=== PATIENT | female | born 1990 | race Caucasian/White ===

== ENCOUNTER 2020-09-17 16:15 | Outpatient (CLI) | payer OTHER, SELFPAY ==
--- NOTE | ~2020-09-17 | US_ITS ---
EXAMINATION: US OB <= 14 weeks fetus DATE: 09/17/2020 17:07 INDICATION: Uncertain dates. TECHNIQUE: Real-time transabdominal pelvic ultrasound was performed. COMPARISON: None. FINDINGS: The uterus measures 15.1 x 7.9 x 9.9 cm. There is an intrauterine gestational sac with two fetuses m easuring 4.1 cm and 4.3 cm, respectively. There is no membrane between the fetuses. The placenta is f undal. The larger fetus demonstrates an estimated gestational age of 11 weeks and 1 days +/- 1 week. The smaller fetus demonstrates an estimated gestational age of 11 weeks and 0 days. heart motio n is identified measuring 169 beats per minute (bpm) and 165 bpm, respectively, by M-mode Doppler. Th e right ovary measures 2.4 x 1.0 x 2.0 cm. The left ovary measures 2.5 x 2.2 x 2.6 cm. There is no fr ee fluid in the pelvis. IMPRESSION: 1. Monochorionic, monoamniotic twin fetuses with estimated date of delivery of 04/07/2021. Reviewed, dictated and finalized at location A. LATING SUPERVISOR
== END 2020-09-17 16:16 | disposition home or self-care (01) ==
LOC: ANHIMG 16:18
PROVIDERS: Visit Provider Obstetrics & Gynecology
DX: Z36.87 Encounter for antenatal screening for uncertain dates (principal); Z3A.00 Weeks of gestation of pregnancy not specified
CPT/HCPCS: 76801

== ENCOUNTER 2020-09-22 17:31 | Emergency (ER) | payer OTHER, SELFPAY ==
--- NOTE | ~2020-09-22 | XR_ITS ---
EXAMINATION: XR chest 2V DATE: 09/22/2020 22:44 INDICATION: Shortness of breath TECHNIQUE: AP and lateral views of the chest are obtained. COMPARISON: None available FINDINGS: The lungs are free of acute opacities. There is no pleural effusion or pneumothorax. The ca rdiomediastinal silhouette is normal. The visualized bones and soft tissues are unremarkable. IMPRESSION: 1. No acute cardiopulmonary abnormality. Reviewed, dictated and finalized at location A. DENTIAL MENTAL HEALTH WORKER
[2020-09-22 19:03] VITALS: BP 160/88; PULSE 93; RESP 16; TEMP 36.7; O2SAT 98
--- NOTE | 2020-09-22 19:06 | ECG_ITS ---
Measurements Intervals [place] Rate: 82 P: 133 MD: 129 QRS: 176 QRSD: 104 T: 177 QT: 338 QTc: 397 Interpretive Statements SINUS RHYTHM ARM LEADS REVERSED ATYPICAL ECG Electronically Signed On 09-22-2020 19:58:06 SENIOR CARE ASSISTANT by Kyle Longoria D.O.
[2020-09-22 19:19] LABS: Basophils Percent Auto 0.3 % (0.2-1.2); Eosinophils Absolute Auto 0.1 K/mm3 (0-0.3); Eosinophils Percent Auto 0.6 % (0-4.4); Hemoglobin 13.6 g/dL (12.0-15.0); Immature Granulocyte Absolute 0.04 K/mm3 (0.00-0.031); Immature Granulocyte Percent A 0.4 % (0-0.5); Lymphocytes Absolute Auto 1.46 K/mm3 (0.9-3.2); Lymphocytes Percent Auto 13.2 % (18.3-44.2); Mean Corpuscular HGB Conc 34.9 g/dl (32-36); Mean Corpuscular Volume 86.1 fl (80-100); Mean Platelet Volume 10.6 fl (7.4-10.4); Monocytes Absolute Auto 0.8 K/mm3 (0.1-0.6); Neutrophils Absolute Auto 8.7 K/mm3 (1.3-6.7); Neutrophils Percent Auto 78.5 % (45.5-73.1); Platelet Count Result 255 k/mm3 (150-375); Red Blood Count 4.53 M/mm3 (4.2-5.4); Red Cell Distribution Width 12.4 % (11.5-14.5); White Blood Count 11.1 K/mm3 (4.5-10.0)
[2020-09-22 19:33] LABS: Anion Gap 7 mmol/L (8-16); Blood Urea Nitrogen 14 mg/dL (7-17); Calcium 9.5 mg/dL (8.4-10.2); Carbon Dioxide 25 mmol/L (22-30); Chloride 104 mmol/L (98-107); Estimated Glomerular Filt Rate > 60; Glucose 111 mg/dL (65-105); Potassium 3.9 mmol/L (3.4-5.0); Sodium 136 mmol/L (137-145)
[2020-09-22 19:53] LABS: Add Urine Microscopic? YES; Appearance Urine Clear (Clear); Bacteria Urine Trace /hpf; Bilirubin Urine Negative (Negative); Blood Urine Negative (Negative); Color Urine Yellow (Yellow); Glucose Urine UA 1+ mg/dL (Negative); Ketones Urine Negative (Negative); Leukocyte Esterase Ur 1+ LEU/UL (Negative); Mucus Urine Rare /lpf; Nitrate Urine Negative (Negative); Protein Urine Negative (Negative); RBC Urine 0-2 /hpf (0-2); Specific Grav Ur 1.026 (1.001-1.035); Squamous Epithelial Cell Urine Occasional /hpf (Few); Urobilinogen Urine Negative mg/dL (<2.0)
--- NOTE | 2020-09-22 21:54 | ED.SOB ---
HPI - SOB/Dyspnea General Chief Complaint: Shortness of Breath/Dyspnea Stated Complaint: 11 weeks preg-multiple issues Time Seen by Provider: 09/22/20 21:51 Source: patient Mode of arrival: ambulatory Limitations: no limitations History of Present Illness HPI Narrative: Patient is a 30-year-old female, at 11 weeks age of gestation, complaining of shortness of breath and elevated heart rate today. Patient denies any chest pain, abdominal pain, nausea, vomiting, vaginal bleeding or discharge. Patient states that she has a history of gestational diabetes. Related Data Allergies Allergy/AdvReac Type Severity Reaction Status Date / Time No Known Allergies Allergy Unknown Verified 04/09/18 14:36 Review of Systems Review of Systems: All systems reviewed & are unremarkable except as noted in HPI and below Constitutional: Constitutional: Denies body ache(s), Denies chills, Denies excessive sweating, Denies fatigue, Denies fever(s), Denies headache(s), Denies lethargy, Denies malaise, Denies weakness and Denies weight loss Eyes: Eyes: Denies blurry vision, Denies change in vision and Denies loss of vision ENT: Denies dizziness, Denies ear discharge, Denies headache(s), Denies lip swelling, Denies epistaxis, Denies nasal congestion, Denies neck pain, Denies throat swelling and Denies tongue swelling Cardiovascular: Cardiovascular: Denies chest pain, Denies chest pain at rest, Denies chest pain with activity, Denies diaphoresis, Denies edema, Denies irregular heart rhythm, Denies lightheadedness, Denies dyspnea and Denies dyspnea on exertion Respiratory: Respiratory: Denies chest congestion, Denies cough and Denies hemoptysis Gastrointestinal: Gastrointestinal: Denies abdominal pain, Denies melena, Denies hematochezia, Denies diarrhea, Denies nausea, Denies vomiting and Denies hematemesis Musculoskeletal: Musculoskeletal: Denies abnormal gait, Denies deformity, Denies joint swelling, Denies limited range of motion, Denies neck pain and Denies numbness Neurologic: Denies Abnormal speech present, Denies abnormal gait, Denies confusion, Denies headache(s), Denies focal weakness, Denies loss of vision, Denies numbness, Denies Other visual disturbances, Denies Sensory deficit (Neuro) and Denies weakness Psychiatric: Psychiatric: Denies confusion, Denies depression, Denies auditory hallucinations, Denies homicidal ideation and Denies suicidal ideation Endocrine: Endocrine: Denies cold intolerance, Denies excessive sweating, Denies fatigue, Denies heat intolerance and Denies palpitations Hematologic/Lymphatic: Hematologic/Lymphatic: Denies easy bleeding and Denies easy bruising Allergic/Immunologic: Allergic/Immunologic: Denies lip swelling, Denies throat swelling and Denies tongue swelling PMFSH Social History Social History Gender identity (if verbalized by the patient): Female Sexual Orientation (if Verbalized by the Patient): Straight or Heterosexual Exam Const: General: cooperative, healthy appearing, comfortable, no acute distress, well developed, alert and awake; No confusion Orientation/consciousness: oriented to person, oriented to place, oriented to time, patient oriented x3 and No confusion Limitations: no limitations HENMT: Head: normal to inspection, normocephalic and atraumatic Ears: hearing grossly normal bilaterally, TM normal on the right and TM normal on the left General nose exam: Normal external nose present, Normal nares present and No nasal discharge present Face and sinus: normal facial exam Mouth: Yes Normal oral and palatal mucosa present, Yes lip normal, Yes tongue normal and Yes oropharynx normal Throat: posterior oropharynx normal, tonsils normal and uvula midline Eyes: General: appearance normal, both eyes and all related structures Pupils: Equal, round and reactive pupils present EOM: EOMs intact bilaterally Neck: Neck: normal visual inspection, full RO
[2020-09-22 22:03] VITALS: BP 129/70; PULSE 99; RESP 19; TEMP 36.6; O2SAT 99
[2020-09-22] MEDS: SODIUM CHLORIDE 0.9% IV 1,000 ML 999 ML IV CONT (22:18)
[2020-09-22 22:37] LABS: INR 0.9; Partial Thromboplastin Time 26.9 SECONDS (22.3-36.8); Prothrombin Time 12.7 Seconds (11.1-14.7)
[2020-09-22 22:40] LABS: D Dimer 0.43 ug/mL (<0.48)
[2020-09-22 23:50] VITALS: BP 140/71; PULSE 92; RESP 16; TEMP 36.6; O2SAT 100
--- NOTE | 2020-09-22 23:55 | ECG_ITS ---
Measurements Intervals [place] Rate: 82 P: 54 DE: 130 QRS: 19 QRSD: 90 T: 6 QT: 386 QTc: 451 Interpretive Statements SINUS RHYTHM BASELINE ARTIFACT- I, II, III, AVR, AVL, AVF, V1 NORMAL ECG Electronically Signed On 09-23-2020 7:15:13 PEDIATRICIAN MANAGING PARTNER by Kyle Longoria D.O.
== END 2020-09-23 00:05 | disposition home or self-care (01) ==
PROVIDERS: Emergency Medicine; Emergency Provider Emergency Medicine
DX: O26.891 Other specified pregnancy related conditions, first trimester (principal); R06.00 Dyspnea, unspecified; R00.2 Palpitations; O23.91 Unspecified genitourinary tract infection in pregnancy, first trimester; Z3A.11 11 weeks gestation of pregnancy
CPT/HCPCS: 36415; 71046; 80048; 81001; 84702; 85025; 85380; 85610; 85730; 93005; 96360; 99284; J7030

== ENCOUNTER 2020-10-10 14:51 | Emergency (ER) | payer OTHER, SELFPAY ==
--- NOTE | ~2020-10-10 | US_ITS ---
US OB <= 14 weeks fetus DATE: 10/10/2020 16:04 INDICATION: Heavy vaginal bleeding and cramping. When gestation. TECHNIQUE: Real-time imaging and Doppler analysis COMPARISON: 09/17/2019 obstetrical ultrasound FINDINGS: Monochorionic mild amniotic twin gestation is again noted with subjectively normal amount o f amniotic fluid. heart rate 157 and 159 bpm for twin A and twin B, respectively. Breech presentation for twin A, transverse lie 4 twin B. Anterior placenta, lower margin 4.6 cm above the internal os Subjectively normal amount of amniotic fluid. There is a 4 x 1.4 x 2 cm subchorionic fluid collection. Twin A: Biparietal diameter 2.6 cm; 15 weeks 1 day Head circumference 10.58 cm; 15 weeks 0 days Abdominal circumference 8.56 cm; 14 weeks 6 days Femur length 1.34 cm; 14 weeks 0 days Composite age by Hadlock formula for twin A is 14 weeks 6 days +/- 1 week with GRACIA of 04/04/2021 melissa red to 04/12/2021 by LMP. Estimated weight is 98.6 +/- 14.8 g Head circumference/abdominal circumference 1.24, within normal range of 1.06-1.38 Twin B: Biparietal diameter 2.71 cm; 14 weeks 6 days Head circumference 10.01 cm; 14 weeks 5 days Abdominal circumference 8.37 cm; 14 weeks 5 days Femur length 1.50 cm; 14 weeks 3 days Composite age by Hadlock formula is 14 weeks 6 days +/- 1 week, with GRACIA of 04/04/2021 compared to 03/24 by LMP. Estimated weight is 101.3 +/- 15 0.2 g Head circumference/abdominal ct scan technician was 1.20, within normal range of 1.06-1.38 IMPRESSION: Monochorionic monoamniotic twin gestation Estimated gestational age: 14 weeks 6 days +/- 1 week; GRACIA: 04/04/2021 4 x 1.4 x 2 cm subchorionic hematoma Reviewed, dictated and finalized at Location A. Reviewed, dictated and finalized at location A.
--- NOTE | ~2020-10-10 | US_ITS ---
US OB <= 14 wk fetus add gest DATE: 10/10/2020 16:04 INDICATION: Heavy vaginal bleeding, cramping. IMPRESSION: Please refer to 10/10/2020 obstetrical ultrasound report Reviewed, dictated and finalized at Location A. Reviewed, dictated and finalized at location A.
[2020-10-10 15:00] VITALS: BP 182/112; PULSE 136; RESP 18; TEMP 36.3; O2SAT 100
--- NOTE | 2020-10-10 15:05 | ED.FEMALEGU ---
HPI - Female Genitourinary General Chief complaint: Vaginal Bleeding Stated complaint: vaginal bleeding, Time Seen by Provider: 10/10/20 15:05 Source: patient, family and RN notes reviewed Mode of arrival: ambulatory Limitations: no limitations History of Present Illness HPI Narrative: 30 years old white female presents to the ED with vaginal bleeding started 30 minutes prior to examination. Associated with tightness and slight cramps in the suprapubic area. Patient is 14 weeks with twin. Patient is 4 para 2 1. Patient reported constipation lately and too much straining prior to the beginning of the vaginal bleeding Related Data Home Medications Medication Instructions Recorded Confirmed [id number] 3-fat com #1 cap PO 10/10/20 [Pre-Mary Alice Multivitamins/Minerals] ergocalciferol (vitamin D2) 10/10/20 Allergies Allergy/AdvReac Type Severity Reaction Status Date / Time No Known Allergies Allergy Unknown Verified 10/10/20 14:58 Review of Systems Review of Systems: Narrative: CONSTITUTIONAL: Denies fever, chills, or sweats. EYES: Denies visual changes, redness, or discharge. ENT: Denies rhinorrhea, congestion, sore throat, or otalgia. CARDIOVASCULAR: Denies chest pain, palpitations, or edema. RESPIRATORY: Denies cough or dyspnea. GASTROINTESTINAL: Denies abdominal pain, nausea, vomiting, or diarrhea. GENITOURINARY: Denies dysuria or hematuria. SKIN: Denies rash or itching. MUSCULOSKELETAL: Denies back pain, joint pain, or myalgia. NEUROLOGIC: Denies headache, numbness, or weakness. PSYCHIATRIC: Denies anxiety or depression. PMFSH Social History Social History Gender identity (if verbalized by the patient): Female Exam Narrative: Exam Narrative: General appearance: Well-developed, well-nourished, anxious Skin: Normal color Head: Normocephalic, nontraumatic Eyes: Clear conjunctiva ENT: Oropharynx normal, ears normal, nose normal Neck: Supple, nontender Chest and respiratory: Airway patent, no respiratory distress, no accessory muscle use Heart: Regular rate/rhythm Abdomen: Soft, nontender, no organomegaly, quiet bowel sounds Vascular: Normal peripheral pulses, normal capillary refill. Musculoskeletal: Normal range of motion, nontender back Neurologic: Alert and oriented ?3, SOCIAL MEDIA PROJECT MANAGER is normal as tested, no gross motor deficit : External Female Exam: normal external appearance Speculum Exam - Vagina: normal appearance of the vagina and vaginal bleeding (Fresh red bright blood required 5 long Q-tip to dry the whole vaginal pouch) Speculum Exam - Cervix: normal appearance of the cervix Bimanual exam- vagina & uterus: normal bimanual exam Course Course Emergency Course: Stable Vital Signs Vital signs: Vital Signs Temperature 36.3 C L 10/10/20 15:00 Pulse Rate 136 H 10/10/20 15:00 Respiratory Rate 18 10/10/20 15:00 Blood Pressure 182/112 H 10/10/20 15:00 Pulse Oximetry 100 10/10/20 15:00 Temperature 36.3 C L 10/10/20 15:00 Pulse Rate 136 H 10/10/20 15:00 Respiratory Rate 18 10/10/20 15:00 Blood Pressure 182/112 H 10/10/20 15:00 Pulse Oximetry 100 10/10/20 15:00 MDM - Female Genitourinary MDM Narrative Medical decision making narrative: Vaginal bleeding, 14 weeks , threatened is my concern. Pelvic exam, pelvic ultrasound, labs ordered. Further plan to follow Differential Diagnosis Differential diagnosis: Likely other (Threatened , incomplete , miscarriage,) Critical Care Time Critical Care Time Critical Care Time: No Discharge Plan Discharge Clinical Impression:
[2020-10-10 16:14] VITALS: BP 138/77; PULSE 98; RESP 16; O2SAT 100
[2020-10-10 16:14] LABS: Basophils Percent Auto 0.2 % (0.2-1.2); Eosinophils Absolute Auto 0.1 K/mm3 (0-0.3); Eosinophils Percent Auto 0.6 % (0-4.4); Hematocrit 36.3 % (37.0-47.0); Hemoglobin 12.3 g/dL (12.0-15.0); Immature Granulocyte Absolute 0.09 K/mm3 (0.00-0.031); Immature Granulocyte Percent A 0.8 % (0-0.5); Lymphocytes Absolute Auto 1.41 K/mm3 (0.9-3.2); Lymphocytes Percent Auto 12.3 % (18.3-44.2); Mean Corpuscular HGB Conc 33.9 g/dl (32-36); Mean Corpuscular Hemoglobin 29.5 pg (26-34); Mean Corpuscular Volume 87.1 fl (80-100); Mean Platelet Volume 10.3 fl (7.4-10.4); Monocytes Absolute Auto 0.8 K/mm3 (0.1-0.6); Neutrophils Absolute Auto 9.1 K/mm3 (1.3-6.7); Neutrophils Percent Auto 79.1 % (45.5-73.1); Platelet Count Result 229 k/mm3 (150-375); Red Blood Count 4.17 M/mm3 (4.2-5.4); Red Cell Distribution Width 12.5 % (11.5-14.5); White Blood Count 11.5 K/mm3 (4.5-10.0)
[2020-10-10] MEDS: RHO(D) IMMUNE GLOBULIN 300 MCG/2 ML SYRINGE IM (17:34)
[2020-10-10 17:37] VITALS: BP 129/70; PULSE 97; RESP 18; O2SAT 100
== END 2020-10-10 17:40 | disposition home or self-care (01) ==
PROVIDERS: Emergency Provider Emergency Medicine
DX: O20.0 Threatened abortion (principal); Z3A.14 14 weeks gestation of pregnancy; O99.612 Diseases of the digestive system complicating pregnancy, second trimester; K59.00 Constipation, unspecified
CPT/HCPCS: 36415; 76801; 76802; 84702; 85025; 85461; 90384; 96372; 99284; J2790

== ENCOUNTER 2020-10-15 19:14 | Emergency (ER) | payer OTHER, SELFPAY ==
[2020-10-15 19:18] VITALS: BP 132/68; PULSE 112; RESP 18; TEMP 36.8; O2SAT 97
--- NOTE | 2020-10-15 19:51 | ED.DIZZY ---
HPI - Dizziness General Chief Complaint: Dizziness Stated Complaint: vertigo/ ear issues/ yellow stools Time Seen by Provider: 10/15/20 19:50 Source: patient and RN notes reviewed Mode of arrival: ambulatory Limitations: no limitations History of Present Illness HPI Narrative: Patient is 30 years old white female presents with intermittent dizziness, feeling off for the last 4 weeks. Patient is 15 weeks . Patient was started on Zoloft yesterday and did not get the prescription yet. Last time was seen by her DRY HOUSE WORKER yesterday. Patient's mother had history of bipolar. Patient used to be on Zoloft 6 years ago. Patient also reported that her left ear hurt for the last few weeks was left maxillary sinus pain and her stool is yellow. Patient denies any fever, chills, vomiting, diarrhea, constipation, urinary symptoms. Patient was seen 1 week ago by me for vaginal bleeding. Related Data Home Medications Medication Instructions Recorded Confirmed [id number] 3-fat com #1 cap PO 10/10/20 [Pre-Mary Alice Multivitamins/Minerals] ergocalciferol (vitamin D2) 10/10/20 Allergies Allergy/AdvReac Type Severity Reaction Status Date / Time No Known Allergies Allergy Unknown Verified 10/10/20 14:58 Review of Systems Review of Systems: Narrative: CONSTITUTIONAL: Denies fever, chills, or sweats. EYES: Denies visual changes, redness, or discharge. ENT: Denies rhinorrhea, congestion, sore throat, or otalgia. CARDIOVASCULAR: Denies chest pain, palpitations, or edema. RESPIRATORY: Denies cough or dyspnea. GASTROINTESTINAL: Denies abdominal pain, nausea, vomiting, or diarrhea. GENITOURINARY: Denies dysuria or hematuria. SKIN: Denies rash or itching. MUSCULOSKELETAL: Denies back pain, joint pain, or myalgia. NEUROLOGIC: Denies headache, numbness, or weakness. PSYCHIATRIC: Denies anxiety or depression. PMFSH Social History Social History Gender identity (if verbalized by the patient): Female Exam Narrative: Exam Narrative: General appearance: Well-developed, well-nourished Skin: Normal color Head: Normocephalic, nontraumatic Eyes: Clear conjunctiva ENT: Oropharynx normal, some wax at the left ear canal , moderate tenderness left maxillary ,nose normal Neck: Supple, nontender Chest and respiratory: Airway patent, no respiratory distress, no accessory muscle use Heart: Regular rate/rhythm Abdomen: Soft, nontender, no organomegaly, quiet bowel sounds Vascular: Normal peripheral pulses, normal capillary refill. Musculoskeletal: Normal range of motion, nontender back Neurologic: Alert and oriented ?3, CAUSTIC LIQUOR MAKER is normal as tested, no gross motor deficit Course Course Emergency Course: Stable Reevaluation(s) Reevaluation #1: Left ear irrigation showed no wax or productive Date: 10/15/20 Time: 21:44 Vital Signs Vital signs: Vital Signs Temperature 36.8 C 10/15/20 19:18 Pulse Rate 112 H 10/15/20 19:18 Respiratory Rate 18 10/15/20 19:18 Blood Pressure 132/68 10/15/20 19:18 Pulse Oximetry 97 10/15/20 19:18 Temperature 36.8 C 10/15/20 19:18 Pulse Rate 112 H 10/15/20 19:18 Respiratory Rate 18 10/15/20 19:18 Blood Pressure 132/68 10/15/20 19:18 Pulse Oximetry 97 10/15/20 19:18 MDM - Dizziness MDM Narrative Medical decision making narrative: Stress related symptoms, orthostatic hypotension, related symptoms, are my concern. Labs, UA, left ear irrigation ordered. Further plan to follow Differential Diagnosis Differential diagnosis: Likely orthostatic hypotension and other ( related symptoms, urinary tract infection) Critical Care Time Critical
--- NOTE | 2020-10-15 20:34 | PC.NURSE ---
ear flushed with copious amount of warm water
[2020-10-15 20:42] LABS: Basophils Percent Auto 0.2 % (0.2-1.2); Eosinophils Absolute Auto 0.1 K/mm3 (0-0.3); Eosinophils Percent Auto 0.7 % (0-4.4); Hematocrit 36.3 % (37.0-47.0); Hemoglobin 12.3 g/dL (12.0-15.0); Immature Granulocyte Absolute 0.07 K/mm3 (0.00-0.031); Immature Granulocyte Percent A 0.6 % (0-0.5); Lymphocytes Absolute Auto 1.57 K/mm3 (0.9-3.2); Lymphocytes Percent Auto 13.8 % (18.3-44.2); Mean Corpuscular HGB Conc 33.9 g/dl (32-36); Mean Corpuscular Hemoglobin 29.4 pg (26-34); Mean Corpuscular Volume 86.8 fl (80-100); Mean Platelet Volume 10.9 fl (7.4-10.4); Monocytes Absolute Auto 0.8 K/mm3 (0.1-0.6); Monocytes Percent Auto 6.7 % (2.6-8.5); Neutrophils Absolute Auto 8.9 K/mm3 (1.3-6.7); Platelet Count Result 254 k/mm3 (150-375); Red Blood Count 4.18 M/mm3 (4.2-5.4); Red Cell Distribution Width 12.3 % (11.5-14.5); White Blood Count 11.4 K/mm3 (4.5-10.0)
[2020-10-15 20:48] LABS: Alanine Aminotransferase 18 U/L (4-35); Albumin Level 3.7 g/dL (3.5-5.1); Alkaline Phosphatase 77 U/L (38-126); Anion Gap 7 mmol/L (8-16); Aspartate Amino Transferase 22 U/L (14-36); Bilirubin,Total < 0.1 mg/dL (0.2-1.3); Blood Urea Nitrogen 12 mg/dL (7-17); Carbon Dioxide 26 mmol/L (22-30); Chloride 104 mmol/L (98-107); Estimated CRCL calculation 164 ml/min; Estimated Glomerular Filt Rate > 60; Glucose 132 mg/dL (65-105); Potassium 3.9 mmol/L (3.4-5.0); Sodium 137 mmol/L (137-145)
[2020-10-15 21:06] LABS: Add Urine Microscopic? YES; Appearance Urine Clear (Clear); Bacteria Urine Trace /hpf; Bilirubin Urine Negative (Negative); Blood Urine 1+ (Negative); Color Urine Yellow (Yellow); Glucose Urine UA 3+ mg/dL (Negative); Ketones Urine Negative (Negative); Leukocyte Esterase Ur Negative LEU/UL (Negative); Mucus Urine Rare /lpf; Nitrate Urine Negative (Negative); Protein Urine Negative (Negative); RBC Urine 0-2 /hpf (0-2); Specific Grav Ur 1.015 (1.001-1.035); Squamous Epithelial Cell Urine Rare /hpf (Few); Urobilinogen Urine Negative mg/dL (<2.0); WBC Urine 0-3 /hpf
[2020-10-15 21:57] VITALS: BP 122/78; PULSE 78; RESP 18; O2SAT 99
== END 2020-10-15 21:58 | disposition home or self-care (01) ==
PROVIDERS: Emergency Provider Emergency Medicine
DX: O99.891 Other specified diseases and conditions complicating pregnancy (principal); H66.92 Otitis media, unspecified, left ear; O26.892 Other specified pregnancy related conditions, second trimester; R42 Dizziness and giddiness; Z3A.15 15 weeks gestation of pregnancy
CPT/HCPCS: 36415; 80053; 81001; 85025; 99283

== ENCOUNTER 2020-10-20 17:32 | Emergency (ER) | payer OTHER, SELFPAY ==
[2020-10-20 17:39] VITALS: BP 162/83; PULSE 123; RESP 16; TEMP 36.4; O2SAT 99
[2020-10-20 18:20] LABS: Basophils Percent Auto 0.2 % (0.2-1.2); Eosinophils Absolute Auto 0.2 K/mm3 (0-0.3); Eosinophils Percent Auto 1.4 % (0-4.4); Hemoglobin 12.4 g/dL (12.0-15.0); Immature Granulocyte Absolute 0.09 K/mm3 (0.00-0.031); Immature Granulocyte Percent A 0.7 % (0-0.5); Lymphocytes Absolute Auto 1.46 K/mm3 (0.9-3.2); Mean Corpuscular HGB Conc 34.4 g/dl (32-36); Mean Corpuscular Hemoglobin 29.4 pg (26-34); Mean Corpuscular Volume 85.3 fl (80-100); Mean Platelet Volume 10.3 fl (7.4-10.4); Monocytes Absolute Auto 0.7 K/mm3 (0.1-0.6); Monocytes Percent Auto 5.4 % (2.6-8.5); Neutrophils Absolute Auto 9.8 K/mm3 (1.3-6.7); Neutrophils Percent Auto 80.3 % (45.5-73.1); Platelet Count Result 257 k/mm3 (150-375); Red Blood Count 4.22 M/mm3 (4.2-5.4); Red Cell Distribution Width 12.4 % (11.5-14.5); White Blood Count 12.2 K/mm3 (4.5-10.0)
[2020-10-20 18:33] LABS: Alanine Aminotransferase 24 U/L (4-35); Albumin Level 4.1 g/dL (3.5-5.1); Alkaline Phosphatase 88 U/L (38-126); Anion Gap 6 mmol/L (8-16); Aspartate Amino Transferase 26 U/L (14-36); Bilirubin,Total 0.1 mg/dL (0.2-1.3); Blood Urea Nitrogen 10 mg/dL (7-17); Calcium 8.7 mg/dL (8.4-10.2); Carbon Dioxide 26 mmol/L (22-30); Chloride 104 mmol/L (98-107); Estimated CRCL calculation 209 ml/min; Estimated Glomerular Filt Rate > 60; Glucose 125 mg/dL (65-105); Potassium 3.4 mmol/L (3.4-5.0); Sodium 136 mmol/L (137-145)
[2020-10-20 18:42] LABS: Add Urine Microscopic? YES; Appearance Urine Cloudy (Clear); Bacteria Urine Trace /hpf; Bilirubin Urine Negative (Negative); Blood Urine 3+ (Negative); Color Urine Yellow (Yellow); Glucose Urine UA 2+ mg/dL (Negative); Ketones Urine Negative (Negative); Leukocyte Esterase Ur Negative LEU/UL (Negative); Mucus Urine Rare /lpf; Nitrate Urine Negative (Negative); Protein Urine 1+ mg/dL (Negative); RBC Urine 0-2 /hpf (0-2); Specific Grav Ur 1.025 (1.001-1.035); Squamous Epithelial Cell Urine Few /hpf (Few); Urobilinogen Urine Negative mg/dL (<2.0); WBC Urine 0-3 /hpf
[2020-10-20 19:00] VITALS: BP 136/72; PULSE 94; RESP 14; O2SAT 99
--- NOTE | 2020-10-20 20:21 | ED.GENADULT ---
HPI - General Adult General Chief complaint: Unspecified Stated complaint: needs fluids Time Seen by Provider: 10/20/20 18:26 History of Present Illness HPI narrative: Patient is a 30-year-old female who presents ER for IV fluid per recommendation of her rn corrections. Patient 15 weeks in gestation. Patient had been on some antibiotics for potential ear infection. She has developed diarrhea from this. She has 5 loose stools a day over the last couple of days. They vary in size. No fevers or chills or sweats. No abdominal pain. No vaginal bleeding or lower abdominal cramping. Related Data Home Medications Medication Instructions Recorded Confirmed [id number]-[id number]-omega 3-fat com #1 cap PO 10/10/20 [Pre-Mary Alice Multivitamins/Minerals] ergocalciferol (vitamin D2) 10/10/20 Allergies Allergy/AdvReac Type Severity Reaction Status Date / Time No Known Allergies Allergy Unknown Verified 10/10/20 14:58 Review of Systems Constitutional: Constitutional: Denies chills and Denies fever(s) ENT: Reports dizziness (Occasional throughout .), Denies nasal congestion, Denies tinnitus and Denies sore throat Gastrointestinal: Gastrointestinal: Denies abdominal pain, Reports diarrhea, Denies nausea and Denies vomiting Genitourinary: Genitourinary: Reports no additional female genitourinary complaints PMFSH Past Medical History Medical History (Updated 10/20/20 @ 20:24 by Victor M Worley MD) Anxiety Surgical History Surgical History (Updated 10/20/20 @ 20:23 by Victor M Worley MD) No pertinent past surgical history Social History Social History Gender identity (if verbalized by the patient): Female Exam Narrative: Exam Narrative: GENERAL: Well-appearing, well-nourished, and in no acute distress. HEAD: Normocephalic, atraumatic. ENT: Mucous membranes moist. Left-sided cerumen impaction. Normal right TM and ear canal. CHEST: Clear to auscultation. No respiratory distress. HEART: Regular rate and rhythm. Normal peripheral pulses. ABDOMEN: Soft, nontender, nondistended. EXTREMITIES: Normal range of motion. No edema. NEURO: Alert and oriented x3. PSYCH: Normal mood and affect. Course Course Emergency Course: Patient informed of results. She has been hydrated. Discussed that she may be having some intermittent lightheadedness related to the cerumen impaction left ear. Discharge home with some Debrox. Vital Signs Vital signs: Vital Signs Temperature 97.5 F L 10/20/20 17:39 Pulse Rate 123 H 10/20/20 17:39 Respiratory Rate 16 10/20/20 17:39 Blood Pressure 162/83 H 10/20/20 17:39 Pulse Oximetry 99 10/20/20 17:39 Temperature 97.5 F L 10/20/20 17:39 Pulse Rate 94 10/20/20 19:00 Respiratory Rate 14 10/20/20 19:00 Blood Pressure 136/72 10/20/20 19:00 Pulse Oximetry 99 10/20/20 19:00 Medical Decision Making Vital Signs Vital Signs: Vital Signs Temperature 97.5 F L 10/20/20 17:39 Pulse Rate 123 H 10/20/20 17:39 Respiratory Rate 16 10/20/20 17:39 Blood Pressure 162/83 H 10/20/20 17:39 Pulse Oximetry 99 10/20/20 17:39 Temperature 97.5 F L 10/20/20 17:39 Pulse Rate 94 10/20/20 19:00 Respiratory Rate 14 10/20/20 19:00 Blood Pressure 136/72 10/20/20 19:00 Pulse Oximetry 99 10/20/20 19:00 Lab Data Result diagrams: 10/20/20 17:50 10/20/20 17:50 Labs: Lab Results 10/20/20 10/20/20 10/20/20 Range/Units 17:50 17:50 17:56 WBC 12.2 H (4.5-10.0) K/mm3 RBC 4.22 (4.2-5.4) M/mm3 Hgb 12.4 (12.0-15.0) g/dL Hct 36.0 L (37.0-47.0) % MCV 85.3 (80-100) fl MCH 29.4 (26-34) pg MCHC 34.4 (32-36) g/dl RDW 12.4 (11.5-14.5) % Plt Count 257 (150-375) k/mm3 MPV 10.3 (7.4-10.4) fl Immature Gran % (Auto) 0.7 H (0-0.5) % Neut % (Auto) 80.3 H (45.5-73.1) % Lymph % (Auto) 12.0 L (18.3-44.2) % [place] % (Au
[2020-10-20 20:23] VITALS: PULSE 98; RESP 14; O2SAT 100
[2020-10-20] MEDS: SODIUM CHLORIDE 0.9% IV 1,000 ML 999 ML IV CONT (20:23)
[2020-10-20 20:24] VITALS: PULSE 98
[2020-10-20 21:47] VITALS: BP 144/77; PULSE 90; RESP 20; O2SAT 99
== END 2020-10-20 21:52 | disposition home or self-care (01) ==
PROVIDERS: Emergency Medicine; Emergency Provider Emergency Medicine; PCP Obstetrics & Gynecology
DX: O99.891 Other specified diseases and conditions complicating pregnancy (principal); H61.22 Impacted cerumen, left ear; R19.7 Diarrhea, unspecified; Z3A.15 15 weeks gestation of pregnancy
CPT/HCPCS: 36415; 80053; 81001; 85025; 96360; 99283; J7030

== ENCOUNTER 2020-10-25 12:11 | Emergency (ER) | payer OTHER, SELFPAY ==
[2020-10-25] VITALS (16 sets, daily range): BP systolic 129–167; BP diastolic 64–98; PULSE 95–112; RESP 6–31; TEMP 36.6; O2SAT 97–100
--- NOTE | ~2020-10-25 | XR_ITS ---
EXAMINATION: XR chest 1V portable INDICATION: Tachycardia TECHNIQUE: Portable AP chest at 1512 hours COMPARISON: 09/22/2020 FINDINGS: The lungs are free of acute opacities. There is no pleural effusion or pneumothorax. The ca rdiomediastinal silhouette is normal. IMPRESSION: 1. No acute cardiopulmonary abnormality. Reviewed, dictated and finalized at location A.
--- NOTE | 2020-10-25 12:36 | ECG_ITS ---
Measurements Intervals [place] Rate: 94 P: 50 IN: 126 QRS: 13 QRSD: 88 T: 3 QT: 328 QTc: 412 Interpretive Statements SINUS RHYTHM BORDERLINE ST-T WAVE ABNORMALITY- INFERIOR LEADS BASELINE WANDER- V3 BORDERLINE ECG Electronically Signed On 10-25-2020 12:50:15 CDT by Kyle Longoria D.O.
[2020-10-25 16:16] LABS: Basophils Percent Auto 0.3 % (0.2-1.2); Eosinophils Absolute Auto 0.2 K/mm3 (0-0.3); Eosinophils Percent Auto 1.9 % (0-4.4); Hemoglobin 12.9 g/dL (12.0-15.0); Immature Granulocyte Percent A 0.9 % (0-0.5); Lymphocytes Absolute Auto 1.41 K/mm3 (0.9-3.2); Mean Corpuscular HGB Conc 33.9 g/dl (32-36); Mean Corpuscular Hemoglobin 29.1 pg (26-34); Mean Corpuscular Volume 85.6 fl (80-100); Mean Platelet Volume 10.2 fl (7.4-10.4); Monocytes Absolute Auto 0.7 K/mm3 (0.1-0.6); Monocytes Percent Auto 6.1 % (2.6-8.5); Neutrophils Absolute Auto 9.2 K/mm3 (1.3-6.7); Neutrophils Percent Auto 78.8 % (45.5-73.1); Platelet Count Result 268 k/mm3 (150-375); Red Blood Count 4.44 M/mm3 (4.2-5.4); Red Cell Distribution Width 12.5 % (11.5-14.5); White Blood Count 11.7 K/mm3 (4.5-10.0)
[2020-10-25 16:30] LABS: Anion Gap 5 mmol/L (8-16); Blood Urea Nitrogen 9 mg/dL (7-17); Calcium 8.9 mg/dL (8.4-10.2); Carbon Dioxide 27 mmol/L (22-30); Chloride 104 mmol/L (98-107); Estimated CRCL calculation 252 ml/min; Estimated Glomerular Filt Rate > 60; Glucose 104 mg/dL (65-105); Potassium 3.4 mmol/L (3.4-5.0); Sodium 136 mmol/L (137-145)
[2020-10-25 16:40] LABS: INR 0.9; Prothrombin Time 12.4 Seconds (11.1-14.7)
[2020-10-25 16:41] LABS: Partial Thromboplastin Time 25.7 SECONDS (22.3-36.8); Troponin I < 0.012 ng/mL (0.000-0.034)
[2020-10-25 17:00] LABS: Thyroid Stimulating Hormone 0.865 uIU/mL (0.465-4.680)
--- NOTE | 2020-10-25 17:42 | ED.GENADULT ---
HPI - General Adult General Chief complaint: Unspecified Stated complaint: red, tingling face Time Seen by Provider: 10/25/20 13:38 Source: patient Mode of arrival: ambulatory Limitations: no limitations History of Present Illness HPI narrative: Patient is 16 weeks with twins with chief complaint of feeling as if her face is swollen and flushed as well as her feet.She states she was up on her feet a lot yesterday. She states she was put on bedrest due to vaginal bleeding in . She denies present bleeding or contractions. She denies chest pain, sob, nausea, vomiting, diarrhea. She reported at check in she has chest pain but states she thinks it may be her reflux which her OB is starting her on medicine for. Patient states she has been able to eat and drink regularly. Related Data Home Medications Medication Instructions Recorded Confirmed [id number] 3-fat com #1 cap PO 10/10/20 [Pre-Mary Alice Multivitamins/Minerals] ergocalciferol (vitamin D2) 10/10/20 Allergies Allergy/AdvReac Type Severity Reaction Status Date / Time No Known Allergies Allergy Unknown Verified 10/25/20 12:37 Review of Systems Review of Systems: Narrative: CONSTITUTIONAL: Denies fever, chills, or sweats. EYES: Denies visual changes, redness, or discharge. ENT: Reports reflux Denies rhinorrhea, congestion, or otalgia. CARDIOVASCULAR: Denies chest pain, palpitations, or edema. RESPIRATORY: Denies cough or dyspnea. GASTROINTESTINAL: Denies abdominal pain, nausea, vomiting, or diarrhea. GENITOURINARY: Denies dysuria or hematuria. SKIN: Denies rash or itching. MUSCULOSKELETAL: Reports swelling Denies back pain, joint pain, or myalgia. NEUROLOGIC: Denies headache, numbness, dizziness, or weakness. PSYCHIATRIC: Denies anxiety or depression. COUNTS INCLUDE 234 BEDS AT THE [facility] Past Medical History Medical History (Updated 10/25/20 @ 17:33 by Radha Soni PA-C) Anxiety Surgical History Surgical History (Updated 10/20/20 @ 20:23 by Victor M Worley MD) No pertinent past surgical history Social History Social History Gender identity (if verbalized by the patient): Female Exam Narrative: Exam Narrative: GENERAL: Well-appearing, well-nourished, and in no acute distress. HEAD: Normocephalic, atraumatic. EYES: PERRLA and EOMI. ENT: No swelling or erythema appreciated to the face. Nares clear, no rhinorrhea or epistaxis. Mucous membranes moist. Oropharynx without tonsillar hypertrophy exudate or other lesions. Bilateral TMs pearly mathias nonbulging NECK: Supple. No adenopathy or masses. CHEST: Clear to auscultation. No respiratory distress. No wheezes rales or rhonchi HEART: Regular rate and rhythm. No murmur heard. Normal peripheral pulses. ABDOMEN: Soft, nontender, nondistended, normal active bowel sounds. EXTREMITIES: Normal range of motion. No edema. SKIN: Warm, dry, no rash. NEURO: No focal deficits. Alert and oriented x3. PSYCH: Anxious Course Vital Signs Vital signs: Vital Signs Temperature 97.9 F 10/25/20 12:32 Pulse Rate 112 H 10/25/20 12:32 Respiratory Rate 18 10/25/20 12:32 Blood Pressure 167/98 H 10/25/20 12:32 Pulse Oximetry 100 10/25/20 12:32 Temperature 97.9 F 10/25/20 12:32 Pulse Rate 103 H 10/25/20 16:08 Respiratory Rate 15 10/25/20 16:08 Blood Pressure 138/80 10/25/20 16:08 Pulse Oximetry 98 10/25/20 16:08 Medical Decision Making [facility] Narrative Medical decision making narrative: Patient delivered she was elevated when she first arrived but has been taking and is now normalized. Patient seems less anxious. Consult with patient's VISITOR USE ASSISTANT discussed patient presenting complaints and ER work-up. She states that the patient needs to begin her Zoloft and follow-up with her in the office as they have weekly appointments. The patient apparently has complications that will require her to be admitted to the hospital at 24 weeks until s
== END 2020-10-25 18:21 | disposition home or self-care (01) ==
PROVIDERS: Physician Assistant; Emergency Provider Emergency Medicine
DX: O99.712 Diseases of the skin and subcutaneous tissue complicating pregnancy, second trimester (principal); Z3A.16 16 weeks gestation of pregnancy; L53.9 Erythematous condition, unspecified; O90.89 Other complications of the puerperium, not elsewhere classified; R20.2 Paresthesia of skin; R23.2 Flushing
CPT/HCPCS: 36415; 71045; 80048; 84443; 84484; 85025; 85610; 85730; 93005; 99284

== ENCOUNTER 2021-02-12 12:01 | Outpatient (RCR) | payer OTHER, SELFPAY ==
[2021-02-12 12:43] LABS: Hematocrit 30.9 % (37.0-47.0); Hemoglobin 9.4 g/dL (12.0-15.0)
[2021-02-12 12:47] LABS: Hemoglobin A1C 5.7 % (<5.7)
[2021-02-12 13:30] LABS: HIV 1/2 Ab P24 Ag Result Negative (Negative)
[2021-02-12] MEDS: RHO(D) IMMUNE GLOBULIN 300 MCG/2 ML SYRINGE IM (16:16)
== END 2021-05-13 23:59 | disposition home or self-care (01) ==
LOC: ANHLAB 12:01
PROVIDERS: Visit Provider Obstetrics & Gynecology
DX: Z29.13 Encounter for prophylactic Rho(D) immune globulin (principal); Z11.4 Encounter for screening for human immunodeficiency virus [HIV]; O36.0120 Maternal care for anti-D [Rh] antibodies, second trimester, not applicable or unspecified; Z3A.00 Weeks of gestation of pregnancy not specified
CPT/HCPCS: 36415; 83036; 85014; 85018; 85461; 86703; 90384; 96372; G0432; J2790

== ENCOUNTER 2021-02-17 10:24 | Outpatient (RCR) | payer OTHER, SELFPAY ==
[2021-02-17 11:51] VITALS: BP 114/64; PULSE 96
== END 2021-03-15 08:29 | disposition home or self-care (01) ==
LOC: ANHOBOP 10:24
PROVIDERS: Visit Provider Obstetrics & Gynecology
DX: O30.003 Twin pregnancy, unspecified number of placenta and unspecified number of amniotic sacs, third trimester (principal); Z3A.32 32 weeks gestation of pregnancy
CPT/HCPCS: 59025

== ENCOUNTER 2021-02-28 09:54 | Outpatient (CLI) | payer OTHER, SELFPAY ==
[2021-02-28 11:30] LABS: Vitamin D 25 Hydroxy 53.7 ng/mL
== END 2021-02-28 09:55 | disposition home or self-care (01) ==
LOC: ANHLAB 09:56
PROVIDERS: Visit Provider Obstetrics & Gynecology
DX: Z34.92 Encounter for supervision of normal pregnancy, unspecified, second trimester (principal); Z3A.00 Weeks of gestation of pregnancy not specified
CPT/HCPCS: 36415; 82306

== ENCOUNTER 2021-03-09 11:30 | Outpatient (RCR) | payer OTHER, SELFPAY ==
[2021-03-02 13:11] VITALS: BP 154/78; PULSE 80; RESP 20; TEMP 36.6; O2SAT 100
--- NOTE | 2021-03-02 13:51 | PC.NURSE ---
Treatment cancelled due to inability to obtain IV access. Next appointment to be coordinated with Alysia Katz.
[2021-03-09 11:34] VITALS: BP 146/80; PULSE 80; RESP 16; TEMP 36.4; O2SAT 98
[2021-03-09] MEDS: ACETAMINOPHEN 325 MG TABLET 650 MG PO (11:47)
[2021-03-09] MEDS: diphenhydrAMINE HCl INJ 50 MG/ML VIAL 25 MG IV PUSH (11:48)
[2021-03-09] MEDS: IRON SUCROSE COMPLEX 100 MG in SODIUM CHLORIDE 0.9% IV 95 ML 400 MG IVPB (11:57)
[2021-03-09 12:34] VITALS: BP 136/71
== END 2021-03-17 15:35 ==
LOC: AMCINF 11:30
PROVIDERS: Referring Provider Obstetrics & Gynecology; Visit Provider Internal Medicine Hematology & Oncology
DX: D50.9 Iron deficiency anemia, unspecified (principal); O13.9 Gestational [pregnancy-induced] hypertension without significant proteinuria, unspecified trimester; O24.419 Gestational diabetes mellitus in pregnancy, unspecified control; O30.039 Twin pregnancy, monochorionic/diamniotic, unspecified trimester; Z87.891 Personal history of nicotine dependence; Z3A.00 Weeks of gestation of pregnancy not specified
CPT/HCPCS: 96374; 96375; 99212; A9270; G0463; J1200; J1756

== ENCOUNTER 2021-03-11 01:55 | Inpatient (IN) | payer OTHER, SELFPAY ==
--- NOTE | 2021-03-07 16:12 | PC.NURSE ---
HAVING TWINS--PATIENT STATES BOTH BABIES ARE HEAD DOWN AND DR HAYDEN PLANS TO DO VAGINAL DELIVERY
[2021-03-11] VITALS (15 sets, daily range): BP systolic 124–158; BP diastolic 59–84; PULSE 64–109; RESP 16–18; TEMP 36.3–37.1; O2SAT 96–100
[2021-03-11] MEDS: LACTATED RINGERS 1,000 ML 125 ML IV CONT (02:27)
[2021-03-11] MEDS: AMPICILLIN 2 GM/NS 100 ML 2 GM/100 ML BAG IVPB (02:28)
[2021-03-11 02:33] LABS: Basophils Absolute Auto 0.1 K/mm3 (0.0-0.1); Basophils Percent Auto 0.6 % (0.2-1.2); Eosinophils Absolute Auto 0.1 K/mm3 (0-0.3); Eosinophils Percent Auto 1.1 % (0-4.4); Hematocrit 27.8 % (37.0-47.0); Hemoglobin 8.3 g/dL (12.0-15.0); Immature Granulocyte Absolute 0.74 K/mm3 (0.00-0.031); Immature Granulocyte Percent A 7.1 % (0-0.5); Lymphocytes Absolute Auto 1.67 K/mm3 (0.9-3.2); Lymphocytes Percent Auto 16.1 % (18.3-44.2); Mean Corpuscular HGB Conc 29.9 g/dl (32-36); Mean Corpuscular Hemoglobin 22.9 pg (26-34); Mean Corpuscular Volume 76.6 fl (80-100); Mean Platelet Volume 11.6 fl (7.4-10.4); Monocytes Absolute Auto 0.8 K/mm3 (0.1-0.6); Monocytes Percent Auto 7.9 % (2.6-8.5); Neutrophils Percent Auto 67.2 % (45.5-73.1); Nucleated Red Blood Cells Absolute Auto 0.3 K/mm3 (0.0-0.012); Nucleated Red Blood Cells Perc 2.4 % (0.0-0.2); Platelet Count Result 178 k/mm3 (150-375); Red Blood Count 3.63 M/mm3 (4.2-5.4); Red Cell Distribution Width 18.1 % (11.5-14.5); White Blood Count 10.4 K/mm3 (4.5-10.0)
[2021-03-11 02:40] LABS: Large Platelets Present; Platelet Estimate Adequate (Adequate)
[2021-03-11 02:41] LABS: Stomatocytes 1+ (NORMAL)
[2021-03-11] MEDS: OXYTOCIN 30 UNITS/NS 500 ML 30 UNITS/500 ML BAG 999 UNITS IV CONT (03:10)
--- NOTE | 2021-03-11 03:25 | WPDOBADMIT ---
Obstetrics - Admit Note Admission Note: record reviewed. No pertinent additions to the history and/or any subsequent changes in the physical findings that are not consistent with the expected course of the were found. Additions to the history and/or subsequent changes in the physical findings follow. IUP mono/di twins at 35 4/7 wks with SROM in active labor. 6 cm on arrival and quickly progressed to complete. On my arrival patient very uncomfortable and complete in the labor room. No time for epidural or to move to OR.
--- NOTE | 2021-03-11 03:26 | P.PCNOB_ITS ---
OB - Delivery Note Procedure Delivery date: 03/11/21 Procedure: twins mono/di Intrapartal events: None Induction method: none Delivery monitor: external FHT (A- internal for B) and external uterine Route of delivery: (x 2) Laceration Description: Perineal - 2nd Degree Delivery repair: vicryl (3-0 ) Specimen: Yes (placenta fused) Quantitative Blood Loss (ml): 300 Anesthesia type: Local Disposition: floor [place] Baby Date of : 03/11/21 Weeks of gestation at delivery: 35 gender: Male Weight (pounds): 6 Weight (ounces): 4 presentation: vertex position: Right Occiput Anterior Placenta delivery description: Spontaneous cord vessel description: 3 Vessels score one minute: 8 score five minutes: 8 Twins B: Date of : 03/11/21 Weeks of gestation at delivery: 35 Infant gender: Male Weight (pounds): 6 Weight (ounces): 5 presentation: vertex position: Left Occiput Anterior Placental delivery description: Spontaneous cord vessel description: Around Body x1 score one minute: 7 score five minutes: 9
--- NOTE | 2021-03-11 03:29 | PM.OBDSVD ---
DS: Admitting Diagnosis Admitting Diagnosis IUP 35 4/7 wks [place]/di twins PROM DS: Discharge Diagnosis Discharge Diagnosis (1) Monochorionic diamniotic twin gestation: Code(s): O30.039 - Twin , monochorionic/diamniotic, unspecified trimester Status: Acute (2) (normal spontaneous vaginal delivery): Code(s): O80 - Encounter for full-term uncomplicated delivery Status: Acute (3) GDM, class A2: Code(s): O24.419 - Gestational diabetes mellitus in , unspecified control Status: Acute OB - DS: Summary OB Procedures : NST and Ultrasound OB Procedures Intrapartum: Spontaneous Vag Delivery (x 2) OB Procedures: : None Peripartum Data Infant Delivery Method: Natural Vaginal Laceration Description: Perineal - 2nd Degree complications: none Status at Discharge Functional status at discharge: independent ambulation Overall status at discharge: patient is progressing back to baseline Time Spent with Patient Time attestation: Total time spent providing and/or coordinating discharge services: DS: Data Data Completed and Pending Labs on day of discharge: Labs from last 24 hours 03/11/21 03/11/21 03/11/21 02:26 02:26 02:26 WBC RBC Hgb Hct MCV MCH MCHC RDW Plt Count MPV Immature Gran % (Auto) Neut % (Auto) Lymph % (Auto) [place] % (Auto) Eos % (Auto) Baso % (Auto) Lymph # (Auto) [place] # (Auto) Eos # (Auto) Baso # (Auto) Abs Immat Gran (auto) Absolute Neuts (auto) Absolute Nucleated RBC Nucleated RBC % Platelet Estimate Large Platelets Stomatocytes RPR Pending Hep Bs Antigen Pending Rubella IgG Antibody Pending 03/11/21 02:25 WBC 10.4 H RBC 3.63 L Hgb 8.3 L Hct 27.8 L MCV 76.6 L MCH 22.9 L MCHC 29.9 L RDW 18.1 H Plt Count 178 MPV 11.6 H Immature Gran % (Auto) 7.1 H Neut % (Auto) 67.2 Lymph % (Auto) 16.1 L [place] % (Auto) 7.9 Eos % (Auto) 1.1 Baso % (Auto) 0.6 Lymph # (Auto) 1.67 [place] # (Auto) 0.8 H Eos # (Auto) 0.1 Baso # (Auto) 0.1 Abs Immat Gran (auto) 0.74 H Absolute Neuts (auto) 7.0 H Absolute Nucleated RBC 0.3 H Nucleated RBC % 2.4 H Platelet Estimate Adequate Large Platelets Present Stomatocytes 1+ RPR Hep Bs Antigen Rubella IgG Antibody Discharge Plan Discharge Attending physician on discharge: Josey Lemus Discharging Clinician: Josey Lemus Anticipated Discharge Date/Time: 03/13/21 03:32 Patient Disposition: Home, Self-Care Activity: may shower, may drive after 2 weeks and pelvic rest Diet: regular Discharge Instructions: Education: Mom and Baby Guide Given to: Mother Follow-Up: Call your delivering provider's office for an appointment to be seen in: 6 Weeks Mom and baby [facility] for the follow-up appointment. Appointment Date/Time: Sunday, March 14, 2021 at 8:00 am What to expect at your follow-up visit: Blood Pressure Check Physical Assessment Call [phone] if you are unable to keep your appointment time. BREAST CARE: * Wear a snug supportive bra. * For engorgement discomfort: Breast Feeding: * Apply warm moist washcloths * Express milk as needed to relieve engorgement * Wear loose clothing Bottle Feeding: * May apply ice packs * For sore nipples: * Identify correct latch-on * Apply warm moist washcloths before and after nursing * Air dry nipples after nursing * May apply Lansinoh cream to nipples EPISIOTOMY/PERINEAL CARE: * Until bleeding stops, use your krishna bottle after urinating * Change your pad frequently throughout the day * You may take sitz baths several times a day (fill your bathtub with warm water and soak for 20 minutes.) Do NOT bathe in the water * No tub baths until seen by katiana
[2021-03-11 03:31] LABS: Rubella IgG Antibody 2.8 IU/ML
[2021-03-11 03:33] LABS: Hepatitis B Surface Antigen Negative (Negative)
[2021-03-11] MEDS: OXYTOCIN 30 UNITS/NS 500 ML 30 UNITS/500 ML BAG 125 UNITS IV CONT (04:03)
[2021-03-11] MEDS: IBUPROFEN 600 MG TABLET PO ×3 (05:32→17:30)
[2021-03-11] MEDS: BENZOCAINE 20% AER SPR (*SP) 56 GM CAN 1 SPRAY TOPICAL (05:32)
[2021-03-11] MEDS: WITCH HAZEL 40 PADS 1 PAD TOPICAL (05:32)
[2021-03-11 05:51] LABS: Glucose Point of Care 80 mg/dl (65-105)
--- NOTE | 2021-03-11 05:55 | OBPPTRN ---
Patient transferred to post room #277 via wheelchair. Support person present. Oriented to unit, room, information board, rooming in, admission packet and security measures. Patient verbalizes understanding.
--- NOTE | 2021-03-11 07:30 | PC.NURSE ---
Mother called out for assist with feeding. Mother reports infants fed well for first feeding. Discussed infants and possible precautions of weak latch, sleepy feedings, needing to wake each feeding, inability to maintain latch and poor milk transfer which increases chance for increased weight loss, jaundice and low milk supply. Stressed the importance of adequate breast stimulation by pumping, self-expression and skin to skin. Reviewed it is important for mother to understand both infants will have their own abilities: suck and feeding patterns that may not match. Suggested to breastfeed separately to give each infant her full individualized attention during to assist with effective latching. Keeping infants on a feeding schedule may be difficult, but it is suggested to feed infants in sequence to allow rest time for mother between feedings. Both infants are able to freely thrust tongue past gum ridge and flange both lips. Skin is intact on both nipples, no redness and bruising noted. Reviewed feeding cues, frequencies, duration of feedings, feeding elimination flow sheet, and signs of adequate intake. Demonstrated stimulation techniques to wake for feeding. Assisted with to breast. Reviewed positioning/alignment in cross cradle, holding breast in ?U? hold and guided asymmetrical latch on. Discussed rational for each. Infant B was sleepy and made no effort to latch or suckle. Attempt for 5+ minutes, mother will switch to A . Infant A made no effort to latch or suckle. Discussed feeding plan to attempt each to breast, then supplement at least 15mls each feeding. Mother will initiate pumping for 10-15 minutes after each attempt.
[2021-03-11] MEDS: MULTIVIT/MIN/PREN/FOL AC/IRON TABLET 1 TAB PO (09:30)
[2021-03-11] MEDS: POLYSACCHARIDE IRON COMPLEX 150 MG CAPSULE PO ×2 (09:30→17:30)
[2021-03-11] MEDS: DOCUSATE SODIUM 100 MG CAPSULE PO ×2 (09:30→17:30)
[2021-03-11] MEDS: FAMOTIDINE 20 MG TABLET PO ×2 (09:30→20:06)
--- NOTE | 2021-03-11 10:24 | PC.NURSE ---
0930 Meds given as charted; unable to scan because computer not responding.
[2021-03-11] MEDS: ERGOCALCIFEROL 50,000 UNIT CAPSULE 50000 UNITS PO (11:09)
[2021-03-11 12:25] LABS: Rapid Plasma Reagin Non-Reactive (NonReactive)
--- NOTE | 2021-03-11 15:32 | PC.NURSE ---
0645 Admission folder reviewed; pt's VSS and assessment WNL.
[2021-03-11] MEDS: SERTRALINE HCL 50 MG TABLET PO (20:05)
[2021-03-12] VITALS (12 sets, daily range): BP systolic 133–160; BP diastolic 71–88; PULSE 61–81; RESP 16–18; TEMP 36.3–36.9; O2SAT 96–100
[2021-03-12] MEDS: IBUPROFEN 600 MG TABLET PO ×4 (01:02→21:34)
[2021-03-12 05:36] LABS: Hematocrit 22.1 % (37.0-47.0)
[2021-03-12 05:54] LABS: Hemoglobin 6.5 g/dL (12.0-15.0)
[2021-03-12] MEDS: BENZOCAINE 20% AER SPR (*SP) 56 GM CAN 1 SPRAY TOPICAL (07:29)
[2021-03-12] MEDS: MULTIVIT/MIN/PREN/FOL AC/IRON TABLET 1 TAB PO (07:29)
[2021-03-12] MEDS: DOCUSATE SODIUM 100 MG CAPSULE PO ×2 (07:29→18:21)
[2021-03-12] MEDS: WITCH HAZEL 40 PADS 1 PAD TOPICAL (07:29)
[2021-03-12] MEDS: LANOLIN (LANSINOH) 7.5 GM CREAM 1 APPLIC TOPICAL (07:29)
[2021-03-12] MEDS: FAMOTIDINE 20 MG TABLET PO ×2 (07:29→21:34)
[2021-03-12] MEDS: POLYSACCHARIDE IRON COMPLEX 150 MG CAPSULE PO ×2 (07:29→18:21)
--- NOTE | 2021-03-12 11:50 | P.PNOB_ITS ---
OB - PN: Subj Subjective Date/time seen: 03/12/21 11:50 Patient comments: no complaints and pain well controlled baby status: doing well [employer] feeding status: breast and bottle feeding Narrative: no symptoms with anemia OB - PN: Obj Data Labs CBC & Chem 7: 03/12/21 05:09 Labs: Laboratory Results - last 24 hr 03/11/21 03/12/21 02:26 05:09 Hgb 6.5 L* Hct 22.1 L RPR Non-reactive OB - PN A/P Assessment and Plan (1) Iron deficiency anemia, unspecified: Code(s): D50.9 - Iron deficiency anemia, unspecified Status: Acute Assessment and Plan: No symptoms but very low. Discussed pros and cons of blood transfusion. Patient will discuss with and let RN know. (2) PIH ( induced hypertension): Code(s): O13.9 - Gestational [-induced] hypertension without significant proteinuria, unspecified trimester Status: Acute Assessment and Plan: BP's elevated since delivery. No PIH sx. Observe Plan day: 1 Plan: routine care Time Spent With Patient Time: Total time spent is greater than 50% in coordination of care (as documented) at patient's floor/unit and/or counseling patient: Exam : Bimanual exam- vagina & uterus: other (Uterus firm, nt @U)
[2021-03-12] MEDS: TUBING, BLOOD PLUM PUMP TUBING 1 EACH XX (19:20)
[2021-03-12] MEDS: SODIUM CHLORIDE 0.9% IV 250 ML 30 ML IV CONT (19:20)
[2021-03-12] MEDS: SERTRALINE HCL 50 MG TABLET PO (19:34)
[2021-03-12] MEDS: RHO(D) IMMUNE GLOBULIN 300 MCG/2 ML SYRINGE IM (19:46)
[2021-03-13] MEDS: IBUPROFEN 600 MG TABLET PO ×2 (04:48→12:40)
[2021-03-13 05:11] LABS: Basophils Percent Auto 0.5 % (0.2-1.2); Eosinophils Absolute Auto 0.1 K/mm3 (0-0.3); Eosinophils Percent Auto 0.9 % (0-4.4); Hematocrit 29.8 % (37.0-47.0); Hemoglobin 8.8 g/dL (12.0-15.0); Immature Platelet Fraction Pct 10.3 % (0.9-11.2); Lymphocytes Absolute Auto 1.36 K/mm3 (0.9-3.2); Lymphocytes Percent Auto 18.3 % (18.3-44.2); Mean Corpuscular HGB Conc 29.5 g/dl (32-36); Mean Corpuscular Hemoglobin 25.1 pg (26-34); Mean Corpuscular Volume 85.1 fl (80-100); Monocytes Absolute Auto 0.6 K/mm3 (0.1-0.6); Monocytes Percent Auto 7.7 % (2.6-8.5); Neutrophils Absolute Auto 5.1 K/mm3 (1.3-6.7); Neutrophils Percent Auto 68.6 % (45.5-73.1); Nucleated Red Blood Cells Absolute Auto 0.1 K/mm3 (0.0-0.012); Nucleated Red Blood Cells Perc 1.5 % (0.0-0.2); Platelet Count Result 62 k/mm3 (150-375); Red Cell Distribution Width 19.4 % (11.5-14.5); White Blood Count 7.4 K/mm3 (4.5-10.0)
[2021-03-13 07:04] LABS: Anisocytosis 2+ (NORMAL); Hypochromasia 1+ (NORMAL); Large Platelets Present; Macrocytosis 1+ (NORMAL)
[2021-03-13] MEDS: MULTIVIT/MIN/PREN/FOL AC/IRON TABLET 1 TAB PO (07:51)
[2021-03-13] MEDS: DOCUSATE SODIUM 100 MG CAPSULE PO (07:51)
[2021-03-13] MEDS: POLYSACCHARIDE IRON COMPLEX 150 MG CAPSULE PO (07:51)
[2021-03-13] MEDS: FAMOTIDINE 20 MG TABLET PO (07:52)
[2021-03-13 08:00] VITALS: BP 138/82; PULSE 94; RESP 18; TEMP 37
--- NOTE | 2021-03-13 08:30 | PC.NURSE ---
Patient was given the opportunity to view the discharge video Mother & Baby Care, The First Two Weeks and to ask questions. Patient declined viewing the video and has been given the mother/baby guide for home reference.
--- NOTE | 2021-03-13 09:13 | PC.NURSE ---
Self care and infant care discharge instructions given including follow up visit date and time. Pt. verbalized understanding. No questions or concerns verbalized. FOB at side.
--- NOTE | 2021-03-13 09:24 | PM.OBPNVD ---
OB - PN: Subj Subjective Date/time seen: 03/13/21 09:24 Patient comments: no complaints and pain well controlled baby status: doing well Narrative: feels better post transfusion OB - PN: Obj Data Labs CBC & Chem 7: 03/13/21 05:02 Labs: Laboratory Results - last 24 hr 03/11/21 03/12/21 03/13/21 05:09 05:00 05:02 WBC 7.4 RBC 3.50 L Hgb 8.8 L Hct 29.8 L MCV 85.1 D MCH 25.1 L D MCHC 29.5 L RDW 19.4 H Plt Count 62 L D MPV TNP Immature Gran % (Auto) 4.0 H Neut % (Auto) 68.6 Lymph % (Auto) 18.3 [place] % (Auto) 7.7 Eos % (Auto) 0.9 Baso % (Auto) 0.5 Lymph # (Auto) 1.36 [place] # (Auto) 0.6 Eos # (Auto) 0.1 Baso # (Auto) 0.0 Abs Immat Gran (auto) 0.30 H Absolute Neuts (auto) 5.1 Absolute Nucleated RBC 0.1 H Nucleated RBC % 1.5 H Platelet Estimate Slightly decreased Large Platelets Present % Immature Plt Fraction 10.3 Hypochromasia 1+ Anisocytosis 2+ Macrocytosis 1+ Blood Type Cancelled A Negative Rho(D) Type Cancelled Antibody Screen Cancelled TNP Screen Cancelled Negative Baby's Blood Type Cancelled A pos Baby's SHYANNE Cancelled Negative Doses of RhIg Required Cancelled 1 Enhanced Crossmatch See Detail OB - PN A/P Assessment and Plan (1) PIH ( induced hypertension): Code(s): O13.9 - Gestational [-induced] hypertension without significant proteinuria, unspecified trimester Status: Acute Assessment and Plan: BP's improved yesterday follow up 1 week (2) Iron deficiency anemia, unspecified: Code(s): D50.9 - Iron deficiency anemia, unspecified Status: Acute Assessment and Plan: feels better post transfusion Hb 8.8 Plan day: 2 Plan: routine care, discharge home and follow up 6 weeks (and 1 week BP check) Comments: wants BCP until vasectomy Time Spent With Patient Time: Total time spent is greater than 50% in coordination of care (as documented) at patient's floor/unit and/or counseling patient: Exam : Bimanual exam- vagina & uterus: other (Uterus firm, nt @U)
--- NOTE | 2021-03-13 10:25 | PC.NURSE ---
Pt. informed of need and order for MMR per results. Pt. refused vaccination at this time and states she will discuss with .
[2021-03-14 09:26] VITALS: BP 143/84; PULSE 71; RESP 20; TEMP 37.1; O2SAT 100
== END 2021-03-13 12:50 | disposition home or self-care (01) | DRG 560 ==
LOC: ANHLDR 03:33 → ANHOB2 05:55
PROVIDERS: Admitting Provider Obstetrics & Gynecology Gynecology; Visit Provider Obstetrics & Gynecology Gynecology
DX: O30.033 Twin pregnancy, monochorionic/diamniotic, third trimester (principal); O24.429 Gestational diabetes mellitus in childbirth, unspecified control; O70.1 Second degree perineal laceration during delivery; O69.2XX2 Labor and delivery complicated by other cord entanglement, with compression, fetus 2; O13.4 Gestational [pregnancy-induced] hypertension without significant proteinuria, complicating childbirth; O99.02 Anemia complicating childbirth; D50.9 Iron deficiency anemia, unspecified; O99.824 Streptococcus B carrier state complicating childbirth; O77.0 Labor and delivery complicated by meconium in amniotic fluid; O62.3 Precipitate labor; Z3A.35 35 weeks gestation of pregnancy; Z37.2 Twins, both liveborn
CPT/HCPCS: 36415; 36430; 82948; 84112; 85014; 85018; 85025; 85055; 85461; 86592; 86762; 86850; 86880; 86900; 86901; 86922; 87340; 88307; 90384; A9270; J0290; J2590; J2790; J7050; J7120; P9016

== ENCOUNTER 2021-03-25 16:41 | Outpatient (CLI) | payer OTHER, SELFPAY ==
[2021-03-25 17:03] LABS: Hematocrit 40.4 % (37.0-47.0); Hemoglobin 12.5 g/dL (12.0-15.0); Mean Corpuscular HGB Conc 30.9 g/dl (32-36); Mean Corpuscular Hemoglobin 25.3 pg (26-34); Mean Corpuscular Volume 81.8 fl (80-100); Mean Platelet Volume 9.9 fl (7.4-10.4); Platelet Count Result 345 k/mm3 (150-375); Red Blood Count 4.94 M/mm3 (4.2-5.4); Red Cell Distribution Width 21.6 % (11.5-14.5); White Blood Count 7.1 K/mm3 (4.5-10.0)
[2021-03-25 17:16] LABS: Alanine Aminotransferase 30 U/L (4-35); Albumin Level 4.6 g/dL (3.5-5.1); Alkaline Phosphatase 142 U/L (38-126); Anion Gap 8 mmol/L (8-16); Aspartate Amino Transferase 34 U/L (14-36); Bilirubin,Total 0.3 mg/dL (0.2-1.3); Blood Urea Nitrogen 12 mg/dL (7-17); Calcium 9.5 mg/dL (8.4-10.2); Carbon Dioxide 27 mmol/L (22-30); Chloride 102 mmol/L (98-107); Estimated Glomerular Filt Rate > 60; Glucose 97 mg/dL (65-110); Potassium 4.1 mmol/L (3.4-5.0); Sodium 137 mmol/L (137-145)
== END 2021-03-25 16:42 | disposition home or self-care (01) ==
PROVIDERS: Visit Provider Obstetrics & Gynecology Gynecology
DX: O13.5 Gestational [pregnancy-induced] hypertension without significant proteinuria, complicating the puerperium (principal)
CPT/HCPCS: 36415; 80053; 85027

== ENCOUNTER 2021-09-24 17:01 | Emergency (ER) | payer OTHER, SELFPAY ==
--- NOTE | ~2021-09-24 | XR_ITS ---
EXAMINATION: XR chest 2V 09/24/2021 18:06 INDICATION: Shortness of breath and chest palpitations PROCEDURE: 2 view chest COMPARISON: 10/25/2020 FINDINGS: The lungs are clear. The cardiomediastinal silhouette is within normal limits. There are no pleural effusions. There is no pneumothorax suspected. IMPRESSION: 1: NO ACUTE CARDIOPULMONARY DISEASE. Reviewed, dictated and finalized at location A. HOST
[2021-09-24 17:05] VITALS: BP 165/82; PULSE 106; RESP 20; TEMP 37.1; O2SAT 99
--- NOTE | 2021-09-24 17:14 | ECG_ITS ---
Measurements Intervals [place] Rate: 97 P: 52 UT: 148 QRS: 6 QRSD: 93 T: 11 QT: 351 QTc: 447 Interpretive Statements SINUS RHYTHM BASELINE ARTIFACT NONSPECIFIC T-WAVE ABNORMALITY BORDERLINE ECG COMPARED TO ECG 10/25/2020 12:40:24 NO SIGNIFICANT CHANGES Electronically Signed On 09-26-2021 13:47:37 HEAD OF TRANSPORT LOGISTICS by Julio Rodriges M.D.
--- NOTE | 2021-09-24 17:26 | ED.ARRPALP ---
HPI - Arrhythmia/Palpitations General Chief Complaint: Arrhythmia/Palpitations Stated Complaint: heart palpitations Time Seen by Provider: 09/24/21 17:14 Source: patient Mode of arrival: ambulatory Limitations: no limitations History of Present Illness HPI narrative: This is a 31-year-old female that presents to the emergency department for palpitations. Reports earlier today she was about to change her baby's diaper. She started to feel as if her heart was racing or beating out of her chest. Associated with some shortness of breath. Reports she checked her watch and her heart rate went up to 115. Reports a similar episode about a month ago. Denies fever, chest pain, or lower extremity edema. Related Data Home Medications Medication Instructions Recorded Confirmed [id number] 3-fat com #1 1 cap PO DAILY 10/10/20 03/09/21 ergocalciferol (vitamin D2) 50,000 unit PO WEEKLY 10/10/20 03/09/21 docusate sodium [Colace] 100 mg PO BID 03/07/21 03/09/21 sertraline 50 mg PO DAILY 03/07/21 03/09/21 Allergies Allergy/AdvReac Type Severity Reaction Status Date / Time No Known Allergies Allergy Unknown Verified 03/09/21 11:38 Review of Systems Review of Systems: CONSTITUTIONAL: Denies fever CARDIOVASCULAR: Reports palpitations. Denies chest pain, or edema. RESPIRATORY: Reports dyspnea. All systems reviewed & are unremarkable except as noted in HPI and below PMFSH Past Medical History Medical History (Updated 09/24/21 @ 19:07 by Martha Dietrich PA-C) Anxiety Surgical History Surgical History (Updated 10/20/20 @ 20:23 by Victor M Worley MD) No pertinent past surgical history Family History Family History (Updated 03/07/21 @ 16:00 by Priscilla Groves RN) Mother Bipolar 1 disorder Social History Social History Smoking packs per day: 0.5 Smoking cigarettes per day: 10.0 Years smoked: 7 Smoking pack-years: 3.50 Smoking status: Former smoker Tobacco type: cigarettes Smoking end date: 08/27/17 Substance use: never Gender identity (if verbalized by the patient): Female Sexual Orientation (if Verbalized by the Patient): Straight or Heterosexual Spiritual care concerns: No Exam Narrative: GENERAL: Well-appearing, well-nourished, and in no acute distress. HEAD: Normocephalic, atraumatic. EYES: EOMI. CHEST: Clear to auscultation. No respiratory distress. No wheezes rales or rhonchi HEART: Regular rate and rhythm. No murmur heard. Normal peripheral pulses. EXTREMITIES: Normal range of motion. No edema. SKIN: Warm, dry, no rash. NEURO: No focal deficits. Alert and oriented x3. PSYCH: Normal mood and affect Course Vital Signs Vital signs: Vital Signs Temperature 98.7 F 09/24/21 17:05 Pulse Rate 106 H 09/24/21 17:05 Respiratory Rate 20 09/24/21 17:05 Blood Pressure 165/82 H 09/24/21 17:05 Pulse Oximetry 99 09/24/21 17:05 Temperature 98.7 F 09/24/21 17:05 Pulse Rate 106 H 09/24/21 17:05 Respiratory Rate 20 09/24/21 17:05 Blood Pressure 165/82 H 09/24/21 17:05 Pulse Oximetry 99 09/24/21 17:05 MDM - Arrhythmia/Palpitations MDM Narrative Medical decision making narrative: Patient presents to the emergency department for feelings of her heart racing today. Reports a similar episode in the past. Patient mildly tachycardic upon arrival, but otherwise has been in normal sinus rhythm. No concerning changes on her EKG. CBC and metabolic panel without concerning findings. Baseline troponin is negative. D-dimer is not elevated. Chest x-ray without acute cardiopulmonary abnormality. Patient was updated on case findings. Reports she has follow-up with her primary this . Spoke with patient about mentioning to her primary further evaluation with a Holter monitor. Patient is stable and felt appropriate for further outpatient evaluation. She was given warnings to return to the ER Lab Data Attesta
[2021-09-24] MEDS: SODIUM CHLORIDE 0.9% IV 500 ML 999 ML IV CONT (17:50)
[2021-09-24 17:53] LABS: Basophils Percent Auto 0.5 % (0.2-1.2); Eosinophils Absolute Auto 0.1 K/mm3 (0-0.3); Eosinophils Percent Auto 1.2 % (0-4.4); Hematocrit 39.1 % (37.0-47.0); Hemoglobin 13.2 g/dL (12.0-15.0); Immature Granulocyte Absolute 0.02 K/mm3 (0.00-0.031); Immature Granulocyte Percent A 0.3 % (0-0.5); Lymphocytes Absolute Auto 1.33 K/mm3 (0.9-3.2); Lymphocytes Percent Auto 18.1 % (18.3-44.2); Mean Corpuscular HGB Conc 33.8 g/dl (32-36); Mean Corpuscular Hemoglobin 30.3 pg (26-34); Mean Corpuscular Volume 89.9 fl (80-100); Mean Platelet Volume 10.3 fl (7.4-10.4); Monocytes Absolute Auto 0.5 K/mm3 (0.1-0.6); Monocytes Percent Auto 6.8 % (2.6-8.5); Neutrophils Absolute Auto 5.4 K/mm3 (1.3-6.7); Neutrophils Percent Auto 73.1 % (45.5-73.1); Platelet Count Result 233 k/mm3 (150-375); Red Blood Count 4.35 M/mm3 (4.2-5.4); Red Cell Distribution Width 12.9 % (11.5-14.5); White Blood Count 7.4 K/mm3 (4.5-10.0)
[2021-09-24 18:04] LABS: Prothrombin Time 12.6 Seconds (11.1-14.7)
[2021-09-24 18:05] LABS: Alanine Aminotransferase 19 U/L (4-35); Albumin Level 4.5 g/dL (3.5-5.1); Alkaline Phosphatase 79 U/L (38-126); Anion Gap 7 mmol/L (8-16); Aspartate Amino Transferase 24 U/L (14-36); Bilirubin,Total 0.3 mg/dL (0.2-1.3); Blood Urea Nitrogen 18 mg/dL (7-17); Calcium 8.8 mg/dL (8.4-10.2); Carbon Dioxide 28 mmol/L (22-30); Chloride 103 mmol/L (98-107); Estimated CRCL calculation 138 ml/min; Estimated Glomerular Filt Rate > 60; Glucose 147 mg/dL (65-110); Partial Thromboplastin Time 29.2 SECONDS (22.3-36.8); Potassium 3.4 mmol/L (3.4-5.0); Sodium 138 mmol/L (137-145)
[2021-09-24 18:16] LABS: D Dimer 0.27 ug/mL (<0.48)
[2021-09-24 18:17] LABS: Troponin I < 0.012 ng/mL (0.000-0.034)
--- NOTE | 2021-09-24 18:24 | PC.NURSE ---
Called lab to add on HGB A1C
[2021-09-24 18:41] LABS: Hemoglobin A1C 4.9 % (<5.7)
[2021-09-24 19:30] VITALS: BP 138/78; PULSE 77; RESP 17; O2SAT 100
== END 2021-09-24 19:39 | disposition home or self-care (01) ==
PROVIDERS: Physician Assistant; Emergency Provider Emergency Medicine
DX: R00.2 Palpitations (principal); F41.9 Anxiety disorder, unspecified; Z87.891 Personal history of nicotine dependence; R94.31 Abnormal electrocardiogram [ECG] [EKG]
CPT/HCPCS: 36415; 71046; 80053; 81025; 83036; 84484; 85025; 85380; 85610; 85730; 93005; 96360; 96361; 99284; J7040

== ENCOUNTER 2021-10-31 18:36 | Emergency (ER) | payer OTHER, SELFPAY ==
--- NOTE | 2021-10-31 18:42 | ED.URI ---
HPI - URI/Sore Throat General Chief Complaint: Upper Respiratory Infection Stated Complaint: sore throat, sinus pressure in mouth, headache Time Seen by Provider: 10/31/21 18:43 Source: patient, family, RN notes reviewed and old records reviewed Mode of arrival: ambulatory Limitations: no limitations History of Present Illness HPI Narrative: 31-year-old female presents to the [facility] with right-sided facial pain, sore throat, sinus pressure, dental pain and a headache for the last 10 days. Had taken Advil with no relief. Has history of poor dentition. Has not seen a dentist in many years. No rhinorrhea, chest pain abdominal pain. Denies fevers Related Data Home Medications Medication Instructions Recorded Confirmed [id number] 3-fat com #1 1 cap PO DAILY 10/10/20 10/31/21 Allergies Allergy/AdvReac Type Severity Reaction Status Date / Time No Known Allergies Allergy Unknown Verified 10/31/21 18:49 Review of Systems Review of Systems: All systems reviewed & are unremarkable except as noted in HPI and below Constitutional: Constitutional: Reports no additional constitutional complaints, Denies chills, Denies fever(s) and Denies headache(s) Eyes: Eyes: Reports no additional eye complaints ENT: Reports as per HPI, Denies change in voice, Reports dental pain, Denies vertigo, Denies dizziness, Denies headache(s), Denies nasal congestion, Denies nasal discharge, Denies post nasal drip, Reports sinus pain (Right-sided) and Reports sore throat Cardiovascular: Cardiovascular: Reports no additional cardiovascular complaints, Denies chest pain, Denies syncope, Denies rapid heart rate and Denies dyspnea Respiratory: Respiratory: Reports no additional respiratory complaints, Denies cough, Denies dyspnea and Denies wheezing Gastrointestinal: Gastrointestinal: Reports no additional gastrointestinal complaints, Denies abdominal pain, Denies diarrhea, Denies nausea and Denies vomiting Musculoskeletal: Musculoskeletal: Reports no additional musculoskeletal complaints and Denies numbness Integumentary/Breasts: Skin/Breast: Reports system reviewed and no additional complaints, except as docu Neurologic: Reports system reviewed and no additional complaints, except as documented, Denies vertigo, Denies dizziness, Denies syncope, Denies headache(s), Denies focal weakness and Denies numbness Psychiatric: Psychiatric: Reports no additional psychiatric complaints Allergic/Immunologic: Allergic/Immunologic: Reports no additional allergic/immunologic complaints and Denies wheezing PMFSH Past Medical History Medical History Anxiety Hx gestational diabetes (~2020) Vitamin D deficiency Surgical History Surgical History No pertinent past surgical history Family History Family History Mother Bipolar 1 disorder Social History Social History Smoking packs per day: 0.5 Smoking cigarettes per day: 10.0 Years smoked: 7 Smoking pack-years: 3.50 Smoking status: Former smoker Tobacco type: cigarettes Smoking end date: 08/27/17 Alcohol intake: never Substance use: never Substance use type: does not use Additional living arrangements comments: Lives with boyfriend of 12 years and has 4 children. Has a set of twins. Gender identity (if verbalized by the patient): Female Sexual Orientation (if Verbalized by the Patient): Straight or Heterosexual Spiritual care concerns: No Agree to blood products: Yes Comments At the time of my signature, I reviewed and agree with the nursing past medical, surgical, social, and family history. There is no relevant family history pertinent to the patient complaint. Exam Const: General: cooperative, healthy appearing, no acute distress, well developed an
[2021-10-31 18:43] VITALS: BP 139/80; PULSE 75; RESP 16; TEMP 36.2; O2SAT 100
== END 2021-10-31 19:14 | disposition home or self-care (01) ==
PROVIDERS: Emergency Provider Nurse Practitioner
DX: K04.7 Periapical abscess without sinus (principal); H61.23 Impacted cerumen, bilateral
CPT/HCPCS: 99213; G0463

== ENCOUNTER 2021-11-12 10:02 | Outpatient (CLI) | payer OTHER, SELFPAY ==
[2021-11-12 10:22] LABS: Cholesterol 191 mg/dL (0-200); HDL Direct 38 mg/dL; Triglycerides 94 mg/dL (<150)
[2021-11-12 10:38] LABS: LDL Cholesterol Direct 109 mg/dL
== END 2021-11-12 10:03 | disposition home or self-care (01) ==
LOC: ANHLAB 10:03
PROVIDERS: Visit Provider Internal Medicine Cardiovascular Disease
DX: I47.2 Ventricular tachycardia (principal)
CPT/HCPCS: 36415; 80061; 83735

== ENCOUNTER 2021-12-02 13:38 | Outpatient (CLI) | payer OTHER, SELFPAY ==
--- NOTE | 2021-12-02 13:45 | ECHO_ITS ---
Patient Info Name: Mis Beck Age: 31 years : 1990 Gender: Female Ht: 64 in Wt: 245 lbs BSA: 2.30 m2 HR: 75 bpm BP: 106 / 84 mmHg Heart Rhythm: Sinus Rhythm Technical Quality: Good Exam Date: 12/02/2021 2:02 PM Exam Location: [facility] Patient Status: Outpatient Admit Date: 12/02/2021 Staff Ordering Physician: Kyle Longoria DO Licensed Psychologist: Sherry Greer RDCS Attending Provider: Kyle Longoria DO Referring Physician: Von FREITAS; Exam Type: CA echo doppler color flow Study Info Indications - VENTRICULAR TACHYCARDIA Complete two-dimensional, color flow and Doppler transthoracic echocardiogram is performed. Summary 1. Complete two-dimensional, color flow and Doppler transthoracic echocardiogram is performed. 2. Left ventricular chamber dimension is normal. 3. Left ventricular systolic function is normal, estimated at 60-65%. 4. There is no increased left ventricular wall thickness. 5. The left ventricular diastolic function is normal. 6. Global longitudinal strain is normal at -20 %. 7. There is trace mitral valve regurgitation. Left Ventricle Left ventricular chamber dimension is normal. Left ventricular systolic function is normal, estimated at 60-65%. There is no increased left ventricular wall thickness. The left ventricular diastolic function is normal. Global longitudinal strain is normal at -20 %. Right Ventricle Right ventricular chamber dimension is normal. Right ventricular systolic function is normal. Left Atria Left atrial chamber dimension is normal. Right Atria Right atrial chamber dimension is normal. Aortic Valve The aortic valve is probable trileaflet. There is no aortic valve stenosis. There is no aortic valve regurgitation. Pulmonic Valve The pulmonic valve is not well visualized. There is trace pulmonic regurgitation. Mitral Valve The mitral valve has normal leaflets. There is trace mitral valve regurgitation. Tricuspid Valve The tricuspid valve leaflets are normal. There is trace tricuspid valve regurgitation. No pulmonary hypertension, estimated pulmonary arterial systolic pressure is 28 mmHg. Pericardium/Pleural The pericardium appears normal. There is no pericardial effusion. Inferior Vena Cava Normal inferior vena cava with >50% collapse upon inspiration consistent with normal right atrial pressure, 5 mmHg. Aorta The aortic root size at the sinus of Valsalva is normal. Left Ventricular Outflow Tract Name Value Normal LVOT 2D LVOT Diameter 2.0 cm LVOT Doppler LVOT Peak Gradient 9 mmHg LVOT Mean Gradient 4 mmHg LVOT VTI 26 cm LVOT VTI/AV VTI Ratio 0.9 LVOT Stroke Volume 79 ml LVOT CO 6.1 l/min LVOT CI 2.6 l/min/m2 Pulmonic Valve Name Value Normal
== END 2021-12-02 13:39 | disposition home or self-care (01) ==
LOC: ANHCARD 13:39
PROVIDERS: Visit Provider Internal Medicine Cardiovascular Disease
DX: I47.2 Ventricular tachycardia (principal)
CPT/HCPCS: 93306

== ENCOUNTER 2021-12-31 12:57 | Emergency (ER) | payer OTHER, SELFPAY ==
[2021-12-31 13:04] VITALS: BP 143/79; PULSE 77; RESP 16; TEMP 36; O2SAT 99
--- NOTE | 2021-12-31 13:26 | ED.URI ---
HPI - URI/Sore Throat General Chief Complaint: Upper Respiratory Infection Stated Complaint: headache, sinus pressure on right side Time Seen by Provider: 12/31/21 13:26 Source: patient, RN notes reviewed and old records reviewed Mode of arrival: ambulatory Limitations: no limitations History of Present Illness HPI Narrative: 31 year old female who presents to [facility] care with complaints of right sided facial pressure and some slight headache discomfort. Patient states that she is not sure if is related to her dental problems or if she has sinus infection. Patient denies any noted sinus congestion or drainage or any other respiratory issues. Patient reports that she has 2 upper molars on the right side which are broken off and she has recently been on antibiotics for dental abscess in October of 2021.. She reports that she has appointment for dentist at the end of the month in [facility]. Patient denies any fevers chills or sweats, no cough or ear pain. MD elicited complaint: other (right sided facial pressure and some headache discomfort) Onset (ago): day(s) (2) Related Data Home Medications Medication Instructions Recorded Confirmed [id number] 3-fat com #1 27 1 cap PO DAILY 10/10/20 11/09/21 mg-1 mg-300 mg capsule Allergies Allergy/AdvReac Type Severity Reaction Status Date / Time No Known Allergies Allergy Unknown Verified 11/09/21 13:17 Review of Systems Review of Systems: CONSTITUTIONAL: Denies fever, chills, or sweats. EYES: Denies visual changes, redness, or discharge. ENT: Denies rhinorrhea, congestion, sore throat, or otalgia.positive for right sided facial pressure CARDIOVASCULAR: Denies chest pain, palpitations, or edema. RESPIRATORY: Denies cough or dyspnea. GASTROINTESTINAL: Denies abdominal pain, nausea, vomiting, or diarrhea. GENITOURINARY: Denies dysuria or hematuria. SKIN: Denies rash or itching. MUSCULOSKELETAL: Denies back pain, joint pain, or myalgia. NEUROLOGIC: Positive for some headache, no numbness, or weakness. PSYCHIATRIC: Positive for history of anxiety or depression. [facility] Past Medical History Medical History Anxiety Hx gestational diabetes (~2020) Vitamin D deficiency Surgical History Surgical History No pertinent past surgical history Family History Family History Mother Bipolar 1 disorder Social History Social History Smoking packs per day: 0.5 Smoking cigarettes per day: 10.0 Years smoked: 7 Smoking pack-years: 3.50 Smoking status: Former smoker Tobacco type: cigarettes Smoking end date: 08/27/17 Alcohol intake: never Substance use: never Substance use type: does not use Additional living arrangements comments: Lives with boyfriend of 12 years and has 4 children. Has a set of twins. Gender identity (if verbalized by the patient): Female Sexual Orientation (if Verbalized by the Patient): Straight or Heterosexual Spiritual care concerns: No Agree to blood products: Yes Comments At time of signature, agree with nursing past medical, surgical, social and family history. There is no relevant family history pertinent to the presenting complaint Exam Narrative: GENERAL: Well-appearing, well-nourished, and in no acute distress. HEAD: Normocephalic, atraumatic. EYES: PERRLA and EOMI. ENT: Nares clear, no rhinorrhea or epistaxis. Mucous membranes moist.TM's normal with good light reflex, no tragal tenderness,Throat pink with no lesions or exudates no tonsil enlargement. Broken molars X 2 to upper jaw #3 and 4 with some swelling and redness around gums of teeth with no drainage noted. no Derek angina noted. NECK: Supple. no lymphadenopathy CHEST: Clear to auscultation. No respiratory distress.SAO2 99% on room air HEART: Regu
== END 2021-12-31 13:57 | disposition home or self-care (01) ==
PROVIDERS: Emergency Provider Registered Nurse
DX: K04.7 Periapical abscess without sinus (principal); K08.89 Other specified disorders of teeth and supporting structures; Z87.891 Personal history of nicotine dependence
CPT/HCPCS: 99213; G0463

== ENCOUNTER 2022-01-26 19:22 | Emergency (ER) | payer OTHER, SELFPAY ==
--- NOTE | 2022-01-26 19:33 | ED.FEMALEGU ---
HPI - Female Genitourinary General Chief complaint: Urogenital-Female Stated complaint: BLOOD IN URINE Time Seen by Provider: 01/26/22 19:33 Source: patient, RN notes reviewed and old records reviewed Mode of arrival: ambulatory Limitations: no limitations History of Present Illness HPI Narrative: 31-year-old female presents to the [facility] with complaints of burning with urination and blood in her urine that started about 1 week ago. Describes it as a frequency, urgency, pressure and burning when she urinates. Last menstrual period approximately 3 weeks ago. Patient has appointment with her primary care provider on January 31. Was going to try to wait and see her primary for this issue. States today the pain burning, urgency and frequency along with blood in her urine became worse. Denies concerns for STD. Related Data Home Medications Medication Instructions Recorded Confirmed [id number] 3-fat com #1 27 1 cap PO DAILY 10/10/20 11/09/21 mg-1 mg-300 mg capsule Allergies Allergy/AdvReac Type Severity Reaction Status Date / Time No Known Allergies Allergy Unknown Verified 11/09/21 13:17 Review of Systems Review of Systems: All systems reviewed & are unremarkable except as noted in HPI and below Constitutional: Constitutional: Reports no additional constitutional complaints, Denies chills and Denies fatigue Eyes: Eyes: Reports no additional eye complaints ENT: Reports system reviewed and no additional complaints, except as documented Cardiovascular: Cardiovascular: Reports no additional cardiovascular complaints Respiratory: Respiratory: Reports no additional respiratory complaints Gastrointestinal: Gastrointestinal: Reports no additional gastrointestinal complaints, Denies abdominal pain, Denies diarrhea, Denies nausea and Denies vomiting Genitourinary: Genitourinary: Reports as per HPI (Urinary frequency), Reports hematuria, Reports dysuria, Denies flank pain and Denies vaginal discharge Musculoskeletal: Musculoskeletal: Reports no additional musculoskeletal complaints and Denies back pain Integumentary/Breasts: Skin/Breast: Reports system reviewed and no additional complaints, except as docu Neurologic: Reports system reviewed and no additional complaints, except as documented Psychiatric: Psychiatric: Reports no additional psychiatric complaints Endocrine: Endocrine: Denies fatigue Allergic/Immunologic: Allergic/Immunologic: Reports no additional allergic/immunologic complaints PMFSH Past Medical History Medical History Anxiety Hx gestational diabetes (~2020) Vitamin D deficiency Surgical History Surgical History No pertinent past surgical history Family History Family History Mother Bipolar 1 disorder Social History Social History Smoking packs per day: 0.5 Smoking cigarettes per day: 10.0 Years smoked: 7 Smoking pack-years: 3.50 Smoking status: Former smoker Tobacco type: cigarettes Smoking end date: 08/27/17 Alcohol intake: never Substance use: never Substance use type: does not use Additional living arrangements comments: Lives with boyfriend of 12 years and has 4 children. Has a set of twins. Gender identity (if verbalized by the patient): Female Sexual Orientation (if Verbalized by the Patient): Straight or Heterosexual Spiritual care concerns: No Agree to blood products: Yes Comments At the time of my signature, I reviewed and agree with the nursing past medical, surgical, social, and family history. There is no relevant family history pertinent to the patient complaint. Exam Const: General: healthy appearing, no acute distress and alert Nutritional Appearance: well nourished Orientation/consciousness: patient oriented x3 L
[2022-01-26 19:34] VITALS: BP 136/80; PULSE 74; RESP 18; TEMP 36.8; O2SAT 100
== END 2022-01-26 20:08 | disposition home or self-care (01) ==
PROVIDERS: Emergency Provider Nurse Practitioner; PCP Nurse Practitioner Family
DX: R30.0 Dysuria (principal); R31.9 Hematuria, unspecified; Z87.891 Personal history of nicotine dependence
CPT/HCPCS: 81003; 81025; 87086; 99213; G0463

== ENCOUNTER 2022-05-26 19:39 | Emergency (ER) | payer OTHER, SELFPAY ==
--- NOTE | 2022-05-26 19:44 | ED.URI ---
HPI - URI/Sore Throat General Chief Complaint: Upper Respiratory Infection Stated Complaint: SINUS CONGESTION/HEADACHE/DIZZY Time Seen by Provider: 05/26/22 19:44 Source: patient Mode of arrival: ambulatory Limitations: no limitations History of Present Illness HPI Narrative: 31-year-old female presents with complaint of sinus congestion, facial pain and pressure, intermittent sore throat, postnasal drainage runny nose. Took Swathi for 2 days with no relief. Reports symptoms have been off and on for 2-3 weeks and now worsening with increasing facial pain. Afebrile. No cough. No nausea vomiting diarrhea. All systems reviewed and negative except as noted above. Related Data Allergies Allergy/AdvReac Type Severity Reaction Status Date / Time No Known Allergies Allergy Unknown Verified 05/26/22 19:48 Review of Systems Review of Systems: CONSTITUTIONAL: Denies fever, chills, or sweats. EYES: Denies visual changes, redness, or discharge. ENT: Reports rhinorrhea, congestion, sore throat, sinus pressure and otalgia. CARDIOVASCULAR: Denies chest pain, palpitations, or edema. RESPIRATORY: Denies cough or dyspnea. GASTROINTESTINAL: Denies abdominal pain, nausea, vomiting, or diarrhea. GENITOURINARY: Denies dysuria or hematuria. SKIN: Denies rash or itching. MUSCULOSKELETAL: Denies back pain, joint pain, or myalgia. NEUROLOGIC: Denies headache, numbness, or weakness. PSYCHIATRIC: Denies anxiety or depression. All other systems reviewed are negative, except as documented in HPI. [facility] Past Medical History Medical History Anxiety Hx gestational diabetes (~2020) Vitamin D deficiency Surgical History Surgical History No pertinent past surgical history Family History Family History Mother Bipolar 1 disorder Social History Social History Smoking packs per day: 0.5 Smoking cigarettes per day: 10.0 Years smoked: 7 Smoking pack-years: 3.50 Smoking status: Former smoker Tobacco type: cigarettes Smoking end date: 08/27/17 Alcohol intake: never Substance use: never Substance use type: does not use Additional living arrangements comments: Lives with boyfriend of 12 years and has 4 children. Has a set of twins. Gender identity (if verbalized by the patient): Female Sexual Orientation (if Verbalized by the Patient): Straight or Heterosexual Spiritual care concerns: No Agree to blood products: Yes Comments At time of signature, agree with nursing past medical, surgical, social and family history. There is no relevant family history pertinent to the presenting complaint. Exam Narrative: GENERAL: This is a well-nourished, well-developed patient, in no apparent distress. HEAD: normocephalic, atraumatic. EYES: PERRL. Sclera clear/white. Vision is grossly intact. EARS: External ears normal, auditory canals clear and without drainage, fluid bilateral TMs without erythema. NOSE: External nose normal with clear nasal drainage, erythema to both nares. Maxillary sinus tenderness bilaterally. THROAT: Mucous membranes moist, clear postnasal drainage. NECK: Neck supple, non-tender without lymphadenopathy, masses or thyromegaly. CARDIOVASCULAR: Regular rate and rhythm without murmurs, gallops, or rubs. RESPIRATORY: Clear to auscultation. Breath sounds equal bilaterally. No wheezes, rales, or rhonchi. SKIN: warm, Dry, intact with no suspicious lesions or rash, good texture and turgor. NEURO: awake, alert, and oriented to person, place and time. There were no obvious focal neurologic abnormalities. EXTREMITIES: No joint tenderness, effusion, or edema noted. Delete Course Course Level of Care: Express Care Visit Vital Signs Vital signs: Vital Signs Temperature 36.6 C 05/26/22 19:47 Pulse Ra
[2022-05-26 19:47] VITALS: BP 130/90; PULSE 81; RESP 16; TEMP 36.6; O2SAT 100
== END 2022-05-26 19:57 | disposition home or self-care (01) ==
PROVIDERS: Emergency Provider Nurse Practitioner Family; PCP Nurse Practitioner Family
DX: J01.90 Acute sinusitis, unspecified (principal); Z87.891 Personal history of nicotine dependence
CPT/HCPCS: 99213; G0463

== ENCOUNTER 2022-06-04 16:52 | Emergency (ER) | payer OTHER, SELFPAY ==
[2022-06-04] VITALS (21 sets, daily range): BP systolic 136–163; BP diastolic 67–84; PULSE 77–99; RESP 16–21; TEMP 36.8; O2SAT 98–100
--- NOTE | 2022-06-04 19:25 | ED.GENADULT ---
HPI - General Adult General Chief complaint: Dizziness Stated complaint: dizzy, finished medrol dose pack Time Seen by Provider: 06/04/22 19:03 History of Present Illness HPI narrative: Patient is a 31-year-old female who presents ER with dizziness. Patient has been struggling with sinus infection for about 3 weeks. She was seen at a urgent care and prescribed antibiotics as well as Medrol Dosepak. She completed both of them. She was also given meclizine but is not taking that because she is concerned it may mask symptoms. She has still some slight pressure in her forehead. Related Data Allergies Allergy/AdvReac Type Severity Reaction Status Date / Time No Known Allergies Allergy Unknown Verified 05/26/22 19:48 PMFSH Past Medical History Medical History Anxiety Hx gestational diabetes (~2020) Vitamin D deficiency Surgical History Surgical History No pertinent past surgical history Family History Family History Mother Bipolar 1 disorder Social History Social History Smoking packs per day: 0.5 Smoking cigarettes per day: 10.0 Years smoked: 7 Smoking pack-years: 3.50 Smoking status: Former smoker Tobacco type: cigarettes Smoking end date: 08/27/17 Alcohol intake: never Substance use: never Substance use type: does not use Additional living arrangements comments: Lives with boyfriend of 12 years and has 4 children. Has a set of twins. Gender identity (if verbalized by the patient): Female Sexual Orientation (if Verbalized by the Patient): Straight or Heterosexual Spiritual care concerns: No Agree to blood products: Yes Exam Narrative: GENERAL: Well-appearing, well-nourished, and in no acute distress. HEAD: Normocephalic, atraumatic. EYES: PERRL and EOMI. no nystagmus. ENT: Mucous membranes moist. TMs normal bilaterally. CHEST: Clear to auscultation. No respiratory distress. HEART: Regular rate and rhythm. Normal peripheral pulses. EXTREMITIES: Normal range of motion. No edema. SKIN: Warm, dry, no rash. NEURO: Alert and oriented x3. PSYCH: Normal mood and affect. Course Course Emergency Course: Mild improvement with meclizine here. Recommend she take the meclizine that was previously prescribed. Patient verbalized understanding. Discharge home. Vital Signs Vital signs: Vital Signs Temperature 98.2 F 06/04/22 17:26 Pulse Rate 89 06/04/22 17:26 Respiratory Rate 18 06/04/22 17:26 Blood Pressure 142/69 H 06/04/22 17:26 Pulse Oximetry 100 06/04/22 17:26 Oxygen Delivery Room Air 06/04/22 17:26 Temperature 98.2 F 06/04/22 17:26 Pulse Rate 89 06/04/22 17:26 Respiratory Rate 18 06/04/22 17:26 Blood Pressure 142/69 H 06/04/22 17:26 Pulse Oximetry 100 06/04/22 17:26 Oxygen Delivery Room Air 06/04/22 17:26 Medical Decision Making Vital Signs Vital Signs: Vital Signs Temperature 98.2 F 06/04/22 17:26 Pulse Rate 89 06/04/22 17:26 Respiratory Rate 18 06/04/22 17:26 Blood Pressure 142/69 H 06/04/22 17:26 Pulse Oximetry 100 06/04/22 17:26 Oxygen Delivery Room Air 06/04/22 17:26 Temperature 98.2 F 06/04/22 17:26 Pulse Rate 89 06/04/22 17:26 Respiratory Rate 18 06/04/22 17:26 Blood Pressure 142/69 H 06/04/22 17:26 Pulse Oximetry 100 06/04/22 17:26 Oxygen Delivery Room Air 06/04/22 17:26 Discharge Plan Discharge Clinical Impression: Vertigo Patient Disposition: Home, Self-Care Condition: Stable Instructions: Vertigo (ED) Additional Instructions: Return the ER if you have worsening dizziness, you cannot keep down food or water, you lose consciousness, you have additional concerns per Prescriptions: No Action amoxicillin 875 mg tablet 875 mg PO Q12H 7 Da
[2022-06-04] MEDS: MECLIZINE HCL 25 MG TABLET PO (20:19)
== END 2022-06-04 21:07 | disposition home or self-care (01) ==
PROVIDERS: Emergency Provider Emergency Medicine; PCP Nurse Practitioner Family
DX: R42 Dizziness and giddiness (principal); E55.9 Vitamin D deficiency, unspecified; Z87.891 Personal history of nicotine dependence
CPT/HCPCS: 99283; A9270

== ENCOUNTER 2022-07-21 15:15 | Emergency (ER) | payer OTHER, SELFPAY ==
--- NOTE | ~2022-07-21 | CT_ITS ---
EXAMINATION: CTA brain carotid DATE: 07/21/2022 19:03 INDICATION: Dizziness. TECHNIQUE: Computed tomographic angiography (CTA) of the head was performed without and with 100 mL O mnipaque-350 intravenous contrast. CTA of the neck was performed with intravenous contrast. Automated exposure control and iterative reconstruction technique were employed. The dose-length product was 1 720.76 mGy-cm. Maximum intensity projection and volume rendered 3D-reconstructions were created by gurpreet abreu technologist on a separate workstation. COMPARISON: Head CT 01/04/2014 FINDINGS: HEAD CTA: There is no intracranial hemorrhage, acute infarction, or abnormal intracranial mass lesion . The ventricles are normal in size. The orbits are normal. The mastoid air cells are normal. The par anasal sinuses are clear. Left vertebral artery is dominant. There is no significant stenosis of basi lar artery or the posterior cerebral arteries. There is no significant stenosis of the intracranial i nternal carotid arteries or anterior or middle cerebral arteries. Anterior communicating artery is no rmal. The posterior communicating arteries are normal. There is no aneurysm. NECK CTA: There are no pathologically enlarged lymph nodes. There is no significant stenosis of the v ertebral arteries. There is no visible plaque in the proximal internal carotid arteries. There is 0% stenosis of the proximal right internal carotid artery relative to normal distal artery lumen diamete r (NASCET criteria). There is 0% stenosis of the proximal left internal carotid artery relative to no rmal distal artery lumen diameter. There is mild cervical spondylosis. IMPRESSION: 1. Normal brain. No aneurysm or significant intracranial arterial stenosis. 2. 0% stenosis of the proximal internal carotid arteries relative to normal distal artery lumen diame ters (NASCET criteria). Reviewed, dictated and finalized at location A. MATIC BLOCKER IMPRESSION: 1. Normal brain. No aneurysm or significant intracranial arterial stenosis. 2. 0% stenosis of the proximal internal carotid arteries relative to normal dis wilber artery lumen diameters (NASCET criteria).
[2022-07-21 15:38] VITALS: BP 150/90; PULSE 124; RESP 18; TEMP 36.7; O2SAT 99
[2022-07-21 16:22] LABS: Influenza A QL RT-PCR Negative (Negative); Influenza B QL RT-PCR Negative (Negative); RSV RNA, RT-PCR Negative (Negative); SARS-CoV-2 RNA PCR Negative
[2022-07-21] MEDS: SODIUM CHLORIDE 0.9% IV 1,000 ML 999 ML IV CONT (17:25)
[2022-07-21] MEDS: diazePAM INJ (*CRX) 10 MG/2 ML SYRINGE 5 MG IV PUSH (17:26)
[2022-07-21] MEDS: ONDANSETRON INJ 4 MG/2 ML VIAL IV PUSH (17:26)
[2022-07-21 17:29] LABS: Basophils Percent Auto 0.4 % (0.2-1.2); Eosinophils Absolute Auto 0.1 K/mm3 (0-0.3); Eosinophils Percent Auto 0.5 % (0-4.4); Hematocrit 42.8 % (37.0-47.0); Hemoglobin 14.1 g/dL (12.0-15.0); Immature Granulocyte Absolute 0.03 K/mm3 (0.00-0.031); Immature Granulocyte Percent A 0.3 % (0-0.5); Lymphocytes Percent Auto 15.2 % (18.3-44.2); Mean Corpuscular HGB Conc 32.9 g/dl (32-36); Mean Corpuscular Hemoglobin 28.7 pg (26-34); Mean Platelet Volume 10.4 fl (7.4-10.4); Monocytes Absolute Auto 0.6 K/mm3 (0.1-0.6); Monocytes Percent Auto 5.9 % (2.6-8.5); Neutrophils Absolute Auto 7.7 K/mm3 (1.3-6.7); Neutrophils Percent Auto 77.7 % (45.5-73.1); Platelet Count Result 296 k/mm3 (150-375); Red Blood Count 4.92 M/mm3 (4.2-5.4); Red Cell Distribution Width 13.2 % (11.5-14.5); White Blood Count 9.9 K/mm3 (4.5-10.0)
[2022-07-21 17:43] LABS: Anion Gap 7 mmol/L (8-16); Blood Urea Nitrogen 12 mg/dL (7-17); Carbon Dioxide 26 mmol/L (22-30); Chloride 104 mmol/L (98-107); Estimated CRCL calculation 158 ml/min; Estimated Glomerular Filt Rate > 60; Glucose 102 mg/dL (65-110); Potassium 4.1 mmol/L (3.4-5.0); Sodium 137 mmol/L (137-145)
[2022-07-21 19:23] VITALS: BP 129/88; PULSE 83; RESP 18; TEMP 37.1; O2SAT 100
[2022-07-21 19:30] VITALS: BP 132/79; PULSE 74; RESP 18; TEMP 36.8; O2SAT 100
[2022-07-21 21:00] VITALS: BP 126/79; PULSE 85; RESP 18; TEMP 36.7; O2SAT 97
--- NOTE | 2022-07-21 21:12 | ED.DIZZY ---
HPI - Dizziness General Chief Complaint: Dizziness Stated Complaint: vertigo Time Seen by Provider: 07/21/22 16:24 History of Present Illness HPI Narrative: Patient is a 32-year-old female who presents ER with vertigo. Reports she has been struggling over the last couple months with vertigo. She has been seeing an ENT who recently started her on a Z-Shayne. She has been attending physical therapy for vertigo as well. She recently had a upper respiratory infection last 2 weeks that may have provoked this. She has not been taking meclizine because it does not work for her. She has occasional nausea and vomiting. No weakness or numbness of an arm or leg. Patient concerned she may have something intracranial as well. She has not had a CT scan of her head. Related Data Allergies Allergy/AdvReac Type Severity Reaction Status Date / Time No Known Allergies Allergy Unknown Verified 07/21/22 19:13 Review of Systems Review of Systems: All systems reviewed & are unremarkable except as noted in HPI and below Constitutional: Constitutional: Denies chills, Denies fatigue and Denies fever(s) Eyes: Eyes: Denies change in vision and Reports photophobia ENT: Reports vertigo, Reports dizziness, Reports nasal congestion and Denies sore throat Cardiovascular: Cardiovascular: Denies chest pain, Denies rapid heart rate and Denies radiating jaw, neck or arm pain Respiratory: Respiratory: Denies cough and Denies dyspnea Gastrointestinal: Gastrointestinal: Denies abdominal pain, Denies nausea and Denies vomiting Neurologic: Reports dizziness and Reports headache(s) [facility] Past Medical History Medical History (Updated 07/21/22 @ 21:21 by Victor M Worley MD) Anxiety Hx gestational diabetes (~2020) Vitamin D deficiency Surgical History Surgical History No pertinent past surgical history Family History Family History Mother Bipolar 1 disorder Social History Social History Smoking packs per day: 0.5 Smoking cigarettes per day: 10.0 Years smoked: 7 Smoking pack-years: 3.50 Smoking status: Former smoker Tobacco type: cigarettes Smoking end date: 08/27/17 Alcohol intake: never Substance use: never Substance use type: does not use Additional living arrangements comments: Lives with boyfriend of 12 years and has 4 children. Has a set of twins. Gender identity (if verbalized by the patient): Female Sexual Orientation (if Verbalized by the Patient): Straight or Heterosexual Spiritual care concerns: No Agree to blood products: Yes Exam Narrative: GENERAL: Well-appearing, well-nourished, and in no acute distress. HEAD: Normocephalic, atraumatic. EYES: PERRL and EOMI. ENT: Mucous membranes moist. TMs normal bilaterally. CHEST: Clear to auscultation. No respiratory distress. HEART: Regular rate and rhythm. Normal peripheral pulses. EXTREMITIES: Normal range of motion. No edema. SKIN: Warm, dry, no rash. NEURO: Alert and oriented x3. PSYCH: Normal mood and affect. Course Course Emergency Course: Patient resting comfortably. Improvement in anxiety with Valium and minimal change in dizziness. Informed of results. Recommend she continue therapy with her ENT. Vital Signs Vital signs: Vital Signs Temperature 98.0 F 07/21/22 15:38 Pulse Rate 124 H 07/21/22 15:38 Respiratory Rate 18 07/21/22 15:38 Blood Pressure 150/90 H 07/21/22 15:38 Pulse Oximetry 99 07/21/22 15:38 Oxygen Delivery Room Air 07/21/22 15:38 Temperature 98.8 F 07/21/22 19:23 Pulse Rate 83 07/21/22 19:23 Respiratory Rate 18 07/21/22 19:23 Blood Pressure 129/88 07/21/22 19:23 Pulse Oximetry 100 07/21/22 19:23 Oxygen Delivery Room Air 07/21/22 15:38 MDM - Dizziness Lab Data 07/21/22 17:22 07/21/22 17:22
[2022-07-21 21:49] VITALS: BP 126/79; PULSE 79; RESP 18; TEMP 36.7; O2SAT 99
== END 2022-07-21 21:51 | disposition home or self-care (01) ==
PROVIDERS: Emergency Provider Emergency Medicine; PCP Nurse Practitioner Family
DX: R42 Dizziness and giddiness (principal); Z20.822 Contact with and (suspected) exposure to COVID-19; E55.9 Vitamin D deficiency, unspecified; Z87.891 Personal history of nicotine dependence
CPT/HCPCS: 36415; 70496; 70498; 80048; 85025; 87637; 96361; 96374; 96375; 99284; J2405; J3360; J7030; Q9967

== ENCOUNTER 2022-08-21 13:12 | Outpatient (CLI) | payer OTHER, SELFPAY | END 2022-08-21 13:13 | disposition home or self-care (01) | LOC: ANHAUDIO 13:13 | PROVIDERS: PCP Family Medicine; Visit Provider Nurse Practitioner Family | DX: H91.90 Unspecified hearing loss, unspecified ear (principal) | CPT/HCPCS: 92557; 92567 ==

== ENCOUNTER 2022-09-01 15:30 | Outpatient (RCR) | payer OTHER, SELFPAY ==
--- NOTE | 2022-06-14 11:57 | PTOPEVAL1 ---
Assessment and note entered by Reji Antonio, PT Evaluation Information Assessment Status Evaluation Diagnosis dizziness and giddiness Onset about 3 weeks ago Subjective Information Patient is a mother of 4 including 15 month old twin boys. She reports about 3 weeks ago she was dealing with a bad sinus infection, recovering from her 2 youngest having RSV, and being on her cycle. The patient was given antibiotics and steroids for the infection and she started having dizziness resulting in her being unable to get off her couch without feeling nausea and dizziness. Reports ringing in her ears and that her eyes are feeling very dry and tired especially after going grocery shopping looking at all of the items on the aisles. Reported Pain Level Pain Score 0: Self Report Assessment PT Clinical Summary Mis is a 31 year old female coming into the clinic with dizziness and giddiness. She shows decreased speed and endurance of the L eye compared to the R eye especially in saccades and pen push ups. No nystagmus noted. Increased balance issues with any cervical movement during walking, standing on a foam cushion or with eyes closed. Held off on Corinna Hallpike secondary to no nystagmus and patient reports symptoms getting better. 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 The patient will be advanced safely and appropriately in order for the patient to progress towards his/her prior level of function. Additional exercises will be introduced and as well as a comprehensive home exercise program upon discharge, if needed, ?to ensure carryover of functional gains achieved in the clinic. This treatment plan has been reviewed and agreement upon by the patient.
--- NOTE | 2022-06-22 10:34 | PCPTNOTE ---
Patient called & rescheduled appointment this date due to not being able to make it.
--- NOTE | 2022-07-20 15:20 | PTOPPROG ---
Assessment and note entered by Alida Singh, PT Evaluation Information Assessment Status Progress Diagnosis dizziness and giddiness Onset about 3 weeks ago Subjective Information Mis reports: is having a bad day today; vertigo has never stopped; saw ENT few days ago and gave her a new antibiotic, but feeling worse and office told her not to take it; was told her ears looked good and thinks a sinus infection; saw eye dr and have glasses on the way; ears still ringing; have history of ear wax in ears and have had it removed; have not had hearing test' her family is a loud family; sometimes ears are clogged and sensative when talking on the phone; head feels like swaying in head & nausea; sometimes have pressure over forehead, tension headache, stiff neck; also have anxiety; problems with reading--eyes fatigued and skipping over words; Have been doing the eye exercises once a day, and trying to do 2x/day; Want to continue coming for therapy; Assessment PT Clinical Summary Mis has received 4 PT sessions. Compared to the initial evaluation: continues to have vestibular s/s of dizziness, nausea, pressure over head and eye fatigue, L >R, with problems reading and with mobility. She has seen the ENT with new antibiotic script and eye dr--getting glasses. Mis has been doing the habituation exercises- working on improving eye tracking, gaze stabilization and convergence. The goals were partially met. Continue PT treatment for vestibular rehabilitation. Plan of Care Interventions Neuro Re-education,Patient/Caregiver Educati, Therapeutic Activities,Therapeutic Exercise PT Services Indicated Yes Treatment Frequency and 0-1x/wk x 6 weeks, due to transportation issues Duration These treatments will address the objective and functional deficits as defined above. The patient will be advanced safely and appropriately in order for the patient to progress towards his/her prior level of function. Additional exercises will be introduced and as well as a comprehensive home exercise program upon discharge, if needed, ?to ensure carryover of functional gains achieved in the clinic. This treatment plan has been reviewed and agreement upon by the patient.
--- NOTE | 2022-08-04 08:46 | PCPTNOTE ---
Patient called & cancelled scheduled appointment this date due to having sick kids.
--- NOTE | 2022-08-11 12:00 | PCPTNOTE ---
pt called and canceled today's appt
--- NOTE | 2022-09-01 16:20 | PCPTNOTE ---
pt was 10 minutes late for today's reeval appt;
--- NOTE | 2022-09-01 16:22 | PTOPPROG ---
Assessment and note entered by Alida Singh, PT Evaluation Information Assessment Status Progress Diagnosis dizziness and giddiness Onset about 3 weeks ago Subjective Information Mis reports: neck has flared up and more painful; have not been doing much of the exercises due to pain; have been to the chiropractor for 2 adjustments; have completed all antibiotics; saw eye dr--have glasses, but not need to wear all time, have not really worn them much; have an astigmatism and night time lights bother her; with reading- is doing OK; but sometimes eyes are fatigued; hearing test was performed and hearing was OK; had dizzy eval-- at [facility] last week, did not have the full vestibular testing; has been under alot of stress lately; have made an appointment with a migraine specialist; have an order for brain MRI; and going to call the dr for neck MRI too; neck pain range in past week 7-04/01; frontal and top of head headaches--come on suddenly, ease with rubbing her neck and forehead, usually about once/day- duration varies but about 30 minutes; vestibular symptoms: swaying and floating feelings still there; increase with turning head and trunk ; standing and one leg more forward- feel unbalanced; balance is off; Assessment PT Clinical Summary Mis has received 9 PT sessions. Compared to the last reevaluation: eye tracking, gaze stabilization and vestibular issues have improved and are less; She has more reports of headaches, neck pain and muscle tightness. Reading no longer causes her any issues. She does report eye fatigue at the end of the day. Cervical rotation to R and L is decreased and with pain; cervical flexion also increases her pain. Her headaches are daily, and can be eased with self massage over her neck and forehead. She has had additional testing for hearing, eye exam/new glasses, vestibular specialist at [facility]. She has orders for MRI of her brain, but has not yet had done. The goals were partially achieved. Continue PT treatment, with emphasis on cervical pain and spasms. Plan of Care Interventions Electrical Stimulation,Hot
--- NOTE | 2022-09-06 13:09 | PCPTNOTE ---
This treatment is being continued on visit number [id number]. Please see documentation on both accounts to view progress. Completed interventions, outcomes, and problems have been marked as Inactive to facilitate the copying of the Care plan routine for recurring accounts.
== END 2022-09-06 12:53 | disposition home or self-care (01) ==
LOC: ANHPT 15:30
PROVIDERS: PCP Nurse Practitioner Family; Visit Provider Nurse Practitioner
DX: R42 Dizziness and giddiness (principal)
CPT/HCPCS: 97110; 97112; 97140; 97161; 97530

== ENCOUNTER 2022-09-20 17:17 | Outpatient (CLI) | payer OTHER, SELFPAY ==
--- NOTE | ~2022-09-20 | XR_ITS ---
EXAMINATION: XR cervical spine min 6V DATE: 09/20/2022 17:44 INDICATION: Neck pain. TECHNIQUE: 6 views of cervical spine were obtained. COMPARISON: None. FINDINGS: There is 2 mm retrolisthesis of C5 on C6. There is 6 degrees levocurvature of cervicothorac ic spine. Vertebral body heights are normal. There is mildly decreased disc height at C5-C6. At C5-C6 , there is moderate bilateral uncovertebral joint osteoarthritis. The facet joints are unremarkable. There is mild central canal stenosis at C5-C6. No prevertebral soft tissue swelling. IMPRESSION: 1. Mild cervical spondylosis. Reviewed, dictated and finalized at location A. AND EXPLOSION INVESTIGATOR
== END 2022-09-20 17:18 | disposition home or self-care (01) ==
LOC: ANHIMG 17:21
PROVIDERS: PCP Family Medicine; Visit Provider Nurse Practitioner
DX: M47.892 Other spondylosis, cervical region (principal)
CPT/HCPCS: 72052

== ENCOUNTER 2022-10-13 15:30 | Outpatient (RCR) | payer OTHER, SELFPAY ==
--- NOTE | 2022-09-15 11:06 | PCPTNOTE ---
Patient did not show up for scheduled appointment this date. Called patient and she thought her appointment was later today. She was very sorry.
--- NOTE | 2022-09-29 16:24 | PCPTNOTE ---
discussed pt with Amparo Reid PTA; added electrical stim to plan of care/treatment for cervical pain.
--- NOTE | 2022-10-06 12:45 | PCPTNOTE ---
pt called and canceled today's appt; no reason was given.
--- NOTE | 2022-10-13 16:26 | PTOPPROG ---
Assessment and note entered by Alida Singh, PT Evaluation Information Assessment Status Progress Diagnosis dizziness and giddiness Onset about 3 weeks ago Subjective Information Mis reports: has been doing the exercises 1- 2 x/day; to see neurologist- due to tremors in her hands and pain in her shoulders when reach out; continues to have some dizziness and spinning, wavy feeling of her body-- less since stopped clozapam and relaxation, deep breathing. sometimes weak and off balance with cleaning house; She discussed at length: feelings of nervousness, nerves jittery, transportation issues-- she has not driven for about 19 months and her license has ; changes in her meds for her nerves; concern about hurting her neck if move wrong due to xray changes; pain range of neck in past week: 4-8/10; tight, stiff, pressure; intermittent, shooting pain into arms, into fingers R > L; had more shooting pain after chiropractor adjustment; had x ray done C5-6 canal stenosis; pain increase when first wake up in AM, end of the day, increase activity level; decrease pain with popping neck by performing chin tucks; have several headaches every day, when have nervous moments and pressure on head, duration of headaches about 30 minutes; decrease with massage top of neck and forehead; have a home stim unit--has not been using it; discussed and reinforced use educated on deep breathing and muscle relaxation; Assessment PT Clinical Summary Mis has received a total of 12 PT sessions from Jun 14 to today. She has transportation issues with getting here. Compared to the last reeval: pain rating for neck pain has improved from 7-9/10 to 4-8/10; continues to have headaches daily, multiple times a day, with reported duration the same; now reports radicular pain into both arms intermittent; cervical ROM is about the same, with painful motion of rotation R and L now, previously was painful flexion; She continues to report some vestibular symptoms of wavy, swimming head with positional changes. She voiced alot of concerns, as noted above-- nerves, anxiety, med changes, going to neurologist
--- NOTE | 2022-11-24 12:00 | PCPTNOTE ---
pt called and canceled today's reeval; stated she would call if need anymore therapy.
--- NOTE | 2022-12-06 13:22 | PTOPDC ---
Assessment and note entered by Alida Singh, PT Evaluation Information Assessment PT Clinical Summary Ms. Beck has not returned for therapy since the reevaluation/progress report dated 10-13-22; therefore, she will be discharged at this time. Plan of Care PT Services Indicated Yes
== END 2022-12-07 09:25 | disposition home or self-care (01) ==
LOC: ANHPT 15:30
PROVIDERS: PCP Family Medicine; Visit Provider Nurse Practitioner
DX: R42 Dizziness and giddiness (principal)
CPT/HCPCS: 97014; 97110; 97112; 97140; 97530; 99199; G0283

== ENCOUNTER 2022-11-18 12:56 | Outpatient (CLI) | payer OTHER, SELFPAY | END 2022-11-18 12:57 | disposition home or self-care (01) | PROVIDERS: PCP Family Medicine | DX: R42 Dizziness and giddiness (principal) | CPT/HCPCS: 36415; 82607; 83735 ==

== ENCOUNTER 2023-03-17 09:02 | Outpatient (CLI) | payer OTHER, SELFPAY ==
[2023-03-17 09:38] LABS: Basophils Percent Auto 0.4 % (0.2-1.2); Eosinophils Absolute Auto 0.1 K/mm3 (0-0.3); Eosinophils Percent Auto 1.7 % (0-4.4); Hematocrit 44.1 % (37.0-47.0); Hemoglobin 14.4 g/dL (12.0-15.0); Immature Granulocyte Absolute 0.02 K/mm3 (0.00-0.031); Immature Granulocyte Percent A 0.3 % (0-0.5); Immature Platelet Fraction Pct 8.4 % (0.9-11.2); Lymphocytes Absolute Auto 1.63 K/mm3 (0.9-3.2); Lymphocytes Percent Auto 21.8 % (18.3-44.2); Mean Corpuscular HGB Conc 32.7 g/dl (32-36); Mean Corpuscular Hemoglobin 28.8 pg (26-34); Mean Corpuscular Volume 88.2 fl (80-100); Mean Platelet Volume 11.1 fl (7.4-10.4); Monocytes Absolute Auto 0.5 K/mm3 (0.1-0.6); Monocytes Percent Auto 6.6 % (2.6-8.5); Neutrophils Absolute Auto 5.2 K/mm3 (1.3-6.7); Neutrophils Percent Auto 69.2 % (45.5-73.1); Platelet Count Result 239 k/mm3 (150-375); Red Cell Distribution Width 12.6 % (11.5-14.5); White Blood Count 7.5 K/mm3 (4.5-10.0)
[2023-03-17 09:49] LABS: Alanine Aminotransferase 23 U/L (6-35); Alkaline Phosphatase 90 U/L (38-126); Anion Gap 7 mmol/L (8-16); Aspartate Amino Transferase 23 U/L (14-36); Bilirubin,Total 0.5 mg/dL (0.2-1.3); Blood Urea Nitrogen 7 mg/dL (7-17); Calcium 9.4 mg/dL (8.4-10.2); Carbon Dioxide 32 mmol/L (22-30); Chloride 101 mmol/L (98-107); Estimated Glomerular Filt Rate > 60; Glucose 98 mg/dL (65-110); Potassium 3.7 mmol/L (3.4-5.0); Sodium 140 mmol/L (137-145)
[2023-03-17 11:20] LABS: Folic Acid > 20.0 ng/mL (2.76->20)
[2023-03-21 15:44] LABS: Vitamin D 1,25 (OH)2 Total 69 pg/mL (18-72); Vitamin D2 1,25 (OH)2 <8 pg/mL; Vitamin D3 1,25 (OH)2 69 pg/mL
[2023-03-21 23:21] LABS: Zinc 101 mcg/dL (60-130)
[2023-03-22 00:20] LABS: Alpha-Tocopherol 10.3 mg/L (5.7-19.9); Beta-Gamma Tocopherol <1.0 mg/L (<=4.3); Vitamin A 49 mcg/dL (38-98)
[2023-03-22 23:55] LABS: Vitamin K1 133 pg/mL (130-1500)
[2023-03-24 22:45] LABS: Vitamin B2 16.9 nmol/L (6.2-39.0)
== END 2023-03-17 09:03 | disposition home or self-care (01) ==
PROVIDERS: PCP Family Medicine; Visit Provider Nurse Practitioner Family
DX: Z00.00 Encounter for general adult medical examination without abnormal findings (principal); I10 Essential (primary) hypertension; E53.8 Deficiency of other specified B group vitamins; L60.9 Nail disorder, unspecified; F41.9 Anxiety disorder, unspecified; E55.9 Vitamin D deficiency, unspecified; G43.909 Migraine, unspecified, not intractable, without status migrainosus
CPT/HCPCS: 36415; 80053; 82607; 82652; 82746; 83735; 84252; 84443; 84446; 84590; 84597; 84630; 85025; 85055

== ENCOUNTER 2023-08-16 18:46 | Emergency (ER) | payer OTHER, SELFPAY ==
[2023-08-16 18:55] VITALS: BP 158/89; PULSE 91; RESP 18; TEMP 37.1; O2SAT 99
--- NOTE | 2023-08-16 19:02 | ED.URI ---
HPI - URI/Sore Throat General Chief Complaint: Upper Respiratory Infection Stated Complaint: Sinus Pressure/Ear Pain/Congestion Time Seen by Provider: 08/16/23 19:02 Source: patient, RN notes reviewed and old records reviewed Mode of arrival: ambulatory Limitations: no limitations History of Present Illness HPI Narrative: 33 year old female who presents to [facility] with complaints of dry nonproductive cough.sinus pressure and drainage,facial pressure with congestion,headache, feeling hot and cold with sharp pains in face and in teeth and into her bilateral ears. Patient reports that she has been taking Tylenol and Ibuprofen for her discomfort. Patient reports no body aches, shortness of breath or any nausea vomiting or diarrhea, Patient reports no known ill contacts. MD elicited complaint: cough, rhinorrhea, nasal congestion, sinus pain and other (ear pressure and pain) Onset (ago): day(s) (3 days) Consistency: progressively worsening Severity: moderate Description of mucous: yellow Able to tolerate fluids by mouth: Yes Treatments prior to arrival: acetaminophen and ibuprofen Related Data Allergies Allergy/AdvReac Type Severity Reaction Status Date / Time No Known Allergies Allergy Unknown Verified 08/16/23 18:56 Review of Systems Review of Systems: CONSTITUTIONAL: Reports malaise, chills, sweats, or fever. EYES: Denies visual changes, redness, or discharge. ENT: Reports rhinorrhea, congestion, sinus pain, bilateral ear pain and pressure,and no sore throat. CARDIOVASCULAR: Denies chest pain, palpitations, or edema. RESPIRATORY: Reports cough.? Denies dyspnea. GASTROINTESTINAL: Denies abdominal pain, nausea, vomiting, diarrhea SKIN: Denies rash or itching. MUSCULOSKELETAL: Denies myalgia. NEUROLOGIC:reports headache. All systems reviewed & are unremarkable except as noted in HPI and below PMFSH Past Medical History Medical History Anxiety Hx gestational diabetes (~2020) Vitamin D deficiency Surgical History Surgical History No pertinent past surgical history Family History Family History Mother Bipolar 1 disorder Social History Social History Smoking packs per day: 0.5 Smoking cigarettes per day: 10.0 Years smoked: 7 Smoking pack-years: 3.50 Smoking status: Former smoker Tobacco type: cigarettes Smoking end date: 08/27/17 Alcohol intake: never Substance use: never Substance use type: does not use Lack of Transportation: No Lack of Food: Never True Current Housing: I Have Housing Concerned About Future Housing: No Difficulty Paying Gas/Electric Bills: No Difficulty Paying for Meds: No Currently Unemployed: No Education: High School Diploma/GED Difficulty w/ Childcare or Family Care: No Living arrangements: with family Additional living arrangements comments: Lives with boyfriend of 12 years and has 4 children. Has a set of twins. Occupation/Education: unemployed Gender identity (if verbalized by the patient): Female Sexual Orientation (if Verbalized by the Patient): Straight or Heterosexual Spiritual care concerns: No Agree to blood products: Yes Comments At time of signature, agree with nursing past medical, surgical, social and family history. There is no relevant family history pertinent to the presenting complaint Exam Narrative: GENERAL: Well-appearing, well-nourished, and in no acute distress. HEAD: Normocephalic EYES: PERRLA, conjunctivae clear ENT: Nares clear, turbinates edematous and erythematous, yellowish tinged discharge. Mucous membranes moist. TM pearly mathias with dull light reflex bilaterally; no tragal tenderness. Oropharynx erythematous without lesions. Tonsils not enlarged and without exudate,
== END 2023-08-16 19:44 | disposition home or self-care (01) ==
PROVIDERS: Emergency Provider Registered Nurse
DX: J01.40 Acute pansinusitis, unspecified (principal); Z87.891 Personal history of nicotine dependence; Z20.822 Contact with and (suspected) exposure to COVID-19
CPT/HCPCS: 87081; 87426; 87804; 87880; 99213; G0463

== ENCOUNTER 2024-02-07 14:41 | Outpatient (CLI) | payer OTHER, SELFPAY ==
--- NOTE | ~2024-02-07 | US_ITS ---
EXAMINATION: US OB <= 14 weeks fetus DATE: 02/07/2024 15:56 INDICATION: History of spontaneous TECHNIQUE: Real-time transabdominal and transvaginal obstetric ultrasound. FINDINGS: No prior studies for comparison. The uterus measures 16 x 8.4 x 11 cm. There is an intrauterine gestational sac, with pole ident ified. The crown rump length measures 6.99 cm, which correlates with a estimated gestational age of 13 weeks 1 day. heart tones are identified measuring 167 BPM. Right ovary is normal measuring 2 x 2.8 x 1.8 cm. Left ovary is not visualized. IMPRESSION: 1. SL IUP with an EGA of 13 weeks, 1 days (EDC by current ultrasound of 08/13/2024). Reviewed, dictated and finalized at location B. IMPRESSION: 1. SL IUP with an EGA of 13 weeks, 1 days (EDC by current ultrasound of 08/13/19 25).
== END 2024-02-07 14:42 | disposition home or self-care (01) ==
LOC: ANHIMG 14:42
PROVIDERS: Visit Provider Obstetrics & Gynecology Gynecology
DX: O26.21 Pregnancy care for patient with recurrent pregnancy loss, first trimester (principal); O36.80X0 Pregnancy with inconclusive fetal viability, not applicable or unspecified; Z3A.13 13 weeks gestation of pregnancy
CPT/HCPCS: 76801

== ENCOUNTER 2024-02-16 08:02 | Outpatient (CLI) | payer OTHER, SELFPAY ==
[2024-02-16 09:21] LABS: Hemoglobin A1C 5.4 % (<5.7)
[2024-02-16 10:07] LABS: Free T4 Free Thyroxine 0.95 ng/mL (0.78-2.19); Vitamin D 25 Hydroxy 38.8 ng/mL
[2024-02-16 10:34] LABS: Hepatitis C Virus Antibody Negative (Negative)
== END 2024-02-16 08:03 | disposition home or self-care (01) ==
PROVIDERS: Visit Provider Obstetrics & Gynecology Gynecology
DX: Z36.9 Encounter for antenatal screening, unspecified (principal); Z3A.00 Weeks of gestation of pregnancy not specified
CPT/HCPCS: 36415; 82306; 82728; 83036; 84439; 84443; 86803

== ENCOUNTER 2024-03-03 15:49 | Outpatient (CLI) | payer OTHER, SELFPAY ==
[2024-03-03 16:23] LABS: Basophils Percent Auto 0.1 % (0.2-1.2); Eosinophils Absolute Auto 0.1 K/mm3 (0-0.3); Eosinophils Percent Auto 0.9 % (0-4.4); Hematocrit 39.2 % (37.0-47.0); Hemoglobin 13.7 g/dL (12.0-15.0); Immature Granulocyte Absolute 0.04 K/mm3 (0.00-0.031); Immature Granulocyte Percent A 0.5 % (0-0.5); Lymphocytes Absolute Auto 1.34 K/mm3 (0.9-3.2); Lymphocytes Percent Auto 16.9 % (18.3-44.2); Mean Corpuscular HGB Conc 34.9 g/dl (32-36); Mean Corpuscular Hemoglobin 30.6 pg (26-34); Mean Corpuscular Volume 87.5 fl (80-100); Mean Platelet Volume 10.8 fl (7.4-10.4); Monocytes Absolute Auto 0.4 K/mm3 (0.1-0.6); Monocytes Percent Auto 5.2 % (2.6-8.5); Neutrophils Absolute Auto 6.1 K/mm3 (1.3-6.7); Neutrophils Percent Auto 76.4 % (45.5-73.1); Platelet Count Result 200 k/mm3 (150-375); Red Blood Count 4.48 M/mm3 (4.2-5.4); Red Cell Distribution Width 13.5 % (11.5-14.5); White Blood Count 7.9 K/mm3 (4.5-10.0)
[2024-03-03 18:21] LABS: HIV 1/2 Ab P24 Ag Result Negative (Negative)
[2024-03-03 19:03] LABS: Hepatitis B Surface Antigen Negative (Negative); Rubella IgG Antibody 6.3 IU/ML
[2024-03-04 12:10] LABS: Rapid Plasma Reagin Non-Reactive (NonReactive)
== END 2024-03-03 15:50 | disposition home or self-care (01) ==
LOC: ANHLAB 15:52
PROVIDERS: Visit Provider Obstetrics & Gynecology Gynecology
DX: Z36.9 Encounter for antenatal screening, unspecified (principal); Z3A.00 Weeks of gestation of pregnancy not specified
CPT/HCPCS: 36415; 85025; 86592; 86703; 86762; 86900; 86901; 87340; G0432

== ENCOUNTER 2024-05-24 13:38 | Outpatient (CLI) | payer OTHER, SELFPAY ==
[2024-05-24 13:54] LABS: Hematocrit 37.2 % (37.0-47.0); Hemoglobin 13.1 g/dL (12.0-15.0); Mean Corpuscular HGB Conc 35.2 g/dl (32-36); Mean Corpuscular Hemoglobin 31.6 pg (26-34); Mean Corpuscular Volume 89.9 fl (80-100); Mean Platelet Volume 10.5 fl (7.4-10.4); Platelet Count Result 146 k/mm3 (150-375); Red Blood Count 4.14 M/mm3 (4.2-5.4); Red Cell Distribution Width 13.6 % (11.5-14.5)
== END 2024-05-24 13:39 | disposition home or self-care (01) ==
PROVIDERS: Visit Provider Obstetrics & Gynecology Gynecology
DX: E55.9 Vitamin D deficiency, unspecified (principal)
CPT/HCPCS: 36415; 82728; 85027

== ENCOUNTER 2024-06-23 11:48 | Outpatient (CLI) | payer OTHER, SELFPAY ==
[2024-06-23 13:46] LABS: Glucose 1 Hour PP 50gm Dose 147 mg/dL
== END 2024-06-23 11:49 | disposition home or self-care (01) ==
LOC: ANHLAB 11:53
PROVIDERS: Visit Provider Advanced Practice Midwife
DX: Z36.9 Encounter for antenatal screening, unspecified (principal); Z67.91 Unspecified blood type, Rh negative; O99.413 Diseases of the circulatory system complicating pregnancy, third trimester; Z3A.00 Weeks of gestation of pregnancy not specified
CPT/HCPCS: 36415; 82947

== ENCOUNTER 2024-07-05 12:31 | Outpatient (CLI) | payer OTHER, SELFPAY ==
[2024-07-05 13:01] LABS: Hematocrit 39.4 % (37.0-47.0); Hemoglobin 14.2 g/dL (12.0-15.0)
[2024-07-05 13:45] LABS: Vitamin D 25 Hydroxy 56.3 ng/mL
[2024-07-05 13:52] LABS: HIV 1/2 Ab P24 Ag Result Negative (Negative)
[2024-07-06 10:35] LABS: Rapid Plasma Reagin Non-Reactive (NonReactive)
--- OUTSIDE RECORDS SUMMARY | 2024-07-09 12:39 | XMS_ITS | Clinical Summary ---
Author Organization [facility] Address [address] [place] [address] Care Team Providers Care Quality Control Lead Name Role Phone Unavailable Primary Care Provider Unavailabl e Source Comments [facility],non-owned Affiliates and Associated Physician Practices is amultiple site organization consisting of ambulatory clinics and hospital sitesin [place], [place], [place] and [place]. This disclosure is being madepursuant to the Care Everywhere program and may not contain all information available regarding this patient. Last updated 18.[facility] [employer] Allergies No known active allergies Medications * Be aware that medications may not be up to date on this document. Alwaysverify current medications with the patient. Medication Sig Dispensed Refills Start Date End Date Status clonazePAM (KlonoPIN) 0.5 MG tablet TAKE 1/2 TABLET BY MOUTH TWICE A DAY NEEDED FOR ANXIETY ADMINISTER 30 MINUTES BEFORE BEDTIME 07/28/2022 Active B Jjkdcyv-S-Exsev Acid (Angela-Michelle Rx) 1 MG TABS 1 (one) tablet Active vitamin D, ergocalciferol, (Drisdol) 1.25 MG (23374 UT) capsule TAKE 1 CAPSULE BY MOUTH ONE TIME PER WEEK 08/23/2021 Active ibuprofen (Motrin) 800 MG tablet Take 1 (one) tablet by mouth 3 times daily 07/27/2022 Active Active Problems Patient Care Coordination No te Formatting of this note migh t be different from the original. NOP [facility] 2014 No known active problems Social History Tobacco Use Types Packs/Day Years Used Date Smoking Tobacco: Never Smokeless Tobacco: Never Tobacco Cessation:Counseling Given: Not Answered Alcohol Use Standard Drinks/Week Comments Never 0 (1 standard drink = 0.6 oz pur e alcohol) Sex and Gender Information Value Date Recorded Sex Assigned at Not on file Gender Identity Not on file Sexual Orientation Not on file Last Filed Vital Signs Vital Sign Reading Time Taken Comments Blood Pressure 123/79 08/24/2022 2:06 PM GOLD PROSPECTOR Pulse 91 08/24/2022 2:06 PM GOLD PROSPECTOR Temperature - - Respiratory Rate - - Oxygen Saturation 99% 08/24/2022 2:06 PM GOLD PROSPECTOR Inhaled Oxygen Concentration - - Weight 104.8 kg (231 lb) 08/24/2022 2:06 PM GOLD PROSPECTOR Height 162.6 cm (5' 4 ) 08/24/2022 2:06 PM GOLD PROSPECTOR Body Mass Index 39.65 08/24/2022 2:06 PM GOLD PROSPECTOR Plan of Treatment Health Maintenance Due Date Last Done Comments PAP SMEAR 1989 HIV SCREENING 2004 HEPATITIS C SCREENING 06/25/2007 DTAP/TDAP/TD VACCINES (1 - Tdap) 2008 HEPATITIS B VACCINE (1 of 3 - 19+ 3-dose series) 2008 DEPRESSION SCREENING 07/23/2023 COVID-19 VACCINE (1 - 2023-2 5 season) 2024 INFLUENZA VACCINE (#1) 2024 ZOSTER VACCINE (1 of 2) 2039 HIB VACCINE Aged Out No longer eligi ble based on patient's age to complete this topic HPV VACCINE Aged Out No longer eligi ble based on patient's age to complete this topic MENINGOCOCCAL VACCINE Aged Out No sheron tanika eligible based on patient's age to complete this topic PNEUMOCOCCAL VACCINE Aged Out No long er eligible based on patient's age to complete this topic
--- OUTSIDE RECORDS SUMMARY | 2024-07-09 12:40 | XMS_ITS | Encounter Summary ---
Author Organization [facility] Address [address] [place] [address] [place] [address] Care Team Providers Care Pouring Crane Operator Name Role Phone Unavailable Primary Care Provider Unavailabl e Encounter Details Date Type Department Care Team (Late st Contact Info) Description 08/24/2022 2:00 PM MEDICAL TERRITORY MANAGER Office Visit [facility] [address] [facility] [place] [address] Lei Nelson, TERMITE CONTROL REPRESENTATIVE-WEBSITE/BLOG EDITOR [address] [facility] [address] [place] [address] Migraine with aura and with status migrainosus, not intractable (Primary Dx); Bruxism Social History Tobacco Use Types Packs/Day Years Used Date Smoking Tobacco: Never Smokeless Tobacco: Never Tobacco Cessation:Counseling Given: Not Answered Alcohol Use Standard Drinks/Week Comments Never 0 (1 standard drink = 0.6 oz pur e alcohol) Sex and Gender Information Value Date Recorded Sex Assigned at Not on file Gender Identity Not on file Sexual Orientation Not on file documented as of this encounter Last Filed Vital Signs Vital Sign Reading Time Taken Comments Blood Pressure 123/79 08/24/2022 2:06 PM MEDICAL TERRITORY MANAGER Pulse 91 08/24/2022 2:06 PM MEDICAL TERRITORY MANAGER Temperature - - Respiratory Rate - - Oxygen Saturation 99% 08/24/2022 2:06 PM MEDICAL TERRITORY MANAGER Inhaled Oxygen Concentration - - Weight 104.8 kg (231 lb) 08/24/2022 2:06 PM MEDICAL TERRITORY MANAGER Height 162.6 cm (5' 4 ) 08/24/2022 2:06 PM MEDICAL TERRITORY MANAGER Body Mass Index 39.65 08/24/2022 2:06 PM MEDICAL TERRITORY MANAGER documented in this encounter Progress Notes * Lei Nelson, TERMITE CONTROL REPRESENTATIVE-WEBSITE/BLOG EDITOR - 08/24/2022 2:28 PM CST Images from the original note were not included. Chief Complaint: Dizziness History of Present Illness: 32 year old with a h/o Anxiety, Panic Attacks, Palpitations who presents with 1) Migraines with aura 2) Bruxism I had the pleasure of seeing Ms. Beck who reports 2 months of episodes of dizziness described as spinning, lightheadedness, nausea, off balance/swaying sensation, and brain fog that can last seconds-hours after having a really severe sinus infection in 05/2022. Swaying sensation is continuous. She was initially treated with two rounds of oral abx, oral steroids, nasal sprays, and antihistamines with minimal relief. She was then treated with meclizine without any relief. She has also beenundergoing Vestibular PT since ~06/2022 with some improvement. Her dizziness is almost always associated with stress/anxiety, neck tension, daily frontal headaches squeezing, stabbing/pressure, phot o/phonophobia, nausea, visual auras, bilateral aural fullness, bilateral tinnitus, and intermittentbilateral otalgia. Her symptoms are made worse by stress, motion in her environment, fatigue, and head turning (not every time), panic attacks and sometimes her menstrual cycle. She endorses increased stress lately. She was going to undergo a Balance Test but was told that the equipment was broken and was referred to us. Endorses bruxism but has not tried bite splint. Had normal head/neck CTA 07/21/2022 H/o personal migraines (one as a child). Denies family h/o migraines. H/o anxiety previously treated with Zoloft from 12/2020-03/2022. Denies associated hearing fluctuation, increased tinnitus, aural fullness, room spinning lasting hours or N/V Denies otorrhea. 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 No past medical history on file. PSH: has no past surgical history on file. Current Outpatient Medications Medication Sig Dispense Refill ??? B Zkplomu-M-Cfonc Acid (Angela-Michelle Rx) 1 MG TABS 1 (one) tablet ??? clonazePAM (KlonoPIN) 0.5 MG tablet TAKE 1/2 TABLET BY MOUTH TWICE A DAY NEEDED FOR ANXIETY ADMINISTER 30 MINUTES BEFORE BEDTIME ??? ibuprofen (Motrin) 800 MG tablet Take 1 (one) tablet by mouth 3 times daily ??? vitamin D, ergocalciferol, (Drisdol) 1.25 MG (57394 UT) capsule TAKE 1 CAPSULE BY MOUTH ONE TIME PER WEEK No current facility-administered medications for this visit. Allergies Patient has no known allergies. Social History Tobacco Use ??? Smoking status: Never ??? Smokeless tobacco: Never Vaping Use ??? Vaping Use: Never used Substance Use Topics ??? Alcohol use: Never ??? Drug use: Never No family history on file. BP 123/79 (BP SITE: LEFT ARM, BP POSITION: SITTING, BP CUFF SIZE: 12) Pulse 91 Ht 1.626 m (5' 4 ) Wt 104.8 kg (231 lb) SpO2 99% Physical Exam: Constitutional: Alert, No acute Distress; Well developed/well nourished Neuro:cranial nerves III-XII grossly intact CV/Pulm: Normal respirations and peripheral pulses. Eyes: PERRL, EOMI Face/Skin: normal appearance, no lesions/masses Ears: Right Ear: Mastoid and tragus non-tender, pinna WNL without lesion, EAC WNL, TM intact with appropriate landmarks, middle ear space aerated Left Ear: Mastoid non-tender and tragus, pinna WNL without lesion, EAC WNL, TM intact with appropriate landmarks, middle ear space aerated Nose: patent bilaterally,Turbinates intact, Mucosal membranes intact, septum is midline externally Mouth and oropharynx: symmetric tongue mobility, no lesions/masses/ulcers, no tonsillar hypertrophyor exudate Neck: supple, no lymphadenopathy, no masses Voice: strong MusculoSkeletal: moves all extremities well [place]-Hallpike: NEGATIVE Audiogram 08/21/2022: Normal Hearing Bilaterally, Tymps: Type A jayde, WRS: 96/100 CTA Head and Neck 07/21/2022: Normal brain. No aneurysm or significant intracranial arterial stenosis Assessment and Plan: Mis Beck is a 32 year old female who presented today with 1) Migraines with aura 2) Bruxism Pt with normal ear exam, normal audiogram and negative [place]-Hallpike today. Low suspicion that her dizziness is of otologic origin. High suspicion that her dizziness is r/t migraines complicated by underlying anxiety/stress and bruxism which are also contributing to her ear symptoms. After explaining the contributing factors in the differential diagnosis, the disease process was explained in great detail. All questions were answered. We discussed risks vs benefits of: watchful waiting vs lifestyle changes +/- additional medications+/- scope exam +/- Balance Testing +/- MRI IAC +/- Ref to Dr. Madeleine Middleton At this time, the decision was made to: -Trial Migraine Lifestyle Modifications including: Keeping a diet diary, avoiding triggers, obtaining regular sleep and exercise, practicing stress reduction activities as well as trialing migraine supplements (Coenzyme Q10, Magnesium Citrate and/or Riboflavin; instructions given to pt) -Trial Nurtec 75 mg daily PO as needed for migraines (sample pack given to pt) -Continue with Vestibular PT -MRI IAC for migraines -Trial conservative measures for bruxism including: warm compresses, jaw massages, jaw stretches, NSAIDs, OTC bite splint or visit Dentist for custom fit bite splint -Follow up with PCP regarding anxiety/stress management Depending on interval symptoms, exam, we may consider watchful waiting, additional medications (daily migraine medication), scope exam, and/or Balance Testing Follow up with Dr. Madeleine Middleton, REINA Caicedo 08/24/2022 2:28 PM CAL TERRITORY MANAGER documented in this encounter Plan of Treatment Not on file documented as of this encounter Visit Diagnoses Diagnosis Migraine with aura and with status migrainosus, not intractable- Primary Migraine with aura, with intractable migraine, so stated, with status migrainosus Bruxism Other specified psychophysiological malfunction documented in this encounter
--- OUTSIDE RECORDS SUMMARY | 2024-07-09 12:40 | XMS_ITS | Patient Health Summary ---
Author Organization [facility] Address [address] [facility] [place] [address] Care Team Providers Care Nursing Student Name Role Phone Unavailable Primary Care Provider Unavailabl e Note from [facility],non-owned Affiliates and Associated Physician Practices is amultiple site organization consisting of ambulatory clinics and hospital sitesin [place], [place], [place] and [place]. This disclosure is being madepursuant to the Care Everywhere program and may not contain all information available regarding this patient. Last updated 18.[facility] Allergies No known active allergies Medications * Be aware that medications may not be up to date on this document. Alwaysverify current medications with the patient. * clonazePAM (KlonoPIN) 0.5 MG tablet(Started 07/28/2022) TAKE 1/2 TABLET BY MOUTH TWICE A DAY NEEDED FOR ANXIETY ADMINISTER 30 MINUTES BEFORE BEDTIME * B Keoumbl-Z-Jztcm Acid (Angela-Michelle Rx) 1 MG TABS 1 (one) tablet * vitamin D, ergocalciferol, (Drisdol) 1.25 MG (72843 UT) capsule(Started 08/23/2021) TAKE 1 CAPSULE BY MOUTH ONE TIME PER WEEK * ibuprofen (Motrin) 800 MG tablet(Started 07/27/2022) Take 1 (one) tablet by mouth 3 times daily Active Problems No known active problems Social History Tobacco [...] Comments Blood Pressure 123/79 08/24/2022 2:06 PM MOTEL OPERATOR Pulse 91 08/24/2022 2:06 PM MOTEL OPERATOR Temperature - - Respiratory Rate - - Oxygen Saturation 99% 08/24/2022 2:06 PM MOTEL OPERATOR Inhaled Oxygen Concentration - - Weight 104.8 kg (231 lb) 08/24/2022 2:06 PM MOTEL OPERATOR Height 162.6 cm (5' 4 ) 08/24/2022 2:06 PM MOTEL OPERATOR Body Mass Index 39.65 08/24/2022 2:06 PM MOTEL OPERATOR Procedures * SONOGRAM - COMPLETE(Performed 11/13/2014) Results * SONOGRAM - COMPLETE (11/13/2014 2:15 PM CDT) Anatomical Region Laterality Modality Other 11/13/2014 2:15 PM CDT Narrative 11/13/2014 5:19 PM CDT ? [facility] ? [facility] ?PHONE: ??FAX: Pat. Name: ?MIS BECK. No: ?[id number] Study Date: ?? 11/13/2014 ??2:15pm , Age: ? 1990, 24 Pregnancies: ?? 1 Height: ? 64 in Weight: ? 225 lb LMP: ?03/12/2014 GA by LMP: ?35w1d GA by US: ? 35w3d GA Selected: ??35w1d (LMP) GRACIA: ?12/17/2014 Referring MD: JOSEY LEMUS MD Program Director Air Talent: ??Liliam Domingo RDMS CPT4: ? 41120 BMI: ?38.62 Hist/Ind: ? Arrhythmia ?Gestational Diabetes MEASUREMENTS & AGE ? GROWTH EVALUATION Measurement ??GA ? Range ? Srce %for GA Ratios ----- ---- ------- BPD ??9.0 cm 36w2d (02k6b-23q6n) Hadl BPD 66% FL/BPD 0.75 (0.71 - 0.87) HC ??31.9 cm 35w6d (54f8d-00c3o) Hadl HC ??61% FL/AC ??0.21 (0.20 - 0.24) AC ??32.4 cm 36w2d (55t7a-52n9p) Hadl AC ??68% HC/AC ??0.98 (0.93 - 1.12) FL ?? 6.7 cm 34w4d (09u4l-23v9u) Hadl FL ??41% CI ? 0.79 (0.70 - 0.86) HL ?? 5.9 cm 34w2d (33i6f-88y4g) Hadley HL ??36% GA for sonogram 35w3d (56i8y-96m4i) ?? Weight Estimate: based on (HL,BPD,HC,AC,FL) Avg ? Weight: 2767 gm (6917-2263) Hadlo ? : 6lbs, 1oz ? Normal: 2617 gm (1962- 3271) Hadlo ? Wt% ? 61% for 35w1d Heart Rate: 138 bpm Amniotic Fluid Index: 15.8cm (07.9-24.9) Q1: 5.1cm ??Q2: 3.2cm ??Q3: 3.8cm ??Q4: 3.7cm ?? CLINICAL SUMMARY Study Number: 1 A single fetus is identified cephalic presentation. ??The measurements today are consistent with menstrual dates. ??The amniotic fluid volume is within normal limits. ??The placenta is posterior. ??The anatomic survey is incomplete due to size/position. No major malformations are demonstrated. ECHOCARDIOGRAM: ?? 2-D imaging reveals normal cardiac and visceral situs. ??The atria/ventricles are concordant, the four chamber, LVOT/RVOT, aortic arch views are normal. The IVC was demonstrated, ductal arch and SVC were suboptimally imaged. Colour doppler imaging reveals normal velocities in the great vessels, no evidence of VSD and normal DV waveform. ?? M-mode echocardiography demonstrates normal sinus rhythm, rate 140's. No arrythmia was demonstrated during > 30 minutes of observation. IMPRESSION: Single, live, IUP 35w1d, AGA fetus, normal LUIS Limited anatomic survey is unremarkable No evidence of arrythmia Limited echocardiogram is normal RECOMMEND: ?? The patient is taking HS insulin for GDM and undergoing twice weekly NSTs for surveillance. ??She states that during the NST yesterday suspicion for a arrythmia was raised and echocardiogram was requested. Her caffeine intake is minimal, she denies family history of arrythmia. ??I discussed that the most common arrhythmias are clinically benign, resolve before delivery, and main associated risk is the development of tachycardia, which she is ??being more than adequately monitored for with twice weekly NSTs. ??The importance of daily monitoring of activity was also discussed. Follow up ultrasound as clinically indicated. Thank you for allowing us the opportunity to care for your patient. Cyn Crespo MD <Electronic Signature> ??11/13/2014 05:19pm Josey Lemus MD [facility] ORDERABLES
--- OUTSIDE RECORDS SUMMARY | 2024-07-09 12:40 | XMS_ITS | Encounter Summary ---
Author Organization [facility] Address [address] [place], [place] [address] [address] Care Team Providers Care Morals Squad Police Officer Name Role Phone Unavailable Primary Care Provider Unavailabl e Encounter Details Date Type Department Care Team (Late st Contact Info) Description 11/13/2014 12:45 PM CDT - 11/13/2014 11:59 PM CDT Hospital Encounter [facility]/ EVALUATION UNIT [address] [facility] [address] [place] [address] Josey Lemus MD [address] [facility] [address] [place] [address] Discharge Disposition: Home or Self Care Social History Tobacco Use Types Packs/Day Years Used Date Smoking Tobacco: Never Assessed Comments Yes Sex and Gender Information Value Date Recorded Sex Assigned at Not on file Gender Identity Not on file Sexual Orientation Not on file documented as of this encounter Plan of Treatment Not on file documented as of this encounter Procedures Procedure Name Priority Date/Time Associated Diagnosis Comments SONOGRAM - COMPLETE Routine 11/13/2014 2 :15 PM CDT documented in this encounter Results * SONOGRAM - COMPLETE (11/13/2014 2:15 PM CDT) Anatomical Region Laterality Modality Other 11/13/2014 2:15 PM CDT Narrative 11/13/2014 5:19 PM CDT ? [facility] ? [facility] ?PHONE: ??FAX: Pat. Name: ?MIS BECK Pat. No: ?[id number] Study Date: ?? 11/13/2014 ??2:15pm , Age: ? 1990, 24 Pregnancies: ?? 1 Height: ? 64 in Weight: ? 225 lb LMP: ?03/12/2014 GA by LMP: ?35w1d GA by US: ? 35w3d GA Selected: ??35w1d (LMP) GRACIA: ?12/17/2014 Referring MD: JOSEY LEMUS MD Tool Tender: ??Liliam Domingo RDMS CPT4: ? 10693 BMI: ?38.62 Hist/Ind: ? Arrhythmia ?Gestational Diabetes MEASUREMENTS & AGE ? GROWTH EVALUATION Measurement ??GA ? Range ? Srce %for GA Ratios ----- ---- ------- BPD ??9.0 cm 36w2d (78o9x-16l3x) Hadl BPD 66% FL/BPD 0.75 (0.71 - 0.87) HC ??31.9 cm 35w6d (73i8h-42u4n) Hadl HC ??61% FL/AC ??0.21 (0.20 - 0.24) AC ??32.4 cm 36w2d (44w3b-56o2d) Hadl AC ??68% HC/AC ??0.98 (0.93 - 1.12) FL ?? 6.7 cm 34w4d (86s9l-48w9x) Hadl FL ??41% CI ? 0.79 (0.70 - 0.86) HL ?? 5.9 cm 34w2d (49r8p-57f3h) Hadley HL ??36% GA for sonogram 35w3d (85e9q-03x9k) ?? Weight Estimate: based on (HL,BPD,HC,AC,FL) Avg ? Weight: 2767 gm (5818-4418) Hadlo ? : 6lbs, 1oz ? Normal: [...] <Electronic Signature> ??11/13/2014 05:19pm Josey Lemus MD [facility] ORDERABLES documented in this encounter Visit Diagnoses Not on filedocumented in this encounter
--- OUTSIDE RECORDS SUMMARY | 2024-07-09 12:40 | XMS_ITS | Encounter Summary ---
Author Organization [facility] Address [address] [place] [address] [place] [address] Care Team Providers Care Toxicologist Name Role Phone Unavailable Primary Care Provider Unavailabl e Reason for Visit * Reason Onset Date Comments Appointment 08/15/2022 Audio Encounter Details Date Type Department Care Team (Late st Contact Info) Description 08/15/2022 Telephone [facility] [address] [facility] [place] [address] Lei Nelson, PROGRAMMING MANAGER-FOOD AND BEVERAGE DIRECTOR [address] [facility] [address] [place] [address] Appointment (Audio) Social History Tobacco Use Types Packs/Day Years Used Date Smoking Tobacco: Never Assessed Sex and Gender Information Value Date Recorded Sex Assigned at Not on file Gender Identity Not on file Sexual Orientation Not on file documented as of this encounter Miscellaneous Notes * Telephone Encounter - Sadia Farris - 08/17/2022 2:19 PM CST Called and spoke with patient who confirmed that she is scheduled to have her audiogram done on Monday 08/21 and will ask to get a copy of the audiogram or have it faxed to us. Patient aware that audiogram is required for visit. TURNER * Telephone Encounter - Polo Carter - 08/15/2022 9:50 AM CST Reached out to the patient to ask if she received her audiogram from an outside facility for her / appointment. And if so could she please bring in a copy of the test. Patient did not answer the call and I was not able to leave a VM do to the line being busy. TURNER documented in this encounter Plan of Treatment Not on file documented as of this encounter Visit Diagnoses Not on filedocumented in this encounter
--- OUTSIDE RECORDS SUMMARY | 2024-07-09 12:40 | XMS_ITS | Referral Summary ---
Author Organization [facility] Address [address] [facility] [place] [address] Care Team Providers Care Ob/Gyn Physician Name Role Phone Unavailable Primary Care Provider Unavailabl e Source Comments [facility],non-owned Affiliates and Associated Physician Practices is amultiple site organization consisting of ambulatory clinics and hospital sitesin [place], [place], [place] and [place]. This disclosure is being madepursuant to the Care Everywhere program and may not contain all information available regarding this patient. Last updated 18.[facility] Allergies No known active allergies Medications * Be aware that medications may not be up to date on this document. Alwaysverify current medications with the patient. Medication Sig Dispensed Refills Start Date End Date Status clonazePAM (KlonoPIN) 0.5 MG tablet TAKE 1/2 TABLET BY MOUTH TWICE A DAY NEEDED FOR ANXIETY ADMINISTER 30 MINUTES BEFORE BEDTIME 07/28/2022 Active B Ebudcmn-O-Fmdyt Acid (Angela-Michelle Rx) 1 MG TABS 1 (one) tablet Active vitamin D, ergocalciferol, (Drisdol) 1.25 MG (63106 UT) capsule TAKE 1 CAPSULE BY MOUTH ONE TIME PER WEEK 08/23/2021 Active ibuprofen (Motrin) 800 MG tablet Take 1 (one) tablet by mouth 3 times daily 07/27/2022 Active Active Problems Patient Care Coordination No te Formatting of this note migh t be different from the original. [place] [facility] [place] No known active problems Social History [...] Comments Blood Pressure 123/79 08/24/2022 2:06 PM RUNNING RIGGER Pulse 91 08/24/2022 2:06 PM RUNNING RIGGER Temperature - - Respiratory Rate - - Oxygen Saturation 99% 08/24/2022 2:06 PM RUNNING RIGGER Inhaled Oxygen Concentration - - Weight 104.8 kg (231 lb) 08/24/2022 2:06 PM RUNNING RIGGER Height 162.6 cm (5' 4 ) 08/24/2022 2:06 PM RUNNING RIGGER Body Mass Index 39.65 08/24/2022 2:06 PM RUNNING RIGGER Plan of Treatment Not on file
--- OUTSIDE RECORDS SUMMARY | 2024-07-09 12:42 | XMS_ITS | Encounter Summary ---
Author Organization [facility] Address [address] [place] [address] Phone Care Team Providers Care Sleeve Maker Name Role Phone Bird Al MD Primary Care Provider Marita Clay APRN, EXECUTIVE SALES MANAGER Unavailable [phone]- [phone] Reason for Referral * Consult, Test & Initiate Treatment (Routine) - Closed Specialty Diagnoses / Procedures Referred By Ivett marcano Referred To Contact Audiology Diagnoses Dizziness Marita Clay APRN, EXECUTIVE SALES MANAGER [address] [place] [address] Phone: tel: fax: Referral ID Status Reason Start Date Expiration Date Visits Re quested Visits Authorized [id number] Closed 11/14/2022 1 1 Scheduling Instructions Mis is being referred to audiology or other specialist in patient's insurance network for VNG testing due to dizziness. See below for Mis's current medications, allergies and problem list. CURRENT MEDS: Current Outpatient Medications: B Complex Vitamins (VITAMIN B COMPLEX PO), Take by mouth., Disp: , Rfl: CHOLECALCIFEROL PO, Take by mouth., Disp: , Rfl: clonazePAM (KlonoPIN) 0.5 MG Tablet, Take 0.5 mg by mouth 3 times daily., Disp: , Rfl: ibuprofen (MOTRIN) 800 MG Tablet, Take 800 mg by mouth every 8 hours., Disp: , Rfl: [place]-3 Fatty Acids (FISH OIL PO), Take by mouth., Disp: , Rfl: No current facility-administered medications for this visit. ALLERGIES: No Known Allergies PROBLEM LIST: There is no problem list on file for this patient. * Radiology Services (Routine) - Closed Specialty Diagnoses / Procedures Referred By Contac t Referred To Contact Radiology Diagnoses Dizziness Procedures MRI BRAIN AND IAC W/WO CONTRAST Marita Clay APRN, EXECUTIVE SALES MANAGER [address] [place] [address] Phone: tel: fax: Referral ID Status Reason Start Date Expiration Date Visits Re quested Visits Authorized [id number] Closed 11/14/2022 1 1 Reason for Visit * Reason Comments dizziness Referral dr al * Consult, Test & Initiate Treatment (Routine) - Closed Specialty Diagnoses / Procedures Referred By Ivett marcano Referred To Contact Neurology Diagnoses Dizziness and giddiness Bird Al MD Phone: tel: fax: Khang Ulloa MD [address] [place] [address] Phone: tel: fax: Referral ID Status Reason Start Date Expiration Date Visits Re quested Visits Authorized [id number] Closed 1 1 Encounter Details Date Type Department Care Team (Late st Contact Info) Description 11/14/2022 3:00 PM CDT [facility] [address] [place] [address] Marita Clay APRN, EXECUTIVE SALES MANAGER [address] [place] [address] Dizziness (Primary Dx); Cervical spine pain; Lumbar spine pain Discharge Disposition: Discharged to home or Selfcare Social History Tobacco Use Types Packs/Day Years Used Date Smoking Tobacco: Former Cigarettes Q uit: 07/23/2018 Smokeless Tobacco: Never Alcohol Use Standard Drinks/Week Comments Never 0 (1 standard drink = 0.6 oz pur e alcohol) Comments Unknown Sex and Gender Information Value Date Recorded Sex Assigned at Not on file Legal Sex Female 11:28 AM CLIENT DEVELOPMENT DIRECTOR Gender Identity Not on file Sexual Orientation Not on file COVID-19 Exposure Response Date Recorded In the last 10 days, have yo u been in contact with someone who was confirmed or suspected to have Coronavirus/COVID-19? No / Unsure 11/14/2022 3:06 PM CDT documented as of this encounter Last Filed Vital Signs Vital Sign Reading Time Taken Comments Blood Pressure 128/80 11/14/2022 3:19 PM CDT Pulse 88 11/14/2022 3:19 PM CDT Temperature 36.7 ??C (98 ??F) 11/14/2022 3:17 PM CDT Respiratory Rate 16 11/14/2022 3:17 PM CDT Oxygen Saturation 97% 11/14/2022 3:17 PM CDT Inhaled Oxygen Concentration - - Weight 108.6 kg (239 lb 6.4 oz) 11/14/2022 3:17 PM CDT Height 162.6 cm (5' 4 ) 11/14/2022 3:17 PM CDT Body Mass Index 41.09 11/14/2022 3:17 PM CDT documented in this encounter Progress Notes * Marita Clay, CAPTAIN/AIRLINE PILOT, EXECUTIVE SALES MANAGER - 11/14/2022 3:00 PM CDT NEUROLOGY CONSULT Date of Service: 11/17/2022 Assessment and Plan Mis was seen today for dizziness. Diagnoses and all orders for this visit: Dizziness - MRI BRAIN AND IAC W/WO CONTRAST; Future - EXTERNAL AUDIOLOGY REFERRAL; Future - MAGNESIUM (MG); Future - VITAMIN B12; Future Cervical spine pain Lumbar spine pain 1. Dizziness -MRI brain & IAC with/without contrast -Referral to Audiology for VNG testing -Mg -B12 -Declines medication -Continue ibuprofen PRN -Next appointment in 6 weeks 2. Cervical spine pain/lumbar pain -Continue ibuprofen PRN -Monitor symptoms -Encouraged to contact office if symptoms worsen Reason for Consultation: Dizziness HPI: Mis Beck is being seen in the office today after being referred by their PCP for dizziness.Mis describes the dizziness symptoms as becoming off balance, feeling wobbly when sitting, andcomplains of neck pain. Her fingers go numb. Now the fingers go numb at night. She also notes shooting pain down into her left arm. CT angio of the head was performed at [facility] on 07/21/2022. Imaging results were reviewed. Impression 1. Normal brain. No aneurysm or significant intracranial arterial stenosis. Two. 0% stenosis of the proximal ICAs relative to normal distal artery lumen diameters. According to PCP note on 09/11/2022 Mis has been experiencing neck pain and dizziness since 05/11/2022. She has been on meclizine, completed vestibular therapy, and was seen and treated by ENT at [facility] with no resolution noted. She used NSAIDs for neck pain and completed physical therapy and chiropractic services also with no improvement noted. MRI cervical spine was ordered by PCP. Resultsare not in referral information. Mis states that her insurance would not cover an MRI of cervical spine, so xray was done. CTA results reviewed. Mis was experiencing a lot of stress and anxiety. She was started on sertraline. In March she was weaned off of the sertraline. Little dizzy spells began. In May she developed worsening vertigo. She would just be laying down and feel like her body was floating or moving. In July Mis developed pressure around her eyes, inability to focus, off balance, swaying, nausea. The symptoms were so bad that she could not get out of bed for 1 day, then improved slightly and lasted one week. Mis is now experiencing imbalance, sudden wobbly feeling when sitting, floaters in her vision,daily headaches. These symptoms began after the severe episode in July Mis had one migraine when she was a teenager. Hx of headaches? Every day since May. When she massages her neck, she feels pressure above bilateral forehead. Photophobia? yes Hydration-quite a bit; around 40+ ounces Nausea-Central or peripheral-stimulation of medulla-No Diplopia, dysarthria, jvmxnxspi-Ypvprgn-Ce Hearing loss, ctwtnook-Nwsttwccgz-Leq or both ears-Tinnitus bilateral is improving Oscillopsia-Perception that the visual surround is oscillating or bouncing- Severe central Visual lag-the illusion that the visual surroundings lag behind during head movement Visual tilt: the illusion that the visual surrounding is not true vertical Lightheaded or presyncope-Decreased blood flow to brain-A little Sense of rocking or swaying as if on a ship-Yes Motion sickness-No Vertical diplopia Vertigo: rotation, linear movement, or tilt Orthostatic VS-Positive Finger mirroring-WNL Heel to thomas-WNL Imbalance-Unsteady while standing or walking-If central-severe; If peripheral-mild/moderate-Yes Unsteady: the feeling of being unstable when seated, standing, or vjxqiso-Mbprfhan-Szp, today was last episode Directional pulsion: unsteadiness with a feeling of veering or falling to a particular direction Balance-related near fall or fall: In July she had to hold on to khan to walk down the halls Mis is also experiencing pain in cervical spine and lumbar spine region along with pain in right buttock. She becomes off balance and develops burning pain down her leg. Will evaluate further after MRI brain and VNG results. Mis was prescribed meclizine but noted no improvement with the symptoms. Mis was given a sample of Nurtec with no improvement in symptoms noted. Treatment plan includes MRI brain with/without contrast, audiology referral for VNG, B12 & Mg labs, and encouraged to contact office if symptoms worsen in frequency or severity Treatment options were reviewed from conservative to aggressive. The patient demonstrated verbal understanding of all instructions given. Past Medical History Positives Diagnosis Date ??? Anxiety ??? Dizziness No past surgical history on file. Family History Problem Relation Age of Onset ??? Bipolar Disorder Mother Social History Tobacco Use ??? Smoking status: Former Packs/day: 0.50 Types: Cigarettes Quit date: 07/23/2018 Years since quittin.3 ??? Smokeless tobacco: Never Substance Use Topics ??? Alcohol use: Never No Known Allergies Current Outpatient Medications: ??? B Complex Vitamins (VITAMIN B COMPLEX PO), Take by mouth., Disp: , Rfl: ??? CHOLECALCIFEROL PO, Take by mouth., Disp: , Rfl: ??? clonazePAM (KlonoPIN) 0.5 MG Tablet, Take 0.5 mg by mouth 3 times daily., Disp: , Rfl: ??? ibuprofen (MOTRIN) 800 MG Tablet, Take 800 mg by mouth every 8 hours., Disp: , Rfl: ??? [place]-3 Fatty Acids (FISH OIL PO), Take by mouth., Disp: , Rfl: Review of Systems: A 14 point Review of Systems is obtained, and is negative other than that mentioned in the History of Present Illness. Objective: VITALS: Blood pressure 128/80, pulse 88, temperature 98 ??F (36.7 ??C), temperature source Temporal, resp. rate 16, height 5' 4 (1.626 m), weight 239 lb 6.4 oz (108.6 kg), SpO2 97 %. Weight: Wt Readings from Last 1 Encounters: 11/14/22 239 lb 6.4 oz (108.6 kg) Body mass index is 41.09 kg/m??. EXAM: General appearance: alert, no distress, cooperative, appears stated age Head: Normocephalic, without obvious abnormality, atraumatic Heart: regular rate and rhythm, S1, S2 normal, no murmur, click, rub or gallop Extremities: extremities normal, atraumatic, no cyanosis or edema Neurologic: Mental: Fully alert and oriented to time, place, person, situation. There is no problem with concentration and attention. Verbal recall-normal. Visuospatial skills- normal. Fund of knowledge is good. Memory is good for recent and remote events. On cranial nerve exam, CN II: visual vargas are full to confrontation. Fundi are clear without hemorrhage or exudate, discs are sharp.CN III: Pupils are equal, round and reactive bilaterally; CN III,IV, extraocular movements are full with normal saccades and normal pursuits. CN VIII: Hearing isintact bilaterally. CN V: Facial sensation is intact; CN VII: face is symmetric. CN IX: Palate eleva ketty symmetrically. CN XII: Tongue is midline. CN XI: Shrug is 5/5. A motor examination was performed Muscles Tested Right Left Deltoid 5/5 5/5 Biceps 5/5 5/5 Triceps 5/5 5/5 Wrist Flexors 5/5 5/5 Wrist Extensors 5/5 5/5 Hip Flexors 5/5 5/5 Quadriceps 5/5 5/5 Hamstrings 5/5 5/5 Dorsiflexion 5/5 5/5 EHL 5/5 5/5 Gait is normal. Normal armswing and turns. By: Marita Clay APRN, EXECUTIVE SALES MANAGER, 11/17/2022, 8:28 AM CDT Primary Care Physician: BIRD AL MD documented in this encounter Plan of Treatment Scheduled Orders Name Type Priority Associated Diagnoses Orde r Schedule MRI BRAIN AND IAC W/WO CONTRAST Imaging Routine Dizziness Expected: 03/06/2023, Expires: 05/09/2023 MAGNESIUM (MG) Lab Routine Dizziness Expected: 11/14/2022, Expires: 05/16/2023 VITAMIN B12 Lab Routine Dizziness Expected: 11/14/2022, Expires: 02/12/2023 Scheduled Referrals Name Type Priority Associated Diagnoses Orde r Schedule EXTERNAL AUDIOLOGY REFERRAL Outpatient Referral Routine Dizziness Expected: 11/14/2022, Expires: 11/15/2023 documented as of this encounter Visit Diagnoses Diagnosis Dizziness- Primary Dizziness and giddiness Cervical spine pain Cervicalgia Lumbar spine pain Lumbago documented in this encounter Care Teams Sleeve Maker Relationship Specialty Start Date End Date Bird Al MD PCP - General Family Medicine 09/13/22 Marita Clay APRN, EXECUTIVE SALES MANAGER [address] [place] [address] Nurse Practitioner Advanced Practice Nurse 11/14/22 documented as of this encounter
--- OUTSIDE RECORDS SUMMARY | 2024-07-09 12:42 | XMS_ITS | Clinical Summary ---
Author Organization [facility] Address [address] [place] [address] Phone Care Team Providers Care Obiee Architect Name Role Phone Bird Franks MD Primary Care Provider Marita Clay APRN, BRIDGE CONTRACTOR Unavailable [phone]- [phone] Allergies No known active allergies Medications CHOLECALCIFEROL PO Take by mouth. Active clonazePAM (KlonoPIN) 0.5 MG Tablet Take 0.5 mg by mouth 3 times daily. Active ibuprofen (MOTRIN) 800 MG Tablet Take 800 mg by mouth every 8 hours. Active B Complex Vitamins (VITAMIN B COMPLEX PO) Take by mouth. Active [place]-3 Fatty Acids (FISH OIL PO) Take by mouth. Active Active Problems No known active problems Family History Medical History Relation Name Comments Bipolar Disorder Mother Relation Name Status Comments Father Mother Alive Social History Tobacco Use Types Packs/Day Years Used Date Smoking Tobacco: Former Cigarettes Q uit: 07/23/2018 Smokeless Tobacco: Never Alcohol Use Standard Drinks/Week Comments Never 0 (1 standard drink = 0.6 oz pur e alcohol) Comments Unknown Sex and Gender Information Value Date Recorded Sex Assigned at Not on file Legal Sex Female 11:28 AM NAPKIN MACHINE OPERATOR Gender Identity Not on file Sexual Orientation [...] Mass Index 41.09 11/14/2022 3:17 PM CDT Plan of Treatment Health Maintenance Due Date Last Done Comments Hepatitis C Virus (HCV) Screening 1989 TdaP Immunization 1989 Hepatitis B Immunization (1 of 3 - 19+ 3-dose series) 2008 Pap Smear 2010 Cervical Cancer Screening (CCS) 2019 HPV/Cotest 2019 Influenza Immunization (#1) 2024 SARS-COV-2 Immunization ( season) 2024 Respiratory Syncytial Virus (RSV) Immunization (Adult) (1 - 1-dose 75+ series) 2064 Meningococcal Immunization (ACWY) Aged Out No longer eligible based on patient's age to complete this topic Pneumococcal Immunization Combined Aged Out No longer eligible based on patient's age to complete this topic Rotavirus Immunization Aged Out No lo nger eligible based on patient's age to complete this topic Insurance MEDICAID [employer] Care Teams Obiee Architect Relationship Specialty Start Date End Date Bird Franks MD PCP - General Family Medicine 09/13/22 Marita Clay APRN, BRIDGE CONTRACTOR [address] [place] [id number] Nurse Practitioner Advanced Practice Nurse 11/14/22
--- OUTSIDE RECORDS SUMMARY | 2024-07-09 12:42 | XMS_ITS | Encounter Summary ---
Author Organization [facility] Address [address] [place] [address] Phone Care Team Providers Care Batting Machine Operator Name Role Phone Bird Franks MD Primary Care Provider Marita Clay APRN, PETROLEUM REFINING FIRER Unavailable [phone]- [phone] Encounter Details Date Type Department Care Team (Late st Contact Info) Description 12/15/2022 Telephone [facility] - [facility]rology - [place] [address] [place] [address] Marita Clay APRN, PETROLEUM REFINING FIRER [address] [place] [address] Social History Tobacco Use Types Packs/Day Years Used Date Smoking Tobacco: Former Cigarettes Q uit: 07/23/2018 Smokeless Tobacco: Never Alcohol Use Standard Drinks/Week Comments Never 0 (1 standard drink = 0.6 oz pur e alcohol) Comments Unknown Sex and Gender Information Value Date Recorded Sex Assigned at Not on file Legal Sex Female 11:28 AM EQUIPMENT PROCESSOR Gender Identity Not on file Sexual Orientation Not on file documented as of this encounter Miscellaneous Notes * Telephone Encounter - Laxmi Noonan RN - 12/15/2022 10:21 AM CDT Per referral department pt is declining VNG testing at this time and will discuss with you at next visit December documented in this encounter Plan of Treatment Not on file documented as of this encounter Visit Diagnoses Not on filedocumented in this encounter Care Teams Batting Machine Operator Relationship Specialty Start Date End Date Bird Franks MD PCP - General Family Medicine 09/13/22 Marita Clay APRN, PETROLEUM REFINING FIRER [address] [place] [address] Nurse Practitioner Advanced Practice Nurse 11/14/22 documented as of this encounter
--- OUTSIDE RECORDS SUMMARY | 2024-07-09 12:42 | XMS_ITS | Encounter Summary ---
Author Organization [facility] Address [address] [place] [address] Phone Care Team Providers Care Mountain Or Glacier Guide Name Role Phone Bird Franks MD Primary Care Provider Marita Clay APRN, DAIRY HUSBANDRY WORKER Unavailable [phone]- [phone] Encounter Details Date Type Department Care Team (Late st Contact Info) Description 03/15/2023 Telephone 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 GREETER Gender Identity Not on file Sexual Orientation Not on file documented as of this encounter Miscellaneous Notes * Telephone Encounter - Laxmi Noonan RN - 03/15/2023 8:54 AM CDT Opened in error documented in this encounter Plan of Treatment Not on file documented as of this encounter Visit Diagnoses Not on filedocumented in this encounter Care Teams Mountain Or Glacier Guide Relationship Specialty Start Date End Date Bird Franks MD PCP - General Family Medicine 09/13/22 Marita Clay APRN, DAIRY HUSBANDRY WORKER [address] [place] [address] Nurse Practitioner Advanced Practice Nurse 11/14/22 documented as of this encounter
--- OUTSIDE RECORDS SUMMARY | 2024-07-09 12:42 | XMS_ITS | Encounter Summary ---
Author Organization [facility] Address [address] [place] [address] Phone Care Team Providers Care Multiple Drum Sander Helper Name Role Phone Bird Franks MD Primary Care Provider Marita Clay APRN, MAINTENANCE WORKER MUNICIPAL Unavailable [phone]- [phone] Encounter Details Date Type Department Care Team (Late st Contact Info) Description 03/13/2023 [facility]phone 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 Called pt and made her aware. Encouraged her to make follow up appt with Marita to discuss migraines. Pt said she sees PCPtomorrow and will see what she says then schedule appt w Marita. documented in this encounter Plan of Treatment Not on file documented as of this encounter Visit Diagnoses Not on filedocumented in this encounter Care Teams Multiple Drum Sander Helper Relationship Specialty Start Date End Date Bird Franks MD PCP - General Family Medicine 09/13/22 Marita Clay APRN, MAINTENANCE WORKER MUNICIPAL [address] [place] [address] Nurse Practitioner Advanced Practice Nurse 11/14/22 documented as of this encounter
--- OUTSIDE RECORDS SUMMARY | 2024-07-09 12:42 | XMS_ITS | Encounter Summary ---
Author Organization [facility] Care Team Providers Care Electronics Engineering Technologist Name Role Phone Bird Franks MD Primary Care Provider Marita Clay APRN, BLOCK HAND Unavailable [phone]- [phone] Encounter Details Date Type Department Care Team (Latest Contact Info) Description 11/14/2022 Travel Social History Tobacco Use Types Packs/Day Years Used Date Smoking Tobacco: Former Cigarettes Q uit: 07/23/2018 Smokeless Tobacco: Never Alcohol Use Standard Drinks/Week Comments Never 0 (1 standard drink = 0.6 oz pur e alcohol) Comments Unknown Sex and Gender Information Value Date Recorded Sex Assigned at Not on file Legal Sex Female 11:28 AM BUGGYMAN Gender Identity Not on file Sexual Orientation Not on file COVID-19 Exposure Response Date Recorded In the last 10 days, have yo u been in contact with someone who was confirmed or suspected to have Coronavirus/COVID-19? No / Unsure 11/14/2022 3:06 PM CDT documented as of this encounter Plan of Treatment Not on file documented as of this encounter Visit Diagnoses Not on filedocumented in this encounter Care Teams Electronics Engineering Technologist Relationship Specialty Start Date End Date Bird Franks MD PCP - General Family Medicine 09/13/22 Marita Clay APRN, BLOCK HAND [address] [place] [address] Nurse Practitioner Advanced Practice Nurse 11/14/22 documented as of this encounter
--- OUTSIDE RECORDS SUMMARY | 2024-07-09 12:44 | XMS_ITS | Encounter Summary ---
Author Organization [facility] Monitoring Division of [facility] Address [address] [place] [address] Phone Care Team Providers Care Tire Duster Name Role Phone No, Physician Primary Care Provider [phone] Josey Lemus MD Unavailable [phone] Reason for Visit * Reason Comments Consult * Consultation (Routine) - Closed Specialty Diagnoses / Procedures Referred By Ivett marcano Referred To Contact Maternal and Medicine Diagnoses Monochorionic and monoamniotic twin gestation in second trimester, antepartum Jsoey Lemus MD [address] [address] Phone: tel: fax: [facility] (All Locations) Referral ID Status Reason Start Date Expiration Date V isits Requested Visits Authorized [id number] Closed Specialty Services Required 11/26/2020 07/22/2021 1 36 Encounter Details Date Type Department Care Team (Late st Contact Info) Description 12/13/2020 10:30 AM CDT Office Visit [facility] Maternal- Medicine [address] [facility] 7th Floor [address] [place] [address] Arabella Abdul MD [facility] [phone] [place] [address] Supervision of high-risk , unspecified trimester (Primary Dx); Monochorionic and monoamniotic twin gestation in second trimester, antepartum; Monochorionic diamniotic twin in second trimester; History of gestational diabetes mellitus (GDM); Current mild episode of major depressive disorder, unspecified whether recurrent (CMS/HCC); Rh negative state in antepartum period Social History Tobacco Use Types Packs/Day Years Used Date Smoking Tobacco: Never Smokeless Tobacco: Never Comments Yes Sex and Gender Information Value Date Recorded Sex Assigned at Not on file Legal Sex Female 7:39 AM CDT Gender Identity Not on file Sexual Orientation Not on file documented as of this encounter Last Filed Vital Signs Vital Sign Reading Time Taken Comments Blood Pressure 130/68 12/13/2020 11:28 AM CDT Pulse 104 12/13/2020 10:16 AM CDT Temperature - - Respiratory Rate - - Oxygen Saturation 98% 12/13/2020 10:16 AM CDT Inhaled Oxygen Concentration - - Weight 115.2 kg (254 lb) 12/13/2020 10:16 AM CDT Height 162.6 cm (5' 4 ) 12/13/2020 10:16 AM CDT Body Mass Index 43.6 12/13/2020 10:16 AM CDT documented in this encounter Progress Notes * Wilbert Siu MD - 12/13/2020 10:30 AM CDT Maternal Medicine Initial Visit Date of Visit: 12/13/2020 Mis Beck is a 30 y.o. at 22w5d by LMP consistent with first trimester Ultrasound who is here for her initial OB visit. She will be full [facility] care. She has a course complicated by Mo/di twins. She had an ultrasound that previously diagnosed her with Mo/mo twins, but there was a thin intertwin membrane noted on ultrasound today. She also has a course complicated by GDM in her prior two pregnancies. She reports she checked her blood sugars early this and noted fasting values in the 100s and started insulin. After starting insulin, she reports it made her feel dizzy and anxious, for which she is now taking sertraline. After 3 weeks of night-time NPH of about 5 units , it was stopped because she felt like her dizziness and lightheadedness worsened. She now feels better from a symptomatic standpoint. Of note, she had a HbA1c of 5.4% on 10/06/2020. She reports she is overall feeling okay today. She denies cramping, vaginal bleeding, or leakage offluid. She states she occasionally has lightheadedness but overall this has improved since she started eating frequent small meals. Her is currently complicated by: Patient Active Problem List Diagnosis Code ??? History of gestational diabetes mellitus (GDM) Z86.32 ??? Supervision of high-risk , unspecified trimester O09.90 ??? Monochorionic diamniotic twin in second trimester O30.032 ??? Depression F32.9 ??? Rh negative state in antepartum period O26.899, Z67.91 Past Medical History: Diagnosis Date ??? Anxiety ??? Depression History reviewed. No pertinent surgical history. Past Gynecologic History: Patient's last menstrual period was 07/07/2020., Menses: regular, Prior STIs: none. Her last pap smear was August 2020. She has no history of infertility, ART treatment, gynecologic surgery, or breast cancer. She has no history of blood transfusions. OB History Para Term AB Living 4 2 2 1 2 SAB TAB Ectopic Multiple Live Births 1 2 # Outcome Date GA Lbr Mike/2nd Weight Sex Delivery Anes PTL Lv 4 Current 3 Term 04/18/18 3.799 kg (8 lb 6 oz) Vag-Spont ROSALINA 2 SAB 2017 1 Term 11/1914 3.827 kg (8 lb 7 oz) M Vag-Spont ROSALINA Medications: B complex Vitamin D Sertraline Famotidine Vitamin B6 vitamin Family History: History reviewed. No pertinent family history. Specifically, she denies a family history of defects including spina bifida, congenital heartdefects, limb defects, or kidney defects. She denies a family history of genetic abnormalities including Down Syndrome, cognitive delays, or learning disabilities including autism spectrum disorders.She denies a family history of inherited disorders including cystic fibrosis, thalassemia, sickle cell disease, or muscular dystrophy. No Known Allergies Social History Socioeconomic History ??? Marital status: Single Spouse name: Not on file ??? Number of children: Not on file ??? Years of education: Not on file ??? Highest education level: Not on file Tobacco Use ??? Smoking status: Never Smoker ??? Smokeless tobacco: Never Used Substance and Sexual Activity ??? Drug use: Never ??? Sexual activity: Not Currently Review of Systems General: Alert, cooperative HEENT: denies congestion, sore throat, nosebleeds CV: denies palpitations, chest pain Lungs: denies increased WOB, shortness of breath, wheezing GI: denies nausea, vomiting or abdominal pain MSK: denies myalgia or arthropathy : denies vaginal bleeding, cramping, abnormal discharge Physical Exam Vitals BP 130/68 Pulse 104 Ht 162.6 cm (5' 4 ) Wt 254 lb (115.2 kg) LMP 07/07/2020 SpO2 98% BMI 43.60 kg/m?? General: Healthy, alert, active, cooperative, and in no distress Neck: supple, no thyromegaly, JVP within normal limits Heart: Regular rate and rhythm or S1S2 present Lungs: CTAB, no wheezes, normal WOB Abdomen: soft, nontender, nondistended Extremities: warm, well-perfused without cyanosis, clubbing or edema Heart Rate: Fetus 1: 168 Fetus 2: 154 Labs: Please see problem list Ultrasound: Ultrasound 12/13/2020: Twin 1 22w5d EFW 682 (97%), cephalic presentation, MVP 3.0cm, placenta anterior Twin 2 EFW 720g (>99%), Vertex and presenting, MVP 6.5 cm, placenta anterior Assessment: Ms. Mis Beck is a villa 30 y.o. at 22w5d by LMP consistent with first trimester Ultrasound. Her is complicated by: Plan: Problem List Hematologic Rh negative state in antepartum period Overview [ ] Rhogam at 28 weeks Other History of gestational diabetes mellitus (GDM) Overview Patient has a history of GDM in her prior two pregnancies. In this , she reports she deferred an early GDM screen and checked her blood sugars instead,. When her fasting values were in the 100s she was started on insulin. She discontinued the insulin due to symptoms of dizziness and anxiety for which she is now taking sertraline. She now feels better from a symptomatic standpoint. Of note, she had a HbA1c of 5.4% on 10/06/2020. Discussed suspicion for GDM in this . Patient would like to undergo GCT at next visit prior to restarting blood sugar checks and possible insulin. Plan - GCT at 24-28 weeks - If screen positive, will need diabetic education Monochorionic diamniotic twin in second trimester Overview We reviewed the risks of a twin . Compared to penn pregnancies, twin pregnancies are at increased risk of spontaneous and iatrogenic delivery, with an average gestational age of35 weeks at delivery in the [place]. Due to this risk, higher rates of morbidity and mortality are seen in the infants of twin pregnancies. Additionally, increased rate of growth restriction, congenital anomalies, and loss are also seen. Increased maternal risks include development of gestational hypertension, preeclampsia, gestational diabetes, acute fatty liver, PUPPP, cholestasis, and thromboembolism. Additionally, the rate of delivery is increased in twin pregnancies. Specifically, monochorionic twins are at increased risk for unequal placental sharing, which can result in Xysx-dv-Bhjt transfusion Syndrome (TTTS), Twin Anemia-Polycythemia Sequence (TAPS), and selective intrauterine growth restriction. TTTS occurs in 10-15% of cases, and is marked by polyhydramnios in one twin and oligohydramnios in the other twin. Several stages exist, but cases range from mild disease to severe disease involving of one or both twins. We reviewed that TTTS is often unpredictable in onset and severity, although most cases occur prior to 26 weeks. Briefly, we discussedthat treatment of worsening TTTS is laser therapy in the second trimester and delivery in the thirdtrimester. TAPS is a chronic form of TTTS, and is seen in up to 6% of mono- di twins without any other evidence of TTTS. In the setting of these risks, we recommend starting a baby aspirin at 12 weeks due ot the increased risk of preeclampsia which she is already taking. Additionally, we recommend ultrasounds every 2 weeks starting at 16 weeks to screen for development of TTTS and follow growth. She will have an US in 2 weeks for TTTS screening and then 4 weeks with us for growth and fluid. The rate of congenital cardiac malformations in uncomplicated mono-di twins has been as high as 5% in some studies. Thus, echocardiograms are also recommended these twins for screening which we have orderedfor her next visit. surveillance starting at 32 weeks with delivery at 36-37 weeks in the absence of other morbidity is recommended. Plan - start baby aspirin today- no evidence of TTTS, MVP nml x2, bladders visualized x2 - TTTS screening q 2 weeks, growth q4 weeks - ANT 32 weeks - Delivery at 36-37 weeks Depression Overview Ms. Beck is currently on sertraline 50mg and feels that it has helped her symptoms of depression. She feels that her mood is currently stable. We discussed that we do not have sufficient human data to rule out potential risks, however, there are no strong associations with any congenital malformations. We discussed that the potential risks of any medications need to be weighed against the risks of uncontrolled maternal disease in and that in many cases, the risks of uncontrolled maternal depression outweigh potential risks of SSRIs. We also discussed abstinence syndrome and potential for respiratory depression and longer hospital stay for the . MARY symptoms can be managed and there have not been computer terminal operator effects reported. Plan: - Monitor mood each visit - behavioral health consult offered, patient interested - Can consider increasing medication dose throughout as needed for mood Relevant Medications sertraline (ZOLOFT) 50 mg tablet Supervision of high-risk , unspecified trimester - Primary Overview [] Co-management vs. [x] Full [facility] Care; [] Red Team [x] Blue Team Referring Provider: Transfer of care from Dr Josey Lemus [phone] [] [place] or Medicare Insurance [x] Dating Criteria: LMP 07/06/20 GRACIA 04/13/21 [x] Labs: Rh [A-], Ab [negative], Rubella [immune], HIV [non-reactive], HepBSAg [negative], RPR [non-reactive], GC/CT [negative/negative] [] Genetic Screening: declines [x] CBC/Hgb 13.0/38.3/plt 248 [] Early 1hr GTT (if indicated) [x] UCx: 10/02/20 no growth [x] Pap: 09/11/20: NILM [x] LD ASA (if indicated) starting at 12 weeks: yes [] EPDS [ ]; PNBHS referral (if indicated) 2nd Tri Labs: [x] Anatomy ultrasound: needs completion (ductal arch in twin 1) [] CBC/1hr gtt at 24-28wks: [] Flu Shot (Mar-Jun): [] Tdap (27-36wks): [] COVID Vaccine: [] Rhogam at 28 wks (if Rh neg): 3rd Tri Labs: [] CBC/HIV/RPR/T&S: [] GBS: [] GC/CT (if indicated): [] COVID testing: Counselling [] MOD: [] Place of delivery: [] MOC: [] Method of feeding: [] Specialist Physicians: [] PP Depression Discussed: Relevant Orders Echocardiogram Echocardiogram US Ob Limited US Ob Follow Up Patient will return to clinic in 2 weeks for clinic visit, GCT, and TTTS screening. She was seen and discussed with Dr. Abdul who agrees with the above assessment and plan. Wilbert Siu MD Maternal- Medicine Fellow, PGY-5 Cosigned by Arabella Abdul MD at 12/13/2020 4:35 PM CDT Associated attestation - Arabella Abdul MD - 12/13/2020 4:35 PM CDT I have seen and examined the patient. I agree with the findings and plan of care as documented in this note. [place] di twins, currently uncomplicated. Possible GDM as patient has history of this in prior and had elevated fasting blood sugars at the start of this . Insulin self discontinued due to symptoms. Patient counseled on option of resuming blood sugar checks versus undergoing 1 hr GLT. Plan for 1 hr GLT at next visit. The total visit time was 45 minutes in which greater than 50% of the time was spent counseling the patient regarding gestational diabetes and monochorionic diamniotic twins. Arabella Abdul MD [facility] Maternal- Medicine documented in this encounter Plan of Treatment Not on file documented as of this encounter Visit Diagnoses Diagnosis Supervision of high-risk , unspecified trimester- Primary Monochorionic and monoamniotic twin gestation in second trimester, antepartum Monochorionic diamniotic twin in second trimester History of gestational diabetes mellitus (GDM) Current mild episode of major depressive disorder, unspecified whether recurrent (HCC) Rh negative state in antepartum period documented in this encounter Historical Medications * This list may reflect changes made after this encounter. vitamin B complex no.2-jswpa-N-biot in 1-60-300 mg-mg-mcg tabletIndications :Vitamin Deficiency Prevention 1 tablet [id number] -om3 25 mg iron-1 mg -400 mg combo pack Take by mouth ergocalciferol (VITAMIN D) 50,000 unit capsule TAKE 1 CAPSULE BY MOUTH ONE TIME PER WEEK 11/26/2020 famotidine (PEPCID) 20 mg tablet Take 20 mg by mouth 2 (two) times a day 11/28/2020 sertraline (ZOLOFT) 50 mg tablet Take 50 mg by mouth daily 11/13/2020 Purelax 17 gram/dose powder MIX 17GRAMS (1 CAPFUL) AND TAKE BY MOUTH TWICE DAILY 10/10/2020 added in this encounter Orders Outpatient Referral Count Last Ordered Date Fir st Ordered Date AMB REFERRAL TO [facility] 1 12/13/2020 documented in this encounter Care Teams Tire Duster Relationship Specialty Start Date End Date No, Physician PCP - General 11/26/20 12/14/20 Josey Lemus MD [address] [address] Referring Physician Gynecology 11/26/20 documented as of this encounter
--- OUTSIDE RECORDS SUMMARY | 2024-07-09 12:44 | XMS_ITS | Encounter Summary ---
Author Organization [facility] Address [address] [place] [address] Care Team Providers Care Montessori Paraprofessional Name Role Phone Josey Lemus MD Unavailable [phone] Naina Casillas NP Primary Care Provider [phone] Reason for Visit * Reason Comments Dental Pain Patient presents tod with complaints of lower left tooth pain. Sx onset two almost three weeks ago. Patient was seen here and prescribed a ten day antibiotic and finished it. Pain continues. No known fevers. Patient is currently 23 weeks . Encounter Details Date Type Department Care Team (Late st Contact Info) Description 04/17/2024 7:00 PM CDT Office Visit [facility] [address] [place] [id number] Mary Ann Meza NP [address] [facility] [place] [address] Dental abscess (Primary Dx) Social History Tobacco Use Types Packs/Day Years Used Date Smoking Tobacco: Never Smokeless Tobacco: Never Comments Yes Sex and Gender Information Value Date Recorded Sex Assigned at Not on file Legal Sex Female 7:39 AM CDT Gender Identity Not on file Sexual Orientation Not on file documented as of this encounter Last Filed Vital Signs Vital Sign Reading Time Taken Comments Blood Pressure 126/62 04/17/2024 6:52 PM CDT Pulse 110 04/17/2024 6:52 PM CDT Temperature 37.1 ??C (98.7 ??F) 04/17/2024 6:52 PM CD T Respiratory Rate 17 04/17/2024 6:52 PM CDT Oxygen Saturation 97% 04/17/2024 6:52 PM CDT Inhaled Oxygen Concentration - - Weight 105.9 kg (233 lb 6.4 oz) 04/17/2024 6:52 PM CDT Height 162.6 cm (5' 4 ) 04/17/2024 6:52 PM CDT Body Mass Index 40.06 04/17/2024 6:52 PM CDT documented in this encounter Patient Instructions * Patient Instructions* Mary Ann Meza NP - 04/17/2024 7:00 PM CDT Practice good dental hygiene by brushing your teeth 2-3 times/day Floss daily Tylenol/Motrin for pain If pain is unbearable, increased swelling, fevers- go to ER for further treatment Complete any medications as prescribed Follow-up with dentist as soon as possible for further evaluation. * Attachments The following attachments cannot be sent through Care Everywhere. * Dental Abscess (General Information) (Burmese) documented in this encounter Ordered Prescriptions Prescription Sig Dispense Quantity Refills Last Filled Start Date End Date clindamycin (CLEOCIN) 300 mg capsuleIndications :Dental abscess Take 1 capsule (300 mg total) by mouth 4 (four) times a day for 10 days 40 capsule 04/17/2024 4 clindamycin (CLEOCIN) 300 mg capsule Take 1 capsule (300 mg total) by mouth 4 (four) times a day for 10 days 40 capsule 04/17/2024 4 clindamycin (CLEOCIN) 300 mg capsule Take 1 capsule (300 mg total) by mouth 4 (four) times a day for 7 days 28 capsule 04/17/2024 4 documented in this encounter Progress Notes * Mary Ann Meza NP - 04/17/2024 7:00 PM CDT Images from the original note were not included. Subjective/Objective Patient ID: Mis Beck is a 33 y.o. female. Chief Complaint Dental Pain (Patient presents today with complaints of lower left tooth pain. Sx onset two almost three weeks ago. Patient was seen here and prescribed a ten day antibiotic and finished it. Pain continues. No known fevers. Patient is currently 23 weeks . ) [facility]. This has been an ongoing issue. She was seen in office on 03/31/2024 and at that time was prescribed Augmentin. She states that initially pain seemed to improve. She states that she finish entire course of antibiotics a few days ago. Since, her pain has returned. She currently rates her pain a 7/10. She states that tooth throbs. She has been taking OTC Tylenol for her symptoms. She denies any fevers or difficulty swallowing. She is scheduled to see a dentist next month. She currently is 22w3d . Dental Pain Review of Systems All systems reviewed and are negative or non contributory for this patient's presentation today other than as stated in the HPI. Physical Exam Vitals reviewed. Constitutional: Appearance: Normal appearance. She is not ill-appearing. HENT: Head: Normocephalic. Left Ear: There is impacted cerumen. Mouth/Throat: Dentition: Abnormal dentition. Dental tenderness, gingival swelling, dental caries and dental abscesses present. Pharynx: Oropharynx is clear. Comments: Teeth 31 and 32 broken and decaying. Gingival area surrounding teeth erythematous and swollen. Tender on palpation. Multiple dental caries noted throughout. Cardiovascular: Rate and Rhythm: Normal rate and regular rhythm. Pulmonary: Effort: Pulmonary effort is normal. Breath sounds: Normal breath sounds. Musculoskeletal: General: Normal range of motion. Skin: General: Skin is warm and dry. Neurological: Mental Status: She is alert and oriented to person, place, and time. Mental status is at baseline. Psychiatric: Mood and Affect: Mood normal. Behavior: Behavior normal. Thought Content: Thought content normal. Judgment: Judgment normal. Vitals: 04/17/24 1852 BP: 126/62 BP Location: Right arm Patient Position: Sitting Pulse: 110 Resp: 17 Temp: 37.1 ??C (98.7 ??F) TempSrc: Temporal SpO2: 97% Weight: 105.9 kg (233 lb 6.4 oz) Height: 162.6 cm (5' 4 ) Assessment/Plan Diagnoses and all orders for this visit: Dental abscess (Primary) - clindamycin (CLEOCIN) 300 mg capsule; Take 1 capsule (300 mg total) by mouth 4 (four) times a dayfor 10 days --clindamycin as prescribed --Tylenol as needed for pain --follow-up with dentist for further evaluation --discussed the importance of good oral hygiene especially when --reviewed red flags that would warrant immediate evaluation in ED No results found for this or any previous visit (from the past 4 hour(s)). Patient Education: Disposition Treatment plan including expectations, follow up, and return precautions discussed with patient/parent, verbalizes understanding. Medication dosage, use, and potential adverse reactions discussed with patient/parent. Advised to follow up with PCP if symptoms do not resolve as expected or sooner if condition worsens. Signs/symptoms warranting ER evaluation reviewed. Patient and/or guardian was given an opportunity to ask questions, questions answered. Mary Ann Meza NP Cosigned by Kel Varela MD at 04/21/2024 1:20 PM CDT documented in this encounter Plan of Treatment Not on file documented as of this encounter Visit Diagnoses Diagnosis Dental abscess- Primary Periapical abscess without sinus documented in this encounter Discontinued Medications Medication Sig Discontinue Reason Start Date End Da te ibuprofen (ADVIL,MOTRIN) 800 mg tabletIndications:Acute non-recurrent maxillary sinusitis Take 1 tablet (800 mg total) by mouth 3 (three) times a day 07/27/2022 04/17/2024 clindamycin (CLEOCIN) 300 mg capsule Take 1 capsule (300 mg total) by mouth 4 (four) times a day for 7 days 04/17/2024 04/17/2024 clindamycin (CLEOCIN) 300 mg capsule Take 1 capsule (300 mg total) by mouth 4 (four) times a day for 10 days 04/17/2024 04/17/2024 documented as of this encounter Care Teams Montessori Paraprofessional Relationship Specialty Start Date End Date Naina Casillas NP [address] [place] [id number] PCP - General Family Medicine 07/27/22 Josey Lemus MD [address] [address] Referring Physician Gynecology 11/26/20 documented as of this encounter
--- OUTSIDE RECORDS SUMMARY | 2024-07-09 12:44 | XMS_ITS | Encounter Summary ---
Author Organization [facility] Address [address] [place] [address] Care Team Providers Care Basket Operator Name Role Phone Josey Lemus MD Unavailable [phone] Richadr Mike MD Primary Care Provider [phone] Encounter Details Date Type Department Care Team (Late st Contact Info) Description 12/02/2021 Orders Only [facility] Cardiology [address] [place] [address] Julio Rodriges MD [address] [facility] [address] [place] [id number] Social History Tobacco Use Types Packs/Day Years Used Date Smoking Tobacco: Never Smokeless Tobacco: Never Comments No Sex and Gender Information Value Date Recorded Sex Assigned at Not on file Legal Sex Female 7:39 AM CDT Gender Identity Not on file Sexual Orientation Not on file documented as of this encounter Plan of Treatment Not on file documented as of this encounter Procedures Procedure Name Priority Date/Time Associated Diagnosis Comments CARDIOLOGY DOCUMENT SCAN Routine 12/02/2021 documented in this encounter Results * Cardiology Document Scan (12/02/2021) Anatomical Region Laterality Modality Other Julio Rodriges MD CV CARDIAC SERVICES PROC EDURES Final Result documented in this encounter Visit Diagnoses Not on filedocumented in this encounter Care Teams Basket Operator Relationship Specialty Start Date End Date Richard Mike MD [address] [place] [address] PCP - General Obstetrics and Gynecology 12/15/20 07/26/22 Josey Lemus MD [address] [place] [address] Referring Physician Gynecology 11/26/20 documented as of this encounter
--- OUTSIDE RECORDS SUMMARY | 2024-07-09 12:44 | XMS_ITS | Encounter Summary ---
Author Organization [facility] Address [address] [place] [address] Phone Care Team Providers Care Out And Out Cigar Maker Hand Name Role Phone Josey Lemus MD Unavailable [phone] Richard Mike MD Primary Care Provider [phone] Encounter Details Date Type Department Care Team (Late st Contact Info) Description 12/27/2020 Telephone [facility] [address] [place] [address] Flores Erwin BS Social History Tobacco Use Types Packs/Day Years Used Date Smoking Tobacco: Never Smokeless Tobacco: Never Comments Yes Sex and Gender Information Value Date Recorded Sex Assigned at Not on file Legal Sex Female 7:39 AM CDT Gender Identity Not on file Sexual Orientation Not on file documented as of this encounter Miscellaneous Notes * Telephone Encounter - Flores Erwin BS - 12/27/2020 11:57 AM CDT Patient called to cancel all ultrasound and MFM co-managed appointments. Patient is going to [facility] and no longer wants to be co-managed with us. Canceled all her appointments and orders. documented in this encounter Plan of Treatment Not on file documented as of this encounter Visit Diagnoses Not on filedocumented in this encounter Care Teams Out And Out Cigar Maker Hand Relationship Specialty Start Date End Date Richard Mike MD [address] [place] [address] PCP - General Obstetrics and Gynecology 12/15/20 07/26/22 Josey Lemus MD [address] [place] [address] Referring Physician Gynecology 11/26/20 documented as of this encounter
--- OUTSIDE RECORDS SUMMARY | 2024-07-09 12:44 | XMS_ITS | Encounter Summary ---
Author Organization [facility] Address [address] [place] [address] Care Team Providers Care Buckshot Swage Operator Name Role Phone No, Physician Primary Care Provider [phone] Josey Lemus MD Unavailable [phone] Reason for Referral * Diagnostic Imaging (Routine) - Closed Specialty Diagnoses / Procedures Referred By Contac t Referred To Contact Diagnoses Monochorionic and monoamniotic twin gestation in second trimester, antepartum Procedures US Ob Detail Anatomy Single Or First Gestation Josey Lemus MD [address] [place] [address] Phone: tel: fax: [facility] (All Locations) Referral ID Status Reason Start Date Expiration Date Visits Re quested Visits Authorized [id number] Closed 11/26/2020 12/26/2021 1 1 Reason for Visit * Diagnostic Imaging (Routine) - Closed Specialty Diagnoses / Procedures Referred By Contac t Referred To Contact Diagnoses Monochorionic and monoamniotic twin gestation in second trimester, antepartum Procedures US Ob Detail Anatomy Single Or First Gestation Josey Lemus MD [address] [place] [address] Phone: tel: fax: [facility] (All Locations) Referral ID Status Reason Start Date Expiration Date Visits Re quested Visits Authorized [id number] Closed 11/26/2020 12/26/2021 1 1 Encounter Details Date Type Department Care Team (Late st Contact Info) Description 12/13/2020 7:30 AM CDT - 12/13/2020 11:59 PM CDT Hospital Encounter [facility] [address] [facility] [place] [address] Josey Lemus MD [address] [facility] [address] [place] [address] Monochorionic and monoamniotic twin gestation in second trimester, antepartum Discharge Disposition: Discharge to home or self care Social History Tobacco Use Types Packs/Day Years Used Date Smoking Tobacco: Never Smokeless Tobacco: Never Comments Yes Sex and Gender Information Value Date Recorded Sex Assigned at Not on file Legal Sex Female 7:39 AM CDT Gender Identity Not on file Sexual Orientation Not on file documented as of this encounter Medications at Time of Discharge ergocalciferol (VITAMIN D) 50,000 unit capsule TAKE 1 CAPSULE BY MOUTH ONE TIME PER WEEK 11/26/2020 famotidine (PEPCID) 20 mg tablet Take 20 mg by mouth 2 (two) times a day 11/28/2020 [id number] 25 mg iron-1 mg -400 mg combo pack Take by mouth Purelax 17 gram/dose powder MIX 17GRAMS (1 CAPFUL) AND TAKE BY MOUTH TWICE DAILY 10/10/2020 sertraline (ZOLOFT) 50 mg tablet Take 50 mg by mouth daily 11/13/2020 vitamin B complex no.[id number] in 1-60-300 mg-mg-mcg tabletIndications :Vitamin Deficiency Prevention 1 tablet documented as of this encounter Discharge Disposition Disposition Code Departure Means Destination Discharge to home or self care documented in this encounter Plan of Treatment Not on file documented as of this encounter Procedures Procedure Name Priority Date/Time Associated Diagnosis Comments US OB DETAIL ANATOMY SINGLE OR FIRST GESTATION Schedule Routine, Read Routine (OP Routine) 12/13/2020 7:41 AM CDT Monochorionic and monoamniotic twin gestation in second trimester, antepartum documented in this encounter Results * US Ob Detail Anatomy Single Or First Gestation (12/13/2020 7:41 AM CDT) Fetus# Fetus1 VIEWPOINT Placenta Details anterior, Previa-no VIEWPOINT Estimated Weight 682 g&grams VIEWPOINT Presentation Vertex; Maternal left- high VIEWPOINT Fetus# Fetus2 VIEWPOINT Placenta Details anterior, Previa-no VIEWPOINT Estimated Weight 720 g&grams VIEWPOINT Presentation Vertex; Maternal left- low - PRESENTING VIEWPOINT Anatomical Region Laterality Modality Body N/A Ultrasound 12/13/2020 7:42 AM CDT us Josey Lemus MD IMG OB US PROCEDURES Fin al Result documented in this encounter Visit Diagnoses Diagnosis Monochorionic and monoamniotic twin gestation in second trimester, antepartum documented in this encounter Care Teams Buckshot Swage Operator Relationship Specialty Start Date End Date No, Physician PCP - General 11/26/20 12/14/20 Josey Lemus MD [address] [address] Referring Physician Gynecology 11/26/20 documented as of this encounter
--- OUTSIDE RECORDS SUMMARY | 2024-07-09 12:44 | XMS_ITS | Encounter Summary ---
Author Organization [facility] Healthcare Address [address] [place] [address] Care Team Providers Care Sketch Liner Name Role Phone Josey Lemus MD Unavailable [phone] Naina Casillas NP Primary Care Provider [phone] Reason for Referral * Procedure (Routine) - Authorized Specialty Diagnoses / Procedures Referred By Ivett t Referred To Contact Diagnoses Impacted cerumen of left ear Procedures Ear Cerumen Removal Mary Ann Meza NP [address] [place] [address] Phone: tel: fax: [facility] Referral ID Status Reason Start Date Expiration Date V isits Requested Visits Authorized [id number] Authorized 03/31/2024 04/30/2025 1 1 Reason for Visit * Reason Comments Dental Pain Patient states she h as bad teeth and she thins her sinuses is causing the tooth pain. Onset for a few days no cough. Taking tylenol. Patient is 20 week Encounter Details Date Type Department Care Team (Late st Contact Info) Description 03/31/2024 11:30 AM CDT Office Visit [facility] [address] [place] [id number] Mary Ann Meza NP [address] [place] [address] Dental infection (Primary Dx); Impacted cerumen of left ear Social History Tobacco Use Types Packs/Day Years Used Date Smoking Tobacco: Never Smokeless Tobacco: Never Tobacco Cessation:Counseling Given: Not Answered Comments Unknown Sex and Gender Information Value Date Recorded Sex Assigned at Not on file Legal Sex Female 7:39 AM CDT Gender Identity Not on file Sexual Orientation Not on file documented as of this encounter Last Filed Vital Signs Vital Sign Reading Time Taken Comments Blood Pressure 138/90 03/31/2024 11:52 AM CDT Pulse 91 03/31/2024 11:52 AM CDT Temperature 36.6 ??C (97.8 ??F) 03/31/2024 11:52 AM C DT Respiratory Rate 16 03/31/2024 11:52 AM CDT Oxygen Saturation 98% 03/31/2024 11:52 AM CDT Inhaled Oxygen Concentration - - Weight 109.3 kg (241 lb) 03/31/2024 11:52 AM CDT Height 165.1 cm (5' 5 ) 03/31/2024 11:52 AM CDT Body Mass Index 40.1 03/31/2024 11:52 AM CDT documented in this encounter Patient Instructions * Patient Instructions* Mary Ann Meza NP - 03/31/2024 11:30 AM CDT Practice good dental hygiene by brushing your teeth 2-3 times/day Floss daily See a dentist every 6 mo for regular cleanings Tylenol/Motrin for pain If pain is unbearable- go to ER for further treatment Complete any medications as prescribed Follow-up with dentist for further evaluation * Attachments The following attachments cannot be sent through Care Everywhere. * Dental Abscess (General Information) (Trinidadian) documented in this encounter Ordered Prescriptions Prescription Sig Dispense Quantity Refills Last Filled Start Date End Date amoxicillin-clavul anate (Augmentin) 875-125 mg per tabletIndications: Dental infection Take 1 tablet by mouth 2 (two) times a day for 10 days 20 tablet 03/31/2024 04/10/2024 documented in this encounter Progress Notes * Mary Ann Meza NP - 03/31/2024 11:30 AM CDTAssociated Order(s): Ear Cerumen Removal Images from the original note were not included. Subjective/Objective Patient ID: Mis Beck is a 33 y.o. female. Chief Complaint Dental Pain (Patient states she has bad teeth and she thins her sinuses is causing the tooth pain. Onset for a few days no cough. Taking tylenol. Patient is 20 week ) Patient presents to [facility] for left lower dental pain. She states that she has a history of dental infections and dental caries. She is currently 20 weeks . She states that over the past 3 days she has developed tooth pain. Pain is intermittent and sharp. She states that pain is constantly a 2/10. However at times pain increases to a 10/10. Pain has been radiating to her left earand left maxillary sinus. She has been taking OTC Tylenol with minimal relief. She denies any fevers or difficulty swallowing. She is currently 20 weeks . Dental Pain Review of Systems All [...] Thought content normal. Judgment: Judgment normal. Vitals: 03/31/24 1152 BP: 138/90 BP Location: Left arm Patient Position: Sitting Pulse: 91 Resp: 16 Temp: 36.6 ??C (97.8 ??F) TempSrc: Temporal SpO2: 98% Weight: 109.3 kg (241 lb) Height: 165.1 cm (5' 5 ) Ear Cerumen Removal Performed by: Adriana Lanier MA Authorized by: Mary Ann Meza NP Consent Given by: Patient Verbal consent obtained: Yes Written consent obtained: No Risks, alternatives, and patient questions discussed: Yes Preparation: Patient was prepped using a clean technique Location: L ear L ear cerumen impacted?: Yes L ear method of removal: Magnification and irrigation L ear magnification: Otoscope Inspection: TM intact Hearing quality: Normal Patient tolerance: Patient tolerated the procedure well with no immediate complications Assessment/Plan Diagnoses and all orders for this visit: Dental infection (Primary) - amoxicillin-clavulanate (Augmentin) 875-125 mg per tablet; Take 1 tablet by mouth 2 (two) times aday for 10 days --Augmentin as prescribed --Tylenol as needed for pain --recommend patient follow up with dentist for further evaluation --reviewed red flags that would warrant immediate evaluation in ED Impacted cerumen of left ear - Ear Cerumen Removal --cerumen impaction removed in office today via irrigation No results found for this or any [...] questions, questions answered. Mary Ann Meza NP documented in this encounter Plan of Treatment Not on file documented as of this encounter Procedures Procedure Name Priority Date/Time Associated Diagnosis Comments EAR CERUMEN REMOVAL Routine 03/31/2024 1 1:30 AM CDT Impacted cerumen of left ear documented in this encounter Results * Ear Cerumen Removal (03/31/2024 11:30 AM CDT) Narrative Mary Ann Meza NP - 03/31/2024 11:30 AM CDT Mary Ann Meza NP ? 03/31/2024 12:26 PM Ear Cerumen Removal Performed by: Adriana Lanier MA Authorized by: Mary Ann Meza NP ?? Consent Given by: ??Patient Verbal consent obtained: Yes ?? Written consent obtained: No ?? Risks, alternatives, and patient questions discussed: Yes ?? Preparation: Patient was prepped using a clean technique ?? Location: ??L ear L ear cerumen impacted?: Yes ?? L ear method of removal: ??Magnification and irrigation L ear magnification: ??Otoscope Inspection: ??TM intact Hearing quality: ??Normal Patient tolerance: ??Patient tolerated the procedure well with no immediate complications us Mary Ann Meza NP IN CLINIC/BEDSIDE ORDERABLES Fin al Result documented in this encounter Visit Diagnoses Diagnosis Dental infection- Primary Impacted cerumen of left ear Impacted cerumen documented in this encounter Care Teams Sketch Liner Relationship Specialty Start Date End Date Naina Casillas NP [address] [place] [address] PCP - General Family Medicine 07/27/22 Josey Lemus MD [address] [place] [address] Referring Physician Gynecology 11/26/20 documented as of this encounter
--- OUTSIDE RECORDS SUMMARY | 2024-07-09 12:44 | XMS_ITS | Encounter Summary ---
Author Organization [facility] Healthcare Address [address] [place] [address] Care Team Providers Care Etymology Teacher Name Role Phone Josey Lemus MD Unavailable [phone] Naina Casillas NP Primary Care Provider [phone] Encounter Details Date Type Department Care Team ([facility] Contact Info) Description 04/01/2024 Telephone [facility] [place] [address] [place] [address] Sidra Simpson MA Social History Tobacco Use Types Packs/Day Years Used Date Smoking Tobacco: Never Smokeless Tobacco: Never Comments Unknown Sex and Gender Information Value Date Recorded Sex Assigned at Not on file Legal Sex Female 7:39 AM CDT Gender Identity Not on file Sexual Orientation Not on file documented as of this encounter Miscellaneous Notes * Telephone Encounter - Sidra Simpson MA - 04/01/2024 7:27 PM CDT Patient made aware and will space these out and take medications with food. * Telephone Encounter - Sidra Simpson MA - 04/01/2024 7:13 PM CDT Patient concerned about taking iron supplement, Visglycinate 25 mg, with Augmentin. Wanted to know if she should space these apart or not take this during the time she is taking Augmentin. Please review and advise, thank you. documented in this encounter Plan of Treatment Not on file documented as of this encounter Visit Diagnoses Not on filedocumented in this encounter Care Teams Etymology Teacher Relationship Specialty Start Date End Date Naina Casillas NP [address] [place] [address] PCP - General Family Medicine 07/27/22 Josey Lemus MD [address] [place], [place] [id number] Referring Physician Gynecology 11/26/20 documented as of this encounter
--- OUTSIDE RECORDS SUMMARY | 2024-07-09 12:44 | XMS_ITS | Referral Summary ---
Author Organization [facility] Address [address] [place] [address] Care Team Providers Care Associate Team Physician Name Role Phone Josey Lemus MD Unavailable [phone] Naina Casillas NP Primary Care Provider [phone] Encounters Date Type Department Care Team Description 04/17/2024 7:00 PM CDT Office Visit [facility] [place] [address] [place] [id number] Mary Ann Meza NP Dental abscess (Primary Dx) from Last 3 Months Allergies No known active allergies Medications Purelax 17 gram/dose powder MIX 17GRAMS (1 CAPFUL) AND TAKE BY MOUTH TWICE DAILY 1 Active sertraline (ZOLOFT) 50 mg tablet Take 50 mg by mouth daily 1 Active famotidine (PEPCID) 20 mg tablet Take 20 mg by mouth 2 (two) times a day 1 Active ergocalciferol (VITAMIN D) 50,000 unit capsule TAKE 1 CAPSULE BY MOUTH ONE TIME PER WEEK 1 Active [id number] 25 mg iron-1 mg -400 mg combo pack Take by mouth Ac tive vitamin B complex no.3-dfazt-[id number]-bi otin 1-60-300 mg-mg-mcg tabletIndicatio ns:Vitamin Deficiency Prevention 1 tablet Active fluticasone propionate (FLONASE) 50 mcg/actuation nasal spray 2 Active meclizine (ANTIVERT) 25 mg tablet 2 Active methylPREDNISol one (Medrol, Shayne,) 4 mg DosepackIndicat ions:Fluid level behind tympanic membrane of both ears follow package directions 1 packet 3 Active Additional Information Patient not taking.Reported on 09/03/2023 Active Problems Problem Noted Date Diagnosed Date Monochorionic diamniotic twin in secon d trimester 12/13/2020 Overview (12/21/2020): We reviewed the risks of a twin . Compared to penn pregnancies, twin pregnancies are at increased risk of spontaneous and iatrogenic delivery, with an average gestational age of 35 weeks at delivery in the [place]. [...] unequal placental sharing, which can result in Sndi-kq-Htxw transfusion Syndrome (TTTS), Twin Anemia-Polycythemia Sequence (TAPS), [...] occur prior to 26 weeks. Briefly, we discussed that treatment of worsening TTTS is laser therapy in the second trimester and delivery in the third trimester. TAPS is a chronic form of TTTS, and is seen in up to 6% of mono-di twins without any other evidence of TTTS. [...] these twins for screening which we have ordered for her next visit. surveillance starting at 32 weeks with delivery at 36-37 weeks in the absence of other morbidity is recommended. Plan - start baby aspirin today- no evidence of TTTS, MVP nml x2, bladders visualized x2 - TTTS screening q 2 weeks, growth q4 weeks - ANT 32 weeks - Delivery at 36-37 weeks - Echocardiogram- ordered, prior auth-approved, pt called and message left with phone number to schedule on 12/21/2020 Depression 12/13/2020 Overview (12/13/2020): Ms. Beck is currently on sertraline 50mg [...] be managed and there have not been terminal block assembler effects reported. Plan: - Monitor mood each visit - behavioral health consult offered, patient interested - Can consider increasing medication dose throughout as needed for mood Rh negative state in antepartum period Overview (12/13/2020): [ ] Rhogam at 28 weeks History of gestational diabetes mellitus (GDM) 0 12/06/2020 Overview (12/13/2020): Patient has a history of GDM in [...] If screen positive, will need diabetic education Supervision of high-risk , unspecified trimester 12/06/2020 Overview (12/13/2020): [] Co-management vs. [x] Full M Care; [] Red Team [x] Blue Team Referring Provider: Transfer of care from Dr Josey Lemus [phone] [] or Medicare Insurance [x] Dating Criteria: LMP [...] [] MOC: [] Method of feeding: [] Clinical Data Management Director: [] PP Depression Discussed: Comments Yes Social History Tobacco Use Types Packs/Day Years Used Date Smoking Tobacco: Never Smokeless Tobacco: Never Tobacco Cessation:Counseling Given: Not Answered Comments Yes Sex and Gender Information Value [...] Mass Index 40.06 04/17/2024 6:52 PM CDT Plan of Treatment Not on file Insurance [address] [facility] [id number] [place] [address] Care Teams Associate Team Physician Relationship Specialty Start Date End Date Naina Casillas NP [address] [place] [address] PCP - General Family Medicine 07/27/22 Josey Lemus MD [address] [place] [address] Referring Physician Gynecology 11/26/20
--- OUTSIDE RECORDS SUMMARY | 2024-07-09 12:44 | XMS_ITS | Encounter Summary ---
Author Organization [facility] Address [address] [facility] [address] [place] [address] Care Team Providers Care [employer] Law Clerk Name Role Phone Josey Lemus MD Unavailable [phone] Naina Casillas NP Primary Care Provider [phone] Reason for Visit * Reason Comments Sick Visit Patient presents tod ay with complaints of headaches, vertigo, forehead/sinus pressure, BL ear fullness; SX onset 7-8 wks ago Encounter Details Date Type Department Care Team (Late st Contact Info) Description 07/27/2022 4:45 PM EPOXY COATINGS INSTALLER Office Visit [facility] [address] [place] [id number] Bibiana Mata NP [address] [facility] [place] [address] Acute non-recurrent maxillary sinusitis (Primary Dx); Fluid level behind tympanic membrane of both ears Social History Tobacco Use Types Packs/Day Years Used Date Smoking Tobacco: Never Smokeless Tobacco: Never Comments Unknown Sex and Gender Information Value Date Recorded Sex Assigned at Not on file Legal Sex Female 7:39 AM CDT Gender Identity Not on file Sexual Orientation Not on file documented as of this encounter Last Filed Vital Signs Vital Sign Reading Time Taken Comments Blood Pressure 142/74 07/27/2022 4:51 PM EPOXY COATINGS INSTALLER Pulse 94 07/27/2022 4:51 PM EPOXY COATINGS INSTALLER Temperature 36.8 ??C (98.2 ??F) 07/27/2022 4:51 PM CS T Respiratory Rate 16 07/27/2022 4:51 PM EPOXY COATINGS INSTALLER Oxygen Saturation 98% 07/27/2022 4:51 PM EPOXY COATINGS INSTALLER Inhaled Oxygen Concentration - - Weight 104.7 kg (230 lb 12.8 oz) 07/27/2022 4:51 PM EPOXY COATINGS INSTALLER Height 164.2 cm (5' 4.65 ) 07/27/2022 4:51 PM CS T Body Mass Index 38.83 07/27/2022 4:51 PM EPOXY COATINGS INSTALLER documented in this encounter Patient Instructions * Patient Instructions* Bibiana Mata NP - 07/27/2022 4:45 PM EPOXY COATINGS INSTALLER Research has proven that unless you are running a fever, sinus infections are typically viral untildays 9-10. Finish the entire antibiotic prescription. Take this with food. Eat yogurt or take probiotic daily while on antibiotics. Symptomatic treatments include: -Over the counter antihistamine such as loratadine (Claritin) or cetirizine (Zyrtec) to reduce secretions. The D formula includes pseudoephedrine and can be helpful as a decongestant but SHOULD NOTBE USED IF YOU HAVE A HISTORY OF HIGH BLOOD PRESSURE. -Coricidin HBP may be taken for congestion if you have a history of high blood pressure. -Tessalon, Dextromethorphan (Robitussin) or Delsym for cough -Guafenesin (Mucinex) to thin secretions -Acetaminophen (Tylenol), ibuprofen (Motrin, Advil), or Aleve (naproxen) for pain or fever. -The use of hypertonic saline to irrigate nasal passageways can be helpful. Over the counter systems include Neti Pot and Nasopure. Use with distilled water. -Salt water gargles and throat lozenges can be helpful for sore throat. -To prevent spreading the illness to others cover your sneeze and cough into your arm and not your hand, don't allow others to eat or drink with the same utensils or glass, and use hand crematorium operator before touching people or common surfaces. -Apply warm packs to face to facilitate sinus drainage. - Use cool mist humidifier in bedroom at night. -Increase fluid consumption and Rest. -Follow up with your PCP in 1 week or sooner if symptoms worsen or are not improving as planned. -If you experience any shortness of breath, chest pain, or high fever >101, go to the Emergency Room. Y COATINGS INSTALLER documented in this encounter Ordered Prescriptions Prescription Sig Dispense Quantity Refills Last Filled Start Date End Date methylPREDNISolone (Medrol, Shayne,) 4 mg DosepackIndication s:Fluid level behind tympanic membrane of both ears follow package directions 1 packet 07/27/2022 ibuprofen (ADVIL,MOTRIN) 800 mg tabletIndications: Acute non-recurrent maxillary sinusitis Take 1 tablet (800 mg total) by mouth 3 (three) times a day 90 tablet 1 07/27/2022 4 doxycycline monohydrate (MONODOX) 100 mg capsuleIndications :Acute non-recurrent maxillary sinusitis Take 1 capsule (100 mg total) by mouth 2 (two) times a day for 10 days 20 capsule 07/27/2022 3 documented in this encounter Progress Notes * Bibiana Mata NP - 07/27/2022 4:45 PM CST Images from the original note were not included. Subjective/Objective Patient ID: Mis Beck is a 32 y.o. female. Chief Complaint Sick Visit (Patient presents today with complaints of headaches, vertigo, forehead/sinus pressure, BL ear fullness; SX onset 7-8 wks ago) Patient presents to the convenient care clinic with a 7-8 week history of headache, vertigo, sinus pressure and bilateral ear fullness. She has taken steroids, antibiotics, Swathi, and Flonase for her symptoms. Review of Systems Constitutional: Negative for activity change, appetite change, fatigue and fever. HENT: Positive for ear pain and sinus pressure. Negative for congestion, ear discharge, postnasal drip, rhinorrhea and sore throat. Eyes: Negative for discharge. Respiratory: Negative for cough and shortness of breath. Gastrointestinal: Negative for diarrhea, nausea and vomiting. Musculoskeletal: Negative for myalgias. Skin: Negative for rash. Neurological: Positive for dizziness and headaches. Hematological: Negative for adenopathy. Physical Exam Vitals reviewed. Constitutional: General: She is not in acute distress. Appearance: Normal appearance. She is well-developed. She is not ill-appearing. HENT: Head: Normocephalic. Right Ear: Ear canal and external ear normal. A middle ear effusion is present. Left Ear: Ear canal and external ear normal. A middle ear effusion is present. Nose: No congestion or rhinorrhea. Right Sinus: Maxillary sinus tenderness present. No frontal sinus tenderness. Left Sinus: Maxillary sinus tenderness present. No frontal sinus tenderness. Mouth/Throat: Lips: [place]. Mouth: Mucous membranes are moist. Pharynx: Oropharynx is clear. Eyes: General: Right eye: No discharge. Left eye: No discharge. Conjunctiva/sclera: Conjunctivae normal. Cardiovascular: Rate and Rhythm: Normal rate and regular rhythm. Pulmonary: Effort: Pulmonary effort is normal. No respiratory distress. Breath sounds: Normal breath sounds and air entry. Abdominal: Tenderness: There is no abdominal tenderness. Musculoskeletal: General: Normal range of motion. Cervical back: Neck supple. Lymphadenopathy: Head: Right side of head: No tonsillar adenopathy. Left side of head: No tonsillar adenopathy. Cervical: No cervical adenopathy. Skin: General: Skin is warm and dry. Findings: No rash. Neurological: Mental Status: She is alert and oriented to person, place, and time. Mental status is at baseline. Psychiatric: Attention and Perception: Attention normal. Mood and Affect: Mood normal. Behavior: Behavior normal. Behavior is cooperative. Thought Content: Thought content normal. Judgment: Judgment normal. Vitals: 07/27/22 1651 BP: 142/74 BP Location: Left arm Patient Position: Sitting Pulse: 94 Resp: 16 Temp: 36.8 ??C (98.2 ??F) TempSrc: Tympanic SpO2: 98% Weight: 104.7 kg (230 lb 12.8 oz) Height: 164.2 cm (5' 4.65 ) Assessment/Plan Antibiotics and steroids as prescribed Flonase daily Follow up with PCP if symptoms persist or worsen Reviewed ER precautions Diagnoses and all orders for this visit: Acute non-recurrent maxillary sinusitis (Primary) - doxycycline monohydrate (MONODOX) 100 mg capsule; Take 1 capsule (100 mg total) by mouth 2 (two) times a day for 10 days - ibuprofen (ADVIL,MOTRIN) 800 mg tablet; Take 1 tablet (800 mg total) by mouth 3 (three) times a day Fluid level behind tympanic membrane of both ears - methylPREDNISolone (Medrol, Shayne,) 4 mg Dosepack; follow package directions No results found for this or any previous visit (from the past 4 hour(s)). Patient Instructions Research has proven that unless you are running a fever, sinus infections are typically viral untildays 9-10. Finish the entire antibiotic prescription. Take this with food. Eat yogurt or take probiotic daily while on antibiotics. Symptomatic treatments include: -Over the counter antihistamine such as loratadine (Claritin) or cetirizine (Zyrtec) to reduce secretions. The D formula includes pseudoephedrine and can be helpful as a decongestant but SHOULD NOTBE USED IF YOU HAVE A HISTORY OF HIGH BLOOD PRESSURE. -Coricidin HBP may be taken for congestion if you have a history of high blood pressure. -Tessalon, Dextromethorphan (Robitussin) or Delsym for cough -Guafenesin (Mucinex) to thin secretions -Acetaminophen (Tylenol), ibuprofen (Motrin, Advil), or Aleve (naproxen) for pain or fever. -The use of hypertonic saline to irrigate nasal passageways can be helpful. Over the counter systems include Neti Pot and Nasopure. Use with distilled water. -Salt water gargles and throat lozenges can be helpful for sore throat. -To prevent spreading the illness to others cover your sneeze and cough into your arm and not your hand, don't allow others to eat or drink with the same utensils or glass, and use hand crematorium operator before touching people or common surfaces. -Apply warm packs to face to facilitate sinus drainage. - Use cool mist humidifier in bedroom at night. -Increase fluid consumption and Rest. -Follow up with your PCP in 1 week or sooner if symptoms worsen or are not improving as planned. -If you experience any shortness of breath, chest pain, or high fever >101, go to the Emergency Room. Disposition Treatment plan including expectations, follow up, and return precautions discussed with patient/parent, verbalizes understanding. Medication dosage, use, and potential adverse reactions discussed with patient/parent. Advised to follow up with PCP if symptoms do not resolve as expected or sooner if condition worsens. Signs/symptoms warranting ER evaluation reviewed. Patient and/or guardian was given an opportunity to ask questions, questions answered. Bibiana Mata NP Y COATINGS INSTALLER documented in this encounter Plan of Treatment Not on file documented as of this encounter Visit Diagnoses Diagnosis Acute non-recurrent maxillary sinusitis- Primary Fluid level behind tympanic membrane of both ears documented in this encounter Historical Medications * This list may reflect changes made after this encounter. Medication Sig Dispense Quantity Refills Last Filled Start D ate End Date meclizine (ANTIVERT) 25 mg tablet 07/22/2022 fluticasone propionate (FLONASE) 50 mcg/actuation nasal spray 06/07/2022 added in this encounter Care Teams [employer] Law Clerk Relationship Specialty Start Date End Date Naina Casillas NP [address] [place] [address] PCP - General Family Medicine 07/27/22 Josey Lemus MD [address] [place] [address] Referring Physician Gynecology 11/26/20 documented as of this encounter
--- OUTSIDE RECORDS SUMMARY | 2024-07-09 12:44 | XMS_ITS | Clinical Summary ---
Author Organization [facility] Address [address] [place] [id number] Care Team Providers Care Kaiako Kura [place] Maori Name Role Phone Josey Lemus MD Unavailable [phone] Naina Casillas NP Primary Care Provider [phone] Allergies No known active allergies Medications Purelax [...] MOUTH ONE TIME PER WEEK 1 Active [id number] 25 mg iron-1 mg -400 mg combo pack Take by mouth Ac tive vitamin B complex [id number] otin 1-60-300 mg-mg-mcg tabletIndicatio ns:Vitamin Deficiency Prevention [...] unequal placental sharing, which can result in Byzs-cv-Piin transfusion Syndrome (TTTS), Twin Anemia-Polycythemia Sequence (TAPS), [...] be managed and there have not been buttermaker helper effects reported. Plan: - Monitor mood each [...] Overview (12/13/2020): [] Co-management vs. [x] Full MFM Care; [] Red Team [x] Blue Team Referring Provider: Transfer of care from Dr Josey Lemus [phone] [] or Medicare Insurance [x] Dating Criteria: [...] [] MOC: [] Method of feeding: [] Drapery Hanger: [] PP Depression Discussed: Comments Yes Encounters Date Type Department Care Team Description 04/17/2024 7:00 PM CDT Office Visit [facility] [place] [address] [place] [place] [address] Mary Ann Meza, CORY Dental abscess (Primary Dx) from Last 3 Months Medical History Medical History Date Comments Anxiety Depression Family History Relation Name Status Comments Father Mother Alive Social History Tobacco Use Types Packs/Day Years Used Date Smoking Tobacco: Never Smokeless Tobacco: Never Tobacco Cessation:Counseling Given: Not Answered Comments Yes Sex and Gender Information Value Date Recorded Sex Assigned at Not on file Legal Sex Female 7:39 AM CDT Gender Identity Not on file Sexual Orientation Not on file Obstetrics History Para Term AB IAB SAB Ectopic Multiple Livin g Live Births 5 2 2 1 1 2 2 Date Outcome GA Total Labor Labor/2nd/3rd Weight Sex Type Anes PTL Symone A1 A5 Name Clin 5 Term 3.827 kg (8 lb 7 oz) M Vag-S pont Living 2016 SAB 2017 Term 3.799 kg (8 lb 6 oz) Vag-S pont Living Current Last Filed Vital Signs Vital Sign Reading [...] 04/17/2024 6:52 PM CDT Plan of Treatment Health Maintenance Due Date Last Done Comments Cervical Cancer Screening 1989 Depression Screening 1989 Hepatitis C Screening 1989 DTaP/Tdap/Td Vaccine (6 - Tdap) 2000 11/08/1994, 05/08/1991, 03/21/1990, Additional history exists Varicella Vaccines (1 of 2 - 13+ 2-dose series) 2002 Hepatitis B Screening 2007 Regular Well Visit/Exam 18-64 2007 Influenza Vaccine (#1) 2024 HPV Vaccines Aged Out No longer eligi ble based on patient's age to complete this topic Pneumococcal vaccine <65 Aged Out No longer eligible based on patient's age to complete this topic Insurance [id number] [place] [address] [id number] [place] [address] [phone] [place] [address] Care Teams Kaiako Kura [place] Maori Relationship Specialty Start Date End Date Naina Casillas NP [address] [place], [place] [id number] PCP - General Family Medicine 07/27/22 Josey Lemus MD [address] [place] [address] Referring Physician Gynecology 11/26/20
--- OUTSIDE RECORDS SUMMARY | 2024-07-09 12:44 | XMS_ITS | Encounter Summary ---
Author Organization [facility] Address [address] [place] [address] Phone Care Team Providers Care Folding Machine Tender Name Role Phone Josey Lemus MD Unavailable [phone] Richard Mike MD Primary Care Provider [phone] Reason for Visit * Reason Onset Date Comments Echocardiogram, number to schedule 021 Encounter Details Date Type Department Care Team (Late st Contact Info) Description 12/21/2020 Telephone [facility] Maternal- Medicine [address] [facility] 7th Floor [address] [place] [address] Rosy Cerna RN Echocardiogram, number to schedule Social History Tobacco Use Types Packs/Day Years Used Date Smoking Tobacco: Never Smokeless Tobacco: Never Comments Yes Sex and Gender Information Value Date Recorded Sex Assigned at Not on file Legal Sex Female 7:39 AM CDT Gender Identity Not on file Sexual Orientation Not on file documented as of this encounter Miscellaneous Notes * Telephone Encounter - Rosy Cerna RN - 12/21/2020 1:45 PM CDT I called Mis to let her know we have received an approval for prior authorization for Echocardiogram. I had to leave a message and included the phone number to call and scheduled. I also let her know if she has any questions she can call our office at [phone]. * Telephone Encounter - Rosy Cerna RN - 12/21/2020 1:43 PM CDT ----- Message from CHOLO Diez sent at 12/21/2020 7:29 AM CDT ----- Regarding: FW: twins echo Echo has been approved. She's good to go. Thanks! ----- Message ----- From: Kristine Edwards Sent: 12/13/2020 11:04 AM CDT To: CHOLO Diez Subject: twins echo Hi there Could you please get an auth for twins echo. Mel Be documented in this encounter Plan of Treatment Not on file documented as of this encounter Visit Diagnoses Not on filedocumented in this encounter Care Teams Folding Machine Tender Relationship Specialty Start Date End Date Richard Mike MD [address] [place], [place] [id number] PCP - General Obstetrics and Gynecology 12/15/20 07/26/22 Josey Lemus MD [address] [place], [place] [id number] Referring Physician Gynecology 11/26/20 documented as of this encounter
--- OUTSIDE RECORDS SUMMARY | 2024-07-09 12:44 | XMS_ITS | Encounter Summary ---
Author Organization [facility] Address [address] [place] [address] Care Team Providers Care Transport Aircrewman Name Role Phone Josey Lemus MD Unavailable [phone] Naina Casillas NP Primary Care Provider [phone] Reason for Visit * Reason Comments Dental Pain Patient presents tod ay with complaints of bottom right dental pain. SX onset 16 - 17 days ago. Patient states she finished an antibiotic just a couple of days ago. Encounter Details Date Type Department Care Team (Late st Contact Info) Description 09/03/2023 7:30 PM FOOD PREPARER Office Visit [facility] [place] [address] [place] [address] Mary Ann Meza NP [address] [facility] [address] Dental infection (Primary Dx) Social History Tobacco Use Types [...] Sign Reading Time Taken Comments Blood Pressure 144/90 09/03/2023 7:31 PM FOOD PREPARER Pulse 90 09/03/2023 7:31 PM FOOD PREPARER Temperature 36.4 ??C (97.5 ??F) 09/03/2023 7:31 PM CS T Respiratory Rate 16 09/03/2023 7:31 PM FOOD PREPARER Oxygen Saturation 98% 09/03/2023 7:31 PM FOOD PREPARER Inhaled Oxygen Concentration - - Weight 109.3 kg (241 lb) 09/03/2023 7:31 PM FOOD PREPARER Height 165.1 cm (5' 5 ) 09/03/2023 7:31 PM FOOD PREPARER Body Mass Index 40.1 09/03/2023 7:31 PM FOOD PREPARER documented in this encounter Patient Instructions * Patient Instructions* Mary Ann Meza NP - 09/03/2023 7:30 PM FOOD PREPARER Practice good dental hygiene by brushing your teeth 2-3 times/day Floss daily Tylenol/Motrin for pain If pain is unbearable or if you develop fevers- go to ER for further treatment You need to get in with a dentist for further evaluation Dental Clinic List How do I find out which dentists accept the medical card?------Contact [facility] [phone] or (TTY) [phone] If you do not have Medicaid, you can call [place] [employer] [phone] for assistance [facility], [address] [place] [address]. [address] [facility] ([facility]), [address] [place] [phone] or [phone] [facility] M-F 87 2200 [facility] 9-5 [facility] 9-2 [facility], [address] [place] [address], [facility], [address] [facility], [address], [place] [address], (medical card patients only) or [phone] [facility], [address], [place] [address], [facility], [address], [place], [place] [phone] Dr. Deshpande DDS, [address], [place] [address], [facility], [address], [place] [address], Jen DDS, [address] [facility], [place] [address], [facility], [address] [phone], [facility], [address], [place] [address], [facility], [phone], [place] [address], Wm. Margret, DDS, [address] [place] [address], Dr. eYny Villa, [address] [facility] , [place] [address], [facility], [address] [place] [address]. [phone] [facility], [address] [facility], [place] [address] Dr. Luís Kim, [address] [facility] [address], Dr. Ashley Rausch, [address] [address], [facility], [address] [place], [place] [phone] [facility], [address] [place], [place] [phone] [facility], [address] [facility], [facility], [address], [place], [place] [phone] [facility], [address] [facility], [address], [place], [place] [phone] [facility], [address] [facility], [address], [place], [place] [phone] Harris Moseley, DMD, [address] [facility], [place], [place] [phone] [facility], [address] [place], [place] [phone] Johanna Flores DDS, [address] [place], [place] [phone] Tino Smith DDS, [address] [place], [place] [phone] Kendell Tinsley DDS, MS sheet metal foreman, [address] , [place], [place] [phone] [facility], [address], [place], [place] [phone] [facility], [facility], [address] [facility], [place], [place] [phone] [facility], [address], [place], [place] [phone] [facility], [address], [address], [place], [place] [phone] [facility], [address] [facility], [address], [place], [place] [phone] Dr. Ravindra Land, [address] [place] [address], [facility], [address] , [place], [place] [phone] Dental Clinics/ Providers serving low income or uninsured individuals [facility] [address] [place] [address], [address] [place] [address], [address] [place] [address], [facility]/ Comprehensive [address], [place], [address], [facility], [address] [place], [address], [facility], [address] [place] [address], [place] [address], (must be [facility] Resident.) [facility], [address] [facility], [address], (must be [facility] patient) [facility], [facility] [place] [address], [facility], [address] [place] [address] [facility], [facility], [address] [employer], [place] [address], [facility], [address] [place] [address], [facility] [address] [place] [address], [facility], [address] [facility] [address], PREPARER documented in this encounter Ordered Prescriptions Prescription Sig Dispense Quantity Refills Last Filled Start Date End Date amoxicillin-clavul anate (Augmentin) 875-125 mg per tabletIndications: Dental infection Take 1 tablet by mouth 2 (two) times a day for 10 days 20 tablet 09/03/2023 09/13/2023 documented in this encounter Progress Notes * Mary Ann Meza NP - 09/03/2023 7:30 PM CST Images from the original note were not included. Subjective/Objective Patient ID: Mis Beck is a 33 y.o. female. Chief Complaint Dental Pain (Patient presents today with complaints of bottom right dental pain. SX onset 16 - 17 days ago. Patient states she finished an antibiotic just a couple of days ago. ) Patient presents to convenient care for possible dental infection. She states that 8 years ago 2 ofher teeth on the lower right side broke off. She states that she has been experiencing issues with teeth ever since. She states that approximately 2.5 weeks ago she was seen at an urgent care and wasgiven amoxicillin for a dental infection. She states that symptoms seemed to improve some. She finished entire course of antibiotics 5 days ago. However, over the past few days her teeth have become painful again. She has been taking ibuprofen for her symptoms. She denies any fevers or chills. She states that she is established with the dentist. However, her dentist is 1.5 hours away. Dental Pain Review of Systems All systems reviewed and are negative or non contributory for this patient's presentation today other than as stated in the HPI. Physical Exam Vitals reviewed. Constitutional: Appearance: Normal appearance. She is not ill-appearing. HENT: Head: Normocephalic. Mouth/Throat: Dentition: Abnormal dentition. Dental tenderness, gingival swelling and dental caries present. Pharynx: Oropharynx is clear. Comments: Teeth 31 and 32 broken and decaying. Gingival area surrounding teeth erythematous and swollen. Tender on palpation. Multiple dental caries noted throughout. Cardiovascular: Rate and Rhythm: Normal rate. Pulmonary: Effort: Pulmonary effort is normal. Musculoskeletal: General: Normal range of motion. Skin: General: Skin is warm and dry. Neurological: Mental Status: She is alert and oriented to person, place, and time. Mental status is at baseline. Psychiatric: Mood and Affect: Mood normal. Behavior: Behavior normal. Thought Content: Thought content normal. Judgment: Judgment normal. Vitals: 09/03/23 1931 BP: 144/90 BP Location: Right arm Patient Position: Sitting Pulse: 90 Resp: 16 Temp: 36.4 ??C (97.5 ??F) SpO2: 98% Weight: 109.3 kg (241 lb) Height: 165.1 cm (5' 5 ) Assessment/Plan Augmentin as prescribed for dental infection Tylenol/Motrin as needed for pain Advised patient to go to her dentist for further evaluation. Reviewed red flags such as increased swelling, fevers, or severe pain. Patient knows to go to the ER if she experiences any of these symptoms Diagnoses and all orders for this visit: Dental infection (Primary) - amoxicillin-clavulanate (Augmentin) 875-125 mg per tablet; Take 1 tablet by mouth 2 (two) times aday for 10 days No results found for this or any [...] questions, questions answered. Mary Ann Meza NP PREPARER documented in this encounter Plan of Treatment Not on file documented as of this encounter Visit Diagnoses Diagnosis Dental infection- Primary documented in this encounter Care Teams Transport Aircrewman Relationship Specialty Start Date End Date Naina Casillas NP [address] [place] [address] PCP - General Family Medicine 07/27/22 Josey Lemus MD [address] [place] [address] Referring Physician Gynecology 11/26/20 documented as of this encounter
--- OUTSIDE RECORDS SUMMARY | 2024-07-09 12:46 | XMS_ITS | Encounter Summary ---
Author Organization [facility] Address [address] [place] [address] Care Team Providers Care Insole Doubler Name Role Phone Unavailable Primary Care Provider Unavailabl e Reason for Referral * Radiology Services (Routine) - Closed Specialty Diagnoses / Procedures Referred By Contac t Referred To Contact Diagnoses Advanced maternal age in multigravida, second trimester Encounter for screening for malformation Procedures US OB DETAIL SINGLE GEST Josey Benavides MD [address] [place] [phone] [facility] [address] [place] [phone] Referral ID Status Reason Start Date Expiration Date Visits Re quested Visits Authorized [id number] Closed 02/21/2024 03/23/2025 1 1 Reason for Visit * Radiology Services (Routine) - Closed Specialty Diagnoses / Procedures Referred By Contac t Referred To Contact Diagnoses Advanced maternal age in multigravida, second trimester Encounter for screening for malformation Procedures US OB DETAIL SINGLE GEST Josey Benavides MD [address] [place] [phone] [facility] [address] [place] [phone] Referral ID Status Reason Start Date Expiration Date Visits Re quested Visits Authorized [id number] Closed 02/21/2024 03/23/2025 1 1 Encounter Details Date Type Department Care Team (Late st Contact Info) Description 03/31/2024 8:30 AM CDT - 03/31/2024 11:59 PM CDT Hospital Encounter [facility] [address] [place] [address] Josey Lemus MD [address] [place] [address] Discharge Disposition: Home or Self Care Social [...] Date/Time Associated Diagnosis Comments US OB DETAIL SINGLE GEST Routine 03/31/2024 9:40 AM CDT Advanced maternal age in multigravida, second trimester Encounter for screening for malformation documented in this encounter Results * US OB DETAIL SINGLE GEST (03/31/2024 9:40 AM CDT) Anatomical Region Laterality Modality Pelvis Ultrasound 03/31/2024 8:59 AM CDT Narrative 03/31/2024 9:42 AM CDT STL COMP ----- Pat. Name: MIS BECK Study Date: 03/31/2024 8:59am Pat. NO: [id number] Referring ??MD: JOSEY LEMUS MD Site: [facility] Engineer: Rae Saini RDMS : 1990 Age: 33 ----- INDICATION ----- Anatomy Survey Advanced Maternal Age (AMA), Multigravida ?no genetics Maternal Obesity (BMI<40) Complicating CODING ----- Diagnoses ? Z3A.20: Weeks of gestation ?O99.212: Obesity complicating ?O09.522: Supervision of elderly multigravida ?Z36.3: Encounter for screening for malformations Procedures ?84008: Ultrasound, uterus, real time with image documentation, and maternal evaluation ?plus detailed anatomic examination, transabdominal approach HISTORY ----- OB History ? 5. Para 4 ?[id number] MATERNAL ASSESSMENT ----- Physical Exam ? Weight 107 kg. Initial weight 104 kg, 230 lb. BMI 40.34 kg/m??. Initial BMI 39.48 kg/m??. Weight gain 2 kg, ?5 lb METHOD ----- Transabdominal ultrasound examination ----- Riggins . Number of fetuses: 1 DATING ----- Method of dating: based on stated GRACIA GA by prior assessment 20 w + 0 d GRACIA by prior assessment: 08/18/2024 Ultrasound examination on: 03/31/2024 GA by U/S based upon: AC, BPD, EFW, Femur, HC GA by U/S 19 w + 4 d GRACIA by U/S: 08/21/2024 Assigned: based on stated GRACIA, selected on 03/31/2024 Assigned GA 20 w + 0 d Assigned GRACIA: 08/18/2024 BIOMETRY ----- BPD ?40.5 ? mm ? 18w 2d ? 3% ?Hadlock OFD ?63.0 ? mm ? 21w 4d ? 92% ?Gail HC ? 168.2 ?mm ? 19w 3d ? 19% ?Hadlock Cerebellum tr ?21.1 ? mm ? 20w 5d ? 76% ?Campos Nuchal fold ?3.7 ?mm AC ? 149.3 ?mm ? 20w 1d ? 51% ?Hadlock Femur ?32.2 ? mm ? 20w 0d ? 43% ?Hadlock Humerus ?32.3 ? mm ? 20w 6d ? 83% ?Gail HC / AC ?1.13 ?24% ? Nicolaides Weight Calculation: EFW ?325 ? g ?19w 6d ?45% ?Hadlock EFW (lb,oz) ?0 lb 11 ? oz EFW by ?Hadlock ([id number]) Head / Face / Neck Biometry: Glass Carrier ? 5.3 ? mm CM ? 4.6 ? mm ? 37% ?Nicolaides Outer IOD ? 28.2 ? mm ? 18w 2d ?6% ? Gail Extremities / Bony Struc Biometry: FL / BPD ? 0.80 ? >99% ?Hadlock FL / HC ?0.19 ? 65% ?Hadlock FL / AC ?0.22 ? 44% ?Hadlock GENERAL EVALUATION ----- Cardiac activity present. movements: present. Presentation: breech Placenta: Placental site: posterior. Placental hvdw-mi-wzxjfnzj os distance 42 mm Umbilical cord: Cord vessels: 3 vessel cord. Insertion site: placental insertion: normal Amniotic fluid: Amount of AF: normal amount. MVP 3.5 cm ANATOMY ----- The following structures appear normal: Head / Neck ? Cranium. Lateral ventricles. Choroid plexus. Midline falx. Cavum septi pellucidi. Cerebellum. Cisterna ?magna. Thalami. ?Nuchal fold. Face ?Lips. Profile. Nose. Palate. Orbits. Heart / Thorax ?4-chamber view. RVOT view. LVOT view. 3-vessel view. 3-fnecdx-hjkmavt view. Situs. Aortic arch view. ?Ductal arch view. Superior vena cava. Inferior vena cava. High short axis view. Cardiac rhythm. ?Diaphragm. Abdomen ? Abdominal wall. Stomach. Kidneys. Bladder. Spine ? Cervical spine. Thoracic spine. Lumbar spine. Sacral spine. Extremities / ? Arms. Right hand. Left hand. Legs. Right foot. Left foot. Skeleton MATERNAL STRUCTURES ----- Cervix ?Visualized ?Approach - Transabdominal: Cervical length 48.7 mm Right Ovary ? Normal ?Size 26 mm x 18 mm x 20 mm. Vol 4.6 cm?? Left Ovary ?Normal ?Size 24 mm x 20 mm x 10 mm. Vol 2.7 cm?? GROWTH OVERVIEW ----- Exam date ?GA ?BPD (mm) ?HC (mm) ?AC (mm) ? FL (mm) ?HL (mm) ?EFW (g) 03/31/2024 ?20w 0d ?40.5 ?3% ?168.2 ? 19% ?149.3 ?51% ?32.2 ?43% ?32.3 ?83% ?325 ? 45% COMMENT ----- Patient's name and date of were verified by the veterinary technologist before the exam IMPRESSION ----- 1. Single living fetus with a gestational age of 20w 0d based on the reported clinical dates. 2. Current growth parameters are consistent with the stated EDC. The fetus is appropriate for gestational age in size at the 45% (325 g). 3. Detailed anatomic survey is unremarkable. No gross structural abnormalities noted. No sonographic markers for aneuploidy noted. 4. Amniotic fluid volume is normal for gestational age. 5. The cervical length is within normal range for gestational age. 6. The right and left ovary appear normal in size and shape. 7. Placenta is posterior . No previa/not low-lying. The placenta cord insertion is normal. Recommendations: - Further ultrasounds based on clinical indication. - Recommend interval third trimester growth and anatomy at 32 weeks. Thank you for allowing us to participate in the care of this patient. Procedure Note Stacy Schultz MD - 03/31/2024 STL COMP ----- Pat. Name:Chucho BECK Date:03/31/2024 8:59am Pat. NO: [id number] MD:JOSEY LEMUS [facility]:Rae Saini RDMS :1990Age:33 ----- INDICATION ----- Anatomy Survey Advanced Maternal Age (AMA), Multigravida no genetics Maternal Obesity (BMI<40) Complicating CODING ----- Diagnoses Z3A.20: Weeks of gestation O99.212: Obesity complicating O09.522: Supervision of elderly multigravida Z36.3: Encounter for screening formalformations Procedures [id number]: Ultrasound, uterus, real time withimage documentation, and maternal evaluation plus detailed anatomic examination,transabdominal approach HISTORY ----- OB History 5. Para 4 [id number] MATERNAL ASSESSMENT ----- Physical Exam Weight 107 kg. Initial weight 104 kg, 230 lb. BMI40.34 kg/m??. Initial BMI 39.48 kg/m??. Weight gain 2 kg, 5 lb METHOD ----- Transabdominal ultrasound examination ----- Riggins . Number of fetuses: 1 DATING ----- Method of dating:based on stated GRACIA GA by prior [id number] w + 0 d GRACIA by prior assessment:08/18/2024 Ultrasound examination on:03/31/2024 GA by U/S based upon:AC, BPD, EFW, Femur, HC GA by U/S19 w + 4 d GRACIA by U/S:08/21/2024 Assigned:based on stated GRACIA, selected on 03/31/2024 Assigned GA20 w + 0 d Assigned GRACIA:08/18/2024 BIOMETRY ----- BPD 40.5 mm 18w 2d3% Hadlock OFD 63.0 mm 21w 4d92% Gail HC 168.2 mm 19w 3d19% Hadlock Cerebellum tr 21.1 mm 20w 5d76% Campos Nuchal fold 3.7 mm AC 149.3 mm 20w 1d51% Hadlock Femur 32.2 mm 20w 0d43% Hadlock Humerus 32.3 mm 20w 6d83% Gail HC / AC 1.13 24%Nicolaides Weight Calculation: EFW 325 g 19w 6d 45%Hadlock EFW (lb,oz) 0 lb 11 oz EFW by Hadlock ([id number]) Head / Face / Neck Biometry: Glass Carrier 5.3 mm CM 4.6 mm 37%Nicolaides Outer IOD 28.2 mm 18w 2d 6%Gail Extremities / Bony Struc Biometry: FL / BPD 0.80 >99%Hadlock FL / HC 0.19 65%Hadlock FL / AC 0.22 44%Hadlock GENERAL EVALUATION ----- Cardiac activity present. movements: present. Presentation: breech Placenta: Placental site: posterior. Placental jzjy-nf-lqakwpou osdistance 42 mm Umbilical cord: Cord vessels: 3 vessel cord. Insertion site: placentalinsertion: normal Amniotic fluid: Amount of AF: normal amount. MVP 3.5 cm ANATOMY ----- The following structures appear normal: Head / Neck Cranium. Lateral ventricles. Choroid plexus.Midline falx. Cavum septi pellucidi. Cerebellum. Cisterna magna. Thalami. Nuchal fold. Face Lips. Profile. Nose. Palate. Orbits. Heart / Thorax 4-chamber view. RVOT view. LVOT view. 3-vesselview. 6-jopmdm-powlhtj view. Situs. Aortic arch view. Ductal arch view. Superior vena cava. Inferiorvena cava. High short axis view. Cardiac rhythm. Diaphragm. Abdomen Abdominal wall. Stomach. Kidneys. Bladder. Spine Cervical spine. Thoracic spine. Lumbar spine.Sacral spine. Extremities / Arms. Right hand. Left hand. Legs. Right foot.Left foot. Skeleton MATERNAL STRUCTURES ----- Cervix Visualized Approach - Transabdominal: Cervical length 48.7mm Right Ovary Normal Size 26 mm x 18 mm x 20 mm. Vol 4.6 cm?? Left Ovary Normal Size 24 mm x 20 mm x 10 mm. Vol 2.7 cm?? GROWTH OVERVIEW ----- Exam date GA BPD (mm) HC (mm) AC (mm) FL(mm) HL (mm) EFW (g) 03/31/2024 20w 0d 40.5 3% 168.2 19% 149.3 51% 32.243% 32.3 83% 325 45% COMMENT ----- Patient's name and date of were verified by the veterinary technologist beforethe exam IMPRESSION ----- 1. Single living fetus with a gestational age of 20w 0d based on thereported clinical dates. 2. Current growth parameters are consistent with the stated EDC. The fetusis appropriate for gestational age in size at the 45% (325 g). 3. Detailed anatomic survey is unremarkable. No gross structuralabnormalities noted. No sonographic markers for aneuploidy noted. 4. Amniotic fluid volume is normal for gestational age. 5. The cervical length is within normal range for gestational age. 6. The right and left ovary appear normal in size and shape. 7. Placenta is posterior . No previa/not low-lying. The placenta cordinsertion is normal. Recommendations: - Further ultrasounds based on clinical indication. - Recommend interval third trimester growth and anatomy at 32weeks. Thank you for allowing us to participate in the care of this patient. Josey Lemus MD US ORDERABLES documented in this encounter Visit Diagnoses Diagnosis Advanced maternal age in multigravida, second trimester Encounter for screening for malformation documented in this encounter
--- OUTSIDE RECORDS SUMMARY | 2024-07-09 12:46 | XMS_ITS | Encounter Summary ---
Author Organization [facility] Address [address] [facility] Attn: Epic Prelude ADT [place] [address] Care Team Providers Care Staff Research Associate Name Role Phone Unavailable Primary Care Provider Unavailabl e Encounter Details Date Type Department Care Team (Latest Contact Info) Description 01/13/2021 Travel Social History Tobacco Use Types Packs/Day Years Used Date Smoking Tobacco: Never Assessed Sex and Gender Information Value Date Recorded Sex Assigned at Not on file Gender Identity Not on file Sexual Orientation Not on file COVID-19 Exposure Response Date Recorded In the last month, have you been in contact with someone who was confirmed or suspected to have Coronavirus / COVID-19? No / Unsure 01/13/2021 2:29 PM CDT documented as of this encounter Plan of Treatment Not on file documented as of this encounter Visit Diagnoses Not on filedocumented in this encounter
--- OUTSIDE RECORDS SUMMARY | 2024-07-09 12:46 | XMS_ITS | Encounter Summary ---
Author Organization [facility] Address [address] [facility] Attn: Epic Prelude ADT [place] [address] Care Team Providers Care Radar Technician Name Role Phone Unavailable Primary Care Provider Unavailabl e Encounter Details Date Type Department Care Team (Latest Contact Info) Description 01/12/2021 Travel Social History Tobacco Use Types Packs/Day [...] have Coronavirus / COVID-19? No / Unsure 01/12/2021 8:42 AM CDT documented as of this encounter Plan of Treatment Not on file documented as of this encounter Visit Diagnoses Not on filedocumented in this encounter
--- OUTSIDE RECORDS SUMMARY | 2024-07-09 12:46 | XMS_ITS | Encounter Summary ---
Author Organization [facility] Address [address] [place] [address] Care Team Providers Care Nursing Program Director Name Role Phone Unavailable Primary Care Provider Unavailabl e Reason for Referral * Radiology Services (Routine) - Closed Specialty Diagnoses / Procedures Referred By Contac t Referred To Contact Diagnoses Advanced maternal age in multigravida, third trimester Obesity affecting , antepartum, second trimester Procedures US OB FOLLOW UP PER FETUS Arnol Multani MD [address] [address] [facility] [address] [place] [phone] Referral ID Status Reason Start Date Expiration Date Visits Re quested Visits Authorized [id number] Closed 03/31/2024 07/22/2024 1 1 T MAKER Reason for Visit * Radiology Services (Routine) - Closed Specialty Diagnoses / Procedures Referred By Contac t Referred To Contact Diagnoses Advanced maternal age in multigravida, third trimester Obesity affecting , antepartum, second trimester Procedures US OB FOLLOW UP PER FETUS Arnol Multani MD [address] [address] [facility] [address] [place] [phone] Referral ID Status Reason Start Date Expiration Date Visits Re quested Visits Authorized [id number] Closed 03/31/2024 07/22/2024 1 1 Encounter Details Date Type Department Care Team (Latest Contact Info) Description 06/23/2024 8:30 AM CLEAT MAKER - 06/23/2024 11:59 PM CLEAT MAKER Hospital Encounter [facility] and Health [facility] [address] [place] [address] Arnol Multani MD [address] [place] [facility] [place] [address] Discharge Disposition: Home or Self Care Social [...] Priority Date/Time Associated Diagnosis Comments US OB FOLLOW UP PER FETUS Routine 06/23/2024 9:04 AM CLEAT MAKER Advanced maternal age in multigravida, third trimester Obesity affecting , antepartum, second trimester documented in this encounter Results * US OB FOLLOW UP PER FETUS (06/23/2024 9:04 AM CLEAT MAKER) Anatomical Region Laterality Modality Pelvis Ultrasound 06/23/2024 8:49 AM CLEAT MAKER Narrative 06/23/2024 9:09 AM CLEAT MAKER STL FOLLOW UP ----- Pat. Name: MIS BECK Study Date: 06/23/2024 8:49am Pat. NO: [id number] Referring ??MD: IDA PIMENTEL MD Site: [facility] Head Of It: Rae Saini RDMS : 1990 Age: 33 ----- INDICATION ----- Screening Follow-Up Advanced Maternal Age (AMA), Multigravida Maternal Obesity (BMI<40) Complicating CODING ----- Diagnoses ? Z3A.32: Weeks of gestation ?O99.213: Obesity complicating ?O09.523: Supervision of elderly multigravida ?Z36.3: Encounter for screening for malformations ?Z3A.32: Weeks of gestation ?O99.213: Obesity complicating ?O09.523: Supervision of elderly multigravida ?Z36.2: Encounter for other screening follow-up Procedures ?51695: Ultrasound, uterus, real time with image documentation, follow up, transabdominal ?approach per fetus HISTORY ----- OB History ? 5. Para 4 ?[id number] MATERNAL ASSESSMENT ----- Physical Exam ? Initial weight 104 kg, 230 lb. Initial BMI 39.48 kg/m?? METHOD ----- Transabdominal ultrasound examination ----- Riggins . Number of fetuses: 1 DATING ----- GA by prior assessment 32 w + 0 d GRACIA by prior assessment: 08/18/2024 Ultrasound examination on: 06/23/2024 GA by U/S based upon: AC, BPD, EFW, Femur, HC GA by U/S 31 w + 4 d GRACIA by U/S: 08/21/2024 Method of dating: Restore dating from previous exam Assigned: based on stated GRACIA, selected on 03/31/2024 Assigned GA 32 w + 0 d Assigned GRACIA: 08/18/2024 BIOMETRY ----- BPD ?78.5 ? mm ?31w 4d ?26% ?Hadlock OFD ?107.5 ?mm ?35w 4d ?98% ?Gail HC ? 297.9 ?mm ?33w 0d ?38% ?Hadlock AC ? 273.8 ?mm ?31w 3d ?32% ?Hadlock Femur ?59.0 ? mm ?30w 5d ?11% ?Hadlock HC / AC ?1.09 ? 68% ?Nicolaides Weight Calculation: EFW ? 1,759 ? g ? 31w 0d ?23% ?Hadlock EFW (lb,oz) ? 3 lb 14 ? oz EFW by ?Hadlock ([id number]) Extremities / Bony Struc Biometry: FL / BPD ?0.75 FL / HC ? 0.20 FL / AC ? 0.22 GENERAL EVALUATION ----- Cardiac activity present. FHR 153 bpm. movements: present. Presentation: cephalic Placenta: Placental site: posterior Umbilical cord: Cord vessels: 3 vessel cord Amniotic fluid: Amount of AF: normal amount. MVP 4.3 cm. LUIS 11.3 cm. Q1 0.0 cm, Q2 3.5 cm, Q3 4.3 cm, Q4 3.6 cm ANATOMY ----- The following structures appear normal: Head / Neck ? Cranium. Lateral ventricles. Choroid plexus. Midline falx. Cavum septi pellucidi. Cerebellum. Cisterna ?magna. Face ?Profile. Heart / Thorax ?4-chamber view. RVOT view. LVOT view. 3-vessel view. ?Diaphragm. Abdomen ? Stomach. Kidneys. Bladder. GROWTH OVERVIEW ----- Exam date ?GA ?BPD (mm) ? HC (mm) ?AC (mm) ? FL (mm) ?HL (mm) ?EFW (g) 03/31/2024 ?20w 0d ?40.5 ?3% ? 168.2 ? 19% ?149.3 ?51% ?32.2 ?43% ?32.3 ?83% ?325 ?45% 06/23/2024 ?32w 0d ?78.5 ?26% ?297.9 ? 38% ?273.8 ?32% ?59.0 ?11% ? 1,759 ? 23% COMMENT ----- Patient's name and date of were verified by the tree killer prior to the exam IMPRESSION ----- Viable at 32 weeks gestation complicated by advanced maternal age. Patient will be 34 years of age at GRACIA. Cephalic presentation Normal growth Estimated weight is at the 23rd percentile with abdominal circumference at the 32nd percentile No structural malformations identified within the limitations of a late ultrasound Amniotic fluid volume is normal Posterior placenta. Normal placental cord insertion previously documented. Placenta is not low-lying. No follow-up ultrasounds recommended at this time Procedure Note Arnol Multani MD - 06/23/2024 STL FOLLOW UP ----- Pat. Name:Chucho BECK Date:06/23/2024 8:49am Pat. NO: [id number] :IDA PIMENTEL MD [facility]Rae Saini RDMS :1990Age:33 ----- INDICATION ----- Screening Follow-Up Advanced Maternal Age (AMA), Multigravida Maternal Obesity (BMI<40) Complicating CODING ----- Diagnoses Z3A.32: Weeks of gestation O99.213: Obesity complicating O09.523: Supervision of elderly multigravida Z36.3: Encounter for screening formalformations Z3A.32: Weeks of gestation O99.213: Obesity complicating O09.523: Supervision of elderly multigravida Z36.2: Encounter for other screeningfollow-up Procedures 79916: Ultrasound, uterus, real time withimage documentation, follow up, transabdominal approach per fetus HISTORY ----- OB History 5. Para 4 [id number] MATERNAL ASSESSMENT ----- Physical Exam Initial weight 104 kg, 230 lb. Initial BMI 39.48kg/m?? METHOD ----- Transabdominal ultrasound examination ----- Riggins . Number of fetuses: 1 DATING ----- GA by prior tucavarevk44 w + 0 d GRACIA by prior assessment:08/18/2024 Ultrasound examination on:06/23/2024 GA by U/S based upon:AC, BPD, EFW, Femur, HC GA by U/S31 w + 4 d GRACIA by U/S:08/21/2024 Method of dating:Restore dating from previous exam Assigned:based on stated GRACIA, selected on 03/31/2024 Assigned GA32 w + 0 d Assigned GRACIA:08/18/2024 BIOMETRY ----- BPD 78.5 mm 31w 4d 26%Hadlock OFD 107.5 mm 35w 4d 98%Gail HC 297.9 mm 33w 0d 38%Hadlock AC 273.8 mm 31w 3d 32%Hadlock Femur 59.0 mm 30w 5d 11%Hadlock HC / AC 1.09 68%Nicolaides Weight Calculation: EFW 1,759 g 31w 0d23% Hadlock EFW (lb,oz) 3 lb 14 oz EFW by Hadlock ([id number]) Extremities / Bony Struc Biometry: FL / BPD 0.75 FL / HC 0.20 FL / AC 0.22 GENERAL EVALUATION ----- Cardiac activity present. FHR 153 bpm. movements: present.Presentation: cephalic Placenta: Placental site: posterior Umbilical cord: Cord vessels: 3 vessel cord Amniotic fluid: Amount of AF: normal amount. MVP 4.3 cm. LUIS 11.3 cm. Q10.0 cm, Q2 3.5 cm, Q3 4.3 cm, Q4 3.6 cm ANATOMY ----- The following structures appear normal: Head / Neck Cranium. Lateral ventricles. Choroid plexus.Midline falx. Cavum septi pellucidi. Cerebellum. Cisterna magna. Face Profile. Heart / Thorax 4-chamber view. RVOT view. LVOT view. 3-vesselview. Diaphragm. Abdomen Stomach. Kidneys. Bladder. GROWTH OVERVIEW ----- Exam date GA BPD (mm) HC (mm) AC (mm) FL(mm) HL (mm) EFW (g) 03/31/2024 20w 0d 40.5 3% 168.2 19% 149.3 51%32.2 43% 32.3 83% 325 45% 06/23/2024 32w 0d 78.5 26% 297.9 38% 273.8 32%59.0 11% 1,759 23% COMMENT ----- Patient's name and date of were verified by the tree killer prior tothe exam IMPRESSION ----- Viable at 32 weeks gestation complicated by advanced maternalage. Patient will be 34 years of age at GRACIA. Cephalic presentation Normal growth Estimated weight is at the 23rd percentile with abdominalcircumference at the 32nd percentile No structural malformations identified within the limitations of alate ultrasound Amniotic fluid volume is normal Posterior placenta. Normal placental cord insertion previously documented.Placenta is not low-lying. No follow-up ultrasounds recommended at this time Authorizing Provider Result Piedad Multani MD US ORDERABLES documented in this encounter Visit Diagnoses Diagnosis Advanced maternal age in multigravida, third trimester Obesity affecting , antepartum, second trimester documented in this encounter
--- OUTSIDE RECORDS SUMMARY | 2024-07-09 12:46 | XMS_ITS | Encounter Summary ---
Author Organization [facility] Address [address] [place] [address] Care Team Providers Care Marine Service Manager Name Role Phone Unavailable Primary Care Provider Unavailabl e Reason for Referral * Radiology Services (Routine) - Closed Specialty Diagnoses / Procedures Referred By Contac t Referred To Contact Diagnoses Monochorionic diamniotic twin gestation in third trimester Maternal obesity affecting , antepartum Gestational diabetes mellitus (GDM) in third trimester, gestational diabetes method of control unspecified Marginal insertion of umbilical cord affecting management of mother Procedures US OB LTD 1 OR MORE FETUSES Tianna Rm MD [address] [address] Referral ID Status Reason Start Date Expiration Date Visits Re quested Visits Authorized [id number] Closed 02/22/2021 03/25/2021 1 1 Reason for Visit * Radiology Services (Routine) - Closed Specialty Diagnoses / Procedures Referred By Contac t Referred To Contact Diagnoses Monochorionic diamniotic twin gestation in third trimester Maternal obesity affecting , antepartum Gestational diabetes mellitus (GDM) in third trimester, gestational diabetes method of control unspecified Marginal insertion of umbilical cord affecting management of mother Procedures US OB LTD 1 OR MORE FETUSES Tianna Rm MD [address], [place] [address] Referral ID Status Reason Start Date Expiration Date Visits Re quested Visits Authorized [id number] Closed 02/22/2021 03/25/2021 1 1 Encounter Details Date Type Department Care Team (Late st Contact Info) Description 02/28/2021 11:20 AM CDT - 02/28/2021 11:59 PM CDT Hospital Encounter [facility] Maternal and Health [facility] [address] [place] [address] Tianna Rm MD [address] [place] [address] Discharge Disposition: Home or Self [...] have Coronavirus / COVID-19? No / Unsure 02/28/2021 10:57 AM CDT documented as of this encounter Plan of Treatment Not on file documented as of this encounter Procedures Procedure Name Priority Date/Time Associated Diagnosis Comments US OB LTD 1 OR MORE FETUSES Routine 02/28/2021 12:55 PM CDT Monochorionic diamniotic twin gestation in third trimester Maternal obesity affecting , antepartum Gestational diabetes mellitus (GDM) in third trimester, gestational diabetes method of control unspecified Marginal insertion of umbilical cord affecting management of mother documented in this encounter Results * US OB LTD 1 OR MORE FETUSES (02/28/2021 12:55 PM CDT) Anatomical Region Laterality Modality Pelvis Ultrasound 02/28/2021 11:5 8 AM CDT Narrative 02/28/2021 12:16 PM CDT STL LIMITED ----- PatTho Name: MIS BECK Study Date: 02/28/2021 11:58am Pat. NO: [id number] Referring ??: DAWNA HAYDEN MD Site: [place] Administrative Assistant Office Manager: Charisse Knight : 1990 Age: 30 ----- INDICATION ----- Twins, Monochorionic-Diamniotic (Mo-Di) Maternal Obesity (bmi greater than 30 but bmi less than 40) History of Gestational Diabetes Abnormal Cord Insertion ?Baby A Marginal Diabetes - Gestational (insulin) CODING ----- Diagnoses ? O30.033: Twins, Monochorionic-Diamniotic (Mo-Di) ?O99.213: Obesity complicating ?E66.8: Other obesity ?Z86.32: History of Gestational Diabetes ?Z3A.33: Weeks Gestation of ?O43.193: Other malformation of the placenta ?O24.414: Gestational diabetes mellitus in , insulin controlled Procedures ?34051: Limited 1 or more - LUIS, FHR, position HISTORY ----- OB History ? 4. Para 2 MATERNAL ASSESSMENT ----- Physical Exam ? Weight 116 kg. Initial weight 102 kg, 225 lb. BMI 43.94 kg/m??. Initial BMI 38.62 kg/m??. Weight gain 14 ?kg, 31 lb METHOD ----- Transabdominal ultrasound examination ----- Twin . Number of fetuses: 2. Monochorionic-diamniotic DATING ----- Cycle: regular cycle GA by prior assessment 33 w + 5 d GRACIA by prior assessment: 04/13/2021 Method of dating: Restore dating from previous exam Assigned: Dating performed on 10/28/2020, based on the external assessment Assigned GA 33 w + 5 d Assigned GRACIA: 04/13/2021 Fetus 1: GENERAL EVALUATION ----- Cardiac activity present. FHR 139 bpm. movements: present. Presentation: cephalic left, high Placenta: Placental site: anterior Amniotic fluid: Amount of AF: normal amount. MVP 2.6 cm Fetus 2: GENERAL EVALUATION ----- Cardiac activity present. FHR 142 bpm. movements: present. Presentation: cephalic right, Presenting Placenta: Placental site: anterior Amniotic fluid: MVP 2.8 cm Fetus 1: ANATOMY ----- The following structures appear normal: Heart / Thorax ?Cardiac rhythm. Abdomen ? Stomach. Bladder. sex: male. Fetus 2: ANATOMY ----- The following structures appear normal: Heart / Thorax ?Cardiac rhythm. Abdomen ? Stomach. Bladder. sex: male. COMMENT ----- Patient's name and date of were verified by the laundry route driver prior to the exam. IMPRESSION ----- 1. Monochchorionic diamniotic twin gestation at 33 5/7 weeks 2. Normal and evenly distributed amniotic fluid in both twins 3. Normal stomach and bladder in both twins Comments: Today's sonogram demonstrates no evidence of twin twin transfusion syndrome (TTTS). Recommendations: 1. Follow up growth sonograms at 4 week intervals 2. Monitoring for TTTS at two week intervals until 32 weeks, then initiate weekly testing until delivery 3. echocardiograms are recommended at 22-24 weeks Thank you for allowing us to participate in the care of this patient. Please feel free to contact me with any questions or concerns. Procedure Note Marylu Nogueira MD - 02/28/2021 STL LIMITED ----- Pat. Name:Chucho BECK Date:02/28/2021 11:58am Pat. NO: [id number] MD:DAWNA HAYDEN [facility] Knight :1990Age:30 ----- INDICATION ----- Twins, Monochorionic-Diamniotic (Mo-Di) Maternal Obesity (bmi greater than 30 but bmi less than 40) History of Gestational Diabetes Abnormal Cord Insertion Baby A Marginal Diabetes - Gestational (insulin) CODING ----- Diagnoses O30.033: Twins, Monochorionic-Diamniotic (Mo-Di) O99.213: Obesity complicating E66.8: Other obesity Z86.32: History of Gestational Diabetes Z3A.33: Weeks Gestation of O43.193: Other malformation of the placenta O24.414: Gestational diabetes mellitus inpregnancy, insulin controlled Procedures 05896: Limited 1 or more - LUIS, FHR, position HISTORY ----- OB History 4. Para 2 MATERNAL ASSESSMENT ----- Physical Exam Weight 116 kg. Initial weight 102 kg, 225 lb. BMI43.94 kg/m??. Initial BMI 38.62 kg/m??. Weight gain 14 kg, 31 lb METHOD ----- Transabdominal ultrasound examination ----- Twin . Number of fetuses: 2. Monochorionic-diamniotic DATING ----- Cycle:regular cycle GA by prior dalnicfaad49 w + 5 d GRACIA by prior assessment:04/13/2021 Method of dating:Restore dating from previous exam Assigned:Dating performed on 10/28/2020, based on the externalassessment Assigned GA33 w + 5 d Assigned GRACIA:04/13/2021 Fetus 1: GENERAL EVALUATION ----- Cardiac activity present. FHR 139 bpm. movements: present.Presentation: cephalic left, high Placenta: Placental site: anterior Amniotic fluid: Amount of AF: normal amount. MVP 2.6 cm Fetus 2: GENERAL EVALUATION ----- Cardiac activity present. FHR 142 bpm. movements: present.Presentation: cephalic right, Presenting Placenta: Placental site: anterior Amniotic fluid: MVP 2.8 cm Fetus 1: ANATOMY ----- The following structures appear normal: Heart / Thorax Cardiac rhythm. Abdomen Stomach. Bladder. sex: male. Fetus 2: ANATOMY ----- The following structures appear normal: Heart / Thorax Cardiac rhythm. Abdomen Stomach. Bladder. sex: male. COMMENT ----- Patient's name and date of were verified by the laundry route driver prior tothe exam. IMPRESSION ----- 1. Monochchorionic diamniotic twin gestation at 33 5/7 weeks 2. Normal and evenly distributed amniotic fluid in both twins 3. Normal stomach and bladder in both twins Comments: Today's sonogram demonstrates no evidence of twin twintransfusion syndrome (TTTS). Recommendations: 1. Follow up growth sonograms at 4 week intervals 2. Monitoring for TTTS at two week intervals until 32 weeks, then initiateweekly testing until delivery 3. echocardiograms are recommended at 22-24 weeks Thank you for allowing us to participate in the care of this patient.Please feel free to contact me with any questions or concerns. Tianna Rm MD US ORDERABLES documented in this encounter Visit Diagnoses Diagnosis Monochorionic diamniotic twin gestation in third trimester Maternal obesity affecting , antepartum Gestational diabetes mellitus (GDM) in third trimester, gestational diabetes method of control unspecified Marginal insertion of umbilical cord affecting management of mother documented in this encounter
--- OUTSIDE RECORDS SUMMARY | 2024-07-09 12:46 | XMS_ITS | Encounter Summary ---
Author Organization [facility] Address [address] Attn: Epic Prelude ADT [place] [address] Care Team Providers Care Instrument Tech Name Role Phone Unavailable Primary Care Provider Unavailabl e Encounter Details Date Type Department Care Team (Latest Contact Info) Description 03/07/2021 Travel Social History Tobacco Use Types Packs/Day [...] have Coronavirus / COVID-19? No / Unsure 03/07/2021 1:24 PM CDT documented as of this encounter Plan of Treatment Not on file documented as of this encounter Visit Diagnoses Not on filedocumented in this encounter
--- OUTSIDE RECORDS SUMMARY | 2024-07-09 12:46 | XMS_ITS | Encounter Summary ---
Author Organization [facility] Address [address] [facility] Attn: Epic Prelude ADT [place] [address] Care Team Providers Care Sap Business Intelligence Consultant Name Role Phone Unavailable Primary Care Provider Unavailabl e Encounter Details Date Type Department Care Team (Latest Contact Info) Description 02/22/2021 Travel Social History Tobacco Use Types Packs/Day [...] have Coronavirus / COVID-19? No / Unsure 02/22/2021 8:18 AM CDT documented as of this encounter Plan of Treatment Not on file documented as of this encounter Visit Diagnoses Not on filedocumented in this encounter
--- OUTSIDE RECORDS SUMMARY | 2024-07-09 12:46 | XMS_ITS | Encounter Summary ---
Author Organization [facility] Address [address] [place] [address] Care Team Providers Care Hybrid Car Mechanic Name Role Phone Unavailable Primary Care Provider Unavailfelipe e Encounter Details Date Type Department Care Team (Late st Contact Info) Description 04/08/2024 External Device Data [facility] ABSTRACTION Provider, Abstract NO ADDRESS ON FILE Social History Tobacco Use Types Packs/Day Years [...]
--- OUTSIDE RECORDS SUMMARY | 2024-07-09 12:46 | XMS_ITS | Encounter Summary ---
Author Organization [facility] Address [address] [facility] Attn: Epic Prelude ADT [place] [address] Care Team Providers Care Graphite Grinder Name Role Phone Unavailable Primary Care Provider Unavailabl e Encounter Details Date Type Department Care Team (Latest Contact Info) Description 03/08/2021 Travel Social History Tobacco Use Types Packs/Day [...] have Coronavirus / COVID-19? No / Unsure 03/08/2021 2:45 PM CDT documented as of this encounter Plan of Treatment Not on file documented as of this encounter Visit Diagnoses Not on filedocumented in this encounter
--- OUTSIDE RECORDS SUMMARY | 2024-07-09 12:46 | XMS_ITS | Encounter Summary ---
Author Organization [facility] Address [address] Attn: Epic Prelude ADT [place] [address] Care Team Providers Care Monument Installer Name Role Phone Unavailable Primary Care Provider Unavailabl e Encounter Details Date Type Department Care Team (Latest Contact Info) Description 12/31/2020 Travel Social History Tobacco Use Types Packs/Day [...] have Coronavirus / COVID-19? No / Unsure 12/31/2020 1:29 PM CDT documented as of this encounter Plan of Treatment Not on file documented as of this encounter Visit Diagnoses Not on filedocumented in this encounter
--- OUTSIDE RECORDS SUMMARY | 2024-07-09 12:46 | XMS_ITS | Encounter Summary ---
Author Organization [facility] Address [address] [place] [address] Care Team Providers Care Business Relations Manager Name Role Phone Unavailable Primary Care [...] affecting management of mother Procedures US OB LIMITED + NST UT NON-STRESS TEST CHG US, UTERUS,LIMITED, 1/> FETUSES Tianna Rm MD [address], [place] [address] Referral ID Status Reason Start Date Expiration Date Visits Re quested Visits Authorized [id number] Closed 02/22/2021 03/25/2021 1 1 Reason for Visit * Radiology Services (Routine) - Closed Specialty Diagnoses / Procedures Referred By Contac t Referred To Contact Diagnoses Monochorionic diamniotic twin gestation in third trimester Maternal obesity affecting , antepartum Gestational diabetes mellitus (GDM) in third trimester, gestational diabetes method of control unspecified Marginal insertion of umbilical cord affecting management of mother Procedures US OB LIMITED + NST UT NON-STRESS TEST CHG US, UTERUS,LIMITED, 1/> FETUSES Tianna Rm MD [address], [place] [address] Referral ID Status Reason Start Date Expiration Date Visits Re quested Visits Authorized [id number] Closed 02/22/2021 03/25/2021 1 1 Encounter Details Date Type Department Care Team (Late st Contact Info) Description 03/10/2021 8:00 AM CDT - 03/10/2021 11:59 PM CDT Hospital Encounter [facility] Maternal and Health [facility] [address] [place] [address] Tianna Rm MD [address] [facility] [address] [place] [address] Discharge Disposition: Home or Self [...] have Coronavirus / COVID-19? No / Unsure 03/10/2021 8:30 AM CDT documented as of this encounter Plan of Treatment Not on file documented as of this encounter Procedures Procedure Name Priority Date/Time Associated Diagnosis Comments US OB LIMITED + NST Routine 03/10/2021 9 :54 AM CDT Monochorionic diamniotic twin gestation in third trimester Maternal obesity affecting , antepartum Gestational diabetes mellitus (GDM) in third trimester, gestational diabetes method of control unspecified Marginal insertion of umbilical cord affecting management of mother documented in this encounter Results * US OB LIMITED + NST (03/10/2021 9:54 AM CDT) Anatomical Region Laterality Modality Pelvis Ultrasound 03/10/2021 8:40 AM CDT Narrative 03/10/2021 10:25 AM CDT MODIFIED [facility] STUDY ----- Pat. Name: MIS BECK Study Date: 03/10/2021 8:40am Pat. NO: [id number] Referring ??MD: DAWNA HAYDEN MD Site: [facility] Building: : 1990 Age: 30 ----- INDICATION ----- Twins, Monochorionic-Diamniotic (Mo-Di) Maternal Obesity (bmi greater than 30 but bmi less than 40) History of Gestational Diabetes Abnormal Cord Insertion ?Baby A,Marginal Diabetes - Gestational (insulin) CODING ----- Diagnoses ? 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 4. Para 2 MATERNAL ASSESSMENT ----- Physical Exam ? Weight 122 kg. Initial weight 102 kg, 225 lb. BMI 46.35 kg/m??. Initial BMI 38.62 kg/m??. Weight gain 20 ?kg, 45 lb. Blood pressure 137/83 mmHg. Heart rate 97 bpm METHOD ----- EFM, Transabdominal ultrasound examination ----- Twin . Number of fetuses: 2. Monochorionic-diamniotic DATING ----- Cycle: regular cycle GA by prior assessment 35 w + 1 d GRACIA by prior assessment: 04/13/2021 Method of dating: Restore dating from previous exam Assigned: Dating performed on 10/28/2020, based on the external assessment Assigned GA 35 w + 1 d Assigned GRACIA: 04/13/2021 Fetus 1: GENERAL EVALUATION ----- Cardiac activity present. Presentation: cephalic left Fetus 2: GENERAL EVALUATION ----- Cardiac activity present. Presentation: transverse top Fetus 1: NON STRESS TEST ----- NST interpretation: reactive. Test duration 38 min. Baseline FHR 120 bpm. Baseline variability: moderate. Accelerations: Present. Decelerations: absent. Uterine activity: present, 3 contractions in 38 minutes Fetus 2: NON STRESS TEST ----- NST interpretation: reactive. Test duration 38 min. Baseline FHR 125 bpm. Baseline variability: moderate. Accelerations: Present. Decelerations: absent. Uterine activity: present, 3 contractions in 38 minutes Fetus 1: AMNIOTIC FLUID ASSESSMENT ----- Amount of AF: normal amount MVP 2.3 cm Fetus 2: AMNIOTIC FLUID ASSESSMENT ----- Amount of AF: normal amount MVP 3.5 cm COMMENT ----- Nurses Notes: Patient reports + movement x 2 and no bleeding, leaking of fluid or александр. Fasting blood sugar was 79 this morning. Patient scheduled twice weekly. IMPRESSION ----- 1. Riggins living fetus with a gestational age of 35w 1d, based on the reported clinical dates. 2. Amniotic fluid volume is normal for gestational age x2 (MVP:2.3 cm /MVP 3.5 .). 3. NST reactive and reassuring for gestational age x2 Recommendations: - Continue current surveillance plan. - Daily kick counts are encouraged Thank you for allowing us to participate in the care of this patient. Procedure Note Gabrielle Sheppard MD - 03/10/2021 MODIFIED [facility] STUDY ----- Pat. Name:Chucho BECK Date:03/10/2021 8:40am Pat. 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 Para 2 MATERNAL ASSESSMENT ----- Physical Exam Weight 122 kg. Initial weight 102 kg, 225 lb. BMI46.35 kg/m??. Initial BMI 38.62 kg/m??. Weight gain 20 kg, 45 lb. Blood pressure 137/83 mmHg. Heart rate97 bpm METHOD ----- EFM, Transabdominal ultrasound examination ----- Twin . Number of fetuses: 2. Monochorionic-diamniotic DATING ----- Cycle:regular cycle GA by prior [id number] w + 1 d GRACIA by prior assessment:04/13/2021 Method of dating:Restore dating from previous exam Assigned:Dating performed on 10/28/2020, based on the externalassessment Assigned GA35 w + 1 d Assigned GRACIA:04/13/2021 Fetus 1: GENERAL EVALUATION ----- Cardiac activity present. Presentation: cephalic left Fetus 2: GENERAL EVALUATION ----- Cardiac activity present. Presentation: transverse top Fetus 1: NON STRESS TEST ----- NST interpretation: reactive. Test duration 38 min. Baseline FHR 120 bpm.Baseline variability: moderate. Accelerations: Present. Decelerations: absent. Uterine activity: present, 3 contractions in 38minutes Fetus 2: NON STRESS TEST ----- NST interpretation: reactive. Test duration 38 min. Baseline FHR 125 bpm.Baseline variability: moderate. Accelerations: Present. Decelerations: absent. Uterine activity: present, 3 contractions in 38minutes Fetus 1: AMNIOTIC FLUID ASSESSMENT ----- Amount of AF: normal amount MVP 2.3 cm Fetus 2: AMNIOTIC FLUID ASSESSMENT ----- Amount of AF: normal amount MVP 3.5 cm COMMENT ----- Nurses Notes: Patient reports + movement x 2 and no bleeding,leaking of fluid or александр. Fasting blood sugar was 79 this morning. Patient scheduled twice weekly. IMPRESSION ----- 1. Riggins living fetus with a gestational age of 35w 1d, based on thereported clinical dates. 2. Amniotic fluid volume is normal for gestational age x2 (MVP:2.3 cm /MVP3.5 .). 3. NST reactive and reassuring for gestational age x2 Recommendations: - Continue current surveillance plan. - Daily kick counts are encouraged Thank you for allowing us to participate in the care of this patient. Tianna Rm MD US ORDERABLES documented in this encounter Visit Diagnoses Diagnosis Monochorionic diamniotic twin gestation in third trimester Maternal obesity affecting , antepartum Gestational diabetes mellitus (GDM) in third trimester, gestational diabetes method of control unspecified Marginal insertion of umbilical cord affecting management of mother documented in this encounter
--- OUTSIDE RECORDS SUMMARY | 2024-07-09 12:46 | XMS_ITS | Encounter Summary ---
Author Organization [facility] Address [address] [place] [address] Care Team Providers Care Chief Operator Hydroformer Name Role Phone Unavailable Primary Care Provider Unavailabl e Reason for Referral * Radiology Services (Routine) - Closed Specialty Diagnoses / Procedures Referred By Ivett marcano Referred To Contact Diagnoses Monochorionic diamniotic twin gestation in second trimester Severe obesity (BMI >= 40) Procedures US OB FU+ UMB + MDCERB ART CHG DOPPLER MID CEREBRAL ARTERY CHG US, UTERUS,F/U,TRANSABD JAD CHG DOPPLER UMBILICAL ARTERY Ileana Lopes MD NO ADDRESS ON FILE Referral ID Status Reason Start Date Expiration Date Visits Re quested Visits Authorized [id number] Closed 01/06/2021 04/08/2021 1 1 Reason for Visit * Radiology Services (Routine) - Closed Specialty Diagnoses / Procedures Referred By Ivett marcano Referred To Contact Diagnoses Monochorionic diamniotic twin gestation in second trimester Severe obesity (BMI >= 40) Procedures US OB FU+ UMB + MDCERB ART CHG DOPPLER MID CEREBRAL ARTERY CHG US, UTERUS,F/U,TRANSABD JAD CHG DOPPLER UMBILICAL ARTERY Ileana Lopes MD NO ADDRESS ON FILE Referral ID Status Reason Start Date Expiration Date Visits Re quested Visits Authorized [id number] Closed 01/06/2021 04/08/2021 1 1 Encounter Details Date Type Department Care Team (Latest Contact Info) Description 01/13/2021 2:30 PM CDT - 01/13/2021 11:59 PM CDT Hospital Encounter [facility] Maternal and [facility] [address] [place] [id number] Ileana Lopes MD NO ADDRESS ON FILE Discharge Disposition: Home or Self Care Social [...] Priority Date/Time Associated Diagnosis Comments US OB FU+ UMB + MDCERB ART Routine 01/13/2021 3:21 PM CDT Monochorionic diamniotic twin gestation in second trimester Severe obesity (BMI >= 40) documented in this encounter Results * US OB FU+ UMB + MDCERB ART (01/13/2021 3:21 PM CDT) Anatomical Region Laterality Modality Pelvis Ultrasound 01/13/2021 3:01 PM CDT Impressions 01/13/2021 3:24 PM CDT IMPRESSION ----- 1. Monochorionic Diamniotic twin living fetuses with a gestational age of 27w 1d, based on the reported clinical dates. 2. Unremarkable limited anatomy noted. A detailed anatomy cannot be performed secondary to advanced gestational age. However, there are no gross structural abnormalities noted. 3. The amniotic fluid is normal for gestational age x2. 4. Normal fluid filled stomach and bladder noted x2. No sonographic signs of TTTS. 5. Doppler interrogation studies (umbilical and middle cerebral) are normal for gestational age. Recommendation: - Continue TTTS/TAPS surveillance as planned. Thank you for allowing us to participate in the care of this patient. Narrative 01/13/2021 3:24 PM CDT [facility] ----- Pat. Name: MIS BECK Study Date: 01/13/2021 3:01pm Pat. NO: [id number] Referring ??MD: DAWNA HAYDEN MD Site: [facility] Tele[facility] Operator Chief: Charisse Knight : 1990 Age: 30 ----- INDICATION ----- Twins, Monochorionic-Diamniotic (Mo-Di) Maternal Obesity (bmi greater than 30 but bmi less than 40) History of Gestational Diabetes CODING ----- Diagnoses ? O30.032: Twins, Monochorionic-Diamniotic (Mo-Di) ?O99.212: Obesity complicating ?E66.8: Other obesity ?Z86.32: History of Gestational Diabetes ?Z3A.27: Weeks Gestation of Procedures ?80491: OB follow-up/Target per fetus ?29377: OB follow-up/Target per fetus ?44507: Umbilical Artery Doppler ?37888: Umbilical Artery Doppler ?80029: Mid Cerebral Artery Doppler ?39740: Mid Cerebral Artery Doppler HISTORY ----- OB History ? 4. Para 2 MATERNAL ASSESSMENT ----- Physical Exam ? Weight 108 kg. Initial weight 102 kg, 225 lb. BMI 40.68 kg/m?. Initial BMI 38.62 kg/m?. Weight gain 5 kg, ?12 lb METHOD ----- Transabdominal ultrasound examination ----- Twin . Number of fetuses: 2. Monochorionic-diamniotic DATING ----- Cycle: regular cycle GA by prior assessment 27 w + 1 d GRACIA by prior assessment: 04/13/2021 Ultrasound examination on: 01/13/2021 GA by U/S based upon: AC GA by U/S 29 w + 4 d GRACIA by U/S: 03/27/2021 GA by U/S based upon (Fetus 2): AC GA by U/S (Fetus 2) 30 w + 3 d GRACIA by U/S (Fetus 2): 03/21/2021 Method of dating: Restore dating from previous exam Assigned: Dating performed on 10/28/2020, based on the external assessment Assigned GA 27 w + 1 d Assigned GRACIA: 04/13/2021 Fetus 1: BIOMETRY ----- AC ? 254.3 ? mm ? 29w 4d ?96% ?Hadlock Fetus 2: BIOMETRY ----- AC ?262.9 ? mm ? 30w 3d ?>99% ?Hadlock Fetus 1: GENERAL EVALUATION ----- Cardiac activity present. FHR 153 bpm. movements: present. Presentation: cephalic left, high Placenta: Placental site: anterior Umbilical cord: Cord vessels: 3 vessel cord Amniotic fluid: Amount of AF: normal amount. MVP 3.7 cm Fetus 2: GENERAL EVALUATION ----- Cardiac activity present. FHR 152 bpm. movements: present. Presentation: cephalic right, Presenting Placenta: Placental site: anterior Umbilical cord: Cord vessels: 3 vessel cord Amniotic fluid: Amount of AF: normal amount, normal amount. MVP 3.0 cm Fetus 1: ANATOMY ----- The following structures appear normal: Heart / Thorax ?Cardiac rhythm. Abdomen ? Stomach. Bladder. sex: male. Fetus 2: ANATOMY ----- The following structures appear normal: Heart / Thorax ?Cardiac rhythm. Abdomen ? Stomach. Bladder. sex: male. Fetus 1: DOPPLER ----- Umbilical Artery: normal PI ? 1.08 ? 60% ?Lorenzo RI ? 0.69 ? 62% ?Lorenzo PS ? 41.60 ?cm/s ?44% ?[place] ED ? 13.00 ?cm/s S / D ?3.20 ? 54% ?Lorenzo Mid Cerebral Artery: normal PS ? 47.00 ?cm/s PS ? 1.33 ? MoM Fetus 2: DOPPLER ----- Umbilical Artery: normal PI ? 1.07 ? 58% ?Lorenzo RI ? 0.68 ? 56% ?Lorenzo PS ? 36.90 ?cm/s ?16% ?[place] ED ? 12.00 ?cm/s S / D ?3.08 ? 48% ?Lorenzo Mid Cerebral Artery: normal PS ? 39.70 ?cm/s PS ? 1.12 ? MoM COMMENT ----- Patient's name and date of were verified by the perl programmer prior to the exam . Patient's name and date of were verified by the perl programmer prior to the exam Procedure Note Stacy Schultz MD - 01/13/2021 [facility] ----- Pat. Name:Chucho BECK Date:01/13/2021 3:01pm Pat. NO: [id number] MD:DAWNA HAYDEN [facility] :1990Age:30 ----- INDICATION ----- Twins, Monochorionic-Diamniotic (Mo-Di) Maternal Obesity (bmi greater than 30 but bmi less than 40) History of Gestational Diabetes CODING ----- Diagnoses O30.032: Twins, Monochorionic-Diamniotic (Mo-Di) O99.212: Obesity complicating E66.8: Other obesity Z86.32: History of Gestational Diabetes Z3A.27: Weeks Gestation of Procedures 23395: OB follow-up/Target per fetus 40612: OB follow-up/Target per fetus 37152: Umbilical Artery Doppler 74287: Umbilical Artery Doppler 25794: Mid Cerebral Artery Doppler 26823: Mid Cerebral Artery Doppler HISTORY ----- OB History 4. Para 2 MATERNAL ASSESSMENT ----- Physical Exam Weight 108 kg. Initial weight 102 kg, 225 lb. BMI40.68 kg/m?. Initial BMI 38.62 kg/m?. Weight gain 5 kg, 12 lb METHOD ----- Transabdominal ultrasound examination ----- Twin . Number of fetuses: 2. Monochorionic-diamniotic DATING ----- Cycle:regular cycle GA by prior [id number] w + 1 d GRACIA by prior assessment:04/13/2021 Ultrasound examination on:01/13/2021 GA by U/S based upon:AC GA by U/S29 w + 4 d GRACIA by U/S:03/27/2021 GA by U/S based upon (Fetus 2):AC GA by U/S (Fetus 2)30 w + 3 d GRACIA by U/S (Fetus 2):03/21/2021 Method of dating:Restore dating from previous exam Assigned:Dating performed on 10/28/2020, based on the externalassessment Assigned GA27 w + 1 d Assigned GRACIA:04/13/2021 Fetus 1: BIOMETRY ----- AC 254.3 mm 29w 4d 96%Hadlock Fetus 2: BIOMETRY ----- AC 262.9 mm 30w 3d >99%Hadlock Fetus 1: GENERAL EVALUATION ----- Cardiac activity present. FHR 153 bpm. movements: present.Presentation: cephalic left, high Placenta: Placental site: anterior Umbilical cord: Cord vessels: 3 vessel cord Amniotic fluid: Amount of AF: normal amount. MVP 3.7 cm Fetus 2: GENERAL EVALUATION ----- Cardiac activity present. FHR 152 bpm. movements: present.Presentation: cephalic right, Presenting Placenta: Placental site: anterior Umbilical cord: Cord vessels: 3 vessel cord Amniotic fluid: Amount of AF: normal amount, normal amount. MVP 3.0 cm Fetus 1: ANATOMY ----- The following structures appear normal: Heart / Thorax Cardiac rhythm. Abdomen Stomach. Bladder. sex: male. Fetus 2: ANATOMY ----- The following structures appear normal: Heart / Thorax Cardiac rhythm. Abdomen Stomach. Bladder. sex: male. Fetus 1: DOPPLER ----- Umbilical Artery: normal PI 1.08 60%Lorenzo RI 0.69 62%Lorenzo PS 41.60 cm/s 44%[facility] ED 13.00 cm/s S / D 3.20 54%Lorenzo Mid Cerebral Artery: normal PS 47.00 cm/s PS 1.33 MoM Fetus 2: DOPPLER ----- Umbilical Artery: normal PI 1.07 58%Lorenzo RI 0.68 56%Lorenzo PS 36.90 cm/s 16%E[facility] ED 12.00 cm/s S / D 3.08 48%Lorenzo Mid Cerebral Artery: normal PS 39.70 cm/s PS 1.12 MoM COMMENT ----- Patient's name and date of were verified by the perl programmer prior tothe exam . Patient's name and date of were verified by the perl programmer prior to the exam IMPRESSION ----- 1. Monochorionic Diamniotic twin living fetuses with a gestational age of27w 1d, based on the reported clinical dates. 2. Unremarkable limited anatomy noted. A detailed anatomycannot be performed secondary to advanced gestational age. However, there are no gross structural abnormalities noted. 3. The amniotic fluid is normal for gestational age x2. 4. Normal fluid filled stomach and bladder noted x2. No sonographic signsof TTTS. 5. Doppler interrogation studies (umbilical and middle cerebral) arenormal for gestational age. Recommendation: - Continue TTTS/TAPS surveillance as planned. Thank you for allowing us to participate in the care of this patient. Ileana Lopes MD US ORDERABLES documented in this encounter Visit Diagnoses Diagnosis Monochorionic diamniotic twin gestation in second trimester Severe obesity (BMI >= 40) Morbid obesity documented in this encounter
--- OUTSIDE RECORDS SUMMARY | 2024-07-09 12:46 | XMS_ITS | Encounter Summary ---
Author Organization [facility] Address [address] [place] [address] Care Team Providers Care Shoe Puller Name Role Phone Unavailable Primary Care Provider Unavailabl e Reason for Referral * Radiology Services (Routine) - Closed Specialty Diagnoses / Procedures Referred By Contac t Referred To Contact Diagnoses Monochorionic diamniotic twin gestation in second trimester Severe obesity (BMI >= 40) Procedures US OB FU+ UMB + MDCERB ART CHG DOPPLER MID CEREBRAL ARTERY CHG US, UTERUS,F/U,TRANSABD JAD CHG DOPPLER UMBILICAL ARTERY Gabrielle Sheppard MD [address], [place] [address] Referral ID Status Reason Start Date Expiration Date Visits Re quested Visits Authorized [id number] Closed 01/27/2021 02/27/2022 1 1 Reason for Visit * Radiology Services (Routine) - Closed Specialty Diagnoses / Procedures Referred By Contac t Referred To Contact Diagnoses Monochorionic diamniotic twin gestation in second trimester Severe obesity (BMI >= 40) Procedures US OB FU+ UMB + MDCERB ART CHG DOPPLER MID CEREBRAL ARTERY CHG US, UTERUS,F/U,TRANSABD JAD CHG DOPPLER UMBILICAL ARTERY Gabrielle Sheppard MD [address], [place] [address] Referral ID Status Reason Start Date Expiration Date Visits Re quested Visits Authorized [id number] Closed 01/27/2021 02/27/2022 1 1 Encounter Details Date Type Department Care Team (Latest Contact Info) Description 02/10/2021 2:00 PM CDT - 02/10/2021 11:59 PM CDT Hospital Encounter [facility] Maternal and Health [facility] [address] [place] [address] Arnol Multani MD [address] [place] [address] Discharge Disposition: Home or Self [...] have Coronavirus / COVID-19? No / Unsure 02/10/2021 2:05 PM CDT documented as of this encounter Plan of Treatment Not on file documented as of this encounter Procedures Procedure Name Priority Date/Time Associated Diagnosis Comments US OB FU+ UMB + MDCERB ART Routine 02/10/2021 2:50 PM CDT Monochorionic diamniotic twin gestation in second trimester Severe obesity (BMI >= 40) documented in this encounter Results * US OB FU+ UMB + MDCERB ART (02/10/2021 2:50 PM CDT) Anatomical Region Laterality Modality Pelvis Ultrasound 02/10/2021 2:26 PM CDT Narrative 02/10/2021 2:58 PM CDT [facility] ----- Pat. Name: MIS BECK Study Date: 02/10/2021 2:26pm Pat. NO: [id number] Referring ??: DAWNA HAYDEN MD Site: [employer] Engineer: [place], Charisse Mak : 1990 Age: 30 ----- INDICATION ----- Twins, Monochorionic-Diamniotic (Mo-Di) Maternal Obesity (bmi greater than 30 but bmi less than 40) History of Gestational Diabetes ?X 2 Abnormal Cord Insertion ?Baby A Marginal Diabetes - Gestational (insulin) CODING ----- Diagnoses ? 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 4. Para 2 MATERNAL ASSESSMENT ----- Physical Exam ? Weight 116 kg. Initial weight 102 kg, 225 lb. BMI 43.94 kg/m??. Initial BMI 38.62 kg/m??. Weight gain 14 ?kg, 31 lb METHOD ----- Transabdominal ultrasound examination ----- Twin . Number of fetuses: 2. Monochorionic-diamniotic DATING ----- Cycle: regular cycle GA by prior assessment 31 w + 1 d GRACIA by prior assessment: 04/13/2021 Ultrasound examination on: 02/10/2021 GA by U/S based upon: AC GA by U/S 33 w + 6 d GRACIA by U/S: 03/25/2021 GA by U/S based upon (Fetus 2): AC GA by U/S (Fetus 2) 34 w + 0 d GRACIA by U/S (Fetus 2): 03/24/2021 Method of dating: Restore dating from previous exam Assigned: Dating performed on 10/28/2020, based on the external assessment Assigned GA 31 w + 1 d Assigned GRACIA: 04/13/2021 Fetus 1: BIOMETRY ----- AC ? 298.1 ? mm ? 33w 6d ?98% ?Hadlock Fetus 2: BIOMETRY ----- AC ? 299.7 ? mm ? 34w 0d ?98% ?Hadlock Fetus 1: GENERAL EVALUATION ----- Cardiac activity present. FHR 133 bpm. movements: present. Presentation: cephalic left, HIGH Placenta: Placental site: anterior Umbilical cord: Cord vessels: 3 vessel cord. Insertion site: marginal insertion, not visualized today Amniotic fluid: Amount of AF: normal amount. MVP 2.5 cm Fetus 2: GENERAL EVALUATION ----- Cardiac activity present. FHR 150 bpm. movements: present. Presentation: cephalic right, PRESENTING Placenta: Placental site: anterior Umbilical cord: Cord vessels: 3 vessel cord. Insertion site: placental insertion: normal Amniotic fluid: Amount of AF: normal amount. MVP 3.5 cm Fetus 1: ANATOMY ----- The following structures appear normal: Heart / Thorax ?Cardiac rhythm. Abdomen ? Stomach. Bladder. sex: male. Fetus 2: ANATOMY ----- The following structures appear normal: Heart / Thorax ?Cardiac rhythm. Abdomen ? Stomach. Bladder. sex: male. Fetus 1: DOPPLER ----- Umbilical Artery: normal PI ? 1.01 ? 66% ?Lorenzo RI ? 0.65 ? 61% ?Lorenzo PS ? 50.60 ?cm/s ?69% ?Ebbing ED ? 17.70 ?cm/s S / D ?2.86 ? 56% ?Lorenzo Mid Cerebral Artery: PS ? 54.30 ?cm/s PS ? 1.27 ? MoM Fetus 2: DOPPLER ----- Umbilical Artery: normal PI ? 0.94 ? 53% ?Lornezo RI ? 0.62 ? 46% ?Lorenzo PS ? 52.40 ?cm/s ?75% ?Ebbing ED ? 20.00 ?cm/s S / D ?2.62 ? 41% ?Lorenzo Mid Cerebral Artery: PS ? 61.60 ?cm/s PS ? 1.44 ? MoM COMMENT ----- Patient's name and date of were verified by the blood bank laboratory technician prior to the exam IMPRESSION ----- 1. Monochorionic Diamniotic twin living fetuses with a gestational age of 31w 1d, based on the reported clinical dates. 2. Unremarkable limited anatomy noted. A detailed anatomy cannot be performed secondary to advanced gestational age. However, there are no gross structural abnormalities noted. 3. The amniotic fluid is normal for gestational age x2. Twin A MVP:2.5 cm. Twin B MVP:3.5 cm . 4. Normal fluid filled stomach and bladder noted x2. No sonographic signs of TTTS. 5. Normal umbilical artery and middle cerebral artery Doppler studies. Twin A PSV: 1.27. Twin B PSV: 1.44. Recommendations: - Continue previously outlined growth surveillance plan. - OK To discontinue TTTS/TAPS surveillance at this gestational age. - Transition to twice weekly mBPP at 32 weeks. Procedure Note Stacy Schultz MD - 02/10/2021 [facility] ----- Pat. Name:Chucho BECK Date:02/10/2021 2:26pm Pat. 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 Para 2 MATERNAL ASSESSMENT ----- Physical Exam Weight 116 kg. Initial weight 102 kg, 225 lb. BMI43.94 kg/m??. Initial BMI 38.62 kg/m??. Weight gain 14 kg, 31 lb METHOD ----- Transabdominal ultrasound examination ----- Twin . Number of fetuses: 2. Monochorionic-diamniotic DATING ----- Cycle:regular cycle GA by prior [id number] w + 1 d GRACIA by prior assessment:04/13/2021 Ultrasound examination on:02/10/2021 GA by U/S based upon:AC GA by U/S33 w + 6 d GRACIA by U/S:03/25/2021 GA by U/S based upon (Fetus 2):AC GA by U/S (Fetus 2)34 w + 0 d GRACIA by U/S (Fetus 2):03/24/2021 Method of dating:Restore dating from previous exam Assigned:Dating performed on 10/28/2020, based on the externalassessment Assigned GA31 w + 1 d Assigned GRACIA:04/13/2021 Fetus 1: BIOMETRY ----- AC 298.1 mm 33w 6d 98%Hadlock Fetus 2: BIOMETRY ----- AC 299.7 mm 34w 0d 98%Hadlock Fetus 1: GENERAL EVALUATION ----- Cardiac activity present. FHR 133 bpm. movements: present.Presentation: cephalic left, HIGH Placenta: Placental site: anterior Umbilical cord: Cord vessels: 3 vessel cord. Insertion site: marginalinsertion, not visualized today Amniotic fluid: Amount of AF: normal amount. MVP 2.5 cm Fetus 2: GENERAL EVALUATION ----- Cardiac activity present. FHR 150 bpm. movements: present.Presentation: cephalic right, PRESENTING Placenta: Placental site: anterior Umbilical cord: Cord vessels: 3 vessel cord. Insertion site: placentalinsertion: normal Amniotic fluid: Amount of AF: normal amount. MVP 3.5 cm Fetus 1: ANATOMY ----- The following structures appear normal: Heart / Thorax Cardiac rhythm. Abdomen Stomach. Bladder. sex: male. Fetus 2: ANATOMY ----- The following structures appear normal: Heart / Thorax Cardiac rhythm. Abdomen Stomach. Bladder. sex: male. Fetus 1: DOPPLER ----- Umbilical Artery: normal PI 1.01 66%Lorenzo RI 0.65 61%Lorenzo PS 50.60 cm/s 69%Ebbing ED 17.70 cm/s S / D 2.86 56%Lorenzo Mid Cerebral Artery: PS 54.30 cm/s PS 1.27 MoM Fetus 2: DOPPLER ----- Umbilical Artery: normal PI 0.94 53%Lorenzo RI 0.62 46%Lorenzo PS 52.40 cm/s 75%Ebbing ED 20.00 cm/s S / D 2.62 41%Lorenzo Mid Cerebral Artery: PS 61.60 cm/s PS 1.44 MoM COMMENT ----- Patient's name and date of were verified by the blood bank laboratory technician prior tothe exam IMPRESSION ----- 1. Monochorionic Diamniotic twin living fetuses with a gestational age of31w 1d, based on the reported clinical dates. 2. Unremarkable limited anatomy noted. A detailed anatomycannot be performed secondary to advanced gestational age. However, there are no gross structural abnormalities noted. 3. The amniotic fluid is normal for gestational age x2. Twin A MVP:2.5 cm.Twin B MVP:3.5 cm . 4. Normal fluid filled stomach and bladder noted x2. No sonographic signsof TTTS. 5. Normal umbilical artery and middle cerebral artery Doppler studies.Twin A PSV: 1.27. Twin B PSV: 1.44. Recommendations: - Continue previously outlined growth surveillance plan. - OK To discontinue TTTS/TAPS surveillance at this gestational age. - Transition to twice weekly mBPP at 32 weeks. Arnol Multani MD ORDERABLES documented in this encounter Visit Diagnoses Diagnosis Monochorionic diamniotic twin gestation in second trimester Severe obesity (BMI >= 40) Morbid obesity documented in this encounter
--- OUTSIDE RECORDS SUMMARY | 2024-07-09 12:46 | XMS_ITS | Encounter Summary ---
Author Organization [facility] Address [address] [place] [address] Care Team Providers Care Set Up Machinist Name Role Phone Unavailable Primary Care Provider Unavailabl e Reason for Referral * Radiology Services (Routine) - Closed Specialty Diagnoses / Procedures Referred By Contac t Referred To Contact Diagnoses Monochorionic diamniotic twin gestation in second trimester Severe obesity (BMI >= 40) Procedures US OB FU+ UMB + MDCERB ART CHG DOPPLER MID CEREBRAL ARTERY CHG US, UTERUS,F/U,TRANSABD JAD CHG DOPPLER UMBILICAL ARTERY Stacy Schultz MD [address], [place] [address] Referral ID Status Reason Start Date Expiration Date Visits Re quested Visits Authorized [id number] Closed 02/17/2021 03/20/2021 1 1 Reason for Visit * Radiology Services (Routine) - Closed Specialty Diagnoses / Procedures Referred By Contac t Referred To Contact Diagnoses Monochorionic diamniotic twin gestation in second trimester Severe obesity (BMI >= 40) Procedures US OB FU+ UMB + MDCERB ART CHG DOPPLER MID CEREBRAL ARTERY CHG US, UTERUS,F/U,TRANSABD JAD CHG DOPPLER UMBILICAL ARTERY Stacy Schultz MD [address], [place] [address] Referral ID Status Reason Start Date Expiration Date Visits Re quested Visits Authorized [id number] Closed 02/17/2021 03/20/2021 1 1 Encounter Details Date Type Department Care Team (Latest Contact Info) Description 02/22/2021 8:00 AM CDT - 02/22/2021 11:59 PM CDT Hospital Encounter [facility] [address] [place] [address] Stacy Schultz MD [address] [facility] [address] [place] [address] Discharge Disposition: Home or Self [...] OB FU+ UMB + MDCERB ART Routine 02/22/2021 9:11 AM CDT Monochorionic diamniotic twin gestation in second trimester Severe obesity (BMI >= 40) documented in this encounter Results * US OB FU+ UMB + MDCERB ART (02/22/2021 9:11 AM CDT) Anatomical Region Laterality Modality Pelvis Ultrasound 02/22/2021 8:35 AM CDT Narrative 02/22/2021 9:18 AM CDT [facility] ----- Pat. Name: MIS BECK Study Date: 02/22/2021 8:35am Pat. NO: [id number] Referring ??: DAWNA HAYDEN MD Site: [facility] Client Engagement Specialist: Liliam Moreno : 1990 Age: 30 ----- INDICATION ----- Twins, Monochorionic-Diamniotic (Mo-Di) Maternal Obesity (bmi greater than 30 but bmi less than 40) History of Gestational Diabetes Abnormal Cord Insertion ?Baby A Marginal CODING ----- Diagnoses ? 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 4. Para 2 MATERNAL ASSESSMENT ----- Physical Exam ? Initial weight 102 kg, 225 lb. Initial BMI 38.62 kg/m?? METHOD ----- Transabdominal ultrasound examination ----- Twin . Number of fetuses: 2. Monochorionic-diamniotic DATING ----- Cycle: regular cycle GA by prior assessment 32 w + 6 d GRACIA by prior assessment: 04/13/2021 Ultrasound examination on: 02/22/2021 GA by U/S based upon: AC, BPD, EFW, Femur, HC GA by U/S 32 w + 6 d GRACIA by U/S: 04/13/2021 GA by U/S based upon (Fetus 2): AC, BPD, EFW, Femur, HC GA by U/S (Fetus 2) 34 w + 1 d GRACIA by U/S (Fetus 2): 04/04/2021 Method of dating: Restore dating from previous exam Assigned: Dating performed on 10/28/2020, based on the external assessment Assigned GA 32 w + 6 d Assigned GRACIA: 04/13/2021 Fetus 1: BIOMETRY ----- BPD ?77.3 ? mm ?31w 0d ?5% ?Hadlock OFD ?110.2 ?mm ?36w 4d ?99% ?Gail HC ? 302.7 ?mm ?33w 4d ?32% ?Hadlock AC ? 309.8 ?mm ?34w 6d ?95% ?Hadlock Femur ?61.0 ? mm ?31w 5d ?12% ?Hadlock HC / AC ?0.98 ? 12% ?Nicolaides Weight Calculation: EFW ? 2,213 ? g ? 33w 2d ?61% ?Hadlock EFW (lb,oz) ? 4 lb 14 ? oz EFW by ? Hadlock ([id number]) EFW discordance ?3.8 ? % Head / Face / Neck Biometry: Cephalic index ?0.70 ?<1% ?Nicolaides Extremities / Bony Struc Biometry: FL / BPD ?0.79 FL / HC ? 0.20 FL / AC ? 0.20 Fetus 2: BIOMETRY ----- BPD ?87.4 ? mm ?35w 2d ?96% ?Hadlock OFD ?108.6 ?mm ?35w 6d ?97% ?Gail HC ? 312.9 ?mm ?35w 0d ?71% ?Hadlock AC ? 305.5 ?mm ?34w 4d ?90% ?Hadlock Femur ?61.3 ? mm ?31w 6d ?14% ?Hadlock HC / AC ?1.02 ? 30% ?Nicolaides Weight Calculation: EFW ? 2,300 ? g ? 33w 5d ?72% ?Hadlock EFW (lb,oz) ? 5 lb 1 ?oz EFW by ? Hadlock ([id number]) EFW discordance ?3.8 ? % Head / Face / Neck Biometry: Cephalic index ?0.80 ?55% ?Nicolaides Extremities / Bony Struc Biometry: FL / BPD ?0.70 FL / HC ? 0.20 FL / AC ? 0.20 Fetus 1: GENERAL EVALUATION ----- Cardiac activity present. FHR 167 bpm. movements: present. Presentation: cephalic left Placenta: Placental site: anterior Umbilical cord: Cord vessels: 3 vessel cord. Amniotic fluid: Amount of AF: normal amount, normal amount. MVP 3.2 cm Fetus 2: GENERAL EVALUATION ----- Cardiac activity present. FHR 151 bpm. movements: present. Presentation: cephalic right Placenta: Placental site: anterior Umbilical cord: Cord vessels: 3 vessel cord. Amniotic fluid: Amount of AF: normal amount. MVP 3.7 cm Fetus 1: DOPPLER ----- Umbilical Artery: PI ? 0.79 ?26% ?Lorenzo RI ? 0.55 ?24% ?Lorenzo PS ? -48.12 ? cm/s ED ? -21.35 ? cm/s TAmax ?-33.61 ? cm/s MD ? -20.85 ? cm/s S / D ?2.25 ?23% ?Lorenzo HR ? 146 ?bpm Mid Cerebral Artery: PS ? 60.21 ?cm/s PS ? 1.30 ? MoM Fetus 2: DOPPLER ----- Umbilical Artery: PI ? 0.97 ?66% ?Lorenzo RI ? 0.63 ?63% ?Lorenzo PS ? 49.49 ?cm/s ? 58% ?Ebbing ED ? 18.06 ?cm/s TAmax ?30.77 ?cm/s ? 44% ?Ebbing MD ? 17.90 ?cm/s S / D ?2.69 ?54% ?Lorenzo HR ? 152 ?bpm Mid Cerebral Artery: PS ? 59.60 ?cm/s PS ? 1.29 ? MoM Fetus 1: ANATOMY ----- The following structures appear normal: Head / Neck ? Cranium. Lateral ventricles. Choroid plexus. Midline falx. Cavum septi pellucidi. Cerebellum. Cisterna ?magna. Heart / Thorax ?4-chamber view. RVOT view. LVOT view. ?Diaphragm. Abdomen ? Stomach. Kidneys. Bladder. sex: male. Fetus 2: ANATOMY ----- The following structures appear normal: Head / Neck ? Cranium. Lateral ventricles. Choroid plexus. Midline falx. Cavum septi pellucidi. Cerebellum. Cisterna ?magna. Heart / Thorax ?4-chamber view. RVOT view. LVOT view. ?Diaphragm. Abdomen ? Stomach. Kidneys. Bladder. sex: male. COMMENT ----- Patient's name and date of were verified by the quirk sander prior to the exam . Patient's name and date of were verified by the quirk sander prior to the exam IMPRESSION ----- 1. Monochorionic Diamniotic twin living fetuses with a gestational age of 32w 6d, based on the reported clinical dates. 2. Twin A growth: 2213 g (61% percentile) . Twin B growth:2300 g (72% percentile). Discordance: 3.8 % which is within normal limits. 3. The amniotic fluid is normal for gestational age x2. Twin A MVP:3.2 cm. Twin B MVP:3.7 cm . 4. Normal fluid filled stomach and bladder noted x2. No sonographic signs of TTTS. 5. Normal umbilical artery and middle cerebral artery Doppler studies. Twin A PSV 60, 1.31 MoM. Twin B PSV: 59, 1.29 MoM. Comments: I had the pleasure of seeing your patient in follow-up for the above mentioned indications. We reviewed the overall sonographic findings and the limitations associated with ultrasound evaluations. Recommendations: - Continue TTTS surveillance with twice weekly monitoring. - Weekly targeted bladder and stomach. - Growth in 4 weeks. Thank you for allowing us to participate in the patients care. Procedure Note Tianna Rm MD - 02/22/2021 [facility] FOLLOW UP ----- Pat. Name:Chucho BECK Date:02/22/2021 8:35am Pat. 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 Para 2 MATERNAL ASSESSMENT ----- Physical Exam Initial weight 102 kg, 225 lb. Initial BMI 38.62kg/m?? METHOD ----- Transabdominal ultrasound examination ----- Twin . Number of fetuses: 2. Monochorionic-diamniotic DATING ----- Cycle:regular cycle GA by prior [id number] w + 6 d GRACIA by prior assessment:04/13/2021 Ultrasound examination on:02/22/2021 GA by U/S based upon:AC, BPD, EFW, Femur, HC GA by U/S32 w + 6 d GRACIA by U/S:04/13/2021 GA by U/S based upon (Fetus 2):AC, BPD, EFW, Femur, HC GA by U/S (Fetus 2)34 w + 1 d GRACIA by U/S (Fetus 2):04/04/2021 Method of dating:Restore dating from previous exam Assigned:Dating performed on 10/28/2020, based on the externalassessment Assigned GA32 w + 6 d Assigned GRACIA:04/13/2021 Fetus 1: BIOMETRY ----- BPD 77.3 mm 31w 0d 5%Hadlock OFD 110.2 mm 36w 4d 99%Gail HC 302.7 mm 33w 4d 32%Hadlock AC 309.8 mm 34w 6d 95%Hadlock Femur 61.0 mm 31w 5d 12%Hadlock HC / AC 0.98 12%Nicolaides Weight Calculation: EFW 2,213 g 33w 2d61% Hadlock EFW (lb,oz) 4 lb 14 oz EFW by Hadlock ([id number]) EFW discordance 3.8 % Head / Face / Neck Biometry: Cephalic index 0.70 <1%Nicolaides Extremities / Bony Struc Biometry: FL / BPD 0.79 FL / HC 0.20 FL / AC 0.20 Fetus 2: BIOMETRY ----- BPD 87.4 mm 35w 2d 96%Hadlock OFD 108.6 mm 35w 6d 97%Gail HC 312.9 mm 35w 0d 71%Hadlock AC 305.5 mm 34w 4d 90%Hadlock Femur 61.3 mm 31w 6d 14%Hadlock HC / AC 1.02 30%Nicolaides Weight Calculation: EFW 2,300 g 33w 5d72% Hadlock EFW (lb,oz) 5 lb 1 oz EFW by Hadlock ([id number]) EFW discordance 3.8 % Head / Face / Neck Biometry: Cephalic index 0.80 55%Nicolaides Extremities / Bony Struc Biometry: FL / BPD 0.70 FL / HC 0.20 FL / AC 0.20 Fetus 1: GENERAL EVALUATION ----- Cardiac activity present. FHR 167 bpm. movements: present.Presentation: cephalic left Placenta: Placental site: anterior Umbilical cord: Cord vessels: 3 vessel cord. Amniotic fluid: Amount of AF: normal amount, normal amount. MVP 3.2 cm Fetus 2: GENERAL EVALUATION ----- Cardiac activity present. FHR 151 bpm. movements: present.Presentation: cephalic right Placenta: Placental site: anterior Umbilical cord: Cord vessels: 3 vessel cord. Amniotic fluid: Amount of AF: normal amount. MVP 3.7 cm Fetus 1: DOPPLER ----- Umbilical Artery: PI 0.7926% Lorenzo RI 0.5524% Lorenzo PS -48.12 cm/s ED -21.35 cm/s TAmax -33.61 cm/s MD -20.85 cm/s S / D 2.2523% Lorenzo HR 146 bpm Mid Cerebral Artery: PS 60.21 cm/s PS 1.30 MoM Fetus 2: DOPPLER ----- Umbilical Artery: PI 0.97 66%Lorenzo RI 0.63 63%Lorenzo PS 49.49 cm/s 58%Ebbing ED 18.06 cm/s TAmax 30.77 cm/s 44%Ebbing MD 17.90 cm/s S / D 2.69 54%Lorenzo HR 152 bpm Mid Cerebral Artery: PS 59.60 cm/s PS 1.29 MoM Fetus 1: ANATOMY ----- The following structures appear normal: Head / Neck Cranium. Lateral ventricles. Choroid plexus.Midline falx. Cavum septi pellucidi. Cerebellum. Cisterna magna. Heart / Thorax 4-chamber view. RVOT view. LVOT view. Diaphragm. Abdomen Stomach. Kidneys. Bladder. sex: male. Fetus 2: ANATOMY ----- The following structures appear normal: Head / Neck Cranium. Lateral ventricles. Choroid plexus.Midline falx. Cavum septi pellucidi. Cerebellum. Cisterna magna. Heart / Thorax 4-chamber view. RVOT view. LVOT view. Diaphragm. Abdomen Stomach. Kidneys. Bladder. sex: male. COMMENT ----- Patient's name and date of were verified by the quirk sander prior tothe exam . Patient's name and date of were verified by the quirk sander prior to the exam IMPRESSION ----- 1. Monochorionic Diamniotic twin living fetuses with a gestational age of32w 6d, based on the reported clinical dates. 2. Twin A growth: 2213 g (61% percentile) . Twin B growth:2300 g (72%percentile). Discordance: 3.8 % which is within normal limits. 3. The amniotic fluid is normal for gestational age x2. Twin A MVP:3.2 cm.Twin B MVP:3.7 cm . 4. Normal fluid filled stomach and bladder noted x2. No sonographic signsof TTTS. 5. Normal umbilical artery and middle cerebral artery Doppler studies.Twin A PSV 60, 1.31 MoM. Twin B PSV: 59, 1.29 MoM. Comments: I had the pleasure of seeing your patient in follow-up for theabove mentioned indications. We reviewed the overall sonographic findings and the limitations associated with ultrasoundevaluations. Recommendations: - Continue TTTS surveillance with twice weekly monitoring. - Weekly targeted bladder and stomach. - Growth in 4 weeks. Thank you for allowing us to participate in the patients care. Stacy Schultz MD US ORDERABLES documented in this encounter Visit Diagnoses Diagnosis Monochorionic diamniotic twin gestation in second trimester Severe obesity (BMI >= 40) Morbid obesity documented in this encounter
--- OUTSIDE RECORDS SUMMARY | 2024-07-09 12:46 | XMS_ITS | Encounter Summary ---
Author Organization [facility] Address [address] [facility] [address] [facility] Attn: Epic Prelude ADT [place] [address] Care Team Providers Care Patient Relations Coordinator Name Role Phone Unavailable Primary Care Provider Unavailabl e Encounter Details Date Type Department Care Team (Latest Contact Info) Description 03/10/2021 Travel Social History Tobacco Use Types Packs/Day [...]
--- OUTSIDE RECORDS SUMMARY | 2024-07-09 12:46 | XMS_ITS | Encounter Summary ---
Author Organization [facility] Address [address] [facility] Attn: Epic Prelude ADT [place] [address] Care Team Providers Care It Teacher Name Role Phone Unavailable Primary Care Provider Unavailabl e Encounter Details Date Type Department Care Team (Latest Contact Info) Description 01/27/2021 Travel Social History Tobacco Use Types Packs/Day [...] have Coronavirus / COVID-19? No / Unsure 01/27/2021 10:24 AM CDT documented as of this encounter Plan of Treatment Not on file documented as of this encounter Visit Diagnoses Not on filedocumented in this encounter
--- OUTSIDE RECORDS SUMMARY | 2024-07-09 12:46 | XMS_ITS | Encounter Summary ---
Author Organization [facility] Address [address] [facility] Attn: Epic Prelude ADT [place] [address] Care Team Providers Care Electric Motor Repairman Name Role Phone Unavailable Primary Care Provider Unavailabl e Encounter Details Date Type Department Care Team (Latest Contact Info) Description 02/24/2021 Travel Social History Tobacco Use Types Packs/Day [...] have Coronavirus / COVID-19? No / Unsure 02/24/2021 9:19 AM CDT documented as of this encounter Plan of Treatment Not on file documented as of this encounter Visit Diagnoses Not on filedocumented in this encounter
--- OUTSIDE RECORDS SUMMARY | 2024-07-09 12:46 | XMS_ITS | Encounter Summary ---
Author Organization [facility] Address [address] [place] [address] Care Team Providers Care Service Support Representative Name Role Phone Unavailable Primary Care Provider [...] cord affecting management of mother Procedures US MONITORING NST Tianna Rm MD [address] [place] [address], [place] [address] Referral ID Status Reason Start Date Expiration Date Visits Re quested Visits Authorized [id number] Closed 02/22/2021 03/25/2021 1 1 Reason for Visit * Radiology Services (Routine) - Closed Specialty Diagnoses / Procedures Referred By Contac t Referred To Contact Diagnoses Monochorionic diamniotic twin gestation in third trimester Maternal obesity affecting , antepartum Gestational diabetes mellitus (GDM) in third trimester, gestational diabetes method of control unspecified Marginal insertion of umbilical cord affecting management of mother Procedures US MONITORING NST Tianna Rm MD [address] [place] [address], [place] [address] Referral ID Status Reason Start Date Expiration Date Visits Re quested Visits Authorized [id number] Closed 02/22/2021 03/25/2021 1 1 Encounter Details Date Type Department Care Team (Late st Contact Info) Description 02/28/2021 10:15 AM CDT - 02/28/2021 11:59 PM CDT Hospital Encounter [facility] Maternal and Health [facility] [address] [place] [address] Tianna Rm MD [address] [place] [place], [place] [id number] Discharge Disposition: Home or Self Care Social [...] Name Priority Date/Time Associated Diagnosis Comments US MONITORING NST Routine 02/28/2021 1:22 PM CDT Monochorionic diamniotic twin gestation in third trimester Maternal obesity affecting , antepartum Gestational diabetes mellitus (GDM) in third trimester, gestational diabetes method of control unspecified Marginal insertion of umbilical cord affecting management of mother documented in this encounter Results * US MONITORING NST (02/28/2021 1:22 PM CDT) Anatomical Region Laterality Modality Ultrasound 02/28/2021 11:1 1 AM CDT Narrative 02/28/2021 12:13 PM CDT [facility] NST ----- Pat. Name: MIS BECK Study Date: 02/28/2021 11:11am Pat. NO: [id number] Referring ??: DAWNA HAYDEN MD Site: [place] [facility] Instructor: : 1990 Age: 30 ----- INDICATION ----- Twins, Monochorionic-Diamniotic (Mo-Di) Maternal Obesity (bmi greater than 30 but bmi less than 40) History of Gestational Diabetes Abnormal Cord Insertion Diabetes - Gestational (insulin) CODING ----- Diagnoses ? 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 4. Para 2 MATERNAL ASSESSMENT ----- Physical Exam ? Weight 116 kg. Initial weight 102 kg, 225 lb. BMI 43.94 kg/m??. Initial BMI 38.62 kg/m??. Weight gain 14 ?kg, 31 lb. Blood pressure 127/63 mmHg. Heart rate 83 bpm METHOD ----- EFM, EFM ----- Twin . Number of fetuses: 2. Monochorionic-diamniotic DATING ----- Cycle: regular cycle GA by prior assessment 33 w + 5 d GRACIA by prior assessment: 04/13/2021 Method of dating: Restore dating from previous exam Assigned: Dating performed on 10/28/2020, based on the external assessment Assigned GA 33 w + 5 d Assigned GRACIA: 04/13/2021 Fetus 1: NON STRESS TEST ----- NST interpretation: reactive. Test duration 32 min. Baseline FHR 130 bpm. Baseline variability: moderate. Accelerations: Present. Decelerations: absent. Uterine activity: absent Fetus 2: NON STRESS TEST ----- NST interpretation: reactive. Test duration 32 min. Baseline FHR 135 bpm. Baseline variability: moderate. Accelerations: Present. Decelerations: absent. Uterine activity: absent Fetus 1: ANATOMY ----- sex: male Fetus 2: ANATOMY ----- sex: male COMMENT ----- Nursing notes: Patient reports + movement x 2 and no bleeding, leaking or александр. Fasting blood sugar was 84 this morning. Patient scheduled twice weekly. Pt to US now. IMPRESSION ----- Nonstress test reactive and reassuring for both twins. Procedure Note Marylu Nogueira MD - 02/28/2021 RICHARD NST ----- Pat. Name:Chucho BECK Date:02/28/2021 11:11am Pat. 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 Para 2 MATERNAL ASSESSMENT ----- Physical Exam Weight 116 kg. Initial weight 102 kg, 225 lb. BMI43.94 kg/m??. Initial BMI 38.62 kg/m??. Weight gain 14 kg, 31 lb. Blood pressure 127/63 mmHg. Heart rate83 bpm METHOD ----- EFM, EFM ----- Twin . Number of fetuses: 2. Monochorionic-diamniotic DATING ----- Cycle:regular cycle GA by prior [id number] w + 5 d GRACIA by prior assessment:04/13/2021 Method of dating:Restore dating from previous exam Assigned:Dating performed on 10/28/2020, based on the externalassessment Assigned GA33 w + 5 d Assigned GRACIA:04/13/2021 Fetus 1: NON STRESS TEST ----- NST interpretation: reactive. Test duration 32 min. Baseline FHR 130 bpm.Baseline variability: moderate. Accelerations: Present. Decelerations: absent. Uterine activity: absent Fetus 2: NON STRESS TEST ----- NST interpretation: reactive. Test duration 32 min. Baseline FHR 135 bpm.Baseline variability: moderate. Accelerations: Present. Decelerations: absent. Uterine activity: absent Fetus 1: ANATOMY ----- sex: male Fetus 2: ANATOMY ----- sex: male COMMENT ----- Nursing notes: Patient reports + movement x 2 and no bleeding,leaking or александр. Fasting blood sugar was 84 this morning. Patient scheduled twice weekly. Pt to US now. IMPRESSION ----- Nonstress test reactive and reassuring for both twins. Tianna Rm MD US ORDERABLES documented in this encounter Visit Diagnoses Diagnosis Monochorionic diamniotic twin gestation in third trimester Maternal obesity affecting , antepartum Gestational diabetes mellitus (GDM) in third trimester, gestational diabetes method of control unspecified Marginal insertion of umbilical cord affecting management of mother documented in this encounter
--- OUTSIDE RECORDS SUMMARY | 2024-07-09 12:46 | XMS_ITS | Encounter Summary ---
Author Organization [facility] Address [address] [place] [address] Care Team Providers Care Wilderness Guide Name Role Phone Unavailable Primary Care Provider Unavailabl e Reason for Referral * Radiology Services (Routine) - Closed Specialty Diagnoses / Procedures Referred By Contac t Referred To Contact Diagnoses Monochorionic diamniotic twin gestation in second trimester Severe obesity (BMI >= 40) Procedures US OB FU+ UMB + MDCERB ART US OB FU+ UMB + MDCERB ART CHG DOPPLER MID CEREBRAL ARTERY CHG US, UTERUS,F/U,TRANSABD JAD CHG DOPPLER UMBILICAL ARTERY CHG DOPPLER MID CEREBRAL ARTERY CHG US, UTERUS,F/U,TRANSABD JAD CHG DOPPLER UMBILICAL ARTERY Gabrielle Sheppard MD [address] [address] Referral ID Status Reason Start Date Expiration Date Visits Re quested Visits Authorized [id number] Closed 01/06/2021 04/08/2021 1 1 Reason for Visit * Radiology Services (Routine) - Closed Specialty Diagnoses / Procedures Referred By Contac t Referred To Contact Diagnoses Monochorionic diamniotic twin gestation in second trimester Severe obesity (BMI >= 40) Procedures US OB FU+ UMB + MDCERB ART US OB FU+ UMB + MDCERB ART CHG DOPPLER MID CEREBRAL ARTERY CHG US, UTERUS,F/U,TRANSABD JAD CHG DOPPLER UMBILICAL ARTERY CHG DOPPLER MID CEREBRAL ARTERY CHG US, UTERUS,F/U,TRANSABD JAD CHG DOPPLER UMBILICAL ARTERY Gabrielle Sheppard MD [address] [place] [address] Referral ID Status Reason Start Date Expiration Date Visits Re quested Visits Authorized [id number] Closed 01/06/2021 04/08/2021 1 1 Encounter Details Date Type Department Care Team (Latest Contact Info) Description 01/27/2021 10:15 AM CDT - 01/27/2021 11:59 PM CDT Hospital Encounter [facility] Maternal and Health [facility] [address] [place] [address] Ileana Lopes MD NO ADDRESS ON FILE [...] Procedure Name Priority Date/Time Associated Diagnosis Comments OB FU+ UMB + MDCERB ART Routine 01/27/2021 11:11 AM CDT Monochorionic diamniotic twin gestation in second trimester Severe obesity (BMI >= 40) documented in this encounter Results * US OB FU+ UMB + MDCERB ART (01/27/2021 11:11 AM CDT) Anatomical Region Laterality Modality Pelvis Ultrasound 01/27/2021 10:4 0 AM CDT Narrative 01/27/2021 11:40 AM CDT STL FOLLOW UP ----- Pat. Name: MIS BECK Study Date: 01/27/2021 10:40am Pat. NO: [id number] Referring ??MD: DAWNA HADYEN MD Site: [place] [facility] Inspector: Charisse Knight : 1990 Age: 30 ----- INDICATION ----- Twins, Monochorionic-Diamniotic (Mo-Di) Maternal Obesity (bmi greater than 30 but bmi less than 40) History of Gestational Diabetes Abnormal Cord Insertion ?Baby A- Marginal CODING ----- Diagnoses ? 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 4. Para 2 MATERNAL ASSESSMENT ----- Physical Exam ? Weight 109 kg. Initial weight 102 kg, 225 lb. BMI 41.20 kg/m??. Initial BMI 38.62 kg/m??. Weight gain 7 kg, ?15 lb METHOD ----- Transabdominal ultrasound examination ----- Twin . Number of fetuses: 2. Monochorionic-diamniotic DATING ----- Cycle: regular cycle GA by prior assessment 29 w + 1 d GRACIA by prior assessment: 04/13/2021 Ultrasound examination on: 01/27/2021 GA by U/S based upon: AC, BPD, EFW, Femur, HC GA by U/S 31 w + 0 d GRACIA by U/S: 03/31/2021 GA by U/S based upon (Fetus 2): AC, BPD, EFW, Femur, HC GA by U/S (Fetus 2) 31 w + 2 d GRACIA by U/S (Fetus 2): 03/29/2021 Method of dating: Restore dating from previous exam Assigned: Dating performed on 10/28/2020, based on the external assessment Assigned GA 29 w + 1 d Assigned GRACIA: 04/13/2021 Fetus 1: BIOMETRY ----- BPD ?73.3 ?mm ?29w 3d ?46% ?Hadlock HC ? 278.3 ? mm ?30w 3d ?56% ?Hadlock AC ? 295.2 ? mm ?33w 4d ?>99% ?Hadlock Femur ?57.1 ?mm ?30w 0d ?58% ?Hadlock HC / AC ?0.94 ?<1% ?Nicolaides Weight Calculation: EFW ? 1,860 ?g ?31w 4d ? >99% ?Hadlock EFW (lb,oz) ? 4 lb 2 ? oz EFW by ? Hadlock (HC-AC-FL) EFW discordance ?5.1 ? % Extremities / Bony Struc Biometry: FL / BPD ?0.78 FL / HC ? 0.21 FL / AC ? 0.19 Fetus 2: BIOMETRY ----- BPD ?78.3 ?mm ?31w 3d ?94% ?Hadlock HC ? 287.4 ? mm ?31w 4d ?86% ?Hadlock AC ? 284.2 ? mm ?32w 3d ?>99% ?Hadlock Femur ?56.4 ?mm ?29w 4d ?49% ?Hadlock HC / AC ?1.01 ?11% ?Nicolaides Weight Calculation: EFW ? 1,766 ? g ? 31w 1d ?97% ?Hadlock EFW (lb,oz) ? 3 lb 14 ? oz EFW by ? Hadlock (HC-AC-FL) EFW discordance ?5.1 ? % Extremities / Bony Struc Biometry: FL / BPD ?0.72 FL / HC ? 0.20 FL / AC ? 0.20 Fetus 1: GENERAL EVALUATION ----- Cardiac activity present. FHR 152 bpm. movements: present. Presentation: cephalic left, high Placenta: Placental site: anterior Umbilical cord: Cord vessels: 3 vessel cord. Insertion site: placental insertion: marginal insertion, not seen today Amniotic fluid: Amount of AF: normal amount. MVP 3.4 cm Fetus 2: GENERAL EVALUATION ----- Cardiac activity present. FHR 147 bpm. movements: present. Presentation: cephalic right,PRESENTING Placenta: Placental site: anterior Umbilical cord: Cord vessels: 3 vessel cord Amniotic fluid: Amount of AF: normal amount. MVP 4.1 cm Fetus 1: DOPPLER ----- Umbilical Artery: normal PI ? 0.79 ? 12% ?Lorenzo RI ? 0.56 ? 11% ?Lorenzo PS ? 48.90 ?cm/s ?71% ?Ebbing ED ? 21.40 ?cm/s S / D ?2.29 ? 12% ?Lorenzo Mid Cerebral Artery: PS ? 40.60 ?cm/s PS ? 1.04 ? MoM Fetus 2: DOPPLER ----- Umbilical Artery: normal PI ? 0.87 ? 25% ?Lorenzo RI ? 0.58 ? 17% ?Lorenzo PS ? 54.40 ?cm/s ?89% ?Ebbing ED ? 22.90 ?cm/s S / D ?2.38 ? 16% ?Lorenzo Mid Cerebral Artery: PS ? 42.40 ?cm/s PS ? 1.09 ? MoM Fetus 1: ANATOMY ----- The following structures appear normal: Head / Neck ? Cranium. Midline falx. Cavum septi pellucidi. Heart / Thorax ?Cardiac rhythm. ?Diaphragm. Abdomen ? Stomach. Kidneys. Bladder. The following structures could not be adequately visualized: Extremities / ? Hands. Skeleton sex: male. Fetus 2: ANATOMY ----- The following structures appear normal: Head / Neck ? Cranium. Midline falx. Cavum septi pellucidi. Heart / Thorax ?4-chamber view. ?Diaphragm. Abdomen ? Stomach. Kidneys. Bladder. The following structures could not be adequately visualized: Extremities / ? Hands. Skeleton sex: male. COMMENT ----- Patient's name and date of were verified by the special delivery messenger prior to the exam IMPRESSION ----- -Monochorionic-Diamniotic Twin at 29w1d -Normal limited anatomy to the extent of U/S views for A and B. -Normal amniotic fluid MVP for A and B. -Normal doppler studies for A and B. -No obvious sign of TTTS. -The estimated weight is measuring large for A and B. Discordance is within appropriate range. The patient was informed of the ultrasound findings and limitations. TTTS/TAPS surveillance q2 weeks. Twice weekly modified BPP starting at 32 weeks gestation. Growth in 4 weeks. Thank you for allowing us to participate in the care of this patient. Procedure Note Milka Mullins MD - 01/27/2021 STL FOLLOW UP ----- Pat. Name:Chucho BECK Date:01/27/2021 10:40am Pat. 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 Para 2 MATERNAL ASSESSMENT ----- Physical Exam Weight 109 kg. Initial weight 102 kg, 225 lb. BMI41.20 kg/m??. Initial BMI 38.62 kg/m??. Weight gain 7 kg, 15 lb METHOD ----- Transabdominal ultrasound examination ----- Twin . Number of fetuses: 2. Monochorionic-diamniotic DATING ----- Cycle:regular cycle GA by prior [id number] w + 1 d GRACIA by prior assessment:04/13/2021 Ultrasound examination on:01/27/2021 GA by U/S based upon:AC, BPD, EFW, Femur, HC GA by U/S31 w + 0 d GRACIA by U/S:03/31/2021 GA by U/S based upon (Fetus 2):AC, BPD, EFW, Femur, HC GA by U/S (Fetus 2)31 w + 2 d GRACIA by U/S (Fetus 2):03/29/2021 Method of dating:Restore dating from previous exam Assigned:Dating performed on 10/28/2020, based on the externalassessment Assigned GA29 w + 1 d Assigned GRACIA:04/13/2021 Fetus 1: BIOMETRY ----- BPD 73.3 mm 29w 3d 46%Hadlock HC 278.3 mm 30w 3d 56%Hadlock AC 295.2 mm 33w 4d >99%Hadlock Femur 57.1 mm 30w 0d 58%Hadlock HC / AC 0.94 <1%Nicolaides Weight Calculation: EFW 1,860 g 31w 4d>99% Hadlock EFW (lb,oz) 4 lb 2 oz EFW by Hadlock (HC-AC-FL) EFW discordance 5.1 % Extremities / Bony Struc Biometry: FL / BPD 0.78 FL / HC 0.21 FL / AC 0.19 Fetus 2: BIOMETRY ----- BPD 78.3 mm 31w 3d 94%Hadlock HC 287.4 mm 31w 4d 86%Hadlock AC 284.2 mm 32w 3d >99%Hadlock Femur 56.4 mm 29w 4d 49%Hadlock HC / AC 1.01 11%Nicolaides Weight Calculation: EFW 1,766 g 31w 1d97% Hadlock EFW (lb,oz) 3 lb 14 oz EFW by Hadlock (HC-AC-FL) EFW discordance 5.1 % Extremities / Bony Struc Biometry: FL / BPD 0.72 FL / HC 0.20 FL / AC 0.20 Fetus 1: GENERAL EVALUATION ----- Cardiac activity present. FHR 152 bpm. movements: present.Presentation: cephalic left, high Placenta: Placental site: anterior Umbilical cord: Cord vessels: 3 vessel cord. Insertion site: placentalinsertion: marginal insertion, not seen today Amniotic fluid: Amount of AF: normal amount. MVP 3.4 cm Fetus 2: GENERAL EVALUATION ----- Cardiac activity present. FHR 147 bpm. movements: present.Presentation: cephalic right,PRESENTING Placenta: Placental site: anterior Umbilical cord: Cord vessels: 3 vessel cord Amniotic fluid: Amount of AF: normal amount. MVP 4.1 cm Fetus 1: DOPPLER ----- Umbilical Artery: normal PI 0.79 12%Lorenzo RI 0.56 11%Lorenzo PS 48.90 cm/s 71%Ebbing ED 21.40 cm/s S / D 2.29 12%Lorenzo Mid Cerebral Artery: PS 40.60 cm/s PS 1.04 MoM Fetus 2: DOPPLER ----- Umbilical Artery: normal PI 0.87 25%Lorenzo RI 0.58 17%Lorenzo PS 54.40 cm/s 89%Ebbing ED 22.90 cm/s S / D 2.38 16%Lorenzo Mid Cerebral Artery: PS 42.40 cm/s PS 1.09 MoM Fetus 1: ANATOMY ----- The following structures appear normal: Head / Neck Cranium. Midline falx. Cavum septi pellucidi. Heart / Thorax Cardiac rhythm. Diaphragm. Abdomen Stomach. Kidneys. Bladder. The following structures could not be adequately visualized: Extremities / Hands. Skeleton sex: male. Fetus 2: ANATOMY ----- The following structures appear normal: Head / Neck Cranium. Midline falx. Cavum septi pellucidi. Heart / Thorax 4-chamber view. Diaphragm. Abdomen Stomach. Kidneys. Bladder. The following structures could not be adequately visualized: Extremities / Hands. Skeleton sex: male. COMMENT ----- Patient's name and date of were verified by the special delivery messenger prior tothe exam IMPRESSION ----- -Monochorionic-Diamniotic Twin at 29w1d -Normal limited anatomy to the extent of U/S views for A and B. -Normal amniotic fluid MVP for A and B. -Normal doppler studies for A and B. -No obvious sign of TTTS. -The estimated weight is measuring large for A and B. Discordance iswithin appropriate range. The patient was informed of the ultrasound findings and limitations. TTTS/TAPS surveillance q2 weeks. Twice weekly modified BPP starting at 32 weeks gestation. Growth in 4 weeks. Thank you for allowing us to participate in the care of this patient. Gabrielle NOBLE documented in this encounter Visit Diagnoses Diagnosis Monochorionic diamniotic twin gestation in second trimester Severe obesity (BMI >= 40) Morbid obesity documented in this encounter
--- OUTSIDE RECORDS SUMMARY | 2024-07-09 12:46 | XMS_ITS | Encounter Summary ---
Author Organization [facility] Address [address] [facility] Attn: Epic Prelude ADT [place] [address] Care Team Providers Care Oil Field Caser Name Role Phone Unavailable Primary Care Provider Unavailabl e Encounter Details Date Type Department Care Team (Latest Contact Info) Description 03/03/2021 Travel Social History Tobacco Use Types Packs/Day [...] have Coronavirus / COVID-19? No / Unsure 03/03/2021 9:32 AM CDT documented as of this encounter Plan of Treatment Not on file documented as of this encounter Visit Diagnoses Not on filedocumented in this encounter
--- OUTSIDE RECORDS SUMMARY | 2024-07-09 12:46 | XMS_ITS | Encounter Summary ---
Author Organization [facility] Address [address] [facility] Attn: Epic Prelude ADT [place] [address] Care Team Providers Care Electric Deicer Assembler Name Role Phone Unavailable Primary Care Provider Unavailabl e Encounter Details Date Type Department Care Team (Latest Contact Info) Description 02/10/2021 Travel Social History Tobacco Use Types Packs/Day [...]
--- OUTSIDE RECORDS SUMMARY | 2024-07-09 12:46 | XMS_ITS | Encounter Summary ---
Author Organization [facility] Address [address] [place] [address] Care Team Providers Care Set Up Mechanic Name Role Phone Unavailable Primary Care [...] mother Procedures US OB LIMITED + NST OH NON-STRESS TEST CHG US, UTERUS,LIMITED, 1/> FETUSES Tianna Rm MD [address] [facility] [address], [place] [address] Referral ID Status Reason Start Date Expiration Date Visits Re quested Visits Authorized [id number] Closed 02/22/2021 03/25/2021 1 1 Reason for [...] mother Procedures US OB LIMITED + NST OH NON-STRESS TEST CHG US, UTERUS,LIMITED, 1/> FETUSES Tianna Rm MD [address], [place] [address] Referral ID Status Reason Start Date Expiration Date Visits Re quested Visits Authorized [id number] Closed 02/22/2021 03/25/2021 1 1 Encounter Details Date Type Department Care Team (Late st Contact Info) Description 02/24/2021 8:15 AM CDT - 02/24/2021 11:59 PM CDT Hospital Encounter [facility] Maternal and Health [facility] [address] [place] [address] Tianna Rm MD [address] [facility] [address] [place] [address] Discharge Disposition: Home or Self [...] Comments US OB LIMITED + NST Routine 02/24/2021 1 0:18 AM CDT Monochorionic diamniotic twin gestation in third trimester Maternal obesity affecting , antepartum Gestational diabetes mellitus (GDM) in third trimester, gestational diabetes method of control unspecified Marginal insertion of umbilical cord affecting management of mother documented in this encounter Results * US OB LIMITED + NST (02/24/2021 10:18 AM CDT) Anatomical Region Laterality Modality Pelvis Ultrasound 02/24/2021 9:29 AM CDT Narrative 02/24/2021 10:23 AM CDT MODIFIED [facility] STUDY ----- Pat. Name: MIS BECK Study Date: 02/24/2021 9:29am Pat. 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 4. Para 2 MATERNAL ASSESSMENT ----- Physical Exam ? Weight 116 kg. Initial weight 102 kg, 225 lb. BMI 43.94 kg/m??. Initial BMI 38.62 kg/m??. Weight gain 14 ?kg, 31 lb. Blood pressure 128/58 mmHg. Heart rate 76 bpm METHOD ----- EFM, Transabdominal ultrasound examination ----- Twin . Number of fetuses: 2. Monochorionic-diamniotic DATING ----- Cycle: regular cycle GA by prior assessment 33 w + 1 d GRACIA by prior assessment: 04/13/2021 Method of dating: Restore dating from previous exam Assigned: Dating performed on 10/28/2020, based on the external assessment Assigned GA 33 w + 1 d Assigned GRACIA: 04/13/2021 Fetus 1: GENERAL EVALUATION ----- Cardiac activity present. Presentation: cephalic Fetus 2: GENERAL EVALUATION ----- Cardiac activity present. Presentation: cephalic Fetus 1: NON STRESS TEST ----- NST interpretation: reactive. Test duration 50 min. Baseline FHR 125 bpm. Baseline variability: moderate. Accelerations: Present. Decelerations: absent. Uterine activity: present, 2 contractions in 50 minutes Fetus 2: NON STRESS TEST ----- NST interpretation: reactive. Test duration 50 min. Baseline FHR 130 bpm. Baseline variability: moderate. Accelerations: Present. Decelerations: absent. Uterine activity: present, 2 contractions in 50 minutes Fetus 1: AMNIOTIC FLUID ASSESSMENT ----- Amount of AF: normal amount MVP 4.4 cm Fetus 2: AMNIOTIC FLUID ASSESSMENT ----- Amount of AF: normal amount MVP 4.2 cm COMMENT ----- Nurses Notes: Patient reports + movement x 2 and no bleeding, leaking of fluid or александр. Patient scheduled twice weekly. IMPRESSION ----- 1. Twin dichorionic diamniotic with a gestational age of 33+1, based on the reported clinical dates. 2. Amniotic fluid is normal for gestational age for A and B. 3. NST reactive for A and B. Continue current surveillance plan. Thank you for allowing us to participate in the care of this patient. Procedure Note Milka Mullins MD - 02/24/2021 MODIFIED BPP STUDY ----- Pat. Name:Chucho BECK Date:02/24/2021 9:29am Pat. 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 Para 2 MATERNAL ASSESSMENT ----- Physical Exam Weight 116 kg. Initial weight 102 kg, 225 lb. BMI43.94 kg/m??. Initial BMI 38.62 kg/m??. Weight gain 14 kg, 31 lb. Blood pressure 128/58 mmHg. Heart rate76 bpm METHOD ----- EFM, Transabdominal ultrasound examination ----- Twin . Number of fetuses: 2. Monochorionic-diamniotic DATING ----- Cycle:regular cycle GA by prior [id number] w + 1 d GRACIA by prior assessment:04/13/2021 Method of dating:Restore dating from previous exam Assigned:Dating performed on 10/28/2020, based on the externalassessment Assigned GA33 w + 1 d Assigned GRACIA:04/13/2021 Fetus 1: GENERAL EVALUATION ----- Cardiac activity present. Presentation: cephalic Fetus 2: GENERAL EVALUATION ----- Cardiac activity present. Presentation: cephalic Fetus 1: NON STRESS TEST ----- NST interpretation: reactive. Test duration 50 min. Baseline FHR 125 bpm.Baseline variability: moderate. Accelerations: Present. Decelerations: absent. Uterine activity: present, 2 contractions in 50minutes Fetus 2: NON STRESS TEST ----- NST interpretation: reactive. Test duration 50 min. Baseline FHR 130 bpm.Baseline variability: moderate. Accelerations: Present. Decelerations: absent. Uterine activity: present, 2 contractions in 50minutes Fetus 1: AMNIOTIC FLUID ASSESSMENT ----- Amount of AF: normal amount MVP 4.4 cm Fetus 2: AMNIOTIC FLUID ASSESSMENT ----- Amount of AF: normal amount MVP 4.2 cm COMMENT ----- Nurses Notes: Patient reports + movement x 2 and no bleeding,leaking of fluid or александр. Patient scheduled twice weekly. IMPRESSION ----- 1. Twin dichorionic diamniotic with a gestational age of 33+1,based on the reported clinical dates. 2. Amniotic fluid is normal for gestational age for A and B. 3. NST reactive for A and B. Continue current surveillance plan. Thank you for allowing us to participate [...]
--- OUTSIDE RECORDS SUMMARY | 2024-07-09 12:46 | XMS_ITS | Encounter Summary ---
Author Organization [facility] Address [address] [facility] Attn: Epic Prelude ADT [place] [address] Care Team Providers Care Grievance Manager Name Role Phone Unavailable Primary Care Provider Unavailabl e Encounter Details Date Type Department Care Team (Latest Contact Info) Description 03/05/2021 Travel Social History Tobacco Use Types Packs/Day [...] have Coronavirus / COVID-19? No / Unsure 03/05/2021 4:09 PM CDT documented as of this encounter Plan of Treatment Not on file documented as of this encounter Visit Diagnoses Not on filedocumented in this encounter
--- OUTSIDE RECORDS SUMMARY | 2024-07-09 12:46 | XMS_ITS | Encounter Summary ---
Author Organization [facility] Address [address] [facility] Attn: Epic Prelude ADT [place] [address] Care Team Providers Care Surg Tech Name Role Phone Unavailable Primary Care Provider Unavailabl e Encounter Details Date Type Department Care Team (Latest Contact Info) Description 03/14/2021 Travel Social History Tobacco Use Types Packs/Day [...] have Coronavirus / COVID-19? No / Unsure 03/14/2021 7:28 AM CDT documented as of this encounter Plan of Treatment Not on file documented as of this encounter Visit Diagnoses Not on filedocumented in this encounter
--- OUTSIDE RECORDS SUMMARY | 2024-07-09 12:46 | XMS_ITS | Encounter Summary ---
Author Organization [facility] Address [address] [facility] Attn: Epic Prelude ADT [place] [address] Care Team Providers Care Source Water Protection Specialist Name Role Phone Unavailable Primary Care Provider Unavailabl e Encounter Details Date Type Department Care Team (Latest Contact Info) Description 02/19/2021 Travel Social History Tobacco Use Types Packs/Day [...] have Coronavirus / COVID-19? No / Unsure 02/19/2021 3:13 PM CDT documented as of this encounter Plan of Treatment Not on file documented as of this encounter Visit Diagnoses Not on filedocumented in this encounter
--- OUTSIDE RECORDS SUMMARY | 2024-07-09 12:46 | XMS_ITS | Encounter Summary ---
Author Organization [facility] Address [address] [place] [address] Care Team Providers Care Airplane Pilot Helper Name Role Phone Unavailable Primary Care Provider Unavailfelipe e Encounter Details Date Type Department Care Team (Late st Contact Info) Description 04/01/2024 External Device Data ST[facility] ABSTRACTION Provider, Abstract [...]
--- OUTSIDE RECORDS SUMMARY | 2024-07-09 12:46 | XMS_ITS | Encounter Summary ---
Author Organization [facility] Address [address] [place] [address] Care Team Providers Care Trapper Bird Name Role Phone Unavailable Primary Care Provider [...]
--- OUTSIDE RECORDS SUMMARY | 2024-07-09 12:46 | XMS_ITS | Encounter Summary ---
Author Organization [facility] Address [address] [place] [address] Care Team Providers Care County Or City Auditor Name Role Phone Unavailable Primary Care Provider [...] MD [address], [place] [address] Referral ID Status Reason Start Date Expiration Date Visits Re quested Visits Authorized [id number] Closed 02/22/2021 03/25/2021 1 1 Reason for [...] NST Tianna Rm MD [address], [place] [address] Referral ID Status Reason Start Date Expiration Date Visits Re quested Visits Authorized [id number] Closed 02/22/2021 03/25/2021 1 1 Encounter Details Date Type Department Care Team ([facility] st Contact Info) Description 03/07/2021 1:39 PM CDT - 03/07/2021 11:59 PM CDT Hospital Encounter [facility] Maternal and Health [facility] [address] [place] [address] Tianna Rm MD [address] [place] [address] Discharge Disposition: Home or Self Care Social [...] Associated Diagnosis Comments US MONITORING NST Routine 03/07/2021 3:27 PM CDT Monochorionic diamniotic twin gestation in third trimester Maternal obesity affecting , antepartum Gestational diabetes mellitus (GDM) in third trimester, gestational diabetes method of control unspecified Marginal insertion of umbilical cord affecting management of mother documented in this encounter Results * US MONITORING NST (03/07/2021 3:27 PM CDT) Anatomical Region Laterality Modality Ultrasound 03/07/2021 2:32 PM CDT Narrative 03/07/2021 3:18 PM CDT [facility] NST ----- Pat. Name: MIS BECK Study Date: 03/07/2021 2:32pm Pat. 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 4. Para 2 MATERNAL ASSESSMENT ----- Physical Exam ? Weight 122 kg. Initial weight 102 kg, 225 lb. BMI 46.35 kg/m??. Initial BMI 38.62 kg/m??. Weight gain 20 ?kg, 45 lb. Blood pressure 127/62 mmHg. Heart rate 78 bpm METHOD ----- EFM ----- Twin . Number of fetuses: 2. Monochorionic-diamniotic DATING ----- Cycle: regular cycle GA by prior assessment 34 w + 5 d GRACIA by prior assessment: 04/13/2021 Method of dating: Restore dating from previous exam Assigned: Dating performed on 10/28/2020, based on the external assessment Assigned GA 34 w + 5 d Assigned GRACIA: 04/13/2021 Fetus 1: NON STRESS TEST ----- NST interpretation: reactive. Test duration 25 min. Baseline FHR 120 bpm. Baseline variability: moderate. Accelerations: Present. Decelerations: absent. Uterine activity: absent Fetus 2: NON STRESS TEST ----- NST interpretation: reactive. Test duration 25 min. Baseline FHR 125 bpm. Baseline variability: moderate. Accelerations: Present. Decelerations: absent. Uterine activity: absent Fetus 1: ANATOMY ----- sex: male Fetus 2: ANATOMY ----- sex: male COMMENT ----- Nursing notes: Patient reports + movement x 2 and no bleeding, leaking or александр. Patient scheduled twice weekly. IMPRESSION ----- NST reactive for both twins. Thank you for allowing us to participate in the care of this patient. Please feel free to contact me with any questions or concerns. Procedure Note Marylu Nogueira MD - 03/07/2021 [facility] NST ----- Pat. Name:Chucho BECK Date:03/07/2021 2:32pm Pat. 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 Para 2 MATERNAL ASSESSMENT ----- Physical Exam Weight 122 kg. Initial weight 102 kg, 225 lb. BMI46.35 kg/m??. Initial BMI 38.62 kg/m??. Weight gain 20 kg, 45 lb. Blood pressure 127/62 mmHg. Heart rate78 bpm METHOD ----- EFM ----- Twin . Number of fetuses: 2. Monochorionic-diamniotic DATING ----- Cycle:regular cycle GA by prior [id number] w + 5 d GRACIA by prior assessment:04/13/2021 Method of dating:Restore dating from previous exam Assigned:Dating performed on 10/28/2020, based on the externalassessment Assigned GA34 w + 5 d Assigned GRACIA:04/13/2021 Fetus 1: NON STRESS TEST ----- NST interpretation: reactive. Test duration 25 min. Baseline FHR 120 bpm.Baseline variability: moderate. Accelerations: Present. Decelerations: absent. Uterine activity: absent Fetus 2: NON STRESS TEST ----- NST interpretation: reactive. Test duration 25 min. Baseline FHR 125 bpm.Baseline variability: moderate. Accelerations: Present. Decelerations: absent. Uterine activity: absent Fetus 1: ANATOMY ----- sex: male Fetus 2: ANATOMY ----- sex: male COMMENT ----- Nursing notes: Patient reports + movement x 2 and no bleeding,leaking or александр. Patient scheduled twice weekly. IMPRESSION ----- NST reactive for both twins. Thank you for allowing us to participate in the care of this patient.Please feel free to contact me with any questions or concerns. Tianna Rm MD ORDERABLES documented in this encounter Visit Diagnoses Diagnosis Monochorionic diamniotic twin gestation in third trimester Maternal obesity affecting , antepartum Gestational diabetes mellitus (GDM) in third trimester, gestational diabetes method of control unspecified Marginal insertion of umbilical cord affecting management of mother documented in this encounter
--- OUTSIDE RECORDS SUMMARY | 2024-07-09 12:46 | XMS_ITS | Encounter Summary ---
Author Organization [facility] Address [address] [facility] Attn: Epic Prelude ADT [place] [address] Care Team Providers Care Party Planner Name Role Phone Unavailable Primary Care Provider Unavailabl e Encounter Details Date Type Department Care Team (Latest Contact Info) Description 02/28/2021 Travel Social History Tobacco Use Types Packs/Day [...]
--- OUTSIDE RECORDS SUMMARY | 2024-07-09 12:46 | XMS_ITS | Encounter Summary ---
Author Organization [facility] Address [address] [place] [address] Care Team Providers Care Liquor Bridge Operator Name Role Phone Unavailable Primary Care [...]
--- OUTSIDE RECORDS SUMMARY | 2024-07-09 12:46 | XMS_ITS | Encounter Summary ---
Author Organization [facility] Address [address] [place] [address] Care Team Providers Care Mass Communications Instructor Name Role Phone Unavailable Primary Care Provider [...] MD [address], [place] [address] Referral ID Status Reason Start Date Expiration Date Visits Re quested Visits Authorized [id number] Closed 02/22/2021 03/25/2021 1 1 Reason for [...] MD [address], [place] [address] Referral ID Status Reason Start Date Expiration Date Visits Re quested Visits Authorized [id number] Closed 02/22/2021 03/25/2021 1 1 Encounter Details Date Type Department Care Team (Late st Contact Info) Description 03/07/2021 1:15 PM CDT - 03/07/2021 11:59 PM CDT Hospital Encounter [facility] M[facility] [address] [place] [address] Tianna Rm MD [address] [place] [address] Discharge Disposition: Home or Self [...] OB LTD 1 OR MORE FETUSES Routine 03/07/2021 2:00 PM CDT Monochorionic diamniotic twin gestation in third trimester Maternal obesity affecting , antepartum Gestational diabetes mellitus (GDM) in third trimester, gestational diabetes method of control unspecified Marginal insertion of umbilical cord affecting management of mother documented in this encounter Results * US OB LTD 1 OR MORE FETUSES (03/07/2021 2:00 PM CDT) Anatomical Region Laterality Modality Pelvis Ultrasound 03/07/2021 1:46 PM CDT Narrative 03/07/2021 2:07 PM CDT [facility] LIMITED ----- Pat. Name: MIS BECK Study Date: 03/07/2021 1:46pm Pat. NO: [id number] Referring ??: DAWNA HAYDEN MD Site: [place] [employer] Operator: LivingstonCharisse : 1990 Age: 30 ----- INDICATION ----- [...] diabetes mellitus in , insulin controlled Procedures ?67161: Limited 1 or more - LUIS, FHR, [...] GENERAL EVALUATION ----- Cardiac activity present. FHR 134 bpm. movements: present. Presentation: cephalic left, high Placenta: Placental site: anterior Amniotic fluid: Amount of AF: normal amount. MVP 3.4 cm Fetus 2: GENERAL EVALUATION ----- Cardiac activity present. FHR 153 bpm. movements: present. Presentation: cephalic right, PRESENTING Placenta: Placental site: anterior Amniotic fluid: Amount of AF: normal amount. MVP 4.3 cm Fetus 1: ANATOMY ----- The following structures appear normal: Heart / Thorax ?Cardiac rhythm. Abdomen ? Stomach. Bladder. sex: male. Fetus 2: ANATOMY ----- The following structures appear normal: Heart / Thorax ?Cardiac rhythm. Abdomen ? Stomach. Bladder. sex: male. COMMENT ----- Patient's name and date of were verified by the supervisor sterile processing prior to the exam. IMPRESSION ----- 1. Monochchorionic diamniotic twin gestation at 34 5/7 weeks 2. Normal and evenly distributed amniotic fluid in both twins 3. Normal stomach and bladder in both twins Comments: We discussed today's findings and the limitations of ultrasound. Today's sonogram demonstrates no evidence of twin twin transfusion syndrome (TTTS). Recommendations: 1. Follow up growth sonograms at 4 week intervals 2. Monitoring for TTTS weekly until delivery Thank you for allowing us to participate in the care of this patient. Please feel free to contact me with any questions or concerns. Procedure Note Marylu Nogueira MD - 03/07/2021 [facility] LIMITED ----- Pat. Name:Chucho BECK Date:03/07/2021 1:46pm Pat. NO: [id number] MD:DAWNA HAYDEN [facility] :1990Age:30 ----- INDICATION ----- Twins, [...] Gestational diabetes mellitus inpregnancy, insulin controlled Procedures 41709: Limited 1 or more - LUIS, FHR, position HISTORY ----- OB History 4. Para 2 MATERNAL ASSESSMENT ----- Physical Exam Initial weight 102 kg, 225 lb. Initial BMI 38.62kg/m?? METHOD ----- Transabdominal ultrasound examination ----- Twin . Number of fetuses: 2. Monochorionic-diamniotic DATING ----- Cycle:regular cycle GA by prior [id number] w + 5 d GRACIA by prior assessment:04/13/2021 Method of dating:Restore dating from previous exam Assigned:Dating performed on 10/28/2020, based on the externalassessment Assigned GA34 w + 5 d Assigned GRACIA:04/13/2021 Fetus 1: GENERAL EVALUATION ----- Cardiac activity present. FHR 134 bpm. movements: present.Presentation: cephalic left, high Placenta: Placental site: anterior Amniotic fluid: Amount of AF: normal amount. MVP 3.4 cm Fetus 2: GENERAL EVALUATION ----- Cardiac activity present. FHR 153 bpm. movements: present.Presentation: cephalic right, PRESENTING Placenta: Placental site: anterior Amniotic fluid: Amount of AF: normal amount. MVP 4.3 cm Fetus 1: ANATOMY ----- The following structures appear normal: Heart / Thorax Cardiac rhythm. Abdomen Stomach. Bladder. sex: male. Fetus 2: ANATOMY ----- The following structures appear normal: Heart / Thorax Cardiac rhythm. Abdomen Stomach. Bladder. sex: male. COMMENT ----- Patient's name and date of were verified by the supervisor sterile processing prior tothe exam. IMPRESSION ----- 1. Monochchorionic diamniotic twin gestation at 34 5/7 weeks 2. Normal and evenly distributed amniotic fluid in both twins 3. Normal stomach and bladder in both twins Comments: We discussed today's findings and the limitations of ultrasound.Today's sonogram demonstrates no evidence of twin twin transfusion syndrome (TTTS). Recommendations: 1. Follow up growth sonograms at 4 week intervals 2. Monitoring for TTTS weekly until delivery Thank you for allowing us to participate [...]
--- OUTSIDE RECORDS SUMMARY | 2024-07-09 12:46 | XMS_ITS | Encounter Summary ---
Author Organization [facility] Address [address] [place] [address] Care Team Providers Care Capacity Planning Analyst Name Role Phone Unavailable Primary Care Provider [...] mother Procedures US OB LIMITED + NST RI NON-STRESS TEST CHG US, UTERUS,LIMITED, 1/> FETUSES Tianna Rm MD [address], [place] [address] Referral ID Status Reason Start Date Expiration Date Visits Re quested Visits Authorized [id number] Closed 02/22/2021 03/25/2021 1 1 Reason for [...] mother Procedures US OB LIMITED + NST RI NON-STRESS TEST CHG US, UTERUS,LIMITED, 1/> FETUSES Tianna Rm MD [address], [place] [address] Referral ID Status Reason Start Date Expiration Date Visits Re quested Visits Authorized [id number] Closed 02/22/2021 03/25/2021 1 1 Encounter Details Date Type Department Care Team (Late st Contact Info) Description 03/03/2021 8:45 AM CDT - 03/03/2021 11:59 PM CDT Hospital Encounter [facility] Maternal and Health [facility] [address] [place] [address] Tianna Rm MD [address] [facility] [address] [place] [address] Discharge Disposition: Home or Self [...] Comments US OB LIMITED + NST Routine 03/03/2021 1 0:59 AM CDT Monochorionic diamniotic twin gestation in third trimester Maternal obesity affecting , antepartum Gestational diabetes mellitus (GDM) in third trimester, gestational diabetes method of control unspecified Marginal insertion of umbilical cord affecting management of mother documented in this encounter Results * US OB LIMITED + NST (03/03/2021 10:59 AM CDT) Anatomical Region Laterality Modality Pelvis Ultrasound 03/03/2021 10:1 6 AM CDT Narrative 03/03/2021 11:09 AM CDT MODIFIED [facility] STUDY ----- Pat. Name: MIS BECK Study Date: 03/03/2021 10:16am Pat. NO: [id number] Referring ??MD: DAWNA HAYDEN MD Site: [place] Consumer Relations Specialist: : 1990 Age: 30 ----- INDICATION ----- Twins, Monochorionic-Diamniotic (Mo-Di) Maternal Obesity (bmi greater than 30 but bmi less than 40) History of Gestational Diabetes Abnormal Cord Insertion Diabetes - Gestational (insulin) CODING ----- Diagnoses ? 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 4. Para 2 MATERNAL ASSESSMENT ----- Physical Exam ? Weight 122 kg. Initial weight 102 kg, 225 lb. BMI 46.35 kg/m??. Initial BMI 38.62 kg/m??. Weight gain 20 ?kg, 45 lb. Blood pressure 121/74 mmHg. Heart rate 83 bpm METHOD ----- EFM, Transabdominal ultrasound examination ----- Twin . Number of fetuses: 2. Monochorionic-diamniotic DATING ----- Cycle: regular cycle GA by prior assessment 34 w + 1 d GRACIA by prior assessment: 04/13/2021 Method of dating: Restore dating from previous exam Assigned: Dating performed on 10/28/2020, based on the external assessment Assigned GA 34 w + 1 d Assigned GRACIA: 04/13/2021 Fetus 1: GENERAL EVALUATION ----- Cardiac activity present. Presentation: cephalic left Fetus 2: GENERAL EVALUATION ----- Cardiac activity present. Presentation: cephalic right Fetus 1: NON STRESS TEST ----- NST interpretation: reactive. Test duration 45 min. Baseline FHR 125 bpm. Baseline variability: moderate. Accelerations: Present. Decelerations: absent. Uterine activity: present, 6 contractions in 45 minutes Fetus 2: NON STRESS TEST ----- NST interpretation: reactive. Test duration 45 min. Baseline FHR 130 bpm. Baseline variability: moderate. Accelerations: Present. Decelerations: absent. Uterine activity: present, 6 contractions in 45 minutes Fetus 1: AMNIOTIC FLUID ASSESSMENT ----- Amount of AF: normal amount MVP 3.2 cm Fetus 2: AMNIOTIC FLUID ASSESSMENT ----- Amount of AF: normal amount MVP 4.4 cm COMMENT ----- Nurses Notes: Patient reports + movement x 2 and no bleeding, leaking of fluid or александр. Fasting blood sugar was 98 this morning. Patient scheduled twice weekly. IMPRESSION ----- 1. Monochorionic Diamniotic twin living fetuses with a gestational age of 34w 1d, based on the reported clinical dates. 2. Amniotic fluid volume is normal for gestational age x2. 3. NST reactive and reassuring for gestational age x2. Recommendations: 1. Follow up growth sonograms and testing as scheduled Thank you for allowing us to participate in the care of this patient. Please feel free to contact me with any questions or concerns. Procedure Note Marylu Nogueira MD - 03/03/2021 MODIFIED BP STUDY ----- Pat. Name:Chucho BECK Date:03/03/2021 10:16am Pat. 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 Para 2 MATERNAL ASSESSMENT ----- Physical Exam Weight 122 kg. Initial weight 102 kg, 225 lb. BMI46.35 kg/m??. Initial BMI 38.62 kg/m??. Weight gain 20 kg, 45 lb. Blood pressure 121/74 mmHg. Heart rate83 bpm METHOD ----- EFM, Transabdominal ultrasound examination ----- Twin . Number of fetuses: 2. Monochorionic-diamniotic DATING ----- Cycle:regular cycle GA by prior [id number] w + 1 d GRACIA by prior assessment:04/13/2021 Method of dating:Restore dating from previous exam Assigned:Dating performed on 10/28/2020, based on the externalassessment Assigned GA34 w + 1 d Assigned GRACIA:04/13/2021 Fetus 1: GENERAL EVALUATION ----- Cardiac activity present. Presentation: cephalic left Fetus 2: GENERAL EVALUATION ----- Cardiac activity present. Presentation: cephalic right Fetus 1: NON STRESS TEST ----- NST interpretation: reactive. Test duration 45 min. Baseline FHR 125 bpm.Baseline variability: moderate. Accelerations: Present. Decelerations: absent. Uterine activity: present, 6 contractions in 45minutes Fetus 2: NON STRESS TEST ----- NST interpretation: reactive. Test duration 45 min. Baseline FHR 130 bpm.Baseline variability: moderate. Accelerations: Present. Decelerations: absent. Uterine activity: present, 6 contractions in 45minutes Fetus 1: AMNIOTIC FLUID ASSESSMENT ----- Amount of AF: normal amount MVP 3.2 cm Fetus 2: AMNIOTIC FLUID ASSESSMENT ----- Amount of AF: normal amount MVP 4.4 cm COMMENT ----- Nurses Notes: Patient reports + movement x 2 and no bleeding,leaking of fluid or александр. Fasting blood sugar was 98 this morning. Patient scheduled twice weekly. IMPRESSION ----- 1. Monochorionic Diamniotic twin living fetuses with a gestational age of34w 1d, based on the reported clinical dates. 2. Amniotic fluid volume is normal for gestational age x2. 3. NST reactive and reassuring for gestational age x2. Recommendations: 1. Follow up growth sonograms and testing as scheduled Thank you for allowing us to participate [...]
--- OUTSIDE RECORDS SUMMARY | 2024-07-09 12:46 | XMS_ITS | Encounter Summary ---
Author Organization [facility] Address [address] Attn: Epic Prelude ADT [place] [address] Care Team Providers Care Psychological Assistant Name Role Phone Unavailable Primary Care Provider Unavailabl e Encounter Details Date Type Department Care Team (Latest Contact Info) Description 02/18/2021 Travel Social History Tobacco Use Types Packs/Day [...] have Coronavirus / COVID-19? No / Unsure 02/18/2021 2:15 PM CDT documented as of this encounter Plan of Treatment Not on file documented as of this encounter Visit Diagnoses Not on filedocumented in this encounter
--- OUTSIDE RECORDS SUMMARY | 2024-07-09 12:46 | XMS_ITS | Encounter Summary ---
Author Organization [facility] Address [address] Attn: Epic Prelude ADT [place] [address] Care Team Providers Care Electrical Logging Operator Name Role Phone Unavailable Primary Care Provider Unavailabl e Encounter Details Date Type Department Care Team (Latest Contact Info) Description 02/26/2021 Travel Social History Tobacco Use Types Packs/Day [...] have Coronavirus / COVID-19? No / Unsure 02/26/2021 2:44 PM CDT documented as of this encounter Plan of Treatment Not on file documented as of this encounter Visit Diagnoses Not on filedocumented in this encounter
--- OUTSIDE RECORDS SUMMARY | 2024-07-09 12:46 | XMS_ITS | Clinical Summary ---
Author Organization [facility] Address [address] [place] [address] Phone Care Team Providers Care Linux Programmer Name Role Phone Unavailable Primary Care Provider Unavailabl e Encounters Date Type Department Care Team Description 06/23/2024 8:30 AM DIRECTOR OF CONVENTION SERVICES - 06/23/2024 11:59 PM DIRECTOR OF CONVENTION SERVICES Hospital Encounter [facility] Maternal and Health [facility] [address] [place] [phone] Arnol Multani MD Discharge Disposition: Home or Self Care from Last 3 Months Social History Tobacco Use Types Packs/Day Years Used Date Smoking Tobacco: Never Assessed Sex and Gender Information Value Date Recorded Sex Assigned at Not on file Gender Identity Not on file Sexual Orientation Not on file Plan of Treatment Health Maintenance Due Date Last Done Comments Pre-Diabetes and Diabetes Screening 1989 DTAP/TDAP/TD VACCINES (1 - Tdap) 2008 HEPATITIS B VACCINES (1 of 3 - 19+ 3-dose series) 2008 CERVICAL CANCER SCREENING 2019 INFLUENZA VACCINE (#1) 2024 HPV VACCINES Aged Out No longer eligi ble based on patient's age to complete this topic PNEUMOCOCCAL VACCINE 0-64 YEARS Aged Out No longer eligible based on patient's age to complete this topic Procedures Procedure Name Priority Date/Time Associated Diagnosis Comments US OB FOLLOW UP PER FETUS Routine 06/23/2024 9:04 AM DIRECTOR OF CONVENTION SERVICES Advanced maternal age in multigravida, third trimester Obesity affecting , antepartum, second trimester from Last 3 Months Results * US OB FOLLOW UP PER FETUS (06/23/2024 9:04 AM DIRECTOR OF CONVENTION SERVICES) Anatomical Region Laterality Modality Pelvis Ultrasound 06/23/2024 8:49 AM DIRECTOR OF CONVENTION SERVICES Narrative 06/23/2024 9:09 AM DIRECTOR OF CONVENTION SERVICES ST[facility] FOLLOW UP ----- Pat. Name: MIS BECK Study Date: 06/23/2024 8:49am Pat. NO: [id number] Referring ??MD: IDA PIMENTEL MD Site: [place] Research Fellow: Rae Saini RDMS : 1990 Age: 33 ----- INDICATION ----- Screening Follow-Up Advanced Maternal Age (AMA), Multigravida Maternal Obesity (BMI<40) Complicating CODING ----- Diagnoses ? Z3A.32: Weeks of gestation ?O99.213: Obesity complicating ?O09.523: Supervision of elderly multigravida ?Z36.3: Encounter for screening for malformations ?Z3A.32: Weeks of gestation ?O99.213: Obesity complicating ?O09.523: Supervision of elderly multigravida ?Z36.2: Encounter for other screening follow-up Procedures ?22284: Ultrasound, uterus, real time with image documentation, follow up, transabdominal ?approach per fetus HISTORY ----- OB History ? 5. Para 4 ?[id number] MATERNAL ASSESSMENT ----- Physical Exam ? Initial [...] ? 68% ?Nicolaides Weight Calculation: EFW ? 1,079 ? g ? 31w 0d ?23% ?Hadlock EFW (lb,oz) ? 3 lb 14 ? oz EFW by ?Hadlock ([id number]) Extremities / Bony Struc Biometry: FL / [...] ? 38% ?273.8 ?32% ?59.0 ?11% ? 7,389 ? 23% COMMENT ----- Patient's name and date of were verified by the audio video tech prior to the exam IMPRESSION ----- Viable [...] Pat. Name:Chucho BECK Date:06/23/2024 8:49am Pat. NO: [id number] MD:IDA PIMENTEL MD [facility]Rae [facility]aini RDMS :1990Age:33 ----- INDICATION ----- Screening Follow-Up Advanced Maternal Age (AMA), Multigravida Maternal Obesity (BMI<40) Complicating CODING ----- Diagnoses Z3A.32: Weeks of gestation O99.213: Obesity complicating O09.523: Supervision of elderly multigravida Z36.3: Encounter for screening formalformations Z3A.32: Weeks of gestation O99.213: Obesity complicating O09.523: Supervision of elderly multigravida Z36.2: Encounter for other screeningfollow-up Procedures 44971: Ultrasound, uterus, real time withimage documentation, follow up, transabdominal approach per fetus HISTORY ----- OB History 5. Para 4 [id number] MATERNAL ASSESSMENT ----- Physical Exam Initial weight 104 kg, 230 lb. Initial BMI 39.48kg/m?? METHOD ----- Transabdominal ultrasound examination ----- Riggins . Number of fetuses: 1 DATING ----- GA by prior w + 0 d GRACIA by prior [...] 3 lb 14 oz EFW by Hadlock ([id number]) Extremities / Bony Struc Biometry: FL / [...] and date of were verified by the audio video tech prior tothe exam IMPRESSION ----- Viable at [...] No follow-up ultrasounds recommended at this time Arnol Multani MD US ORDERABLES from Last 3 Months
--- OUTSIDE RECORDS SUMMARY | 2024-07-09 12:46 | XMS_ITS | Encounter Summary ---
Author Organization [facility] Address [address] Attn: Epic Prelude ADT [place] [address] Care Team Providers Care Maintenance And Custodian Supervisor Name Role Phone Unavailable Primary Care Provider Unavailabl e Encounter Details Date Type Department Care Team (Latest Contact Info) Description 01/25/2021 Travel Social History Tobacco Use Types Packs/Day [...] have Coronavirus / COVID-19? No / Unsure 01/25/2021 5:30 PM CDT documented as of this encounter Plan of Treatment Not on file documented as of this encounter Visit Diagnoses Not on filedocumented in this encounter
--- OUTSIDE RECORDS SUMMARY | 2024-07-09 12:47 | XMS_ITS | Encounter Summary ---
Author Organization [facility] Address [address] [facility] Attn: Epic Prelude ADT [place] [address] Care Team Providers Care Cargo Handler Name Role Phone Unavailable Primary Care Provider Unavailabl e Encounter Details Date Type Department Care Team (Latest Contact Info) Description 12/29/2020 Travel Social History Tobacco Use Types Packs/Day [...] have Coronavirus / COVID-19? No / Unsure 12/22/2020 11:17 AM CDT documented as of this encounter Plan of Treatment Not on file documented as of this encounter Visit Diagnoses Not on filedocumented in this encounter
--- OUTSIDE RECORDS SUMMARY | 2024-07-09 12:47 | XMS_ITS | Encounter Summary ---
Author Organization [facility] Address [address] [place] [address] Care Team Providers Care Special Education Preschool Teacher Name Role Phone Unavailable Primary Care Provider Unavailabl e Reason for Referral * Radiology Services (Routine) - Closed Specialty Diagnoses / Procedures Referred By Contac t Referred To Contact Diagnoses Monochorionic diamniotic twin gestation in second trimester Severe obesity (BMI >= 40) Procedures ECHO 2D + COLOR FLOW VELOCITY UT DOPPLER COLOR FLOW VELOCITY MAP CHG SONO HEART CHG SONO HEART DOPPLER Gabrielle Sheppard MD [address] [address] Referral ID Status Reason Start Date Expiration Date V isits Requested Visits Authorized [id number] Closed [facility] CTS 12/29/2020 03/31/2021 1 1 Reason for Visit * Radiology Services (Routine) - Closed Specialty Diagnoses / Procedures Referred By Contac t Referred To Contact Diagnoses Monochorionic diamniotic twin gestation in second trimester Severe obesity (BMI >= 40) Procedures ECHO 2D + COLOR FLOW VELOCITY UT DOPPLER COLOR FLOW VELOCITY MAP CHG SONO HEART CHG SONO HEART DOPPLER Gabrielle Sheppard MD [address] [address] Referral ID Status Reason Start Date Expiration Date V isits Requested Visits Authorized [id number] Closed [facility] CTS 12/29/2020 03/31/2021 1 1 Encounter Details Date Type Department Care Team (Latest Contact Info) Description 12/31/2020 1:30 PM CDT - 12/31/2020 11:59 PM CDT Hospital Encounter [facility] M[facility] and Ground Floor [facility] [place] [address] [place] [address] Gabrielle Sheppard MD [address] [place] [phone] Discharge Disposition: Home or Self Care Social [...] Procedure Name Priority Date/Time Associated Diagnosis Comments ECHO 2D + COLOR FLOW VELOCITY Routine 12/31/2020 3:45 PM CDT Monochorionic diamniotic twin gestation in second trimester Severe obesity (BMI >= 40) documented in this encounter Results * ECHO 2D + COLOR FLOW VELOCITY (12/31/2020 3:45 PM CDT) Narrative 12/31/2020 3:45 PM CDT Order information only. ??Exam was auto-finalized. ?? Gabrielle Sheppard MD AVILA NOBLE documented in this encounter Visit Diagnoses Diagnosis Monochorionic diamniotic twin gestation in second trimester Severe obesity (BMI >= 40) Morbid obesity documented in this encounter
--- OUTSIDE RECORDS SUMMARY | 2024-07-09 12:47 | XMS_ITS | Encounter Summary ---
Author Organization [facility] Address [address] [place] [address] Care Team Providers Care Block Breaker Name Role Phone Unavailable Primary Care Provider [...] Gabrielle Sheppard MD [address] [place] [address], [place] [address] Referral ID Status Reason Start Date Expiration Date V isits Requested Visits Authorized [id number] Closed [facility] CTS 12/24/2020 03/26/2021 1 1 Reason for Visit * Radiology Services (Routine) - Closed Specialty Diagnoses / Procedures Referred By Contac t Referred To Contact Diagnoses Monochorionic diamniotic twin gestation in second trimester Severe obesity (BMI >= 40) Procedures US OB FU+ UMB + MDCERB ART CHG DOPPLER MID CEREBRAL ARTERY CHG US, UTERUS,F/U,TRANSABD JAD CHG DOPPLER UMBILICAL ARTERY Gabrielle Sheppard MD [address] [place] [address], [place] [address] Referral ID Status Reason Start Date Expiration Date V isits Requested Visits Authorized [id number] Closed [facility] CTS 12/24/2020 03/26/2021 1 1 Encounter Details Date Type Department Care Team (Latest Contact Info) Description 12/31/2020 1:15 PM CDT - 12/31/2020 11:59 PM CDT Hospital Encounter [facility] [address] [place] [id number] Gabrielle Sheppard MD [address] [place] [address] [place] [address] Discharge Disposition: Home or Self Care Social [...] OB FU+ UMB + MDCERB ART Routine 12/31/2020 3:43 PM CDT Monochorionic diamniotic twin gestation in second trimester Severe obesity (BMI >= 40) documented in this encounter Results * US OB FU+ UMB + MDCERB ART (12/31/2020 3:43 PM CDT) Anatomical Region Laterality Modality Pelvis Ultrasound 12/31/2020 1:55 PM CDT Impressions 12/31/2020 4:01 PM CDT IMPRESSION ----- Monochorionic diamniotic intrauterine twin . Each fetus has positive cardiac activity. Twin 1: The fetus is in a cephalic presentation?maternal left. The fetus continues to show a large for dates pattern of growth with an overall mean estimated weight at the 98th percentile for the assigned gestational age and an abdominal circumference at the 99th percentile. The anatomic survey is limited by lie, position, and acoustic shadowing. No new findings are identified within the limitations of today's sonogram. The amniotic fluid volume appears normal for gestational age with a maximum vertical pocket of 3.2 cm. The patient underwent a echocardiogram due to monochorionic twins. The echocardiogram is unremarkable for gestational age. Color flow mapping. power Doppler, and M-mode were completed. A echocardiogram at this gestational age does have limitations. These limitations include but are not limited to: an inability to identify small intracardiac ventricular septal defects; atrial septal defects; abnormalities of the aorta and pulmonary artery, and total anomalous pulmonary return. Twin 2: The fetus is in a cephalic presentation?maternal right?presenting. The fetus continues to show a large for dates pattern of growth with an overall mean estimated weight at the 96 percentile for the assigned gestational age and an abdominal circumference at the 94th. The anatomic survey is limited by lie, position, and acoustic shadowing. No new findings are identified within the limitations of today's sonogram. The amniotic fluid volume is within normal range with a maximum vertical pocket of 3.2 cm. The patient underwent a echocardiogram due to IVF . The echocardiogram is unremarkable for gestational age. Color flow mapping. power Doppler, and M-mode were completed. A echocardiogram at this gestational age does have limitations. These limitations include but are not limited to: an inability to identify small intracardiac ventricular septal defects; atrial septal defects; abnormalities of the aorta and pulmonary artery, and total anomalous pulmonary return. The intertwin growth discordance is approximately 3.9%. There is no sonographic signs for twin to twin transfusion syndrome or twin anemia polycythemia syndrome. Discussion: The sonographic findings were reviewed with the patient. The patient reports that she has a history of gestational diabetes and will be undergoing a 1 hour glucose challenge test. Recommendations: 1. Continue surveillance approximately every 2 weeks. 2. Consider growth assessments approximately every 4 weeks. Narrative 12/31/2020 4:01 PM CDT STL FOLLOW UP ----- Pat. Name: MIS BECK Study Date: 12/31/2020 1:55pm Pat. NO: [id number] Referring ??MD: DAWNA HAYDEN MD Site: [facility] [employer] Tender: Charisse Knight : 1990 Age: 30 ----- INDICATION ----- Twins, Monochorionic-Diamniotic (Mo-Di) Maternal Obesity (bmi greater than 30 but bmi less than 40) History of Gestational Diabetes CODING ----- Diagnoses ? O30.032: Twins, Monochorionic-Diamniotic (Mo-Di) ?O99.212: Obesity complicating ?E66.8: Other obesity ?Z86.32: History of Gestational Diabetes ?Z3A.25: Weeks Gestation of Procedures ?85235: OB follow-up/Target per fetus ?11862: OB follow-up/Target per fetus ?78256: 2D ?27243: 2D ?63407: Doppler Color Flow Mapping ?07911: Doppler Color Flow Mapping ?86836: Pulse Doppler Complete - DUCTUS/TEI/RI interval ?71845: Pulse Doppler Complete - DUCTUS/TEI/RI interval ?21053: Umbilical Artery Doppler ?35527: Umbilical Artery Doppler ?44798: Mid Cerebral Artery Doppler ?28230: Mid Cerebral Artery Doppler HISTORY ----- OB History ? 4. Para 2 MATERNAL ASSESSMENT ----- Physical Exam ? Weight 113 kg. Initial weight 102 kg, 225 lb. BMI 42.91 kg/m?. Initial BMI 38.62 kg/m?. Weight gain 11 ?kg, 25 lb METHOD ----- Transabdominal ultrasound examination ----- Twin . Number of fetuses: 2. Monochorionic-diamniotic DATING ----- Cycle: regular cycle GA by prior assessment 25 w + 2 d GRACIA by prior assessment: 04/13/2021 Ultrasound examination on: 12/31/2020 GA by U/S based upon: AC, BPD, EFW, Femur, HC GA by U/S 26 w + 5 d GRACIA by U/S: 04/03/2021 GA by U/S based upon (Fetus 2): AC, BPD, EFW, Femur, HC GA by U/S (Fetus 2) 26 w + 6 d GRACIA by U/S (Fetus 2): 04/02/2021 Method of dating: Restore dating from previous exam Assigned: Dating performed on 10/28/2020, based on the external assessment Assigned GA 25 w + 2 d Assigned GRACIA: 04/13/2021 Fetus 1: BIOMETRY ----- BPD ?63.2 ? mm ?25w 4d ?53% ?Hadlock OFD ?90.7 ? mm ?29w 2d ?>99% ?Gail HC ? 247.4 ?mm ?26w 6d ?81% ?Hadlock AC ? 240.5 ?mm ?28w 2d ?99% ?Hadlock Femur ?48.3 ? mm ?26w 1d ?65% ?Hadlock HC / AC ?1.03 ? 7% ?Nicolaides Weight Calculation: EFW ? 1,053 ? g ? 27w 0d ?98% ?Hadlock EFW (lb,oz) ? 2 lb 5 ?oz EFW by ? Hadlock (SUO-AL-GA-FL) EFW discordance ?3.9 ? % Head / Face / Neck Biometry: Cephalic index ?0.70 ?<1% ?Nicolaides Thorax / Lungs Biometry: Thoracic circ ?191.9 ?mm ? 80% ?Less[place]ay ThC / AC ? 0.80 Heart / Great Vessels Biometry: Cardiac axis ? 35 ? Cardiac circ ? 101.0 ? mm CC / ThC ? 0.53 PA main ? 5.3 ?mm Ductus art. ? 2.8 ?mm ?9% ?Milan Rt PA branch ?2.6 ?mm Lt PA branch ?2.6 ?mm Ao asc ?4.3 ?mm Ao isthmus ?3.3 ?mm Ao desc ? 3.7 ?mm PA main / Ao asc ?1.23 McGoon Index mod. ? 1.4 Ao isthmus / Ductus art. ?1.18 Extremities / Bony Struc Biometry: FL / BPD ?0.76 FL / HC ? 0.20 FL / AC ? 0.20 Fetus 2: BIOMETRY ----- BPD ?67.9 ? mm ?27w 2d ?95% ?Hadlock OFD ?87.5 ? mm ?28w 1d ?>99% ?Gail HC ? 246.5 ?mm ?26w 5d ?79% ?Hadlock AC ? 231.2 ?mm ?27w 3d ?94% ?Hadlock Femur ?48.6 ? mm ?26w 2d ?69% ?Hadlock HC / AC ?1.07 ? 19% ?Nicolaides Weight Calculation: EFW ? 1,012 ? g ? 26w 5d ?96% ?Hadlock EFW (lb,oz) ? 2 lb 4 ?oz EFW by ? Hadlock (AIE-DH-QC-FL) EFW discordance ?3.9 ? % Head / Face / Neck Biometry: Cephalic index ?0.78 ?39% ?Nicolaides Outer IOD ? 40.8 ?mm ? 25w 5d ?30% ?Gail Thorax / Lungs Biometry: Thoracic circ ?198.8 ?mm ? 92% ?[place] ThC / AC ? 0.86 Heart / Great Vessels Biometry: Cardiac axis ? 38 ? Cardiac circ ? 106.3 ? mm CC / ThC ? 0.53 PA main ?7.0 ?mm Rt PA branch ? 2.7 ?mm Lt PA branch ? 2.0 ?mm Ao asc ? 5.0 ?mm Ao isthmus ? 3.2 ?mm Ao desc ?3.4 ?mm PA main / Ao asc ?1.40 McGoon Index mod. ? 1.4 Extremities / Bony Struc Biometry: FL / BPD ?0.72 FL / HC ? 0.20 FL / AC ? 0.21 Fetus 1: GENERAL EVALUATION ----- Cardiac activity present. FHR 138 bpm. movements: present. Presentation: cephalic left Placenta: Placental site: anterior Umbilical cord: Cord vessels: 3 vessel cord Amniotic fluid: Amount of AF: normal amount. MVP 3.2 cm Fetus 2: GENERAL EVALUATION ----- Cardiac activity present. FHR 155 bpm. movements: present. Presentation: cephalic right, PRESENTING Placenta: Placental site: anterior Umbilical cord: Cord vessels: 3 vessel cord Amniotic fluid: Amount of AF: normal amount. MVP 3.2 cm Fetus 1: ECHOCARDIOGRAM ----- Situs ? situs solitus (normal) Cardiac position ?levocardia (normal) Cardiac axis ?normal Cardiac size ?normal (approx. 1/3 of thoracic area) Cardiac rhythm ?regular (normal) 4-chamber view ?normal LVOT view ? normal RVOT view ? normal 3-vessel view ? normal 5-elmbpn-qkicvvn view ? normal High short axis view ?normal Low short axis view ? normal Aortic arch view ?suboptimal Ductal arch view ?normal Bicaval view ?normal Venous-atrial connections ? normal size and morphology AV connections ?normal alignment VA connections ?normal size and morphology IVC ? Normal SVC ? Normal Pulmonary veins ? normal size and morphology Right atrium ?Normal Left atrium ? Normal Atrial septum ? normal size and morphology Foramen ovale ? normal (in the central third/half, flap valve in left atrium) Right ventricle ? Normal Left ventricle ?Normal Ventricular septum ?normal size and morphology Tricuspid valve ? normal size and morphology Mitral valve ?normal size and morphology Pulmonary valve ? normal size and morphology Aortic valve ?normal size and morphology Cross-over gr. arteries ? anterior great artery (confirmed to be the pulmonary artery by its branching) which ?crosses the course of the proximal aorta, indicative of normal relationship of the ?great arteries Main PA ? the main pulmonary artery can be seen bifurcating into the arterial duct and the ?right pulmonary artery Pulmonary arteries ?Normal Ascending aorta ? normal size and morphology Ductal arch ? Normal Aortic arch ? Normal Brachioceph. arteries ? normal size and morphology Descending aorta ?normal size and morphology Ductus venosus ?Normal Echogenic focus ? no Linear insertion of AV valves ? no Pericardial effusion ?no Cardiac Biometry: RA width diast ? 9.8 ?mm RV width diast ? 10.5 ? mm ?46% ?Milan RV wall diast ?2.1 ?mm ?16% ?Milan LA width diast ? 9.4 ?mm LV width diast ? 10.0 ? mm ?36% ?Milan LV wall diast ?2.5 ?mm ?58% ?Milan IV Septum diast ? 2.7 ? mm ?73% ?Milan RVOT diam ?4.6 ? mm RVOT area ?17.0 ?mm? LVOT diam ?3.8 ? mm LVOT area ?11.0 ?mm? TV annulus diast ? 8.4 ?mm MV annulus diast ? 9.5 ?mm MV annulus diast / TV annulus diast ? 1.13 Heart Z-Scores: ? Z- FL ? Z- BPD ?Z- GA ?Z- EFW ? Zscore by RV width diast ? 10.5 ?mm ?0.13 ?0.63 ?0.70 ? Bravo LV width diast ? 10.0 ?mm ?0.08 ?0.58 ?0.64 ? Bravo TV annulus ? 8.4 ? mm ?-0.03 ? 0.51 ?0.61 ? Bravo diast MV annulus ? 9.5 ? mm ?1.37 ?1.83 ?1.85 ? Bravo diast PA main ?5.3 ? mm ?-0.33 ? 0.21 ?0.25 ? Bravo Ductus art. ?2.8 ? mm ?-1.00 ? - 0.48 ? -0.55 ? Bravo Rt PA branch ? 2.6 ? mm ?-0.52 ? - 0.08 ? -0.07 ? Bravo Lt PA branch ? 2.6 ? mm ?-0.07 ? 0.39 ?0.34 ? Bravo Ao asc ? 4.3 ? mm ?-0.94 ? - 0.33 ? -0.24 ? Bravo Ao isthmus ? 3.3 ? mm ?0.69 ?0.76 ?0.83 ? 0.43 ? Shaun Ao desc ?3.7 ? mm ?-0.89 ? - 0.20 ? -0.18 ? Bravo Cardiac Doppler: Tricuspid Valve: E-wave ?34.06 ?cm/s ? 23% ?Hecher A-wave ?46.83 ?cm/s ? 10% ?Hecher E / A ? 0.73 ?77% ?Hecher Mitral Valve: E-wave ?35.58 ?cm/s ? 62% ?Hecher A-wave ?51.70 ?cm/s ? 48% ?Hecher E / A ? 0.69 ?73% ?Hecher Pulmonary Valve: Vmax ?-46.83 ?cm/s Aortic Valve: Vmax ? 57.59 ? cm/s ? 25% ?Kim Fetus 2: ECHOCARDIOGRAM ----- Situs ? situs solitus (normal) Cardiac position ?levocardia (normal) Cardiac axis ?normal Cardiac size ?normal (approx. 1/3 of thoracic area) Cardiac rhythm ?regular (normal) 4-chamber view ?normal LVOT view ? normal RVOT view ? normal 3-vessel view ? normal 1-xvxnhs-lntjeuq view ? normal High short axis view ?normal Low short axis view ? normal Aortic arch view ?normal Ductal arch view ?normal Bicaval view ?normal Venous-atrial connections ? normal size and morphology AV connections ?normal alignment VA connections ?normal size and morphology IVC ? Normal SVC ? Normal Pulmonary veins ? normal size and morphology Right atrium ?Normal Left atrium ? Normal Atrial septum ? normal size and morphology Foramen ovale ? normal (in the central third/half, flap valve in left atrium) Right ventricle ? Normal Left ventricle ?Normal Ventricular septum ?normal size and morphology Tricuspid valve ? normal size and morphology Mitral valve ?normal size and morphology Pulmonary valve ? normal size and morphology Aortic valve ?normal size and morphology Cross-over gr. arteries ? anterior great artery (confirmed to be the pulmonary artery by its branching) which ?crosses the course of the proximal aorta, indicative of normal relationship of the ?great arteries Main PA ? the main pulmonary artery can be seen bifurcating into the arterial duct and the ?right pulmonary artery Pulmonary arteries ?Normal Ascending aorta ? normal size and morphology Ductal arch ? Normal Aortic arch ? Normal Brachioceph. arteries ? normal size and morphology Descending aorta ?normal size and morphology Ductus venosus ?Normal Echogenic focus ? no Linear insertion of AV valves ? no Pericardial effusion ?no Cardiac Biometry: RA width syst ?9.8 ? mm ? 29% ?Milan RV width syst ?8.4 ? mm RV wall syst ? 2.1 ? mm LA width syst ?8.2 ? mm ? 10% ?Milan LV width syst ?8.6 ? mm LV wall syst ? 1.9 ? mm IV Septum syst ? 1.7 ? mm RVOT diam ?4.4 ? mm RVOT area ?15.0 ?mm? LVOT diam ?3.2 ? mm LVOT area ?8.0 ? mm? PV annulus syst ?3.8 ?mm AoV annulus syst ? 3.9 ?mm AoV annulus syst / PV annulus syst ?1.03 Heart Z-Scores: ?Z- FL ?Z- BPD ? Z- GA ?Z- EFW ? Zscore by PV annulus syst ?3.8 ?mm ?-2.81 ?-2.66 ?-1.83 ? Bravo AoV annulus ?3.9 ?mm ?-0.78 ?-0.64 ?-0.02 ? Bravo syst PA main ?7.0 ?mm ?1.33 ? 1.55 ? 2.02 ? Bravo Rt PA branch ? 2.7 ?mm ?-0.33 ?-0.27 ?0.14 ? Bravo Lt PA branch ? 2.0 ?mm ?-1.46 ?-1.30 ?-1.00 ? Bravo Ao asc ? 5.0 ?mm ?0.24 ? 0.28 ? 0.90 ? Bravo Ao isthmus ? 3.2 ?mm ?0.36 ? -0.11 ?0.54 ? 0.26 ? Shaun Ao desc ?3.4 ?mm ?-1.63 ?- 1.42 ?-0.88 ? Bravo Cardiac Doppler: Tricuspid Valve: E-wave ?39.85 ?cm/s ? 57% ?Hecher A-wave ?55.34 ?cm/s ? 40% ?Hecher E / A ? 0.72 ?74% ?Hecher Mitral Valve: E-wave ?38.13 ?cm/s ? 78% ?Hecher A-wave ?51.90 ?cm/s ? 49% ?Hecher E / A ? 0.73 ?87% ?[facility] Pulmonary Valve: Vmax ? 70.48 ? cm/s ? 79% ?Kim Aortic Valve: Vmax ? 83.75 ? cm/s ? 82% ?Kim Fetus 1: DOPPLER ----- Umbilical Artery: normal. Sampling site: midcord PI ? 1.16 ?64% ?Lorenzo RI ? 0.73 ?73% ?Lorenzo PS ? 41.59 ?cm/s ? 55% ?[place] ED ? 11.19 ?cm/s TAmax ?-27.29 ? cm/s MD ? -12.56 ? cm/s S / D ?3.72 ?67% ?Lorenzo HR ? 142 ?bpm Mid Cerebral Artery: PI ?1.22 ?1% ?Bahlmann RI ?0.69 ?12% ?Rajni PS ?29.64 ? cm/s PS ?0.91 ?MoM ED ?9.18 ?cm/s S / D ? 3.23 CPR PI ?1.05 ?1% ?[place] Right Mid Cerebral Artery: PS ? 41.59 ?cm/s Ductus Arteriosus: PS ? 67.52 ?cm/s Fetus 2: DOPPLER ----- Umbilical Artery: normal. Sampling site: midcord PI ? 1.02 ?35% ?Lorenzo RI ? 0.69 ?52% ?Lorenzo PS ? 37.38 ?cm/s ? 27% ?[place] ED ? 11.63 ?cm/s TAmax ?25.14 ?cm/s ? 42% ?[place] S / D ?3.21 ?43% ?Lorenzo HR ? 149 ?bpm Mid Cerebral Artery: PS ? 34.06 ?cm/s PS ? 1.05 ? MoM Right Mid Cerebral Artery: PI ? 1.16 ? <1% ?Bahlmann RI ? 0.69 ? 11% ?Bahlmann PS ? 34.06 ? cm/s ED ? 9.06 ?cm/s TAmax ?17.06 ? cm/s MD ? 8.87 ?cm/s S / D ?3.19 HR ? 136 ? bpm Ductus Arteriosus: PS ? 60.80 ?cm/s Fetus 1: ANATOMY ----- The following structures appear normal: Head / Neck ? Cranium. Midline falx. Cavum septi pellucidi. Face ?Lips. Nose. Heart / Thorax ?4-chamber view. RVOT view. LVOT view. 3-vessel view. 4-ucyeba-achqdbv view. ?Diaphragm. Abdomen ? Stomach. Kidneys. Bladder. Spine ? Cervical spine. Thoracic spine. Lumbar spine. Sacral spine. The following structures could not be adequately visualized: Extremities / ? Hands. Skeleton sex: male. Fetus 2: ANATOMY ----- The following structures appear normal: Head / Neck ? Cranium. Midline falx. Cavum septi pellucidi. Face ?Lips. Nose. Palate. Orbits. Heart / Thorax ?4-chamber view. RVOT view. LVOT view. 3-vessel view. 3-mvyvgg-odrvxuz view. ?Diaphragm. Abdomen ? Stomach. Kidneys. Bladder. The following structures could not be adequately visualized: Extremities / ? Hands. Skeleton sex: male. COMMENT ----- Patient's name and date of were verified by the fill plant operator prior to the exam FOLLOW-UP ----- see above Procedure Note Ileana Lopes MD - 12/31/2020 [facility] FOLLOW UP ----- Pat. Name:Chucho BECK Date:12/31/2020 1:55pm Pat. NO: [id number] MD:DAWNA HAYDEN MD Site:[facility]:Charisse Knight :1990Age:30 ----- INDICATION ----- Twins, Monochorionic-Diamniotic (Mo-Di) Maternal Obesity (bmi greater than 30 but bmi less than 40) History of Gestational Diabetes CODING ----- Diagnoses O30.032: Twins, Monochorionic-Diamniotic (Mo-Di) O99.212: Obesity complicating E66.8: Other obesity Z86.32: History of Gestational Diabetes Z3A.25: Weeks Gestation of Procedures 98830: OB follow-up/Target per fetus 59187: OB follow-up/Target per fetus 88769: 2D 38225: 2D 12167: Doppler Color Flow Mapping 73219: Doppler Color Flow Mapping 88439: Pulse Doppler Complete - DUCTUS/TEI/PRinterval 26206: Pulse Doppler Complete - DUCTUS/TEI/PRinterval 72048: Umbilical Artery Doppler 41564: Umbilical Artery Doppler 53132: Mid Cerebral Artery Doppler 87915: Mid Cerebral Artery Doppler HISTORY ----- OB History 4. Para 2 MATERNAL ASSESSMENT ----- Physical Exam Weight 113 kg. Initial weight 102 kg, 225 lb. BMI42.91 kg/m?. Initial BMI 38.62 kg/m?. Weight gain 11 kg, 25 lb METHOD ----- Transabdominal ultrasound examination ----- Twin . Number of fetuses: 2. Monochorionic-diamniotic DATING ----- Cycle:regular cycle GA by prior [id number] w + 2 d GRACIA by prior assessment:04/13/2021 Ultrasound examination on:12/31/2020 GA by U/S based upon:AC, BPD, EFW, Femur, HC GA by U/S26 w + 5 d GRACIA by U/S:04/03/2021 GA by U/S based upon (Fetus 2):AC, BPD, EFW, Femur, HC GA by U/S (Fetus 2)26 w + 6 d GRACIA by U/S (Fetus 2):04/02/2021 Method of dating:Restore dating from previous exam Assigned:Dating performed on 10/28/2020, based on the externalassessment Assigned GA25 w + 2 d Assigned GRACIA:04/13/2021 Fetus 1: BIOMETRY ----- BPD 63.2 mm 25w 4d 53%Hadlock OFD 90.7 mm 29w 2d >99%Gail HC 247.4 mm 26w 6d 81%Hadlock AC 240.5 mm 28w 2d 99%Hadlock Femur 48.3 mm 26w 1d 65%Hadlock HC / AC 1.03 7%Nicolaides Weight Calculation: EFW 1,053 g 27w 0d98% Hadlock EFW (lb,oz) 2 lb 5 oz EFW by Hadlock (PCO-LM-TD-FL) EFW discordance 3.9 % Head / Face / Neck Biometry: Cephalic index 0.70 <1%Nicolaides Thorax / Lungs Biometry: Thoracic circ 191.9 mm 80%[place]ay ThC / AC 0.80 Heart / Great Vessels Biometry: Cardiac axis 35? Cardiac circ 101.0mm CC / ThC 0.53 PA main 5.3 mm Ductus art. 2.8 mm9% Milan Rt PA branch 2.6 mm Lt PA branch 2.6 mm Ao asc 4.3 mm Ao isthmus 3.3 mm Ao desc 3.7 mm PA main / Ao asc 1.23 McGoon Index mod. 1.4 Ao isthmus / Ductus art. 1.18 Extremities / Bony Struc Biometry: FL / BPD 0.76 FL / HC 0.20 FL / AC 0.20 Fetus 2: BIOMETRY ----- BPD 67.9 mm 27w 2d 95%Hadlock OFD 87.5 mm 28w 1d >99%Gail HC 246.5 mm 26w 5d 79%Hadlock AC 231.2 mm 27w 3d 94%Hadlock Femur 48.6 mm 26w 2d 69%Hadlock HC / AC 1.07 19%Nicolaides Weight Calculation: EFW 1,012 g 26w 5d96% Hadlock EFW (lb,oz) 2 lb 4 oz EFW by Hadlock (LEC-WI-EL-FL) EFW discordance 3.9 % Head / Face / Neck Biometry: Cephalic index 0.78 39%Nicolaides Outer IOD 40.8 mm 25w 5d 30%Gail Thorax / Lungs Biometry: Thoracic circ 198.8 mm 92%[place] ThC / AC 0.86 Heart / Great Vessels Biometry: Cardiac axis 38? Cardiac circ 106.3mm CC / ThC 0.53 PA main 7.0mm Rt PA branch 2.7mm Lt PA branch 2.0mm Ao asc 5.0mm Ao isthmus 3.2mm Ao desc 3.4mm PA main / Ao asc 1.40 McGoon Index mod. 1.4 Extremities / Bony Struc Biometry: FL / BPD 0.72 FL / HC 0.20 FL / AC 0.21 Fetus 1: GENERAL EVALUATION ----- Cardiac activity present. FHR 138 bpm. movements: present.Presentation: cephalic left Placenta: Placental site: anterior Umbilical cord: Cord vessels: 3 vessel cord Amniotic fluid: Amount of AF: normal amount. MVP 3.2 cm Fetus 2: GENERAL EVALUATION ----- Cardiac activity present. FHR 155 bpm. movements: present.Presentation: cephalic right, PRESENTING Placenta: Placental site: anterior Umbilical cord: Cord vessels: 3 vessel cord Amniotic fluid: Amount of AF: normal amount. MVP 3.2 cm Fetus 1: ECHOCARDIOGRAM ----- Situs situs solitus (normal) Cardiac position levocardia (normal) Cardiac axis normal Cardiac size normal (approx. 1/3 ofthoracic area) Cardiac rhythm regular (normal) 4-chamber view normal LVOT view normal RVOT view normal 3-vessel view normal 6-gjvier-iosruch view normal High short axis view normal Low short axis view normal Aortic arch view suboptimal Ductal arch view normal Bicaval view normal Venous-atrial connections normal size and morphology AV connections normal alignment VA connections normal size and morphology IVC Normal SVC Normal Pulmonary veins normal size and morphology Right atrium Normal Left atrium Normal Atrial septum normal size and morphology Foramen ovale normal (in the centralthird/half, flap valve in left atrium) Right ventricle Normal Left ventricle Normal Ventricular septum normal size and morphology Tricuspid valve normal size and morphology Mitral valve normal size and morphology Pulmonary valve normal size and morphology Aortic valve normal size and morphology Cross-over gr. arteries anterior great artery(confirmed to be the pulmonary artery by its branching) which crosses the course of theproximal aorta, indicative of normal relationship of the great arteries Main PA the main pulmonary artery canbe seen bifurcating into the arterial duct and the right pulmonary artery Pulmonary arteries Normal Ascending aorta normal size and morphology Ductal arch Normal Aortic arch Normal Brachioceph. arteries normal size and morphology Descending aorta normal size and morphology Ductus venosus Normal Echogenic focus no Linear insertion of AV valves no Pericardial effusion no Cardiac Biometry: RA width diast 9.8 mm RV width diast 10.5 mm46% Milan RV wall diast 2.1 mm16% Milan LA width diast 9.4 mm LV width diast 10.0 mm36% Mlian LV wall diast 2.5 mm58% Milan IV Septum diast 2.7 mm73% Milan RVOT diam 4.6mm RVOT area 17.0mm? LVOT diam 3.8mm LVOT area 11.0mm? TV annulus diast 8.4mm MV annulus diast 9.5mm MV annulus diast / TV annulus diast 1.13 Heart Z-Scores: Z- FL Z- BPDZ- GA Z- EFW Zscore by RV width diast 10.5 mm 0.13 0.630.70 Bravo LV width diast 10.0 mm 0.08 0.580.64 Bravo TV annulus 8.4 mm -0.03 0.510.61 Bravo diast MV annulus 9.5 mm 1.37 1.831.85 Bravo diast PA main 5.3 mm -0.33 0.210.25 Bravo Ductus art. 2.8 mm -1.00 -0.48-0.55 Bravo Rt PA branch 2.6 mm -0.52 -0.08-0.07 Bravo Lt PA branch 2.6 mm -0.07 0.390.34 Lawrence Ao asc 4.3 mm -0.94 -0.33-0.24 Lawrence Ao isthmus 3.3 mm 0.69 0.760.83 0.43 Shaun Ao desc 3.7 mm -0.89 -0.20-0.18 Bravo Cardiac Doppler: Tricuspid Valve: E-wave 34.06 cm/s23% Hecher A-wave 46.83 cm/s10% Hecher E / A 0.7377% Hecher Mitral Valve: E-wave 35.58 cm/s62% Hecher A-wave 51.70 cm/s48% Hecher E / A 0.6973% Hecher Pulmonary Valve: Vmax -46.83 cm/s Aortic Valve: Vmax 57.59 cm/s25% Kim Fetus 2: ECHOCARDIOGRAM ----- Situs situs solitus (normal) Cardiac position levocardia (normal) Cardiac axis normal Cardiac size normal (approx. 1/3 ofthoracic area) Cardiac rhythm regular (normal) 4-chamber view normal LVOT view normal RVOT view normal 3-vessel view normal 0-gsribq-qgxplki view normal High short axis view normal Low short axis view normal Aortic arch view normal Ductal arch view normal Bicaval view normal Venous-atrial connections normal size and morphology AV connections normal alignment VA connections normal size and morphology IVC Normal SVC Normal Pulmonary veins normal size and morphology Right atrium Normal Left atrium Normal Atrial septum normal size and morphology Foramen ovale normal (in the centralthird/half, flap valve in left atrium) Right ventricle Normal Left ventricle Normal Ventricular septum normal size and morphology Tricuspid valve normal size and morphology Mitral valve normal size and morphology Pulmonary valve normal size and morphology Aortic valve normal size and morphology Cross-over gr. arteries anterior great artery(confirmed to be the pulmonary artery by its branching) which crosses the course of theproximal aorta, indicative of normal relationship of the great arteries Main PA the main pulmonary artery canbe seen bifurcating into the arterial duct and the right pulmonary artery Pulmonary arteries Normal Ascending aorta normal size and morphology Ductal arch Normal Aortic arch Normal Brachioceph. arteries normal size and morphology Descending aorta normal size and morphology Ductus venosus Normal Echogenic focus no Linear insertion of AV valves no Pericardial effusion no Cardiac Biometry: RA width syst 9.8 mm 29%Milan RV width syst 8.4 mm RV wall syst 2.1 mm LA width syst 8.2 mm 10%Milan LV width syst 8.6 mm LV wall syst 1.9 mm IV Septum syst 1.7mm RVOT diam 4.4mm RVOT area 15.0mm? LVOT diam 3.2mm LVOT area 8.0mm? PV annulus syst 3.8mm AoV annulus syst 3.9mm AoV annulus syst / PV annulus syst 1.03 Heart Z-Scores: Z- FL Z- BPD Z-GA Z- EFW Zscore by PV annulus syst 3.8 mm -2.81 -2.66-1.83 Lawrence AoV annulus 3.9 mm -0.78 -0.64-0.02 Bravo syst PA main 7.0 mm 1.33 1.552.02 Lawrence Rt PA branch 2.7 mm -0.33 -0.270.14 Lawrence Lt PA branch 2.0 mm -1.46 -1.30-1.00 Lawrence Ao asc 5.0 mm 0.24 0.280.90 Lawrence Ao isthmus 3.2 mm 0.36 -0.110.54 0.26 Shaun Ao desc 3.4 mm -1.63 -1.42-0.88 Bravo Cardiac Doppler: Tricuspid Valve: E-wave 39.85 cm/s57% Hecher A-wave 55.34 cm/s40% Hecher E / A 0.7274% Hecher Mitral Valve: E-wave 38.13 cm/s78% Hecher A-wave 51.90 cm/s49% Hecher E / A 0.7387% Hecher Pulmonary Valve: Vmax 70.48 cm/s79% Kim Aortic Valve: Vmax 83.75 cm/s82% Kim Fetus 1: DOPPLER ----- Umbilical Artery: normal. Sampling site: midcord PI 1.1664% Lorenzo RI 0.7373% Lorenzo PS 41.59 cm/s55% Ebbing ED 11.19 cm/s TAmax -27.29 cm/s MD -12.56 cm/s S / D 3.7267% Lorenzo HR 142 bpm Mid Cerebral Artery: PI 1.22 1%Bahlmann RI 0.69 12%Bahlmann PS 29.64 cm/s PS 0.91 MoM ED 9.18 cm/s S / D 3.23 CPR PI 1.05 1%Ebbing Right Mid Cerebral Artery: PS 41.59 cm/s Ductus Arteriosus: PS 67.52cm/s Fetus 2: DOPPLER ----- Umbilical Artery: normal. Sampling site: midcord PI 1.02 35%Lorenzo RI 0.69 52%Lorenzo PS 37.38 cm/s 27%Ebbing ED 11.63 cm/s TAmax 25.14 cm/s 42%Ebbing S / D 3.21 43%Lorenzo HR 149 bpm Mid Cerebral Artery: PS 34.06 cm/s PS 1.05 MoM Right Mid Cerebral Artery: PI 1.16 <1%Bahlmann RI 0.69 11%Bahlmann PS 34.06 cm/s ED 9.06 cm/s TAmax 17.06 cm/s MD 8.87 cm/s S / D 3.19 HR 136 bpm Ductus Arteriosus: PS 60.80cm/s Fetus 1: ANATOMY ----- The following structures appear normal: Head / Neck Cranium. Midline falx. Cavum septi pellucidi. Face Lips. Nose. Heart / Thorax 4-chamber view. RVOT view. LVOT view. 3-vesselview. 6-aghsgq-rfbbytx view. Diaphragm. Abdomen Stomach. Kidneys. Bladder. Spine Cervical spine. Thoracic spine. Lumbar spine.Sacral spine. The following structures could not be adequately visualized: Extremities / Hands. Skeleton sex: male. Fetus 2: ANATOMY ----- The following structures appear normal: Head / Neck Cranium. Midline falx. Cavum septi pellucidi. Face Lips. Nose. Palate. Orbits. Heart / Thorax 4-chamber view. RVOT view. LVOT view. 3-vesselview. 4-yxdwnb-pyebtlm view. Diaphragm. Abdomen Stomach. Kidneys. Bladder. The following structures could not be adequately visualized: Extremities / Hands. Skeleton sex: male. COMMENT ----- Patient's name and date of were verified by the fill plant operator prior tothe exam FOLLOW-UP ----- see above IMPRESSION ----- Monochorionic diamniotic intrauterine twin . Each fetus haspositive cardiac activity. Twin 1: The fetus is in a cephalic presentation?maternal left. The fetus continues to show a large for dates pattern of growth with anoverall mean estimated weight at the 98th percentile for the assigned gestational age and an abdominal circumferenceat the 99th percentile. The anatomic survey is limited by lie, position, andacoustic shadowing. No new findings are identified within the limitations of today's sonogram. The amniotic fluid volume appears normal for gestational age with amaximum vertical pocket of 3.2 cm. The patient underwent a echocardiogram due to monochorionic twins. The echocardiogram is unremarkable for gestational age. Color flowmapping. power Doppler, and M-mode were completed. A echocardiogram at this gestational age does have limitations.These limitations include but are not limited to: an inability to identify small intracardiac ventricular septal defects;atrial septal defects; abnormalities of the aorta and pulmonary artery, and total anomalous pulmonary return. Twin 2: The fetus is in a cephalic presentation?maternal right?presenting. The fetus continues to show a large for dates pattern of growth with anoverall mean estimated weight at the 96 percentile for the assigned gestational age and an abdominal circumference at [id number]. The anatomic survey is limited by lie, position, andacoustic shadowing. No new findings are identified within the limitations of today's sonogram. The amniotic fluid volume is within normal range with a maximum verticalpocket of 3.2 cm. The patient underwent a echocardiogram due to IVF . The echocardiogram is unremarkable for gestational age. Color flowmapping. power Doppler, and M-mode were completed. A echocardiogram at this gestational age does have limitations.These limitations include but are not limited to: an inability to identify small intracardiac ventricular septal defects;atrial septal defects; abnormalities of the aorta and pulmonary artery, and total anomalous pulmonary return. The intertwin growth discordance is approximately 3.9%. There is no sonographic signs for twin to twin transfusion syndrome ortwin anemia polycythemia syndrome. Discussion: The sonographic findings were reviewed with the patient. The patient reports that she has a history of gestational diabetes andwill be undergoing a 1 hour glucose challenge test. Recommendations: 1. Continue surveillance approximately every 2 weeks. 2. Consider growth assessments approximately every 4 weeks. Gabrielle Sheppard MD CHRISTOPHERA BLES documented in this encounter Visit Diagnoses Diagnosis Monochorionic diamniotic twin gestation in second trimester Severe obesity (BMI >= 40) Morbid obesity documented in this encounter
--- OUTSIDE RECORDS SUMMARY | 2024-07-09 12:49 | XMS_ITS | Encounter Summary ---
Author Organization [facility] Address [address] Attn: Epic Prelude ADT [place] [id number] Care Team Providers Care Fire Alarm Inspector Name Role Phone Unavailable Primary Care Provider Unavailabl e Encounter Details Date Type Department Care Team (Latest Contact Info) Description 11/24/2020 Travel Social History Tobacco Use Types Packs/Day [...] have Coronavirus / COVID-19? No / Unsure 11/24/2020 1:54 PM CDT documented as of this encounter Plan of Treatment Not on file documented as of this encounter Visit Diagnoses Not on filedocumented in this encounter
--- OUTSIDE RECORDS SUMMARY | 2024-07-09 12:49 | XMS_ITS | Encounter Summary ---
Author Organization [facility] Address [address] Attn: Epic Prelude ADT [place] [id number] Care Team Providers Care Metal Cabinet Finisher Name Role Phone Unavailable Primary Care Provider Unavailabl e Encounter Details Date Type Department Care Team (Latest Contact Info) Description 10/28/2020 Travel Social History Tobacco Use Types Packs/Day [...] have Coronavirus / COVID-19? No / Unsure 10/28/2020 8:44 AM CDT documented as of this encounter Plan of Treatment Not on file documented as of this encounter Visit Diagnoses Not on filedocumented in this encounter
--- OUTSIDE RECORDS SUMMARY | 2024-07-09 12:49 | XMS_ITS | Encounter Summary ---
Author Organization [facility] Address [address] [place] [address] Care Team Providers Care Clinic Scheduler Name Role Phone Unavailable Primary Care Provider Unavailabl e Reason for Referral * Radiology Services (Routine) - Closed Specialty Diagnoses / Procedures Referred By Contac t Referred To Contact Diagnoses Monoamniotic and monochorionic twin gestation in second trimester Maternal obesity syndrome in second trimester Procedures US OB DETAIL + UMB ART DOPPLER US OB DETAIL SINGLE GEST CHG US,PREG UTER,FET & MAT,+ DETL FET EXM CHG DOPPLER UMBILICAL ARTERY 10/29/20-Do not call to schedule. Pt has appt on 11/12, and is awaiting transfer of care for [facility]/hospital closer to home. She will let us know if she needs this. Milka Coley MD [address] [place] [phone] Referral ID Status Reason Start Date Expiration Date V isits Requested Visits Authorized [id number] Closed [facility] CTS 10/28/2020 11/28/2021 1 1 Reason for Visit * Radiology Services (Routine) - Closed Specialty Diagnoses / Procedures Referred By Contac t Referred To Contact Diagnoses Monoamniotic and monochorionic twin gestation in second trimester Maternal obesity syndrome in second trimester Procedures US OB DETAIL + UMB ART DOPPLER US OB DETAIL SINGLE GEST CHG US,PREG UTER,FET & MAT,+ DETL FET EXM CHG DOPPLER UMBILICAL ARTERY 10/29/20-Do not call to schedule. Pt has appt on 11/12, and is awaiting transfer of care for [facility]/hospital closer to home. She will let us know if she needs this. Milka Coley MD [address] [facility] [address], [place] [address] Referral ID Status Reason Start Date Expiration Date V isits Requested Visits Authorized [id number] Closed [facility] CTS 10/28/2020 11/28/2021 1 1 Encounter Details Date Type Department Care Team (Latest Contact Info) Description 11/26/2020 1:00 PM CDT - 11/26/2020 11:59 PM CDT Hospital Encounter [facility] [address] [place] [id number] Milka Mullins MD [address] [facility] [place] [address] Discharge Disposition: Home or Self [...] have Coronavirus / COVID-19? No / Unsure 11/26/2020 1:11 PM CDT documented as of this encounter Plan of Treatment Not on file documented as of this encounter Procedures Procedure Name Priority Date/Time Associated Diagnosis Comments US OB DETAIL + UMB ART DOPPLER Routine 11/26/2020 3:47 PM CDT Monoamniotic and monochorionic twin gestation in second trimester Maternal obesity syndrome in second trimester documented in this encounter Results * US OB DETAIL + UMB ART DOPPLER (11/26/2020 3:47 PM CDT) Anatomical Region Laterality Modality Pelvis Ultrasound 11/26/2020 1:15 PM CDT Impressions 11/26/2020 4:19 PM CDT IMPRESSION ----- MEMBRANE ABLE TO BE SEEN TODAY --RECLASSIFICATION TO MONOCHORIONIC DICHORIONIC 1. Monochorionic Diamniotic twin living fetuses with a gestational age of 20 w 2 d, based on the reported clinical dates. 2. A detailed anatomy was performed. There are no gross structural abnormalities noted. Suboptimal anatomy as listed above secondary to position and maternal acoustic properties 3. The amniotic fluid is normal for gestational age x2. 4. Normal fluid filled stomach and bladder noted x2. No sonographic signs of TTTS. 5. Dopplers are normal. Comments: I had the pleasure of seeing your patient in follow-up for the above mentioned indications. We reviewed the overall sonographic findings and the limitations associated with ultrasound evaluations. There was a dividing membrane that was able to be seen today. This had not been previously seen. This reclassifies the to monochorionic diamniotic . Inpatient admission at viability is no longer indicated. Serial screening for TTTS and echocardiograms are still advised. Revision of delivery recommendations if remains uncomplicated will be 36-37 weeks and vaginal delivery can be considered depending on lie. Dr. Hayden office was called and Ivis Ctoter, was updated. Recommendations: Continue TTTS screening echocardiogram at 24 weeks Serial growth ultrasounds Twice weekly testing starting at 32 weeks Delivery at 36-37 weeks Thank you for allowing us to participate in her care. Narrative 11/26/2020 4:19 PM CDT STL Comp ----- Pat. Name: MIS BECK Study Date: 11/26/2020 1:15pm Pat. 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 O30.012: Twins, Monochorionic-Monoamniotic (Mo- Mo) ?O99.212: Obesity complicating ?E66.01: Morbid (severe) obesity due to excess calories ?Z3A.20: Weeks Gestation of ?O30.032: Twins, Monochorionic-Diamniotic (Mo- Di) Procedures ?33313: OB with Detail (Comprehensive) ?34074: Detail add gestation(s) ?03370: Umbilical Artery Doppler ?33707: Umbilical Artery Doppler HISTORY ----- OB History ? 4. Para 2 MATERNAL ASSESSMENT ----- Physical Exam ? Weight 112 kg. Initial weight 102 kg, 225 lb. BMI 42.57 kg/m?. Initial BMI 38.62 kg/m?. Weight gain 10 ?kg, 23 lb. METHOD ----- Transabdominal ultrasound examination ----- Twin . Number of fetuses: 2. DATING ----- Cycle: regular cycle GA by stated dating 20 w + 2 d GRACIA by stated dating : 04/13/2021 Ultrasound examination on: 11/26/2020 GA by U/S based upon: AC, BPD, EFW, Femur, HC GA by U/S 21 w + 1 d GRAICA by U/S: 04/07/2021 GA by U/S based upon (Fetus 2): AC, BPD, EFW, Femur, HC GA by U/S (Fetus 2) 21 w + 3 d GRACIA by U/S (Fetus 2): 04/05/2021 Method of dating: Restore dating from previous exam Assigned: Dating performed on 10/28/2020, based on the external assessment Assigned GA 20 w + 2 d Assigned GRACIA: 04/13/2021 Fetus 1: BIOMETRY ----- Main Biometry: BPD ? 49.3 ? mm ? 20w 6d ?75% ? Hadlock OFD ? 68.3 ? mm ? 22w 6d ?>99% ?Gail HC ?187.5 ?mm ? 21w 0d ?76% ? Hadlock Cerebellum tr ? 19.2 ? mm ? 19w 2d ?22% ? Beth AC ?172.4 ?mm ? 22w 1d ?93% ? Hadlock Femur ? 33.5 ? mm ? 20w 3d ?50% ? Hadlock HC / AC ? 1.09 ?10% ? Nicolaides Weight Calculation: EFW ? 419 ?g ?21w 2d ?93% ? Hadlock EFW (lb,oz) ? 0 lb 15 ?oz EFW by ?Hadlock ([id number]) EFW discordance ? 6.5 ?% Head / Face / Neck Biometry: Cephalic index ?0.72 ?2% ?Nicolaides Rn Wellness ?7.1 ?mm ? CM ?4.9 ?mm ? 45% ? Nicolaides Outer IOD ? 38.4 ? mm ? 24w 3d ?98% ? Gail Nuchal fold ? 4.2 ?mm ? Extremities / Bony Struc Biometry: FL / BPD ?0.68 ?25% ? Hadlock FL / HC ? 0.18 ?21% ? Hadlock FL / AC ? 0.19 ?3% ?Hadlock Tibia ? 29.4 ? mm ? 20w 5d ?70% ? Gail Other Structures Biometry: AF MVP ?4.3 ?cm ? FHR ? 146 ?bpm ? Fetus 2: BIOMETRY ----- Main Biometry: BPD ? 51.0 ? mm ? 21w 3d ?89% ? Hadlock OFD ? 64.2 ? mm ? 21w 6d ?92% ? Gail HC ?183.9 ?mm ? 20w 5d ?64% ? Hadlock Cerebellum tr ? 21.7 ? mm ? 21w 2d ?77% ? Campos AC ?181.2 ?mm ? 23w 0d ?98% ? Hadlock Femur ? 33.6 ? mm ? 20w 4d ?51% ? Hadlock Humerus ? 36.8 ? mm ? 22w 6d ?>99% ?Gail HC / AC ? 1.01 ?<1% ? Nicolaides Weight Calculation: EFW ? 448 ?g ?21w 4d ?98% ? Hadlock EFW (lb,oz) ? 1 lb 0 ? oz EFW by ?Hadlock ([id number]) EFW discordance ? 6.5 ?% Head / Face / Neck Biometry: Cephalic index ?0.79 ?58% ? Nicolaides Rn Wellness ?7.9 ?mm ? CM ?5.0 ?mm ? 48% ? Nicolaides Nuchal fold ? 6.5 ?mm ? Extremities / Bony Struc Biometry: FL / BPD ?0.66 ?12% ? Hadlock FL / HC ? 0.18 ?21% ? Hadlock FL / AC ? 0.19 ?<1% ? Hadlock Tibia ? 31.9 ? mm ? 21w 6d ?92% ? Gail Other Structures Biometry: AF MVP ?5.5 ?cm ? FHR ? 148 ?bpm ? Fetus 1: GENERAL EVALUATION ----- Cardiac activity present. FHR 146 bpm. movements present. Presentation cephalic left. Placenta Placental site: anterior. Umbilical cord Cord vessels: 3 vessel cord. Cord insertion: placental insertion: normal. Amniotic fluid Amount of AF: normal amount. MVP 4.3 cm. Fetus 2: GENERAL EVALUATION ----- Cardiac activity present. FHR 148 bpm. movements visualized. Presentation cephalic right. Placenta Placental site: anterior. Umbilical cord Cord vessels: 3 vessel cord. Cord insertion: placental insertion: normal. Amniotic fluid Amount of AF: normal amount. MVP 5.5 cm. Fetus 1: ANATOMY ----- The following structures appear normal: Head / Neck ? Cranium. Lateral ventricles. Choroid plexus. Midline falx. Cavum septi pellucidi. Cerebellum. Cisterna ?magna. Thalami. ?Nuchal fold. Face ?Profile. Palate. Orbits. Heart / Thorax ?4-chamber view. RVOT view. LVOT view. Situs. Aortic arch view. Ductal arch view. Superior vena cava. ?Inferior vena cava. High short axis view. Cardiac rhythm. ?Diaphragm. Abdomen ? Cord insertion. Stomach. Kidneys. Bladder. Extremities / ? Right foot. Left foot. Skeleton The following structures could not be adequately visualized: Face ?Lips. Nose. Heart / Thorax ?3-vessel view. 8-tjqlxl-zisnjij view. Spine ? Cervical spine. Thoracic spine. Lumbar spine. Sacral spine. Extremities / ? Right hand. Left hand. Skeleton Gender: male. Fetus 2: ANATOMY ----- The following structures appear normal: Head / Neck ? Cranium. Lateral ventricles. Choroid plexus. Midline falx. Cerebellum. Cisterna magna. Thalami. ?Nuchal fold. Face ?Profile. Heart / Thorax ?Situs. Cardiac rhythm. ?Diaphragm. Abdomen ? Abdominal wall. Stomach. Kidneys. Bladder. Spine ? Cervical spine. Thoracic spine. Lumbar spine. Sacral spine. Extremities / ? Right foot. Left foot. Skeleton The following structures could not be adequately visualized: Head / Neck ? Cavum septi pellucidi. Face ?Lips. Nose. Palate. Orbits. Heart / Thorax ?4-chamber view. RVOT view. LVOT view. Aortic arch view. Ductal arch view. Superior vena cava. Inferior ?vena cava. High short axis view. 3-vessel view. 1-uydxuh-jwybkbc view. Extremities / ? Right hand. Left hand. Skeleton Gender: male. Fetus 1: DOPPLER ----- Umbilical Artery: PI ?1.15 ?27% ? Lorenzo RI ?0.71 ?27% ? Lorenzo PS ?27.42 ?cm/s ? ED ?7.91 ? cm/s ? TAmax ? 16.92 ?cm/s ? MD ?7.84 ? cm/s ? S / D ? 3.47 ?22% ? Lorenzo HR ?154 ?bpm ? Fetus 2: DOPPLER ----- Umbilical Artery: PI ?1.21 ?39% ? Lorenzo RI ?0.74 ?45% ? Lorenzo PS ?37.47 ?cm/s ? ED ?9.63 ? cm/s ? TAmax ? 23.09 ?cm/s ? MD ?9.05 ? cm/s ? S / D ? 3.89 ?42% ? Lorenzo HR ?149 ?bpm ? MATERNAL STRUCTURES ----- Right Ovary ? Suboptimal Left Ovary ?Suboptimal COMMENT ----- Patient's name and date of were verified by the anaesthetic technician before the exam Procedure Note Gabrielle Sheppard MD - 11/26/2020 ST[facility] Comp ----- Pat. Name:Chucho BECK Date:11/26/2020 1:15pm Pat. NO: [id number] :DAWNA HAYDEN MD [facility] Frances :1990Age:30 ----- INDICATION ----- Twins, Monochorionic-Diamniotic (Mo-Di) Maternal Obesity (bmi greater than 40) CODING ----- Diagnosis O30.012: Twins, Monochorionic-Monoamniotic(Mo-Mo) O99.212: Obesity complicating E66.01: Morbid (severe) obesity due to excesscalories Z3A.20: Weeks Gestation of O30.032: Twins, Monochorionic-Diamniotic (Mo-Di) Procedures 87979: OB with Detail (Comprehensive) 36247: Detail add gestation(s) 47255: Umbilical Artery Doppler 61112: Umbilical Artery Doppler HISTORY ----- OB History 4. Para 2 MATERNAL ASSESSMENT ----- Physical Exam Weight 112 kg. Initial weight 102 kg, 225 lb. BMI42.57 kg/m?. Initial BMI 38.62 kg/m?. Weight gain 10 kg, 23 lb. METHOD ----- Transabdominal ultrasound examination ----- Twin . Number of fetuses: 2. DATING ----- Cycle:regular cycle GA by stated dating 20 w + 2 d GRACIA by stated dating :04/13/2021 Ultrasound examination on:11/26/2020 GA by U/S based upon:AC, BPD, EFW, Femur, HC GA by U/S21 w + 1 d GRACIA by U/S:04/07/2021 GA by U/S based upon (Fetus 2):AC, BPD, EFW, Femur, HC GA by U/S (Fetus 2)21 w + 3 d GRACIA by U/S (Fetus 2):04/05/2021 Method of dating:Restore dating from previous exam Assigned:Dating performed on 10/28/2020, based on the externalassessment Assigned GA20 w + 2 d Assigned GRACIA:04/13/2021 Fetus 1: BIOMETRY ----- Main Biometry: BPD 49.3 mm 20w 6d75% Hadlock OFD 68.3 mm 22w 6d>99% Gail HC 187.5 mm 21w 0d76% Hadlock Cerebellum tr 19.2 mm 19w 2d22% Campos AC 172.4 mm 22w 1d93% Hadlock Femur 33.5 mm 20w 3d50% Hadlock HC / AC 1.0910% Nicolaides Weight Calculation: EFW 419 g 21w 2d93% Hadlock EFW (lb,oz) 0 lb 15 oz EFW by Hadlock ([id number]) EFW discordance 6.5 % Head / Face / Neck Biometry: Cephalic index 0.72 2%Nicolaides Rn Wellness 7.1 mm CM 4.9 mm45% Nicolaides Outer IOD 38.4 mm 24w 3d98% Gail Nuchal fold 4.2 mm Extremities / Bony Struc Biometry: FL / BPD 0.6825% Hadlock FL / HC 0.1821% Hadlock FL / AC 0.19 3%Hadlock Tibia 29.4 mm 20w 5d70% Gail Other Structures Biometry: AF MVP 4.3 cm FHR 146 bpm Fetus 2: BIOMETRY ----- Main Biometry: BPD 51.0 mm 21w 3d89% Hadlock OFD 64.2 mm 21w 6d92% Gail HC 183.9 mm 20w 5d64% Hadlock Cerebellum tr 21.7 mm 21w 2d77% Campos AC 181.2 mm 23w 0d98% Hadlock Femur 33.6 mm 20w 4d51% Hadlock Humerus 36.8 mm 22w 6d>99% Gail HC / AC 1.01<1% Nicolaides Weight Calculation: EFW 448 g 21w 4d98% Hadlock EFW (lb,oz) 1 lb 0 oz EFW by Hadlock ([id number]) EFW discordance 6.5 % Head / Face / Neck Biometry: Cephalic index 0.7958% Nicolaides Rn Wellness 7.9 mm CM 5.0 mm48% Nicolaides Nuchal fold 6.5 mm Extremities / Bony Struc Biometry: FL / BPD 0.6612% Hadlock FL / HC 0.1821% Hadlock FL / AC 0.19<1% Hadlock Tibia 31.9 mm 21w 6d92% Gail Other Structures Biometry: AF MVP 5.5 cm FHR 148 bpm Fetus 1: GENERAL EVALUATION ----- Cardiac activity present. FHR 146 bpm. movements present. Presentation cephalic left. Placenta Placental site: anterior. Umbilical cord Cord vessels: 3 vessel cord. Cord insertion: placentalinsertion: normal. Amniotic fluid Amount of AF: normal amount. MVP 4.3 cm. Fetus 2: GENERAL EVALUATION ----- Cardiac activity present. FHR 148 bpm. movements visualized. Presentation cephalic right. Placenta Placental site: anterior. Umbilical cord Cord vessels: 3 vessel cord. Cord insertion: placentalinsertion: normal. Amniotic fluid Amount of AF: normal amount. MVP 5.5 cm. Fetus 1: ANATOMY ----- The following structures appear normal: Head / Neck Cranium. Lateral ventricles. Choroid plexus.Midline falx. Cavum septi pellucidi. Cerebellum. Cisterna magna. Thalami. Nuchal fold. Face Profile. Palate. Orbits. Heart / Thorax 4-chamber view. RVOT view. LVOT view. Situs.Aortic arch view. Ductal arch view. Superior vena cava. Inferior vena cava. High short axis view. Cardiacrhythm. Diaphragm. Abdomen Cord insertion. Stomach. Kidneys. Bladder. Extremities / Right foot. Left foot. Skeleton The following structures could not be adequately visualized: Face Lips. Nose. Heart / Thorax 3-vessel view. 9-sicnmx-hsgxuie view. Spine Cervical spine. Thoracic spine. Lumbar spine.Sacral spine. Extremities / Right hand. Left hand. Skeleton Gender: male. Fetus 2: ANATOMY ----- The following structures appear normal: Head / Neck Cranium. Lateral ventricles. Choroid plexus.Midline falx. Cerebellum. Cisterna magna. Thalami. Nuchal fold. Face Profile. Heart / Thorax Situs. Cardiac rhythm. Diaphragm. Abdomen Abdominal wall. Stomach. Kidneys. Bladder. Spine Cervical spine. Thoracic spine. Lumbar spine.Sacral spine. Extremities / Right foot. Left foot. Skeleton The following structures could not be adequately visualized: Head / Neck Cavum septi pellucidi. Face Lips. Nose. Palate. Orbits. Heart / Thorax 4-chamber view. RVOT view. LVOT view. Aortic archview. Ductal arch view. Superior vena cava. Inferior vena cava. High short axis view. 3-vessel view.5-uqhslz-oashuhv view. Extremities / Right hand. Left hand. Skeleton Gender: male. Fetus 1: DOPPLER ----- Umbilical Artery: PI 1.1527% Lorenzo RI 0.7127% Lorenzo PS 27.42 cm/s ED 7.91 cm/s TAmax 16.92 cm/s MD 7.84 cm/s S / D 3.4722% Lorenzo HR 154 bpm Fetus 2: DOPPLER ----- Umbilical Artery: PI 1.2139% Lorenzo RI 0.7445% Lorenzo PS 37.47 cm/s ED 9.63 cm/s TAmax 23.09 cm/s MD 9.05 cm/s S / D 3.8942% Lorenzo HR 149 bpm MATERNAL STRUCTURES ----- Right Ovary Suboptimal Left Ovary Suboptimal COMMENT ----- Patient's name and date of were verified by the anaesthetic technician beforethe exam IMPRESSION ----- MEMBRANE ABLE TO BE SEEN TODAY --RECLASSIFICATION TO MONOCHORIONICDICHORIONIC 1. Monochorionic Diamniotic twin living fetuses with a gestational age of20 w 2 d, based on the reported clinical dates. 2. A detailed anatomy was performed. There are no gross structuralfetal abnormalities noted. Suboptimal anatomy as listed above secondary to position and maternal acoustic properties 3. The amniotic fluid is normal for gestational age x2. 4. Normal fluid filled stomach and bladder noted x2. No sonographic signsof TTTS. 5. Dopplers are normal. Comments: I had the pleasure of seeing your patient in follow-up for theabove mentioned indications. We reviewed the overall sonographic findings and the limitations associated with ultrasoundevaluations. There was a dividing membrane that was able to be seen today. This had notbeen previously seen. This reclassifies the to monochorionic diamniotic . Inpatient admission at viability isno longer indicated. Serial screening for TTTS and echocardiograms are still advised. Revision of deliveryrecommendations if remains uncomplicated will be 36-37 weeks and vaginal delivery can be considered depending on lie. Dr. Hayden office was called and Ivis Cotter, was updated. Recommendations: Continue TTTS screening echocardiogram at 24 weeks Serial growth ultrasounds Twice weekly testing starting at 32 weeks Delivery at 36-37 weeks Thank you for allowing us to participate in her care. Milka Mullins MD US ORDERABLES documented in this encounter Visit Diagnoses Diagnosis Monoamniotic and monochorionic twin gestation in second trimester Maternal obesity syndrome in second trimester documented in this encounter
--- OUTSIDE RECORDS SUMMARY | 2024-07-09 12:49 | XMS_ITS | Encounter Summary ---
Author Organization [facility] Address [address] [place] [address] Care Team Providers Care Smoking Pipe Repairer Name Role Phone Unavailable Primary Care Provider Unavailabl e Reason for Referral * Radiology Services (Routine) - Closed Specialty Diagnoses / Procedures Referred By Contac t Referred To Contact Diagnoses Monoamniotic and monochorionic twin gestation in second trimester Maternal obesity syndrome in second trimester Procedures US OB LTD+UMB ART DOPPLER CHG DOPPLER UMBILICAL ARTERY CHG US, UTERUS,LIMITED, 1/> FETUSES Milka Mullins MD [address] [place] [address] [address], [place] [address] Referral ID Status Reason Start Date Expiration Date V isits Requested Visits Authorized [id number] Closed [facility] CTS 11/01/2020 01/31/2021 1 1 Reason for Visit * Radiology Services (Routine) - Closed Specialty Diagnoses / Procedures Referred By Contac t Referred To Contact Diagnoses Monoamniotic and monochorionic twin gestation in second trimester Maternal obesity syndrome in second trimester Procedures US OB LTD+UMB ART DOPPLER CHG DOPPLER UMBILICAL ARTERY CHG US, UTERUS,LIMITED, 1/> FETUSES Milka Mullins MD [address] [place] [address] [address] [address] Referral ID Status Reason Start Date Expiration Date V isits Requested Visits Authorized [id number] Closed [facility] CTS 11/01/2020 01/31/2021 1 1 Encounter Details Date Type Department Care Team (Latest Contact Info) Description 11/12/2020 10:00 AM CDT - 11/12/2020 11:59 PM CDT Hospital En[facility] [address] [place] [address] Milka Mullins MD [address] [facility] [place] [address] Discharge Disposition: Home or Self [...] have Coronavirus / COVID-19? No / Unsure 11/12/2020 10:15 AM CDT documented as of this encounter Plan of Treatment Not on file documented as of this encounter Procedures Procedure Name Priority Date/Time Associated Diagnosis Comments US OB LTD+UMB ART DOPPLER Routine 11/12/2020 10:26 AM CDT Monoamniotic and monochorionic twin gestation in second trimester Maternal obesity syndrome in second trimester documented in this encounter Results * US OB LTD+UMB ART DOPPLER (11/12/2020 10:26 AM CDT) Anatomical Region Laterality Modality Pelvis Ultrasound 11/12/2020 10:2 6 AM CDT Impressions 11/12/2020 11:49 AM CDT IMPRESSION ----- 1. Monochorionic monoamniotic twin living fetuses with a gestational age of 18w2d based on the reported clinical dates. 2. Amniotic fluid volume is normal for gestational age x2. 3. Normal UA Doppler studies with normal stomach and bladder in both twins. No evidence of TTTS. 4. Transvaginal sonogram shows a normal cervical length with no evidence of funneling. A small subchorionic hematoma is noted over the cervix which is the likely cause of her spotting. No evidence of placenta previa or vasa previa. Recommendations: 1. Follow up sonogram in two weeks to continue TTTS surveillance and perform the anatomic survey. 2. Bed rest is no longer recommended Narrative 11/12/2020 11:49 AM CDT [facility] Target ----- Pat. Name: MIS BECK Study Date: 11/12/2020 10:26am Pat. NO: [id number] Referring ??MD: DAWNA HAYDEN MD Site: [facility] Motor Pool Driver: Madeleine Batres : 1990 Age: 30 ----- INDICATION ----- Twins, Monochorionic-Monoamniotic (Mo-Mo) Maternal Obesity (bmi greater than 40) Abnormal Cord Insertion ?AA marginal PCI Bleeding Less Than 20wks ? Daily since 1st trimester. Mostly brown when wiping. CODING ----- Diagnosis ? 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 4. Para 2 MATERNAL ASSESSMENT ----- Physical Exam ? Weight 108 kg. Initial weight 108 kg, 237 lb. BMI 40.68 kg/m?. Initial BMI 40.68 kg/m?. Weight gain 0 kg, ?0 lb. METHOD ----- Transabdominal ultrasound examination. View: Good view ----- Twin . Monochorionic-monoamniotic. Number of fetuses: 2. DATING ----- Cycle: regular cycle GA by stated dating 18 w + 2 d GRACIA by stated dating : 04/13/2021 Ultrasound examination on: 11/12/2020 GA by U/S based upon: AC GA by U/S 20 w + 1 d GRACIA by U/S: 03/31/2021 GA by U/S based upon (Fetus 2): AC GA by U/S (Fetus 2) 21 w + 0 d GRACIA by U/S (Fetus 2): 03/25/2021 Method of dating: Restore dating from previous exam Assigned: Dating performed on 10/28/2020, based on the external assessment Assigned GA 18 w + 2 d Assigned GRACIA: 04/13/2021 Fetus 1: BIOMETRY ----- Main Biometry: AC ?148.2 ?mm ? 20w 1d ?93% ? Hadlock Other Structures Biometry: AF MVP ?6.6 ?cm ? FHR ? 144 ?bpm ? Fetus 2: BIOMETRY ----- Main Biometry: AC ?158.6 ?mm ? 21w 0d ?99% ? Hadlock Other Structures Biometry: FHR ? 157 ?bpm ? Fetus 1: GENERAL EVALUATION ----- Cardiac activity present. FHR 144 bpm. movements present. Presentation cephalic left. Placenta Placental site: anterior. Placental nolan located inferior to maternal umbilicus, extends from uterine wall to amnion. 2.81 x 2.21 x 0.66 cm. Increased blood flow noted anterior to this area. Adjacent to internal cervical os there is a complex fluid collection measuring 0.94 x 5.74 x 2.56 cm. There is also dependant debris located within the amniotic fluid, noted to be mobile. Umbilical cord Cord insertion: placental insertion: left lateral, marginal. Amniotic fluid Amount of AF: normal amount. MVP 6.6 cm. Q1 5.4 cm. Fetus 2: GENERAL EVALUATION ----- Cardiac activity present. FHR 157 bpm. movements present. Presentation cephalic right. Placenta anterior. Umbilical cord Cord insertion: placental insertion: right lateral. Amniotic fluid Amount of AF: normal amount. Q1 5.4 cm. Fetus 1: ANATOMY ----- The following structures appear normal: Heart / Thorax ?Cardiac rhythm. Abdomen ? Stomach. Kidneys. Bladder. Gender: male. Fetus 2: ANATOMY ----- The following structures appear normal: Heart / Thorax ?Cardiac rhythm. Abdomen ? Stomach. Kidneys. Bladder. Gender: male. Fetus 1: DOPPLER ----- Umbilical Artery: PI ?1.24 ? RI ?0.73 ? PS ?29.66 ?cm/s ? ED ?8.10 ? cm/s ? MD ?7.79 ? cm/s ? S / D ? 3.66 ? HR ?145 ?bpm ? Fetus 2: DOPPLER ----- Umbilical Artery: PI ?1.03 ? RI ?0.65 ? PS ?27.70 ?cm/s ? ED ?9.56 ? cm/s ? MD ?9.29 ? cm/s ? S / D ? 2.90 ? HR ?146 ?bpm ? MATERNAL STRUCTURES ----- Cervix ?Normal ?Approach - Transvaginal: Cervical length 46.6 mm COMMENT ----- Patient's name and date of were verified by the office associate prior to the exam . Dr. Quezada was the transfer car operator for the transvaginal sonogram. Procedure Note Kel Quezada MD - 11/12/2020 [facility] Target ----- Pat. Name:Chucho BECK Date:11/12/2020 10:26am Pat. NO: [id number] :DAWNA HAYDEN MD [facility] Bat[facility] :1990Age:30 ----- INDICATION ----- Twins, Monochorionic-Monoamniotic (Mo-Mo) Maternal Obesity (bmi greater than 40) Abnormal Cord Insertion AA marginal PCI Bleeding Less Than 20wks Daily since 1sttrimester. Mostly brown when wiping. 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 Para 2 MATERNAL ASSESSMENT ----- Physical Exam Weight 108 kg. Initial weight 108 kg, 237 lb. BMI40.68 kg/m?. Initial BMI 40.68 kg/m?. Weight gain 0 kg, 0 lb. METHOD ----- Transabdominal ultrasound examination. View: Good view ----- Twin . Monochorionic-monoamniotic. Number of fetuses: 2. DATING ----- Cycle:regular cycle GA by stated dating 18 w + 2 d GRACIA by stated dating :04/13/2021 Ultrasound examination on:11/12/2020 GA by U/S based upon:AC GA by U/S20 w + 1 d GRACIA by U/S:03/31/2021 GA by U/S based upon (Fetus 2):AC GA by U/S (Fetus 2)21 w + 0 d GRACIA by U/S (Fetus 2):03/25/2021 Method of dating:Restore dating from previous exam Assigned:Dating performed on 10/28/2020, based on the externalassessment Assigned GA18 w + 2 d Assigned GRACIA:04/13/2021 Fetus 1: BIOMETRY ----- Main Biometry: AC 148.2 mm 20w 1d93% Hadlock Other Structures Biometry: AF MVP 6.6 cm FHR 144 bpm Fetus 2: BIOMETRY ----- Main Biometry: AC 158.6 mm 21w 0d99% Hadlock Other Structures Biometry: FHR 157 bpm Fetus 1: GENERAL EVALUATION ----- Cardiac activity present. FHR 144 bpm. movements present. Presentation cephalic left. Placenta Placental site: anterior. Placental nolan located inferior tomaternal umbilicus, extends from uterine wall to amnion. 2.81 x 2.21 x 0.66 cm. Increased blood flow noted anterior to this area.Adjacent to internal cervical os there is a complex fluid collection measuring 0.94 x 5.74 x 2.56 cm. There is also dependantdebris located within the amniotic fluid, noted to be mobile. Umbilical cord Cord insertion: placental insertion: left lateral,marginal. Amniotic fluid Amount of AF: normal amount. MVP 6.6 cm. Q1 5.4 cm. Fetus 2: GENERAL EVALUATION ----- Cardiac activity present. FHR 157 bpm. movements present. Presentation cephalic right. Placenta anterior. Umbilical cord Cord insertion: placental insertion: right lateral. Amniotic fluid Amount of AF: normal amount. Q1 5.4 cm. Fetus 1: ANATOMY ----- The following structures appear normal: Heart / Thorax Cardiac rhythm. Abdomen Stomach. Kidneys. Bladder. Gender: male. Fetus 2: ANATOMY ----- The following structures appear normal: Heart / Thorax Cardiac rhythm. Abdomen Stomach. Kidneys. Bladder. Gender: male. Fetus 1: DOPPLER ----- Umbilical Artery: PI 1.24 RI 0.73 PS 29.66 cm/s ED 8.10 cm/s MD 7.79 cm/s S / D 3.66 HR 145 bpm Fetus 2: DOPPLER ----- Umbilical Artery: PI 1.03 RI 0.65 PS 27.70 cm/s ED 9.56 cm/s MD 9.29 cm/s S / D 2.90 HR 146 bpm MATERNAL STRUCTURES ----- Cervix Normal Approach - Transvaginal: Cervical length 46.6 mm COMMENT ----- Patient's name and date of were verified by the office associate prior tothe exam . Dr. Quezada was the transfer car operator for the transvaginal sonogram. IMPRESSION ----- 1. Monochorionic monoamniotic twin living fetuses with a gestational ageof 18w2d based on the reported clinical dates. 2. Amniotic fluid volume is normal for gestational age x2. 3. Normal UA Doppler studies with normal stomach and bladder in bothtwins. No evidence of TTTS. 4. Transvaginal sonogram shows a normal cervical length with no evidenceof funneling. A small subchorionic hematoma is noted over the cervix which is the likely cause of her spotting. No evidence ofplacenta previa or vasa previa. Recommendations: 1. Follow up sonogram in two weeks to continue TTTS surveillance andperform the anatomic survey. 2. Bed rest is no longer recommended Milka Mullins MD US ORDERABLES documented in this encounter Visit Diagnoses Diagnosis Monoamniotic and monochorionic twin gestation in second trimester Maternal obesity syndrome in second trimester documented in this encounter
--- OUTSIDE RECORDS SUMMARY | 2024-07-09 12:49 | XMS_ITS | Encounter Summary ---
Author Organization [facility] Address [address] Attn: Epic Prelude ADT [place] [address] Care Team Providers Care Rubber Roller Grinder Operator Name Role Phone Unavailable Primary Care Provider Unavailabl e Encounter Details Date Type Department Care Team (Latest Contact Info) Description 10/08/2020 Travel Social History Tobacco Use Types Packs/Day Years Used Date Smoking Tobacco: Never Assessed Sex and Gender Information Value Date Recorded Sex Assigned at Not on file Gender Identity Not on file Sexual Orientation Not on file COVID-19 Exposure Response Date Recorded In the last month, have you been in contact with someone who was confirmed or suspected to have Coronavirus / COVID-19? Unable to assess 10/08/2020 12:08 PM CDT documented as of this encounter Plan of Treatment Not on file documented as of this encounter Visit Diagnoses Not on filedocumented in this encounter
--- OUTSIDE RECORDS SUMMARY | 2024-07-09 12:49 | XMS_ITS | Encounter Summary ---
Author Organization [facility] Address [address] [facility] Attn: Epic Prelude ADT [place] [address] Care Team Providers Care Government Instructor Name Role Phone Unavailable Primary Care Provider Unavailabl e Encounter Details Date Type Department Care Team (Latest Contact Info) Description 11/12/2020 Travel Social History Tobacco Use Types Packs/Day [...]
--- OUTSIDE RECORDS SUMMARY | 2024-07-09 12:49 | XMS_ITS | Encounter Summary ---
Author Organization [facility] Address [address] [place] [address] Care Team Providers Care Speeder Frame Tender Name Role Phone Unavailable Primary Care Provider Unavailabl e Reason for Referral * Radiology Services (Routine) - Closed Specialty Diagnoses / Procedures Referred By Contac t Referred To Contact Diagnoses Monoamniotic monochorionic twin , antepartum Procedures US OB 14+ WKS SINGLE Richard Fagan MD [address] [place] [address] Referral ID Status Reason Start Date Expiration Date V isits Requested Visits Authorized [id number] Closed [facility] 10/28/2020 11/19/2020 1 1 Reason for Visit * Radiology Services (Routine) - Closed Specialty Diagnoses / Procedures Referred By Contac t Referred To Contact Diagnoses Monoamniotic monochorionic twin , antepartum Procedures US OB 14+ WKS Richard Bowen MD [address] [place] [address] Referral ID Status Reason Start Date Expiration Date V isits Requested Visits Authorized [id number] Closed [facility] CTS 10/28/2020 11/19/2020 1 1 Encounter Details Date Type Department Care Team (Late st Contact Info) Description 10/28/2020 8:30 AM CDT - 10/28/2020 11:59 PM CDT Hospital Encounter [facility] [place] [address] [place] [id number] Richard Hayden MD [address] [place] [address] Discharge Disposition: Home or Self Care Social [...] Priority Date/Time Associated Diagnosis Comments US OB 14+ WKS SINGLE GEST Routine 10/28/2020 10:10 AM CDT Monoamniotic monochorionic twin , antepartum documented in this encounter Results * US OB 14+ WKS SINGLE GEST (10/28/2020 10:10 AM CDT) Anatomical Region Laterality Modality Pelvis Ultrasound 10/28/2020 8:52 AM CDT Impressions 10/28/2020 4:02 PM CDT IMPRESSION ----- -Monochorionic-monoamniotic Twin at 16w1d. -Normal limited anatomy to the extent of U/S views for A and B. Anatomy was limited by early gestational age. -Normal amniotic fluid MVP for A and B. -No obvious sign of TTTS. -Discordance is within appropriate range. -Maternal ovaries are not visualized today however no adnexal masses are noted to extent of views. -Anterior placenta. -Marginal cord insertion for fetus A. The patient was informed of the ultrasound findings and limitations. TTTS/TAPS surveillance q2 weeks. Growth/anatomy in 4 weeks. Thank you for allowing us to participate in the care of this patient. Narrative 10/28/2020 4:02 PM CDT [facility] Basic ----- Pat. Name: MIS BECK Study Date: 10/28/2020 8:52am Pat. NO: [id number] Referring ??MD: RICHARD HAYDEN MD Site: [facility] Anesthesiology Resident: Mary Ann Tyson : 1990 Age: 30 ----- INDICATION ----- Twins, Monochorionic-Monoamniotic (Mo-Mo) Maternal Obesity (bmi greater than 40) CODING ----- Procedures ?05060: OB greater than 14 wks (1st Basic) ?74545: OB greater than 14 wks add gestation(s) HISTORY ----- OB History ? 4. Para 2 MATERNAL ASSESSMENT ----- Physical Exam ? Weight 108 kg. BMI 40.68 kg/m?. METHOD ----- Transabdominal ultrasound examination ----- Twin . Number of fetuses: 2. DATING ----- Cycle: regular cycle Method of dating: based on the external assessment GA by stated dating 16 w + 1 d GRACIA by stated dating : 04/13/2021 Ultrasound examination on: 10/28/2020 GA by U/S based upon: AC, BPD, EFW, Femur, HC GA by U/S 17 w + 3 d GRACIA by U/S: 04/04/2021 GA by U/S based upon (Fetus 2): AC, BPD, EFW, Femur, HC GA by U/S (Fetus 2) 16 w + 6 d GRACIA by U/S (Fetus 2): 04/08/2021 Assigned: Dating performed on 10/28/2020, based on the external assessment Assigned GA 16 w + 1 d Assigned GRACIA: 04/13/2021 Fetus 1: BIOMETRY ----- Main Biometry: BPD ? 38.3 ? mm ? 17w 5d ?97% ? Hadlock OFD ? 46.8 ? mm ? 17w 5d ?93% ? Gail HC ?135.3 ?mm ? 17w 0d ?82% ? Hadlock Cerebellum tr ? 16.7 ? mm ? 17w 2d ?76% ? Campos AC ?126.4 ?mm ? 18w 2d ?97% ? Hadlock Femur ? 23.3 ? mm ? 17w 0d ?78% ? Hadlock Humerus ? 25.3 ? mm ? 18w 0d ?98% ? Gail HC / AC ? 1.07 ?1% ?Nicolaides Weight Calculation: EFW ? 201 ?g ?17w 3d ?>99% ?Hadlock EFW (lb,oz) ? 0 lb 7 ? oz EFW by ?Hadlock ([id number]) EFW discordance ? 15.8 ? % Head / Face / Neck Biometry: Cephalic index ?0.82 ?73% ? Nicolaides Outer IOD ? 23.9 ? mm ? 15w 6d ?32% ? Gail Extremities / Bony Struc Biometry: FL / BPD ?0.61 ?47% ? Hadlock FL / HC ? 0.17 ?72% ? Hadlock FL / AC ? 0.18 ?15% ? Hadlock Other Structures Biometry: FHR ? 151 ?bpm ? Fetus 2: BIOMETRY ----- Main Biometry: BPD ? 35.8 ? mm ? 17w 0d ?84% ? Hadlock OFD ? 48.0 ? mm ? 18w 0d ?96% ? Gail HC ?133.1 ?mm ? 16w 6d ?75% ? Hadlock Cerebellum tr ? 16.5 ? mm ? 17w 1d ?68% ? Campos AC ?116.2 ?mm ? 17w 3d ?87% ? Hadlock Femur ? 20.6 ? mm ? 16w 1d ?45% ? Hadlock Humerus ? 21.7 ? mm ? 16w 4d ?71% ? Gail HC / AC ? 1.15 ?16% ? Nicolaides Weight Calculation: EFW ? 169 ?g ?16w 5d ?82% ? Hadlock EFW (lb,oz) ? 0 lb 6 ? oz EFW by ?Hadlock ([id number]) EFW discordance ? 15.8 ? % Head / Face / Neck Biometry: Cephalic index ?0.75 ?7% ?Nicolaides CM ?3.5 ?mm ? 34% ? Nicolaides Outer IOD ? 23.1 ? mm ? 15w 2d ?24% ? Gail Extremities / Bony Struc Biometry: FL / BPD ?0.58 ?18% ? Hadlock FL / HC ? 0.15 ?8% ?Hadlock FL / AC ? 0.18 ?6% ?Hadlock Other Structures Biometry: FHR ? 149 ?bpm ? Fetus 1: GENERAL EVALUATION ----- Cardiac activity present. FHR 151 bpm. movements visualized. Presentation transverse. Placenta Placental site: anterior. Umbilical cord Cord vessels: 3 vessel cord. Cord insertion: placental insertion: marginal. Amniotic fluid Amount of AF: normal amount. Fetus 2: GENERAL EVALUATION ----- Cardiac activity present. FHR 149 bpm. movements visualized. Presentation transverse. Placenta Placental site: anterior. Umbilical cord Cord vessels: 3 vessel cord. Cord insertion: placental insertion: normal. Amniotic fluid Amount of AF: normal amount. Fetus 1: ANATOMY ----- The following structures appear normal: Head / Neck ? Nuchal fold. Face ?Orbits. Heart / Thorax ?Situs. Cardiac rhythm. Abdomen ? Abdominal wall. Stomach. Kidneys. Bladder. The following structures could not be adequately visualized: Head / Neck ? Cranium. Lateral ventricles. Choroid plexus. Midline falx. Cavum septi pellucidi. Cerebellum. Cisterna ?magna. Face ?Lips. Profile. Nose. Palate. Heart / Thorax ?4-chamber view. RVOT view. LVOT view. Aortic arch view. Ductal arch view. Superior vena cava. Inferior ?vena cava. High short axis view. 3-vessel view. 8-cawamx-vedsqte view. ?Diaphragm. Spine ? Cervical spine. Thoracic spine. Lumbar spine. Sacral spine. Extremities / ? Right hand. Left hand. Right foot. Left foot. Skeleton Gender: male. Fetus 2: ANATOMY ----- The following structures appear normal: Face ?Orbits. Heart / Thorax ?Situs. Cardiac rhythm. Abdomen ? Abdominal wall. Stomach. Kidneys. Bladder. The following structures could not be adequately visualized: Head / Neck ? Cranium. Lateral ventricles. Choroid plexus. Midline falx. Cavum septi pellucidi. Cerebellum. Cisterna ?magna. ?Nuchal fold. Face ?Lips. Profile. Nose. Palate. Heart / Thorax ?4-chamber view. RVOT view. LVOT view. Aortic arch view. Ductal arch view. Superior vena cava. Inferior ?vena cava. High short axis view. 3-vessel view. 4-vsrkum-fxlwqzy view. ?Diaphragm. Spine ? Cervical spine. Thoracic spine. Lumbar spine. Sacral spine. Extremities / ? Right hand. Left hand. Right foot. Left foot. Skeleton Gender: male. MATERNAL STRUCTURES ----- Cervix ?Cervical length 44.7 mm Right Ovary ? Suboptimal Left Ovary ?Suboptimal COMMENT ----- Patient's name and date of were confirmed by the pearl maker prior to the exam Procedure Note Milka Mullins MD - 10/28/2020 [facility] Basic ----- Pat. Name:Chucho BECK Date:10/28/2020 8:52am Pat. NO: [id number] MD:RICHARD HAYDEN MD [facility] Tyson :1990Age:30 ----- INDICATION ----- Twins, Monochorionic-Monoamniotic (Mo-Mo) Maternal Obesity (bmi greater than 40) CODING ----- Procedures 16032: OB greater than 14 wks (1st Basic) 74580: OB greater than 14 wks add gestation(s) HISTORY ----- OB History 4. Para 2 MATERNAL ASSESSMENT ----- Physical Exam Weight 108 kg. BMI 40.68 kg/m?. METHOD ----- Transabdominal ultrasound examination ----- Twin . Number of fetuses: 2. DATING ----- Cycle:regular cycle Method of dating:based on the external assessment GA by stated dating 16 w + 1 d GRACIA by stated dating :04/13/2021 Ultrasound examination on:10/28/2020 GA by U/S based upon:AC, BPD, EFW, Femur, HC GA by U/S17 w + 3 d GRACIA by U/S:04/04/2021 GA by U/S based upon (Fetus 2):AC, BPD, EFW, Femur, HC GA by U/S (Fetus 2)16 w + 6 d GRACIA by U/S (Fetus 2):04/08/2021 Assigned:Dating performed on 10/28/2020, based on the externalassessment Assigned GA16 w + 1 d Assigned GRACIA:04/13/2021 Fetus 1: BIOMETRY ----- Main Biometry: BPD 38.3 mm 17w 5d97% Hadlock OFD 46.8 mm 17w 5d93% Gail HC 135.3 mm 17w 0d82% Hadlock Cerebellum tr 16.7 mm 17w 2d76% Campos AC 126.4 mm 18w 2d97% Hadlock Femur 23.3 mm 17w 0d78% Hadlock Humerus 25.3 mm 18w 0d98% Gail HC / AC 1.07 1%Nicolaides Weight Calculation: EFW 201 g 17w 3d>99% Hadlock EFW (lb,oz) 0 lb 7 oz EFW by Hadlock ([id number]) EFW discordance 15.8 % Head / Face / Neck Biometry: Cephalic index 0.8273% Nicolaides Outer IOD 23.9 mm 15w 6d32% Gail Extremities / Bony Struc Biometry: FL / BPD 0.6147% Hadlock FL / HC 0.1772% Hadlock FL / AC 0.1815% Hadlock Other Structures Biometry: FHR 151 bpm Fetus 2: BIOMETRY ----- Main Biometry: BPD 35.8 mm 17w 0d84% Hadlock OFD 48.0 mm 18w 0d96% Gail HC 133.1 mm 16w 6d75% Hadlock Cerebellum tr 16.5 mm 17w 1d68% Campos AC 116.2 mm 17w 3d87% Hadlock Femur 20.6 mm 16w 1d45% Hadlock Humerus 21.7 mm 16w 4d71% Gail HC / AC 1.1516% Nicolaides Weight Calculation: EFW 169 g 16w 5d82% Hadlock EFW (lb,oz) 0 lb 6 oz EFW by Hadlock ([id number]) EFW discordance 15.8 % Head / Face / Neck Biometry: Cephalic index 0.75 7%Nicolaides CM 3.5 mm34% Nicolaides Outer IOD 23.1 mm 15w 2d24% Gail Extremities / Bony Struc Biometry: FL / BPD 0.5818% Hadlock FL / HC 0.15 8%Hadlock FL / AC 0.18 6%Hadlock Other Structures Biometry: FHR 149 bpm Fetus 1: GENERAL EVALUATION ----- Cardiac activity present. FHR 151 bpm. movements visualized. Presentation transverse. Placenta Placental site: anterior. Umbilical cord Cord vessels: 3 vessel cord. Cord insertion: placentalinsertion: marginal. Amniotic fluid Amount of AF: normal amount. Fetus 2: GENERAL EVALUATION ----- Cardiac activity present. FHR 149 bpm. movements visualized. Presentation transverse. Placenta Placental site: anterior. Umbilical cord Cord vessels: 3 vessel cord. Cord insertion: placentalinsertion: normal. Amniotic fluid Amount of AF: normal amount. Fetus 1: ANATOMY ----- The following structures appear normal: Head / Neck Nuchal fold. Face Orbits. Heart / Thorax Situs. Cardiac rhythm. Abdomen Abdominal wall. Stomach. Kidneys. Bladder. The following structures could not be adequately visualized: Head / Neck Cranium. Lateral ventricles. Choroid plexus.Midline falx. Cavum septi pellucidi. Cerebellum. Cisterna magna. Face Lips. Profile. Nose. Palate. Heart / Thorax 4-chamber view. RVOT view. LVOT view. Aortic archview. Ductal arch view. Superior vena cava. Inferior vena cava. High short axis view. 3-vessel view.7-tfxjqv-bpfdxvy view. Diaphragm. Spine Cervical spine. Thoracic spine. Lumbar spine.Sacral spine. Extremities / Right hand. Left hand. Right foot. Left foot. Skeleton Gender: male. Fetus 2: ANATOMY ----- The following structures appear normal: Face Orbits. Heart / Thorax Situs. Cardiac rhythm. Abdomen Abdominal wall. Stomach. Kidneys. Bladder. The following structures could not be adequately visualized: Head / Neck Cranium. Lateral ventricles. Choroid plexus.Midline falx. Cavum septi pellucidi. Cerebellum. Cisterna magna. Nuchal fold. Face Lips. Profile. Nose. Palate. Heart / Thorax 4-chamber view. RVOT view. LVOT view. Aortic archview. Ductal arch view. Superior vena cava. Inferior vena cava. High short axis view. 3-vessel view.0-ndbrjz-jkmvuka view. Diaphragm. Spine Cervical spine. Thoracic spine. Lumbar spine.Sacral spine. Extremities / Right hand. Left hand. Right foot. Left foot. Skeleton Gender: male. MATERNAL STRUCTURES ----- Cervix Cervical length 44.7 mm Right Ovary Suboptimal Left Ovary Suboptimal COMMENT ----- Patient's name and date of were confirmed by the pearl maker priorto the exam IMPRESSION ----- -Monochorionic-monoamniotic Twin at 16w1d. -Normal limited anatomy to the extent of U/S views for A and B.Anatomy was limited by early gestational age. -Normal amniotic fluid MVP for A and B. -No obvious sign of TTTS. -Discordance is within appropriate range. -Maternal ovaries are not visualized today however no adnexal masses arenoted to extent of views. -Anterior placenta. -Marginal cord insertion for fetus A. The patient was informed of the ultrasound findings and limitations. TTTS/TAPS surveillance q2 weeks. Growth/anatomy in 4 weeks. Thank you for allowing us to participate in the care of this patient. Richard Hayden MD US ORDERABLES documented in this encounter Visit Diagnoses Diagnosis Monoamniotic monochorionic twin , antepartum documented in this encounter
--- OUTSIDE RECORDS SUMMARY | 2024-07-09 12:49 | XMS_ITS | Encounter Summary ---
Author Organization [facility] Address [address] Attn: Epic Prelude ADT [place] [address] Care Team Providers Care Real Estate Analyst Name Role Phone Unavailable Primary Care Provider Unavailabl e Encounter Details Date Type Department Care Team (Latest Contact Info) Description 11/26/2020 Travel Social History Tobacco Use Types Packs/Day [...]
--- OUTSIDE RECORDS SUMMARY | 2024-07-09 12:49 | XMS_ITS | Encounter Summary ---
Author Organization [facility] Address [address] Attn: Epic Prelude ADT [place] [address] Care Team Providers Care Infrastructure Developer Name Role Phone Unavailable Primary Care Provider Unavailabl e Encounter Details Date Type Department Care Team (Latest Contact Info) Description 12/03/2020 Travel Social History Tobacco Use Types Packs/Day [...] have Coronavirus / COVID-19? No / Unsure 12/03/2020 3:18 PM CDT documented as of this encounter Plan of Treatment Not on file documented as of this encounter Visit Diagnoses Not on filedocumented in this encounter
== END 2024-07-05 12:32 | disposition home or self-care (01) ==
LOC: ANHLAB 12:32
PROVIDERS: Visit Provider Advanced Practice Midwife
DX: O99.413 Diseases of the circulatory system complicating pregnancy, third trimester (principal); Z3A.00 Weeks of gestation of pregnancy not specified; Z67.91 Unspecified blood type, Rh negative
CPT/HCPCS: 36415; 82306; 82728; 85014; 85018; 86592; 86703; G0432

== ENCOUNTER 2024-07-31 14:51 | Outpatient (RCR) | payer OTHER, SELFPAY | END 2024-10-27 10:08 | disposition home or self-care (01) | LOC: ANHDMC 14:51 | PROVIDERS: Visit Provider Obstetrics & Gynecology Gynecology | DX: O24.419 Gestational diabetes mellitus in pregnancy, unspecified control (principal); Z3A.00 Weeks of gestation of pregnancy not specified | CPT/HCPCS: G0108 ==

== ENCOUNTER 2024-08-12 06:03 | Inpatient (IN) | payer OTHER, SELFPAY ==
[2024-08-12] VITALS (59 sets, daily range): BP systolic 97–144; BP diastolic 49–111; PULSE 65–149; RESP 16; TEMP 36.2–36.9; O2SAT 96–100; BMI 88.9
[2024-08-12 06:53] LABS: Basophils Percent Auto 0.3 % (0.2-1.2); Eosinophils Absolute Auto 0.1 K/mm3 (0-0.3); Eosinophils Percent Auto 0.5 % (0-4.4); Hemoglobin 14.3 g/dL (12.0-15.0); Immature Granulocyte Absolute 0.03 K/mm3 (0.00-0.031); Immature Granulocyte Percent A 0.3 % (0-0.5); Lymphocytes Absolute Auto 1.08 K/mm3 (0.9-3.2); Lymphocytes Percent Auto 11.5 % (18.3-44.2); Mean Corpuscular HGB Conc 35.8 g/dl (32-36); Mean Corpuscular Hemoglobin 32.6 pg (26-34); Mean Corpuscular Volume 91.1 fl (80-100); Mean Platelet Volume 11.8 fl (7.4-10.4); Monocytes Absolute Auto 0.6 K/mm3 (0.1-0.6); Monocytes Percent Auto 6.6 % (2.6-8.5); Neutrophils Absolute Auto 7.6 K/mm3 (1.3-6.7); Neutrophils Percent Auto 80.8 % (45.5-73.1); Platelet Count Result 157 k/mm3 (150-375); Red Blood Count 4.39 M/mm3 (4.2-5.4); Red Cell Distribution Width 13.2 % (11.5-14.5); White Blood Count 9.4 K/mm3 (4.5-10.0)
[2024-08-12 07:29] LABS: Rapid Plasma Reagin Non-Reactive (NonReactive)
[2024-08-12 07:49] LABS: HIV 1/2 Ab P24 Ag Result Negative (Negative)
--- NOTE | 2024-08-12 07:59 | WPDOBADMIT ---
Obstetrics - Admit Note Admission Note: record reviewed. No pertinent additions to the history and/or any subsequent changes in the physical findings that are not consistent with the expected course of the were found. Additions to the history and/or subsequent changes in the physical findings follow. Here for MIL. Cervix /-3 AROM with clear fluid noted. FHTs cat I. Declined starting pitocin on admission. Will give a few hours and start if not in labor.
[2024-08-12 08:26] LABS: Glucose Point of Care 133 mg/dl (65-105)
--- NOTE | 2024-08-12 10:23 | WPDANESEPP ---
Anes - Eval Pre Procedure Procedure: labor epidural Date/Time: 08/12/24 10:23 Surgeon: Allan Preop Diagnosis: pain during labor Pre Op Diagnosis: IOL Patient Data Age: 34 Gender: F Height: 1.63 m Weight: 235 kg Last Vital Signs Temp 97.7 F 08/12/24 09:00 Pulse 142 H 08/12/24 10:01 BP 120/89 08/12/24 10:01 O2 Del Method Room Air 08/12/24 06:26 Allergies Allergy/AdvReac Type Severity Reaction Status Date / Time No Known Allergies Allergy Unknown Verified 07/19/24 13:20 Home Medications ?Medication ?Instructions ?Recorded ?Confirmed ?Type cholecalciferol (vitamin D3) 50 50 mcg PO DAILY #1 cap 09/29/21 07/19/24 Rx mcg (2,000 unit) capsule ferrous sulfate 137 mg (45 mg 137 mg PO DAILY 07/19/24 07/19/24 History iron) tablet,extended release (Slow Fe) vit no.95-ferrous 1 tablet PO DAILY 07/19/24 07/19/24 History fumarate 28 mg-folic acid 800 mcg tablet () Laboratory Tests 08/12/24 08/12/24 06:43 08:23 WBC 9.4 K/mm3 (4.5-10.0) RBC 4.39 M/mm3 (4.2-5.4) Hgb 14.3 g/dL (12.0-15.0) Hct 40.0 % (37.0-47.0) MCV 91.1 fl (80-100) MCH 32.6 pg (26-34) MCHC 35.8 g/dl (32-36) RDW 13.2 % (11.5-14.5) Plt Count 157 k/mm3 (150-375) MPV 11.8 H fl (7.4-10.4) Immature Gran % (Auto) 0.3 % (0-0.5) Neut % (Auto) 80.8 H % (45.5-73.1) Lymph % (Auto) 11.5 L % (18.3-44.2) Collier % (Auto) 6.6 % (2.6-8.5) Eos % (Auto) 0.5 % (0-4.4) Baso % (Auto) 0.3 % (0.2-1.2) Lymph # (Auto) 1.08 K/mm3 (0.9-3.2) Collier # (Auto) 0.6 K/mm3 (0.1-0.6) Eos # (Auto) 0.1 K/mm3 (0-0.3) Baso # (Auto) 0.0 K/mm3 (0.0-0.1) Abs Immat Gran (auto) 0.03 K/mm3 (0.00-0.031) Absolute Neuts (auto) 7.6 H K/mm3 (1.3-6.7) Absolute Nucleated RBC 0.000 K/mm3 (0.0-0.012) Nucleated RBC % 0.0 % (0.0-0.2) POC Capillary Glucose 133 H mg/dl (65-105) RPR Non-reactive (NonReactive) HIV 1&2 Ab/P24 Ag 4thGn Negative (Negative) Blood Type A Negative Antibody Screen Positive Antibody Identification Anti-[place] Antigen Identification [place] Antigen - NEGATIVE SHYANNE, IgG Interpret Neg SHYANNE, Poly Interpret Not Performed SHYANNE, Complement Interp Negative Patient hx anesthesia problems: none Family hx anesthesia problems: none Results Review: All pre-operative results and documents have been reviewed as part of the pre-operative evaluation. [facility], [facility] Past Medical History Medical History Anxiety Hx gestational diabetes (~2020) Vitamin D deficiency Surgical History Surgical History No pertinent past surgical history Family History Family History Mother Bipolar 1 disorder Social History Social History Smoking packs per day: 1 Smoking cigarettes per day: 20.0 Years smoked: 8 Smoking pack-years: 8.00 Smoking status: Former smoker Tobacco type: cigarettes Second hand tobacco smoke exposure: No Smoking end date: 08/27/17 Alcohol intake: never Substance use: never Substance use type: does not use Do You Feel Safe in your Home?: Yes Lack of Transportation: No Lack of Food: Never True Current Housing: I Have Housing Concerned About Future Housing: No Difficulty Paying Gas/Electric Bills: No Difficulty Paying for Meds: No Currently Unemployed: No Education: Associate Degree Difficulty w/ Childcare or Family Care: No Living arrangements: with family Additional living arrangements comments: Lives with boyfriend of 12 years and has 4 children. Has a set of twins. Occupation/Education: unemployed Gender identity (if verbalized by the patient): Female Sexual Orientation (if Verbalized by the Patient): Straight or Heterosexual Spiritual care concerns: No Agree to blood products: Yes Exam Day of Procedure 08/12/24 10:23
[2024-08-12 12:23] LABS: Glucose Point of Care 124 mg/dl (65-105)
[2024-08-12 16:37] LABS: Glucose Point of Care 174 mg/dl (65-105)
--- NOTE | 2024-08-12 18:27 | PM.OBPRVD ---
OB - Vaginal Delivery Note Procedure Delivery date: 08/12/24 Events: Other (GDMA1) Induction method: AROM (Initially declined pitocin) and Per Pitocin Protocol (after 6 hours AROM) Delivery monitor: External FHT and External Uterine Route of delivery: Episiotomy description: None Laceration Description: Perineal - 1st Degree Delivery repair: vicryl (3-0) Specimen: Yes (Anti-Ketty antibodies on admit screen) Quantitative Blood Loss (ml): 100 Anesthesia type: Epidural Disposition: Floor Complications: No immediate complications Baby Date of : 08/12/24 Gestational Age by Date: 39 gender: Female presentation: vertex position: Right Occiput Anterior Placenta delivery description: Manual Removal (cord avulsion with minimal cord traction) Cord Vessel Description: 3 Vessels and Delayed Cord Clamping score one minute: 9 score five minutes: 9 Narrative: New antibody screen + for anti-Ketty
--- NOTE | 2024-08-12 18:31 | PM.OBDSVD ---
DS: Admitting Diagnosis Discharge Date 08/14/24 Admitting Diagnosis IUP 39 wks MIL OB - DS: Summary OB Procedures : Ultrasound OB Procedures Intrapartum: Spontaneous Vag Delivery OB Procedures: : None Peripartum Data Infant Delivery Method: Natural Vaginal Laceration Description: Perineal - 1st Degree Episiotomy description: None complications: none Status at Discharge Functional status at discharge: independent ambulation Overall status at discharge: patient is progressing back to baseline Time Spent with Patient Time attestation: Total time spent providing and/or coordinating discharge services: DS: Data Data Completed and Pending Labs on day of discharge: Labs from last 24 hours 08/12/24 08/12/24 08/12/24 16:34 12:18 08:23 WBC RBC Hgb Hct MCV MCH MCHC RDW Plt Count MPV Immature Gran % (Auto) Neut % (Auto) Lymph % (Auto) [place] % (Auto) Eos % (Auto) Baso % (Auto) Lymph # (Auto) [place] # (Auto) Eos # (Auto) Baso # (Auto) Abs Immat Gran (auto) Absolute Neuts (auto) Absolute Nucleated RBC Nucleated RBC % POC Capillary Glucose 174 H 124 H 133 H RPR HIV 1&2 Ab/P24 Ag 4thGn Blood Type Antibody Screen Antibody Identification Antigen Identification SHYANNE, IgG Interpret SHYANNE, Poly Interpret SHYANNE, Complement Interp 08/12/24 06:43 WBC 9.4 RBC 4.39 Hgb 14.3 Hct 40.0 MCV 91.1 MCH 32.6 MCHC 35.8 RDW 13.2 Plt Count 157 MPV 11.8 H Immature Gran % (Auto) 0.3 Neut % (Auto) 80.8 H Lymph % (Auto) 11.5 L [place] % (Auto) 6.6 Eos % (Auto) 0.5 Baso % (Auto) 0.3 Lymph # (Auto) 1.08 [place] # (Auto) 0.6 Eos # (Auto) 0.1 Baso # (Auto) 0.0 Abs Immat Gran (auto) 0.03 Absolute Neuts (auto) 7.6 H Absolute Nucleated RBC 0.000 Nucleated RBC % 0.0 POC Capillary Glucose RPR Non-reactive HIV 1&2 Ab/P24 Ag 4thGn Negative Blood Type A Negative Antibody Screen Positive Antibody Identification Anti-Ketty Antigen Identification Ketty Antigen - NEGATIVE SHYANNE, IgG Interpret Neg SHYANNE, Poly Interpret Not Performed SHYANNE, Complement Interp Negative Discharge Plan Discharge Attending physician on discharge: Josey Lemus Discharging Clinician: Josey Lemus Anticipated Discharge Date/Time: 08/14/24 18:32 Patient Disposition: Home, Self-Care Activity: may shower and may drive after 2 weeks Diet: regular Patient Instructions: Antibiotic Form Patient Language: Congolese Stand Alone Forms: General Discharge Information Follow-up/Referrals: Josey Lemus MD [Physician] - 6 Weeks Discharge Medications: Continued cholecalciferol (vitamin D3) 50 mcg (2,000 unit) capsule 50 mcg PO DAILY Qty: 1 0RF PNV cmb#95-ferrous fumarate-FA [] 28 mg iron- 800 mcg tablet 1 tablet PO DAILY Discontinued Slow Fe 137 mg (45 mg iron) tablet extended release 137 mg PO DAILY Date of admission: 08/12/24 06:03 Primary Care Provider: PHYSICIAN,BIOFUELS PRODUCTION ASSOCIATE Admitting Provider: Josey Lemus Attending physician on admission: Josey Lemus Condition: Stable
[2024-08-12] MEDS: OXYTOCIN 30 UNITS/NS 500 ML 30 UNITS/500 ML BAG 125 UNITS IV CONT (18:50)
--- NOTE | 2024-08-12 20:40 | OBPPTRN ---
Patient transferred to post room #292 via wheelchair. Support person present. Oriented to unit, room, information board, rooming in, admission packet and security measures. Patient verbalizes understanding.
[2024-08-13 04:56] LABS: Hematocrit 41.1 % (37.0-47.0); Hemoglobin 13.9 g/dL (12.0-15.0)
[2024-08-13 05:00] VITALS: BP 119/54; PULSE 68; RESP 14; TEMP 36.4; O2SAT 99
--- NOTE | 2024-08-13 07:25 | P.PNOB_ITS ---
OB - PN: Subj Subjective Date/time seen: 08/13/24 07:25 Patient comments: no complaints and pain well controlled baby status: doing well OB - PN: Obj Data Labs 08/13/24 04:42 Labs: Laboratory Results - last 24 hr 08/12/24 08/12/24 08/12/24 06:43 08:23 12:18 Hgb Hct POC Capillary Glucose 133 H 124 H RPR Non-reactive HIV 1&2 Ab/P24 Ag 4thGn Negative Blood Type A Negative Antibody Screen Positive Antibody Identification Anti-[place] Antigen Identification Matthew Antigen - NEGATIVE SHYANNE, IgG Interpret Neg SHYANNE, Poly Interpret Not Performed SHYANNE, Complement Interp Negative 08/12/24 08/13/24 16:34 04:42 Hgb 13.9 Hct 41.1 POC Capillary Glucose 174 H RPR HIV 1&2 Ab/P24 Ag 4thGn Blood Type Antibody Screen Antibody Identification Antigen Identification SHYANNE, IgG Interpret SHYANNE, Poly Interpret SHYANNE, Complement Interp OB - PN A/P Plan day: 1 Plan: routine care Comments: Reviewed matthew antibody with patient Time Spent With Patient Time: Total time spent is greater than 50% in coordination of care (as documented) at patient's floor/unit and/or counseling patient: Exam 2 : Bimanual exam- vagina & uterus: other (Uterus firm, nt @U)
[2024-08-13 07:30] VITALS: BP 128/78; PULSE 74; RESP 16; TEMP 36.4; O2SAT 99
--- NOTE | 2024-08-13 09:13 | PC.NURSE ---
On 08/13/24, the student, Amira Ovalles, provided care and [facility]. I have reviewed the student's documentation and agree with the findings.
[2024-08-13] MEDS: IBUPROFEN 600 MG TABLET PO (10:50)
[2024-08-13 12:05] VITALS: BP 130/62; PULSE 80; RESP 14; TEMP 36.1; O2SAT 98
--- NOTE | 2024-08-13 13:23 | PC.NURSE ---
Mother verbalizes she is able to independently latch with appropriate positioning and alignment. She denies any nipple discomfort and is responsively . Infant is currently meeting outcomes for weight, output, jaundice, blood sugar and feeding frequencies of 8-12 times in 24 hours. Mother declines any additional assistance or education at this time. Mother is encouraged to call for assistance if her infant doesn?t latch, pain with latching, questions or concerns. Mother voiced understanding of information shared along with the mom/baby guide for an additional resource. Reported to the Primary RN.
--- NOTE | 2024-08-13 13:49 | WPDANLDPN2 ---
Anes-Prog Note L&D Date/Time: 08/13/24 13:49 Comfortable throughout: labor and delivery Neuraxial method: epidural Epidural/Spinal procedure site: clean & non-tender Neuro status: Neuro function grossly intact. Cardiovascular status: normal Respiratory status: normal Airway patency: baseline Mental status: baseline Post-Op hydration status: normal Vital Signs: Last Vital Signs Temp 97.0 F L 08/13/24 12:05 Pulse 80 08/13/24 12:05 Resp 14 08/13/24 12:05 BP 130/62 08/13/24 12:05 Pulse Ox 98 08/13/24 12:05 O2 Del Method Room Air 08/13/24 08:30 Pain score (VAS): 0 I/O: Intake & Output 08/12/24 08/13/24 08/13/24 23:59 07:59 15:59 Intake Total 100 Output Total 210 Balance -110 Post-procedural complaints: none Patient feedback: Patient satisfied with anesthetic care.
[2024-08-13 21:37] VITALS: BP 108/67; PULSE 69; RESP 16; TEMP 36.7; O2SAT 100
--- NOTE | 2024-08-14 07:51 | P.PNOB_ITS ---
OB - PN: Subj Subjective Date/time seen: 08/14/24 07:51 Patient comments: no complaints and pain well controlled baby status: doing well OB - PN: Obj Data Labs 08/13/24 04:42 OB - PN A/P Plan day: 2 Plan: routine care, discharge home and follow up 6 weeks Time Spent With Patient Time: Total time spent is greater than 50% in coordination of care (as documented) at patient's floor/unit and/or counseling patient: Exam 2 : Bimanual exam- vagina & uterus: other (Uterus firm, nt @U)
[2024-08-14 08:37] VITALS: BP 139/86; PULSE 80; RESP 16; TEMP 36.3; O2SAT 99
--- NOTE | 2024-08-14 08:45 | PC.NURSE ---
Consulted with mother concerning needs and she shared her ability to independently latch infant optimally, we reviewed positioning and alignment, supporting breast, off-centered (asymmetrical latch) and leading with the chin with big, open, wide gape. Infant then latched optimally to the [left] breast in [football] position, infant did have clicking at first but mother broke suction and re-latched baby optimally and without any pain. We reviewed working with the infant, supporting breast, protecting her nipples with an optimal deep latch, good positioning, and good hand washing. Mother was already using lanolin cream on nipples, RN encouraged also trying the cooling gel pads and gave mother a set to use and take home. Mother is feeding appropriately for growth of infant and understands stimulating infant to eat if needed. Infant has had appropriate feedings in the last 24 hours meets the outcomes for weight, output, blood sugar and jaundice at this time. Reinforced understanding of milk production, transition of milk, signs of adequate intake, transition of stool, prevention/relief of engorgement, plugged ducts, mastitis, responsive watching for feeding cues, the different methods of stimulating infant to breastfeed 1-3 hours after the start of the last feeding, community resources, and when to call a provider using the resource of the feeding sheet along with the mom and baby guide. Resources used to facilitate learning were used from the [visual handouts/ tool/mom and baby guide]. Mother voiced understanding of the information shared, is confident to continue effectively her at home and when to call for assistance. Reported to the Primary RN.
--- NOTE | 2024-08-14 09:41 | PC.NURSE ---
On 08/14/24, the [facility] students,Severo and Odalys, provided care and completed [facility] documentation on this patient. I have reviewed the student's documentation and agree with the findings.
--- NOTE | 2024-08-14 10:05 | PC.NURSE ---
On 08/14/24, license pending nurse, Tiara Bentley, provided care and completed [facility] documentation on this patient. I have reviewed the license pending nurse's documentation and agree with the findings.
--- OUTSIDE RECORDS SUMMARY | 2024-08-14 15:21 | XMS_ITS | Referral Summary ---
Author Organization [facility] Address [address] [place] [id number] Care Team Providers Care Hat Blocker Name Role Phone Josey Lemus MD Unavailable [phone] Naina Casillas NP Primary Care Provider [phone] Encounters Date Type Department Care Team Description 08/14/2024 2:45 PM TRUCK RENTAL CLERK Office Visit [facility]ient Care at [address] [place] [id number] Mary Ann Meza NP Dental infection (Primary Dx) 08/04/2024 5:30 PM TRUCK RENTAL CLERK Office Visit [facility] Care at [address] [place] [address] Angely Don NP Dental infection (Primary Dx) from Last 3 Months Allergies [...] MOUTH ONE TIME PER WEEK 1 Active [id number]-grr ic-om3 25 mg iron-1 mg -400 mg combo pack Take by mouth Ac tive vitamin B complex no.7-thywd-T-bi otin 1-60-300 mg-mg-mcg tabletIndicatio ns:Vitamin Deficiency Prevention 1 tablet Active fluticasone propionate (FLONASE) 50 mcg/actuation nasal spray 2 Active meclizine (ANTIVERT) 25 mg tablet 2 Active methylPREDNISol one (Medrol, Shayne,) 4 mg DosepackIndicat ions:Fluid level behind tympanic membrane of both ears follow package directions 1 packet 3 Active Additional Information Patient not taking.Reported on 08/14/2024 chlorhexidine (PERIDEX) 0.12 % oral rinseIndication s:Dental infection Apply 15 mL to the mouth or throat 2 (two) times a day 473 mL 5 Active Additional Information Patient not taking.Reported on 08/14/2024 amoxicillin-cla vulanate (Augmentin) 875-125 mg per tablet Take 1 tablet by mouth 2 (two) times a day for 7 days 14 tablet 5 08/21/19 25 Active amoxicillin-cla vulanate (AUGMENTIN) 875-125 mg per tabletIndicatio ns:Dental infection Take 1 tablet by mouth 2 (two) times a day for 7 days 14 tablet 5 08/11/19 25 Active Problems Problem Noted Date Diagnosed Date [...] unequal placental sharing, which can result in Pfdh-sd-Nhzf transfusion Syndrome (TTTS), Twin Anemia-Polycythemia Sequence (TAPS), [...] be managed and there have not been snf effects reported. Plan: - Monitor mood each [...] Transfer of care from Dr Josey Lemus [phone] [] XGraph or Medicare Insurance [x] Dating Criteria: LMP [...] [] MOC: [] Method of feeding: [] Calibration Specialist: [] PP Depression Discussed: Estimated Date of Delivery Comme nts Yes 08/18/2024 Social History Tobacco Use Types Packs/Day Years Used Date Smoking Tobacco: Never Smokeless Tobacco: Never Tobacco Cessation:Counseling Given: Not Answered Estimated Date of Delivery Comme nts Yes 08/18/2024 Sex and Gender Information Value Date Recorded Sex Assigned at Not on file Legal Sex Female 7:39 AM CDT Gender Identity Not on file Sexual Orientation Not on file Last Filed Vital Signs Vital Sign Reading Time Taken Comments Blood Pressure 148/78 08/14/2024 2:15 PM TRUCK RENTAL CLERK Pulse 76 08/14/2024 2:15 PM TRUCK RENTAL CLERK Temperature 36.5 ??C (97.7 ??F) 08/14/2024 2:15 PM CS T Respiratory Rate 18 08/04/2024 5:30 PM TRUCK RENTAL CLERK Oxygen Saturation 99% 08/14/2024 2:15 PM TRUCK RENTAL CLERK Inhaled Oxygen Concentration - - Weight 102.7 kg (226 lb 8 oz) 08/14/2024 2:15 PM TRUCK RENTAL CLERK Height 162.6 cm (5' 4 ) 08/04/2024 5:30 PM TRUCK RENTAL CLERK Body Mass Index 38.88 08/04/2024 5:30 PM TRUCK RENTAL CLERK Plan of Treatment Not on file Insurance [facility] Care Teams Hat Blocker Relationship Specialty Start Date End Date Naina Casillas NP [address] [place], [place] [id number] PCP - General Family Medicine 07/27/22 Josey Lemus MD [address] [place] [address] Referring Physician Gynecology 11/26/20
--- OUTSIDE RECORDS SUMMARY | 2024-08-14 15:21 | XMS_ITS | Patient Health Summary ---
Author Organization [facility] Address [address] [place] [address] Care Team Providers Care Oil Well Cable Tool Driller Name Role Phone Unavailable Primary Care Provider Unavailabl e Note from [facility],non-owned Affiliates and Associated Physician Practices is amultiple site organization consisting of ambulatory clinics and hospital sitesin [place], [place], [place] and [place]. This disclosure is being madepursuant to the Care Everywhere program and may not contain all information available regarding this patient. Last updated 18.[facility] Allergies No known active allergies Medications * Be aware that medications may not be up to date on this document. Alwaysverify current medications with the patient. * clonazePAM (KlonoPIN) 0.5 MG tablet(Started 07/28/2022) TAKE 1/2 TABLET BY MOUTH TWICE A DAY NEEDED FOR ANXIETY ADMINISTER 30 MINUTES BEFORE BEDTIME * B Fepyvis-R-Ddlgn Acid (Angela-Michelle Rx) 1 MG TABS 1 (one) tablet * vitamin D, ergocalciferol, (Drisdol) 1.25 MG (28910 UT) capsule(Started 08/23/2021) TAKE 1 CAPSULE BY [...] Comments Blood Pressure 123/79 08/24/2022 2:06 PM CORPORATE TRAVEL AGENT Pulse 91 08/24/2022 2:06 PM CORPORATE TRAVEL AGENT Temperature - - Respiratory Rate - - Oxygen Saturation 99% 08/24/2022 2:06 PM CORPORATE TRAVEL AGENT Inhaled Oxygen Concentration - - Weight 104.8 kg (231 lb) 08/24/2022 2:06 PM CORPORATE TRAVEL AGENT Height 162.6 cm (5' 4 ) 08/24/2022 2:06 PM CORPORATE TRAVEL AGENT Body Mass Index 39.65 08/24/2022 2:06 PM CORPORATE TRAVEL AGENT Procedures * SONOGRAM - COMPLETE(Performed 11/13/2014) Results * SONOGRAM - COMPLETE (11/13/2014 2:15 PM CDT) Anatomical Region Laterality Modality Other 11/13/2014 2:15 PM CDT Narrative 11/13/2014 5:19 PM CDT ? [facility] ? [facility] ?PHONE: ??FAX: Pat. Name: ?MIS BECK. No: ?[id number] Study Date: ?? 11/13/2014 ??2:15pm , Age: ? 1990, 24 Pregnancies: ?? 1 Height: ? 64 in Weight: ? 225 lb LMP: ?03/12/2014 GA by LMP: ?35w1d GA by US: ? 35w3d GA Selected: ??35w1d (LMP) GRACIA: ?12/17/2014 Referring MD: JOSEY LEMUS MD Program Management Analyst: ??Liliam Domingo RDMS CPT4: ? 60632 BMI: ?38.62 Hist/Ind: ? Arrhythmia ?Gestational Diabetes MEASUREMENTS & AGE ? GROWTH EVALUATION Measurement ??GA ? Range ? Srce %for GA Ratios ----- ---- ------- BPD ??9.0 cm 36w2d ([id number]) Hadl BPD 66% FL/BPD 0.75 (0.71 - 0.87) HC ??31.9 cm 35w6d (11h6q-40f1t) Hadl HC ??61% FL/AC ??0.21 (0.20 - 0.24) AC ??32.4 cm 36w2d (93r6x-04f9t) Hadl AC ??68% HC/AC ??0.98 (0.93 - 1.12) FL ?? 6.7 cm 34w4d (15e1o-92v9e) Hadl FL ??41% CI ? 0.79 (0.70 - 0.86) HL ?? 5.9 cm 34w2d (35q8i-83i3b) Hadley HL ??36% GA for sonogram 35w3d (74h0q-40f3h) ?? Weight Estimate: based on (HL,BPD,HC,AC,FL) Avg ? Weight: 2767 gm (8444-4803) Hadlo ? : 6lbs, 1oz ? Normal: [...] <Electronic Signature> ??11/13/2014 05:19pm Josey Lemus MD [facility] ORDERABLES
--- OUTSIDE RECORDS SUMMARY | 2024-08-14 15:21 | XMS_ITS | Referral Summary ---
Author Organization [facility] Address [address] [place] [address] Care Team Providers Care Hourly Sign Language Interpreter Name Role Phone Unavailable Primary Care Provider Unavailabl e Source Comments [facility],non-owned Affiliates and Associated Physician Practices is amultiple site organization consisting of ambulatory clinics and hospital sitesin [place], [place], [place] and [place]. This disclosure is being madepursuant to the Care Everywhere program and may not contain all information available regarding this patient. Last updated 18.[facility] [employer] Allergies No known active allergies Medications * Be aware that medications may not be up to date on this document. Alwaysverify current medications with the patient. Medication Sig Dispensed Refills Start Date End Date Status clonazePAM (KlonoPIN) 0.5 MG tablet TAKE 1/2 TABLET BY MOUTH TWICE A DAY NEEDED FOR ANXIETY ADMINISTER 30 MINUTES BEFORE BEDTIME 07/28/2022 Active B Rdmidmj-H-Qvxny Acid (Angela-Michelle Rx) 1 MG TABS 1 (one) tablet Active vitamin D, ergocalciferol, (Drisdol) 1.25 MG (86088 UT) capsule TAKE 1 CAPSULE BY MOUTH ONE TIME PER WEEK 08/23/2021 Active ibuprofen (Motrin) 800 MG tablet Take 1 (one) tablet by mouth 3 times daily 07/27/2022 Active Active Problems Patient Care Coordination No te Formatting of this note migh t be different from the original. NOP [facility] 2014 No known active problems Social History [...] Comments Blood Pressure 123/79 08/24/2022 2:06 PM MATCHER OPERATOR Pulse 91 08/24/2022 2:06 PM MATCHER OPERATOR Temperature - - Respiratory Rate - - Oxygen Saturation 99% 08/24/2022 2:06 PM MATCHER OPERATOR Inhaled Oxygen Concentration - - Weight 104.8 kg (231 lb) 08/24/2022 2:06 PM MATCHER OPERATOR Height 162.6 cm (5' 4 ) 08/24/2022 2:06 PM MATCHER OPERATOR Body Mass Index 39.65 08/24/2022 2:06 PM MATCHER OPERATOR Plan of Treatment Not on file
--- OUTSIDE RECORDS SUMMARY | 2024-08-14 15:21 | XMS_ITS | Clinical Summary ---
Author Organization [facility] Address [address] [address] Care Team Providers Care Supervisor Locomotive Name Role Phone Unavailable Primary Care Provider Unavailabl e Source Comments [facility],non-owned Affiliates and Associated Physician Practices is amultiple site organization consisting of ambulatory clinics and hospital sitesin [place], [place], [place] and [place]. This disclosure is being madepursuant to the Care Everywhere program and may not contain all information available regarding this patient. Last updated 18.[facility] [employer] Allergies No known active allergies Medications * Be aware that medications may not be up to date on this document. Alwaysverify current medications with the patient. Medication Sig Dispensed Refills Start Date End Date Status clonazePAM (KlonoPIN) 0.5 MG tablet TAKE 1/2 TABLET BY MOUTH TWICE A DAY NEEDED FOR ANXIETY ADMINISTER 30 MINUTES BEFORE BEDTIME 07/28/2022 Active B Vuyxiwx-Q-Wqbgx Acid (Angela-Michelle Rx) 1 MG TABS 1 (one) tablet Active vitamin D, ergocalciferol, (Drisdol) 1.25 MG (57935 UT) capsule TAKE 1 CAPSULE BY MOUTH ONE TIME PER WEEK 08/23/2021 Active ibuprofen (Motrin) 800 MG tablet Take 1 (one) tablet by mouth 3 times daily 07/27/2022 Active Active Problems Patient Care Coordination No te Formatting of this note migh t be different from the original. NOP [facility] 2014 No known active problems Social History [...] Comments Blood Pressure 123/79 08/24/2022 2:06 PM FAMILY REUNIFICATION SPECIALIST Pulse 91 08/24/2022 2:06 PM FAMILY REUNIFICATION SPECIALIST Temperature - - Respiratory Rate - - Oxygen Saturation 99% 08/24/2022 2:06 PM FAMILY REUNIFICATION SPECIALIST Inhaled Oxygen Concentration - - Weight 104.8 kg (231 lb) 08/24/2022 2:06 PM FAMILY REUNIFICATION SPECIALIST Height 162.6 cm (5' 4 ) 08/24/2022 2:06 PM FAMILY REUNIFICATION SPECIALIST Body Mass Index 39.65 08/24/2022 2:06 PM FAMILY REUNIFICATION SPECIALIST Plan of Treatment Health Maintenance Due Date Last Done Comments PAP SMEAR 1989 HIV SCREENING 2004 HEPATITIS C SCREENING 06/25/2007 DTAP/TDAP/TD VACCINES (1 - Tdap) 2008 HEPATITIS B VACCINE (1 of 3 - 19+ 3-dose series) 2008 COVID-19 VACCINE ( - 2023-2 5 season) 2024 INFLUENZA VACCINE (#1) 2024 DEPRESSION SCREENING 07/23/2024 ZOSTER VACCINE (1 of 2) 2039 HIB VACCINE Aged Out No longer eligi ble based on patient's age to complete this topic HPV VACCINE Aged Out No longer eligi ble based on patient's age to complete this topic MENINGOCOCCAL (Group B) VACCINE Aged Out No longer eligible based on patient's age to complete this topic MENINGOCOCCAL VACCINE Aged Out No sheron tanika eligible based on patient's age to complete this topic PNEUMOCOCCAL VACCINE Aged Out No long er eligible based on patient's age to complete this topic
--- OUTSIDE RECORDS SUMMARY | 2024-08-14 15:21 | XMS_ITS | Clinical Summary ---
Author Organization [facility] Address [address] [place] [phone] Care Team Providers Care General Laborer Name Role Phone Josey Lemus MD Unavailable [phone] Naina Casillas NP Primary Care Provider [phone] Allergies No known active allergies Medications Purelax [...] MOUTH ONE TIME PER WEEK 1 Active mjo500-fxud-wlq ic-om3 25 mg iron-1 mg -400 mg combo pack Take by mouth Ac tive vitamin B complex no.4-vyfet-D-bi otin 1-60-300 mg-mg-mcg tabletIndicatio ns:Vitamin Deficiency Prevention [...] unequal placental sharing, which can result in Bdnq-nl-Zifg transfusion Syndrome (TTTS), Twin Anemia-Polycythemia Sequence (TAPS), [...] be managed and there have not been correction effects reported. Plan: - Monitor mood each [...] Overview (12/13/2020): [] Co-management vs. [x] Full [facility] Care; [] Red Team [x] Blue Team Referring Provider: Transfer of care from Dr Josey Lemus [phone] [] Call Britannia or Medicare Insurance [x] Dating Criteria: LMP [...] [] MOC: [] Method of feeding: [] Puller Machine: [] PP Depression Discussed: Estimated Date of Delivery Comme nts Yes 08/18/2024 Encounters Date Type Department Care Team Description 08/14/2024 2:45 PM BOOM MAN Office Visit [facility] Medical [facility] [address] [place] [address] Mary Ann Meza NP Dental infection (Primary Dx) 08/04/2024 5:30 PM BOOM MAN Office Visit [facility] at [address] [place] [address] Angely Don NP Dental infection (Primary Dx) from Last 3 Months Medical [...] Anes PTL Symone A1 A5 Name Clin 191 5 Term 3.827 kg (8 lb 7 oz) M Vag-S pont Living 2016 SAB 2017 Term 3.799 kg (8 lb 6 oz) Vag-S pont Living Current Last Filed Vital Signs Vital Sign Reading Time Taken Comments Blood Pressure 148/78 08/14/2024 2:15 PM BOOM MAN Pulse 76 08/14/2024 2:15 PM BOOM MAN Temperature 36.5 ??C (97.7 ??F) 08/14/2024 2:15 PM CS T Respiratory Rate 18 08/04/2024 5:30 PM BOOM MAN Oxygen Saturation 99% 08/14/2024 2:15 PM BOOM MAN Inhaled Oxygen Concentration - - Weight 102.7 kg (226 lb 8 oz) 08/14/2024 2:15 PM BOOM MAN Height 162.6 cm (5' 4 ) 08/04/2024 5:30 PM BOOM MAN Body Mass Index 38.88 08/04/2024 5:30 PM BOOM MAN Plan of Treatment Health Maintenance Due Date [...] patient's age to complete this topic Insurance [id number] [place] [address] [facility] [id number] [place] [address] Care Teams General Laborer Relationship Specialty Start Date End Date Naina Casillas NP [address] [place] [address] PCP - General Family Medicine 07/27/22 Josey Lemus MD [address] [place] [address] Referring Physician Gynecology 11/26/20
--- OUTSIDE RECORDS SUMMARY | 2024-08-14 15:21 | XMS_ITS | Clinical Summary ---
Author Organization [facility] Address [address] [place] [address] Phone Care Team Providers Care Export Sales Assistant Name Role Phone Unavailable Primary Care Provider Unavailabl e Encounters Date Type Department Care Team Description 08/12/2024 External Device Data STL ABSTRACTION Provider, Abstract 06/23/2024 8:30 AM VOCATIONAL ADVISER - 06/23/2024 11:59 PM VOCATIONAL ADVISER Hospital Encounter [facility] Maternal and Health [facility] [address] [place] [address] Arnol Multani MD Discharge Disposition: Home or Self Care from Last 3 Months Social History Tobacco Use Types Packs/Day Years Used Date Smoking Tobacco: Never Assessed Comments Unknown Sex and Gender Information Value Date Recorded Sex Assigned at Not on file Legal Sex Female 11:48 PM CDT Gender Identity Not on file Sexual [...] UP PER FETUS Routine 06/23/2024 9:04 AM VOCATIONAL ADVISER Advanced maternal age in multigravida, third trimester Obesity affecting , antepartum, second trimester from Last 3 Months Results * US OB FOLLOW UP PER FETUS (06/23/2024 9:04 AM VOCATIONAL ADVISER) Anatomical Region Laterality Modality Pelvis Ultrasound 06/23/2024 8:49 AM VOCATIONAL ADVISER Narrative 06/23/2024 9:09 AM VOCATIONAL ADVISER STL FOLLOW UP ----- Pat. Name: MIS BECK Study Date: 06/23/2024 8:49am Pat. NO: [id number] Referring ??MD: IDA PIMENTEL MD Site: [facility] Motor Vehicle Inspector: Rae Saini RDMS : 1990 Age: 33 ----- INDICATION ----- Screening Follow-Up Advanced Maternal Age (AMA), Multigravida Maternal Obesity (BMI<40) Complicating CODING ----- Diagnoses ? Z3A.32: Weeks of gestation ?O99.213: Obesity complicating ?O09.523: Supervision of elderly multigravida ?Z36.3: Encounter for screening for malformations ?Z3A.32: Weeks of gestation ?O99.213: Obesity complicating ?O09.523: Supervision of elderly multigravida ?Z36.2: Encounter for other screening follow-up Procedures ?55590: Ultrasound, uterus, real time with image documentation, follow up, transabdominal ?approach per fetus HISTORY ----- OB History ? 5. Para 4 ?[id number] MATERNAL ASSESSMENT ----- Physical Exam ? Initial [...] lb 14 ? oz EFW by ?Hadlock (PHE-VG-CU-FL) Extremities / Bony Struc Biometry: FL / [...] ? 38% ?273.8 ?32% ?59.0 ?11% ? 3,289 ? 23% COMMENT ----- Patient's name and date of were verified by the manager voice prior to the exam IMPRESSION ----- Viable [...] Pat. Name:Chucho BECK Date:06/23/2024 8:49am Pat. NO: [id number] MD:IDA PIMENTEL MD [facility]Rae Saini RDMS :1990Age:33 ----- INDICATION ----- Screening Follow-Up Advanced Maternal Age (AMA), Multigravida Maternal Obesity (BMI<40) Complicating CODING ----- Diagnoses Z3A.32: Weeks of gestation O99.213: Obesity complicating O09.523: Supervision of elderly multigravida Z36.3: Encounter for screening formalformations Z3A.32: Weeks of gestation O99.213: Obesity complicating O09.523: Supervision of elderly multigravida Z36.2: Encounter for other screeningfollow-up Procedures 14097: Ultrasound, uterus, real time withimage documentation, follow up, transabdominal approach per fetus HISTORY ----- OB History 5. Para 4 [id number] MATERNAL ASSESSMENT ----- Physical Exam Initial weight 104 kg, 230 lb. Initial BMI 39.48kg/m?? METHOD ----- Transabdominal ultrasound examination ----- Riggins . Number of fetuses: 1 DATING ----- GA by prior [id number] w + 0 d GRACIA by prior [...] 3 lb 14 oz EFW by Hadlock (JDH-SZ-RN-FL) Extremities / Bony Struc Biometry: FL / [...] and date of were verified by the manager voice prior tothe exam IMPRESSION ----- Viable at [...] No follow-up ultrasounds recommended at this time us Arnol Multani MD ORDERABLES Final Re sult from Last 3 Months Insurance MEDICAID
--- OUTSIDE RECORDS SUMMARY | 2024-08-14 15:21 | XMS_ITS | Clinical Summary ---
Author Organization [facility] Address [address] [place] [address] Phone Care Team Providers Care Salesperson Recreational Vehicles Name Role Phone Bird Franks MD Primary Care Provider Marita Clay APRN, SUSTAINABLE COMMUNITIES DESIGNER Unavailable [phone] Allergies No known active allergies Medications CHOLECALCIFEROL PO Take by mouth. Active clonazePAM (KlonoPIN) 0.5 MG Tablet Take 0.5 mg by mouth 3 times daily. Active ibuprofen (MOTRIN) 800 MG Tablet Take 800 mg by mouth every 8 hours. Active B Complex Vitamins (VITAMIN B COMPLEX PO) Take by mouth. Active [place]-3 Fatty Acids (FISH OIL PO) Take by [...] on file Legal Sex Female 11:28 AM AIRCRAFT AVIONICS TECHNICIAN Gender Identity Not on file Sexual [...] Insurance MEDICAID [employer] Care Teams Salesperson Recreational Vehicles Relationship Specialty Start Date End Date Bird Franks MD PCP - General Family Medicine 09/13/22 Marita Clay APRN, SUSTAINABLE COMMUNITIES DESIGNER [address] [place] [id number] Nurse Practitioner Advanced Practice Nurse 11/14/22
[2024-08-15 11:31] VITALS: BP 138/75; PULSE 88; RESP 18; TEMP 37.1; O2SAT 100
== END 2024-08-14 13:12 | disposition home or self-care (01) | DRG 560 ==
LOC: ANHLDR 18:32 → ANHOB2 21:57
PROVIDERS: Admitting Provider Obstetrics & Gynecology Gynecology; Visit Provider Obstetrics & Gynecology Gynecology
DX: O24.429 Gestational diabetes mellitus in childbirth, unspecified control (principal); Z37.0 Single live birth; Z3A.39 39 weeks gestation of pregnancy; O70.0 First degree perineal laceration during delivery; O69.89X0 Labor and delivery complicated by other cord complications, not applicable or unspecified
CPT/HCPCS: 36415; 82948; 85014; 85018; 85025; 86592; 86703; 86850; 86880; 86900; 86901; 86902; 88307; A9270; G0432; J2590; J2795

== ENCOUNTER 2024-09-18 15:28 | Emergency (ER) | payer OTHER, SELFPAY ==
[2024-09-18 15:47] VITALS: BP 153/93; PULSE 90; RESP 20; TEMP 37; O2SAT 99
--- NOTE | 2024-09-18 16:48 | ED.NEUROSD ---
HPI - Neuro Symptoms/Deficit General Chief Complaint: Neuro Symptoms/Deficit <Martha Dietrich PA-C - Last Filed: 09/19/24 10:14> Stated Complaint: vision changes, flashes, elevated BP <Martha Dietrich PA-C - Last Filed: 09/19/24 10:14> Time Seen by Provider: 09/18/24 16:48 <Martha Dietrich PA-C - Last Filed: 09/19/24 10:14> Focused HPI: This is a 34 year old female that presents to the ER for headache. Reports she started to develop a blurry spot in her vision in her right eye. Reports her blood pressure was also elevated. She then developed a headache which is still present. Does report similar episodes a couple of years ago after having her twins. She is currently 5 weeks . She is also being treated for a dental infection currently. GENERAL: Well-appearing, well-nourished, and in no acute distress. HEAD: Normocephalic, atraumatic. CHEST: Clear to auscultation. ?No respiratory distress. HEART: Regular rate and rhythm.? NEURO: ?Alert and oriented x3. Patient screened in triage and initial orders placed.? ?Additional care and disposition to be based upon?diagnostic testing and treatment. <Martha Dietrich PA-C - Last Filed: 09/19/24 10:14> History of Present Illness HPI Narrative: Agree with the HPI above. Patient also like to add that she has had chronic neck pain and has headaches similar to this without significant ocular manifestations. Has had visual disturbances the past and notices that she gets a leave mint of the symptoms whenever she lifts her head up or it applies direct pressure the base of the skull at the back of the neck. Has not had any images of her head before. No history of eclampsia preeclampsia, uncomplicated course during . Patient states her headache and symptoms have since resolved. She has that her blood pressure was elevated at home but she was feeling extremely anxious. Presently her blood pressure 119/80 without any intervention. She has no leg swelling, no increased or decreased , no present visual disturbances or headache, no nausea or vomiting. No chest pain shortness a breath. No injuries or trauma. <Dav Coburn MD - Last Filed: 09/18/24 20:41> Related Data Home Medications: Home Medications ?Medication ?Instructions ?Recorded ?Confirmed ?Last Taken ?Type vit no.95-ferrous 1 tablet PO DAILY 07/19/24 07/19/24 07/19/24 History fumarate 28 mg-folic acid 800 mcg tablet () <Martha Dietrich PA-C - Last Filed: 09/19/24 10:14> Allergies/Adverse Reactions: Allergies Allergy/AdvReac Type Severity Reaction Status Date / Time No Known Allergies Allergy Unknown Verified 07/19/24 13:20 <Martha Dietrich PA-C - Last Filed: 09/19/24 10:14> Review of Systems Review of Systems: As reviewed above in HPI <Dav Cobunr MD - Last Filed: 09/18/24 20:41> PMFSH Past Medical History Medical History: Medical History Vitamin D deficiency Hx gestational diabetes (~2020) Anxiety <Martha Dietrich PA-C - Last Filed: 09/19/24 10:14> Surgical History Surgical History: Surgical History No pertinent past surgical history <Martha Dietrich PA-C - Last Filed: 09/19/24 10:14> Family History Family History: Family History Mother Bipolar 1 disorder <Martha Dietrich PA-C - Last Filed: 09/19/24 10:14> Social History Social History: Social History Smoking packs per day: 1 Smoking cigarettes per day: 20.0 Years smoked: 8 Smoking pack-years: 8.00 Smoking status: Former smoker Tobacco type: cigarettes Second hand tobacco smoke exposure: No Smoking end date: 08/27/17 Alcohol intake: never Substance use: never Substance use type: does not use Do You Feel Safe in your Home?: Yes Lack of Transportation: No Lack of Food: Never True Current Housing: I Have Housing Concerned About Future Housing: No Difficulty Paying Gas/Electric Bills: No Difficulty Paying for Meds: No Currently Unemployed: No Education: Associate Degree Difficulty w/ Childcare or Family Care: No Living arrangements: with family Additional living arrangements comments: Lives with boyfriend of 12 years and has 4 children. Has a set of twins. Occupation/Education: unemployed Gender identity (if verbalized by the patient): Female Sexual Orientation (if Verbalized by the Patient): Straight or Heterosexual Spiritual care concerns: No Agree to blood products: Yes <Martha Dietrich PA-C - Last Filed: 09/19/24 10:14> Exam Narrative: GENERAL: [Well-appearing, well-nourished, and in no acute distress.] HEAD: [Normocephalic, atraumatic.] EYES: [PERRLA and EOMI.] ENT: Nares clear, no rhinorrhea or epistaxis. Mucous membranes moist. NECK: Supple. CHEST: [Clear to auscultation. No respiratory distress.] HEART: [Regular rate and rhythm]. No murmur heard. [Normal peripheral pulses.] ABDOMEN: [Soft, nondistended], [nontender], [No rigidity or guarding] EXTREMITIES: Normal range of motion. [No edema.] SKIN: Warm, dry, no rash. NEURO: [No focal deficits]. Alert and oriented [x3.] PSYCH: [Normal mood and affect.] <Dav Coburn MD - Last Filed: 09/18/24 20:41> Course Vital Signs Vital signs: Vital Signs Temperature 98.6 F 09/18/24 15:47 Pulse Rate 90 09/18/24 15:47 Respiratory Rate 20 09/18/24 15:47 Blood Pressure 153/93 H 09/18/24 15:47 Pulse Oximetry 99 09/18/24 15:47 Oxygen Delivery Room Air 09/18/24 15:47 Temperature 98.5 F 09/18/24 16:49 Pulse Rate 76 09/18/24 19:26 Respiratory Rate 17 09/18/24 19:26 Blood Pressure 119/80 09/18/24 19:26 Pulse Oximetry 100 09/18/24 19:26 Oxygen Delivery Room Air 09/18/24 15:47 <Martha Dietrich PA-C - Last Filed: 09/19/24 10:14> Vital Signs Temperature 98.6 F 09/18/24 15:47 Pulse Rate 90 09/18/24 15:47 Respiratory Rate 20 09/18/24 15:47 Blood Pressure 153/93 H 09/18/24 15:47 Pulse Oximetry 99 09/18/24 15:47 Oxygen Delivery Room Air 09/18/24 15:47 Temperature 98.5 F 09/18/24 16:49 Pulse Rate 76 09/18/24 19:26 Respiratory Rate 17 09/18/24 19:26 Blood Pressure 119/80 09/18/24 19:26 Pulse Oximetry 100 09/18/24 19:26 Oxygen Delivery Room Air 09/18/24 15:47 <Dav Coburn MD - Last Filed: 09/18/24 20:41> MDM - Neuro Symptoms/Deficit MDM Narrative Medical decision making narrative: 34-year-old female 5 weeks presenting to the emergency department for headache. Patient states she has a history of chronic headaches and neck pain that gets better with certain positions and chiropractic adjustments, or applying direct pressure to the bases fell and lifting her head up. She has never had images of her head. She states that previously she was having some transient vision changes in the right eye described as floaters with different colors, this was present in both eyes but most so in the right eye. She does that her blood pressure was elevated when this happened. All her symptoms have since subsided upon presentation to the emergency department. Her blood pressure in triage was mildly elevated but resolved when she was brought back into the examination room without any intervention. Her blood pressure is 119/80. She states she gets hypertensive when she gets anxious and has a history of severe anxiety. She has a nonfocal neurological assessment, no signs of weakness or sensory changes. No headache or vision changes presently. No nausea vomiting. Ambulatory without an ataxic or antalgic gait. 2+ symmetric pulses. Patient denies any symptoms at this time. Considerations for presents all ocular migraine, acute on chronic headache, cluster headache, tension headache, less likely intracranial pathology such as a mass or stroke, less likely complication of her such as preeclampsia, less likely structural problems such as Chiari malformation. Will obtain laboratory studies and a CT scan without contrast and re-evaluated the patient frequently. Workup shows no leukocytosis or anemia. Normal platelet count. Normal renal function, normal electrolytes, normal glucose, normal LFTs. Urinalysis without any signs of active infection. Negative test. Head CT shows no acute intracranial findings. Patient was re-evaluated, remained with normal vital signs and no hypertension. Given her unremarkable workup here, no signs of end-organ damage, no signs of eclampsia or preeclampsia, no signs of any head CT findings. I believe she can be safely discharged home with regular PCP follow-up. Given patient's description of her symptoms and chronic neck pain that alleviates with motion and manipulation of her neck she very well might have some structural abnormalities and there and she was requesting further imaging that be done outpatient. I felt agreeable with this and ordered an outpatient MRI although informed her that her insurance might not cover this without preauthorization and she should seek her PCP for formal referral for outpatient imaging. She was given strict return precautions, will follow-up and return with any new or worsening concerns at any point <Dav Coburn MD - Last Filed: 09/18/24 20:41> Medical Records Attestation: I reviewed the patient's medical records. <Dav Coburn MD - Last Filed: 09/18/24 20:41> Lab Data Attestation: I reviewed the patient's lab results. <Dav Coburn MD - Last Filed: 09/18/24 20:41> Result diagrams: 09/18/24 17:05 09/18/24 17:06 <Martha Dietrich PA-C - Last Filed: 09/19/24 10:14> Labs: Lab Results 09/18/24 09/18/24 09/18/24 Range/Units 17:05 17:06 17:11 WBC 9.1 (4.5-10.0) K/mm3 RBC 4.63 (4.2-5.4) M/mm3 Hgb 14.7 (12.0-15.0) g/dL Hct 41.7 (37.0-47.0) % MCV 90.1 (80-100) fl MCH 31.7 (26-34) pg MCHC 35.3 (32-36) g/dl RDW 11.6 (11.5-14.5) % Plt Count 227 (150-375) k/mm3 MPV 10.4 (7.4-10.4) fl Immature Gran % (Auto) 1.0 H (0-0.5) % Neut % (Auto) 77.3 H (45.5-73.1) % Lymph % (Auto) 16.0 L (18.3-44.2) % Wolfe % (Auto) 4.4 (2.6-8.5) % Eos % (Auto) 0.9 (0-4.4) % Baso % (Auto) 0.4 (0.2-1.2) % Lymph # (Auto) 1.45 (0.9-3.2) K/mm3 Wolfe # (Auto) 0.4 (0.1-0.6) K/mm3 Eos # (Auto) 0.1 (0-0.3) K/mm3 Baso # (Auto) 0.0 (0.0-0.1) K/mm3 Abs Immat Gran (auto) 0.09 H (0.00-0.031) K/mm3 Absolute Neuts (auto) 7.0 H (1.3-6.7) K/mm3 Absolute Nucleated RBC 0.000 (0.0-0.012) K/mm3 Nucleated RBC % 0.0 (0.0-0.2) % Sodium 141 (137-145) mmol/L Potassium 4.0 (3.4-5.0) mmol/L Chloride 104 (98-107) mmol/L Carbon Dioxide 26 (22-30) mmol/L Anion Gap 11 (4-12) mmol/L BUN 18 H D (7-17) mg/dL Creatinine 0.69 L (0.7-1.0) mg/dL Estim Creat Clear Calc 111 ml/min Estimated GFR > 60 (59 - ) Glucose 111 H (65-110) mg/dL Calcium 9.4 (8.4-10.2) mg/dL Total Bilirubin 0.4 (0.2-1.3) mg/dL AST 22 (14-36) U/L ALT 24 (6-35) U/L Alkaline Phosphatase 91 (38-126) U/L Lactate Dehydrogenase 213 (120-246) U/L Total Protein 7.0 (6.3-8.2) g/dL Albumin 4.5 (3.5-5.1) g/dL Urine Color Yellow (Yellow) Urine Appearance Clear (Clear) Urine pH 7.0 (5.0-9.0) Ur Specific [place] 1.012 (1.001-1.035) Urine Protein Negative (Negative) mg/dL Urine Glucose (UA) Negative (Negative) mg/dL Urine Ketones Negative (Negative) mg/dL Ur Blood (Man) Negative (Negative) Urine Nitrate Negative (Negative) Urine Bilirubin Negative (Negative) Urine Urobilinogen 0.2 (<2.0) mg/dL Leukocyte Esterase Rfl 1+ H (Negative) PRASANNA/UL Urine RBC 0-2 (0-2) /hpf Urine WBC 6-10 H (0-3) /hpf Ur Squamous Epith Cells None seen (Few) /hpf Urine Bacteria None seen /hpf Urine Casts 0-2 POC Urine HCG, Qual Negative (Negative) <Martha Dietrich PA-C - Last Filed: 09/19/24 10:14> Lab Results 09/18/24 09/18/24 09/18/24 Range/Units 17:05 17:06 17:11 WBC 9.1 (4.5-10.0) K/mm3 RBC 4.63 (4.2-5.4) M/mm3 Hgb 14.7 (12.0-15.0) g/dL Hct 41.7 (37.0-47.0) % MCV 90.1 (80-100) fl MCH 31.7 (26-34) pg MCHC 35.3 (32-36) g/dl RDW 11.6 (11.5-14.5) % Plt Count 227 (150-375) k/mm3 MPV 10.4 (7.4-10.4) fl Immature Gran % (Auto) 1.0 H (0-0.5) % Neut % (Auto) 77.3 H (45.5-73.1) % Lymph % (Auto) 16.0 L (18.3-44.2) % Wolfe % (Auto) 4.4 (2.6-8.5) % Eos % (Auto) 0.9 (0-4.4) % Baso % (Auto) 0.4 (0.2-1.2) % Lymph # (Auto) 1.45 (0.9-3.2) K/mm3 Wolfe # (Auto) 0.4 (0.1-0.6) K/mm3 Eos # (Auto) 0.1 (0-0.3) K/mm3 Baso # (Auto) 0.0 (0.0-0.1) K/mm3 Abs Immat Gran (auto) 0.09 H (0.00-0.031) K/mm3 Absolute Neuts (auto) 7.0 H (1.3-6.7) K/mm3 Absolute Nucleated RBC 0.000 (0.0-0.012) K/mm3 Nucleated RBC % 0.0 (0.0-0.2) % Sodium 141 (137-145) mmol/L Potassium 4.0 (3.4-5.0) mmol/L Chloride 104 (98-107) mmol/L Carbon Dioxide 26 (22-30) mmol/L Anion Gap 11 (4-12) mmol/L BUN 18 H D (7-17) mg/dL Creatinine 0.69 L (0.7-1.0) mg/dL Estim Creat Clear Calc 111 ml/min Estimated GFR > 60 (59 - ) Glucose 111 H (65-110) mg/dL Calcium 9.4 (8.4-10.2) mg/dL Total Bilirubin 0.4 (0.2-1.3) mg/dL AST 22 (14-36) U/L ALT 24 (6-35) U/L Alkaline Phosphatase 91 (38-126) U/L Lactate Dehydrogenase 213 (120-246) U/L Total Protein 7.0 (6.3-8.2) g/dL Albumin 4.5 (3.5-5.1) g/dL Urine Color Yellow (Yellow) Urine Appearance Clear (Clear) Urine pH 7.0 (5.0-9.0) Ur Specific [place] 1.012 (1.001-1.035) Urine Protein Negative (Negative) mg/dL Urine Glucose (UA) Negative (Negative) mg/dL Urine Ketones Negative (Negative) mg/dL Ur Blood (Man) Negative (Negative) Urine Nitrate Negative (Negative) Urine Bilirubin Negative (Negative) Urine Urobilinogen 0.2 (<2.0) mg/dL Leukocyte Esterase Rfl 1+ H (Negative) PRASANNA/UL Urine RBC 0-2 (0-2) /hpf Urine WBC 6-10 H (0-3) /hpf Ur Squamous Epith Cells None seen (Few) /hpf Urine Bacteria None seen /hpf Urine Casts 0-2 POC Urine HCG, Qual Negative (Negative) <Dav Coburn MD - Last Filed: 09/18/24 20:41> Imaging Data Attestation: I personally reviewed and interpreted this imaging study as follows: <Dav Coburn MD - Last Filed: 09/18/24 20:41> My impression: Impressions Head CT 09/18/24 17:21 IMPRESSION: No acute intracranial findings. <Dav Coburn MD - Last Filed: 09/18/24 20:41> Critical Care Time Critical Care Time Critical Care Time: No <Martha Dietrich PA-C - Last Filed: 09/19/24 10:14> Discharge Plan Discharge Clinical Impression: Ocular migraine, Chronic neck pain <Martha Dietrich PA-C - Last Filed: 09/19/24 10:14> Patient Disposition: Home, Self-Care <Martha Dietrich PA-C - Last Filed: 09/19/24 10:14> Condition: Stable <Martha Dietrich PA-C - Last Filed: 09/19/24 10:14> Instructions: Antibiotic Form, Ocular Migraine (ED) <Martha Dietrich PA-C - Last Filed: 09/19/24 10:14> Additional Instructions: Your laboratory studies are all normal, your blood pressure vitals are normally here, your head CT shows no acute findings. We did write your prescription for an outpatient MRI it takes to an imaging center of your choosing. Your insurance might not authorize this and you need to seek referral from your primary care provider as well. Return with any new or worsening concerns, recurrence of her headache, significant elevated blood pressures, nauseousness, vision changes, leg swelling, shortness of breath or any other concerns. <Martha Dietrich PA-C - Last Filed: 09/19/24 10:14> Patient Language: Slovenian <Martha Dietrich PA-C - Last Filed: 09/19/24 10:14> Prescriptions: No Action cholecalciferol (vitamin D3) 50 mcg (2,000 unit) capsule 50 mcg PO DAILY Qty: 1 0RF PNV cmb#95-ferrous fumarate-FA [] 28 mg iron- 800 mcg tablet 1 tablet PO DAILY <Martha Dietrich PA-C - Last Filed: 09/19/24 10:14> Other Ambulatory Orders: MR brain/brain stem wo/w con (Routine) Timeframe: 2 Weeks Location: Determined by Patient Ordered By: Dav Coburn <Martha Diterich PA-C - Last Filed: 09/19/24 10:14> Follow-up/Referrals: PHYSICIAN,PHOTO FINISHER [Primary Care Provider] - <Martha Dietrich PA-C - Last Filed: 09/19/24 10:14> Time of Disposition: 20:41 <Martha Dietrich PA-C - Last Filed: 09/19/24 10:14> 20:41 <Dav Coburn MD - Last Filed: 09/18/24 20:41>
[2024-09-18 16:49] VITALS: BP 145/85; PULSE 84; RESP 18; TEMP 36.9; O2SAT 97
[2024-09-18 17:14] LABS: BEDSIDEPREGUCG Negative (Negative)
[2024-09-18 17:20] LABS: Basophils Percent Auto 0.4 % (0.2-1.2); Eosinophils Absolute Auto 0.1 K/mm3 (0-0.3); Eosinophils Percent Auto 0.9 % (0-4.4); Hematocrit 41.7 % (37.0-47.0); Hemoglobin 14.7 g/dL (12.0-15.0); Immature Granulocyte Absolute 0.09 K/mm3 (0.00-0.031); Lymphocytes Absolute Auto 1.45 K/mm3 (0.9-3.2); Mean Corpuscular HGB Conc 35.3 g/dl (32-36); Mean Corpuscular Hemoglobin 31.7 pg (26-34); Mean Corpuscular Volume 90.1 fl (80-100); Mean Platelet Volume 10.4 fl (7.4-10.4); Monocytes Absolute Auto 0.4 K/mm3 (0.1-0.6); Monocytes Percent Auto 4.4 % (2.6-8.5); Neutrophils Percent Auto 77.3 % (45.5-73.1); Platelet Count Result 227 k/mm3 (150-375); Red Blood Count 4.63 M/mm3 (4.2-5.4); Red Cell Distribution Width 11.6 % (11.5-14.5); White Blood Count 9.1 K/mm3 (4.5-10.0)
[2024-09-18 17:32] LABS: Alanine Aminotransferase 24 U/L (6-35); Albumin Level 4.5 g/dL (3.5-5.1); Alkaline Phosphatase 91 U/L (38-126); Anion Gap 11 mmol/L (4-12); Aspartate Amino Transferase 22 U/L (14-36); Bilirubin,Total 0.4 mg/dL (0.2-1.3); Blood Urea Nitrogen 18 mg/dL (7-17); Calcium 9.4 mg/dL (8.4-10.2); Carbon Dioxide 26 mmol/L (22-30); Chloride 104 mmol/L (98-107); Estimated CRCL calculation 111 ml/min; Estimated Glomerular Filt Rate > 60; Glucose 111 mg/dL (65-110); Sodium 141 mmol/L (137-145)
[2024-09-18 17:39] LABS: Add Urine Microscopic? YES; Appearance Urine Clear (Clear); Bacteria Urine None Seen /hpf; Bilirubin Urine Negative (Negative); Blood Urine Negative (Negative); Color Urine Yellow (Yellow); Glucose Urine UA Negative (Negative); Ketones Urine Negative (Negative); Leukocyte Esterase Ur 1+ LEU/UL (Negative); Nitrate Urine Negative (Negative); Non Pathogenic Casts 0-2; Protein Urine Negative (Negative); RBC Urine 0-2 /hpf (0-2); Specific Grav Ur 1.012 (1.001-1.035); Squamous Epithelial Cell Urine None Seen /hpf (Few); Urobilinogen Urine 0.2 mg/dL (<2.0)
[2024-09-18 17:45] LABS: Lactate Dehydrogenase 213 U/L (120-246)
[2024-09-18 19:26] VITALS: BP 119/80; PULSE 76; RESP 17; O2SAT 100
== END 2024-09-18 20:50 | disposition home or self-care (01) ==
PROVIDERS: Physician Assistant; Emergency Provider Student in an Organized Health Care Education/Training Program
DX: O99.355 Diseases of the nervous system complicating the puerperium (principal); G43.B0 Ophthalmoplegic migraine, not intractable; G89.29 Other chronic pain; M54.2 Cervicalgia; O99.285 Endocrine, nutritional and metabolic diseases complicating the puerperium; E55.9 Vitamin D deficiency, unspecified; Z87.891 Personal history of nicotine dependence
CPT/HCPCS: 36415; 70450; 80053; 81001; 81025; 83615; 85025; 87086; 99284

== ENCOUNTER 2024-10-24 19:42 | Emergency (ER) | payer OTHER, SELFPAY ==
--- NOTE | 2024-10-24 19:44 | ED_ITS ---
HPI - URI/Sore Throat General Chief Complaint: Dental/Oral Stated Complaint: Sinus Problem/Mouth Sore Time Seen by Provider: 10/24/24 19:50 Source: patient, RN notes reviewed and old records reviewed Mode of arrival: ambulatory Limitations: no limitations History of Present Illness HPI Narrative: 34-year-old female presents to the [facility] with 3 weeks of sinus congestion, dental pain/lesion to the left lower and left ear pain. Patient is also concerned because she has been having muscle tightness and spasming over the last several days. Patient with sinus congestion, no signs of a bacterial infection, reports that she has been on 3 rounds of antibiotics, to of Augmentin 1 of clindamycin. States that the congestion does not get better. The dental lesion does not get better as well. States that she tries to get in with her dental provider in [place] but unable to do so. Patient with very poor dentition. Patient multiple concerned with the muscle spasming and tightness. Discussed with patient that we are unable to do lab work year, complete workup recommended follow-up with her primary care provider or going to the ER which she verbalized understanding Onset (ago): week(s) (3) Related Data Home Medications ?Medication ?Instructions ?Recorded ?Confirmed ?Last Taken ?Type vit no.95-ferrous 1 tablet PO DAILY 07/19/24 07/19/24 07/19/24 History fumarate 28 mg-folic acid 800 mcg tablet () Allergies Allergy/AdvReac Type Severity Reaction Status Date / Time No Known Allergies Allergy Unknown Verified 07/19/24 13:20 Review of Systems Review of Systems: All systems reviewed & are unremarkable except as noted in HPI and below Constitutional: Constitutional: Reports no additional constitutional complaints ENT: Reports as per HPI Cardiovascular: Cardiovascular: Reports no additional cardiovascular complaints, Denies chest pain and Denies dyspnea Respiratory: Respiratory: Reports no additional respiratory complaints, Denies chest congestion, Denies cough and Denies dyspnea Musculoskeletal: Musculoskeletal: Reports as per HPI, Denies abnormal gait and Reports myalgias Integumentary/Breasts: Skin/Breast: Reports system reviewed and no additional complaints, except as docu PMFSH Past Medical History Medical History Vitamin D deficiency Hx gestational diabetes (~2020) Anxiety Surgical History Surgical History No pertinent past surgical history Family History Family History Mother Bipolar 1 disorder Social History Social History Smoking packs per day: 1 Smoking cigarettes per day: 20.0 Years smoked: 8 Smoking pack-years: 8.00 Smoking status: Former smoker Tobacco type: cigarettes Second hand tobacco smoke exposure: No Smoking end date: 08/27/17 Alcohol intake: never Substance use: never Substance use type: does not use Do You Feel Safe in your Home?: Yes Lack of Transportation: No Lack of Food: Never True Current Housing: I Have Housing Concerned About Future Housing: No Difficulty Paying Gas/Electric Bills: No Difficulty Paying for Meds: No Currently Unemployed: No Education: Associate Degree Difficulty w/ Childcare or Family Care: No Living arrangements: with family Additional living arrangements comments: Lives with boyfriend of 12 years and has 4 children. Has a set of twins. Occupation/Education: unemployed Gender identity (if verbalized by the patient): Female Sexual Orientation (if Verbalized by the Patient): Straight or Heterosexual Spiritual care concerns: No Agree to blood products: Yes Comments At the time of my signature, I reviewed and agree with the nursing past medical, surgical, social, and family history. There is no relevant family history pertinent to the patient complaint. Exam Const: General: cooperative, healthy appearing, comfortable, no acute distress, well developed, alert and well nourished Nutritional Appearance: well nourished Orientation/consciousness: patient oriented x3 Limitations: no limitations HENMT: Head: normal to inspection Ears: hearing grossly normal bilaterally, external ears normal, TM's normal bilaterally, EAC's normal, mastoids normal and no periauricular adenopathy Face/Nose/Sinus: Normal external nose present and Normal nares present Mouth: Yes Normal oral and palatal mucosa present, Yes lip normal, Yes tongue normal and Yes moist mucous membranes Teeth and gingiva: gingiva abnormal (Lesion left lower) and poor dentition Throat: p osterior oropharynx normal, uvula midline, postnasal drainage and no uvular edema Eyes: General: appearance normal, both eyes and all related structures Alignment and Position: alignment normal Neck: Neck: normal visual inspection, full ROM, no lymphadenopathy and no meningeal signs Chest: Chest palpation & inspection: normal inspection of the chest Resp: Effort & Inspection: normal respiratory effort and able to speak in complete sentences Auscultation: clear to auscultation bilaterally, no crackles, no rales, no rhonchi and no wheezes Cardio: Rate: regular rate Skin: General skin exam: normal color and no rashes or lesions noted Neuro: General: patient oriented x3, gait normal, moves all extremities and no meningeal signs Cognition (Neuro): normal cognition Speech: normal speech Gait exam (Neuro): Normal gait present Extrem: General: normal to inspection, full ROM, capillary refill normal and normal gait Psych: Appearance: grossly normal and well kempt Mental Status: mental status grossly normal Speech and movement: Normal speech and movement present and Clear speech present Affect: normal affect Attitude: cooperative Course Course Level of Care: Express Care Visit Vital Signs Vital signs: Vital Signs Temperature 98.5 F 10/24/24 19:50 Pulse Rate 80 10/24/24 19:50 Respiratory Rate 20 10/24/24 19:50 Blood Pressure 168/81 H 10/24/24 19:50 Pulse Oximetry 98 10/24/24 19:50 Oxygen Delivery Room Air 10/24/24 19:50 Temperature 98.5 F 10/24/24 19:50 Pulse Rate 80 10/24/24 19:50 Respiratory Rate 20 10/24/24 19:50 Blood Pressure 168/81 H 10/24/24 19:50 Pulse Oximetry 98 10/24/24 19:50 Oxygen Delivery Room Air 10/24/24 19:50 Reviewed MDM - URI/Sore Throat MDM Narrative Medical decision making narrative: Patient in exam room. Patient is nontoxic, vitals are stable except blood pressure mildly elevated. Encouraging patient to follow-up with primary care provider. Patient presented with multiple complaints. Chronic dental lesion and sinus congestion that is not relieved with 2 rounds of Augmentin as well as around of clindamycin. Discussed that she needs to follow-up with her primary as well as her dental provider. Discussed that they probably have to surgically remove it. Offered another round of Augmentin that would cover both sinus and dental infection, patient is declining at this time. States that she will discuss with her boyfriend on what she wants to do. Also patient is concerned because she has had multiple muscle spasms in her arms and legs. Discussed with patient that this could be from muscle strain, sprain, electrolyte imbalance, dehydration. Offered to transfer to the ER which she is declining at this time again wants to speak to her boyfriend to decide what to do. Discussed hydration, again offered antibiotic. No acute findings noted on exam of this patient except for postnasal drainage. Discharge instructions reviewed with patient, as well as provided in writing per nursing staff. The instructions also include specific and strict return/GO TO THE ER as well as f/u information. All questions have been answered, and the patient deny any further questions with discharge and discharge plan. Some parts of this dictation were generated by voice recognition software and may contain typographical and/or grammatical inaccuracies. Differential Diagnosis Differential diagnosis: Likely upper respiratory infection, otitis media, sinusitis, viral infection, bronchitis, influenza and pharyngitis Critical Care Time Critical Care Time Critical Care Time: No Discharge Plan Discharge Clinical Impression: Congestion of nasal sinus, Earache on left, Mouth lesion, Generalized muscle ache Patient Disposition: Home, Self-Care Condition: Stable Instructions: Antibiotic Form, Upper Respiratory Infection (DC), Earache (ED), Toothache (ED), Mouth Care (ED) Additional Instructions: Follow-up with your dental provider Follow-up with your primary care provider If symptoms are still concerning or get worse please go directly to the emergency room Patient Language: Mongolian Prescriptions: No Action cholecalciferol (vitamin D3) 50 mcg (2,000 unit) capsule 50 mcg PO DAILY Qty: 1 0RF PNV cmb#95-ferrous fumarate-FA [] 28 mg iron- 800 mcg tablet 1 tablet PO DAILY Follow-up/Referrals: Naina Casillas ENVIRONMENTAL PROTECTION OFFICER [Primary Care Provider] - Stand Alone Forms: Work/School Release IP Time of Disposition: 20:07
--- OUTSIDE RECORDS SUMMARY | 2024-10-24 19:45 | XMS_ITS | Clinical Summary ---
Author Organization [facility] Address [address] [place] [address] Phone Care Team Providers Care Package Lift Operator Name Role Phone Bird Franks MD Primary Care Provider Marita Clay MEDICAL BILLING SUPERVISOR, TWISTER TENDER PAPER Unavailable [phone] Allergies No known active allergies Medications CHOLECALCIFEROL PO Take by mouth. Active clonazePAM (KlonoPIN) 0.5 MG Tablet Take 0.5 mg by mouth 3 times daily. Active ibuprofen (MOTRIN) 800 MG Tablet Take 800 mg by mouth every 8 hours. Active B Complex Vitamins (VITAMIN B COMPLEX PO) Take by mouth. 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 Gender Identity Not on file Sexual Orientation Not on file Last Filed Vital Signs Vital Sign Reading Time Taken Comments Blood Pressure 128/80 11/14/2022 3:19 PM CDT Pulse 88 11/14/2022 3:19 PM CDT Temperature 36.7 C (98 F) 11/14/2022 3:17 PM CDT Respiratory Rate 16 [...] Influenza Immunization (#1) 2024 SARS-COV-2 Immunization ( - 2023- season) 2024 Respiratory Syncytial Virus (RSV) Immunization [...] Insurance MEDICAID [employer] Care Teams Package Lift Operator Relationship Specialty Start Date End Date Bird Franks MD PCP - General Family Medicine 09/13/22 Marita Clay APRN, TWISTER TENDER PAPER [address] [place] [address] Nurse Practitioner Advanced Practice Nurse 11/14/22
--- OUTSIDE RECORDS SUMMARY | 2024-10-24 19:45 | XMS_ITS | Clinical Summary ---
Author Organization [facility] Address [address] [place] [id number] Care Team Providers Care Numerical Control Tool Programmer Name Role Phone Josey Lemus MD Unavailable [phone] Naina Casillas NP Primary Care Provider [phone] Allergies No known active allergies Medications Purelax [...] MOUTH ONE TIME PER WEEK 1 Active [id number] ic-om3 25 mg iron-1 mg -400 mg combo pack Take by mouth Ac tive vitamin B complex no.8-mvvke-J-bi otin 1-60-300 mg-mg-mcg tabletIndicatio ns:Vitamin Deficiency Prevention [...] Additional Information Patient not taking.Reported on 08/14/2024 OneTouch Ultra Test strip USE TO TEST 4 TIMES A DAY 4 Active OneTouch Ultra2 Meter misc as directed 4 Active OneTouch Delica Plus Lancet 30 gauge misc as directed 4 Active Active Problems Problem Noted Date Diagnosed Date [...] unequal placental sharing, which can result in Oosv-yc-Rnhl transfusion Syndrome (TTTS), Twin Anemia-Polycythemia Sequence (TAPS), [...] be managed and there have not been termite treater effects reported. Plan: - Monitor mood each [...] Transfer of care from Dr Josey Lemus [phone] [] BemDireto or Medicare Insurance [x] Dating Criteria: LMP [...] [] MOC: [] Method of feeding: [] Brilliandeer Lopper: [] PP Depression Discussed: Estimated Date of Delivery Comme nts Yes 08/18/2024 Encounters Date Type Department Care Team Description 08/19/2024 6:15 PM CREDIT CARD ASSOCIATE Office Visit [facility] at [address] [place] [address] Mary Ann Meza NP Dental infection (Primary Dx) 08/14/2024 2:45 PM CREDIT CARD ASSOCIATE Office Visit [facility] at [address] [place] [address] Mary Ann Meza NP Dental infection (Primary Dx) 08/04/2024 5:30 PM CREDIT CARD ASSOCIATE Office Visit [facility] at [address] [place] [address] Angely Don NP Dental infection (Primary Dx) [...] Sign Reading Time Taken Comments Blood Pressure 122/74 08/19/2024 6:33 PM CREDIT CARD ASSOCIATE Pulse 72 08/19/2024 6:33 PM CREDIT CARD ASSOCIATE Temperature 36.6 C (97.8 F) 08/19/2024 6:33 PM CREDIT CARD ASSOCIATE Respiratory Rate 18 08/19/2024 6:33 PM CREDIT CARD ASSOCIATE Oxygen Saturation 98% 08/19/2024 6:33 PM CREDIT CARD ASSOCIATE Inhaled Oxygen Concentration - - Weight 99.8 kg (220 lb) 08/19/2024 6:33 PM CREDIT CARD ASSOCIATE Height 162.6 cm (5' 4 ) 08/19/2024 6:33 PM CREDIT CARD ASSOCIATE Body Mass Index 37.76 08/19/2024 6:33 PM CREDIT CARD ASSOCIATE Plan of Treatment Health Maintenance Due Date [...] patient's age to complete this topic Insurance [facility] [id number] [place] [address] Care Teams Numerical Control Tool Programmer Relationship Specialty Start Date End Date Naina Casillas NP [address] [place] [address] PCP - General Family Medicine 07/27/22 Josey Lemus MD [address] [place] [address] Referring Physician Gynecology 11/26/20
--- OUTSIDE RECORDS SUMMARY | 2024-10-24 19:45 | XMS_ITS | Clinical Summary ---
Author Organization [email or web address] Address [address] [place] [address] Care Team Providers Care Attending Radiologist Name Role Phone Unavailable Primary Care Provider Unavailabl e Source Comments [email or web address],non-owned Affiliates and Associated Physician Practices is amultiple site organization consisting of ambulatory clinics and hospital sitesin [place], [place], [place] and [place]. This disclosure is being madepursuant to the Care Everywhere program and may not contain all information available regarding this patient. Last updated 18.[email or web address] Allergies No known active allergies Medications * Be aware that medications may not be up to date on this document. Alwaysverify current medications with the patient. Medication Sig Dispensed Refills Start Date End Date Status clonazePAM (KlonoPIN) 0.5 MG tablet TAKE 1/2 TABLET BY MOUTH TWICE A DAY NEEDED FOR ANXIETY ADMINISTER 30 MINUTES BEFORE BEDTIME 07/28/2022 Active B Pkbshgs-O-Kebrc Acid (Angela-Michelle Rx) 1 MG TABS 1 (one) tablet Active vitamin D, ergocalciferol, (Drisdol) 1.25 MG (35966 UT) capsule TAKE 1 CAPSULE BY MOUTH ONE TIME PER WEEK 08/23/2021 Active ibuprofen (Motrin) 800 MG tablet Take 1 (one) tablet by mouth 3 times daily 07/27/2022 Active Active Problems Patient Care Coordination No te Formatting of this note migh t be different from the original. NOP CC 2014 No known active problems Social History [...] Comments Blood Pressure 123/79 08/24/2022 2:06 PM PATIENT SUPPORT PARTNER Pulse 91 08/24/2022 2:06 PM PATIENT SUPPORT PARTNER Temperature - - Respiratory Rate - - Oxygen Saturation 99% 08/24/2022 2:06 PM PATIENT SUPPORT PARTNER Inhaled Oxygen Concentration - - Weight 104.8 kg (231 lb) 08/24/2022 2:06 PM PATIENT SUPPORT PARTNER Height 162.6 cm (5' 4 ) 08/24/2022 2:06 PM PATIENT SUPPORT PARTNER Body Mass Index 39.65 08/24/2022 2:06 PM PATIENT SUPPORT PARTNER Plan of Treatment Health Maintenance Due Date Last Done Comments PAP SMEAR 1989 HIV SCREENING 2004 HEPATITIS C SCREENING 06/25/2007 DTAP/TDAP/TD VACCINES (1 - Tdap) 2008 HEPATITIS B VACCINE (1 of 3 - 19+ 3-dose series) 2008 COVID-19 VACCINE (1 - 2023-2 5 season) 2024 DEPRESSION SCREENING 07/23/2024 INFLUENZA VACCINE (Season Ended) 2025 ZOSTER VACCINE (1 of 2) 2039 HIB VACCINE Aged Out No longer eligi ble based on patient's age to complete this topic HPV VACCINE Aged Out No longer eligi ble based on patient's age to complete this topic MENINGOCOCCAL (Group B) VACC INE SHARED DECISION-MAKING Aged Out No longer eligibl e based on patient's age to complete this topic MENINGOCOCCAL GROUPS A/C/Y/W VACCINE Aged Out No longer eligible b ased on patient's age to complete this topic PNEUMOCOCCAL VACCINE Aged Out No long er eligible based on patient's age to complete this topic
--- OUTSIDE RECORDS SUMMARY | 2024-10-24 19:45 | XMS_ITS | Clinical Summary ---
Author Organization [facility] Address [address] [place] [address] Phone Care Team Providers Care Escrow Assistant Name Role Phone Unavailable Primary Care Provider Unavailabl e Encounters Date Type Department Care Team Description 10/08/2024 External Device Data STL ABSTRACTION Provider, Abstract 10/08/2024 External Device Data STL ABSTRACTION Provider, Abstract 09/27/2024 External Device Data STL ABSTRACTION Provider, Abstract 09/26/2024 External Device Data STL ABSTRACTION Provider, Abstract 09/23/2024 External Device Data STL ABSTRACTION Provider, Abstract 09/10/2024 External Device Data STL ABSTRACTION Provider, Abstract 09/09/2024 External Device Data STL ABSTRACTION Provider, Abstract 08/13/2024 External Device Data STL ABSTRACTION Provider, Abstract 08/12/2024 External Device Data STL ABSTRACTION Provider, Abstract from Last 3 Months Social History Tobacco [...] of 3 - 19+ 3-dose series) 2008 HPV/Cotest (21-29) 2010 PAP SMEAR 2010 CERVICAL CANCER SCREENING 2019 HPV/Cotest (30-65) 2019 PAP SMEAR 2019 INFLUENZA VACCINE (#1) 2024 HPV VACCINES Aged Out No longer eligi ble based on patient's age to complete this topic Insurance MEDICAID
--- OUTSIDE RECORDS SUMMARY | 2024-10-24 19:45 | XMS_ITS | Referral Summary ---
Author Organization [facility] Address [address] [place] [phone] Care Team Providers Care Triage Licensed Practical Nurse Name Role Phone Josey Lemus MD Unavailable [phone] Naina Casillas NP Primary Care Provider [phone] Encounters Date Type Department Care Team Description 08/19/2024 6:15 PM MEDIA DIRECTOR Office Visit [facility] Care [address] [place] [address] Mary Ann Meza NP Dental infection (Primary Dx) 08/14/2024 2:45 PM MEDIA DIRECTOR Office Visit [facility] at [place] [address] [place] [address] Mary Ann Meza NP Dental infection (Primary Dx) 08/04/2024 5:30 PM MEDIA DIRECTOR Office Visit [facility] Care at [address] [place] [address] Angely Don NP Dental infection (Primary Dx) [...] MOUTH ONE TIME PER WEEK 1 Active ysr184-hzuw-old ic-om3 25 mg iron-1 mg -400 mg combo pack Take by mouth Ac tive vitamin B complex no.8-amtjb-T-bi otin 1-60-300 mg-mg-mcg tabletIndicatio ns:Vitamin Deficiency Prevention [...] unequal placental sharing, which can result in Xfdv-zz-Kwiv transfusion Syndrome (TTTS), Twin Anemia-Polycythemia Sequence (TAPS), [...] be managed and there have not been intermediate frame tender effects reported. Plan: - Monitor mood each [...] Overview (12/13/2020): [] Co-management vs. [x] Full [facility] Care; [] Red Team [x] Blue Team Referring Provider: Transfer of care from Dr Josey Lemus [phone] [] Eyewitness Surveillance or Medicare Insurance [x] Dating Criteria: LMP [...] [] MOC: [] Method of feeding: [] Physical Therapy Resident: [] PP Depression Discussed: Estimated Date of [...] Comments Blood Pressure 122/74 08/19/2024 6:33 PM MEDIA DIRECTOR Pulse 72 08/19/2024 6:33 PM MEDIA DIRECTOR Temperature 36.6 C (97.8 F) 08/19/2024 6:33 PM MEDIA DIRECTOR Respiratory Rate 18 08/19/2024 6:33 PM MEDIA DIRECTOR Oxygen Saturation 98% 08/19/2024 6:33 PM MEDIA DIRECTOR Inhaled Oxygen Concentration - - Weight 99.8 kg (220 lb) 08/19/2024 6:33 PM MEDIA DIRECTOR Height 162.6 cm (5' 4 ) 08/19/2024 6:33 PM MEDIA DIRECTOR Body Mass Index 37.76 08/19/2024 6:33 PM MEDIA DIRECTOR Plan of Treatment Not on file Insurance [facility] Care Teams Triage Licensed Practical Nurse Relationship Specialty Start Date End Date Naina Casillas NP [address] [place] [address] PCP - General Family Medicine 07/27/22 Josey Lemus MD [address] [place] [address] Referring Physician Gynecology 11/26/20
[2024-10-24 19:50] VITALS: BP 168/81; PULSE 80; RESP 20; TEMP 36.9; O2SAT 98
== END 2024-10-24 20:11 | disposition home or self-care (01) ==
PROVIDERS: Emergency Provider Nurse Practitioner; PCP Nurse Practitioner Family
DX: R09.81 Nasal congestion (principal); H92.02 Otalgia, left ear; K13.70 Unspecified lesions of oral mucosa; M79.10 Myalgia, unspecified site; E55.9 Vitamin D deficiency, unspecified; Z87.891 Personal history of nicotine dependence
CPT/HCPCS: 99211; G0463

== ENCOUNTER 2024-10-24 20:52 | Emergency (ER) | payer OTHER, SELFPAY ==
--- NOTE | ~2024-10-24 | CT_ITS ---
History: Bilateral leg pain and paresthesias. Left arm weakness PROCEDURE: CT cervical spine without intravenous contrast. COMPARISON: Reference is made to a plain film evaluation of the cervical spine dated 09/20/2022 TECHNIQUE: Multiple contiguous axial images of the cervical spine were performed without the administration of i ntravenous contrast. DLP: 338 mGy-cm FINDINGS: Straightening of the normal curvature of the cervical spine is identified, likely muscular in origin. No acute fractures are present. The bilateral lung apices are unremarkable. No soft tissue abnormality is present. The airway is patent. Impression: Straightening of the normal curvature of the cervical spine, likely muscular in origin. No acute fracture. Reviewed, dictated and finalized at location A. Impression: Straightening of the normal curvature of the cervical spine, likely muscular in origin. No acute fracture.
--- NOTE | ~2024-10-24 | CT_ITS ---
History: Bilateral leg pain and paresthesias PROCEDURE: CT lumbar spine without intravenous contrast. COMPARISON: None TECHNIQUE: Multiple contiguous axial images of the lumbar spine were performed without the administration of int ravenous contrast. DLP: 1244 mGy-cm FINDINGS: Preservation of the normal lordotic curvature of the lumbar spine is identified. No acute compression fractures are present. No soft tissue abnormality is noted. Impression: No acute compression fracture. Reviewed, dictated and finalized at location A. Impression: No acute compression fracture.
[2024-10-24 20:55] VITALS: BP 133/78; PULSE 76; RESP 14; TEMP 36.4; O2SAT 100
--- OUTSIDE RECORDS SUMMARY | 2024-10-24 20:56 | XMS_ITS | Clinical Summary ---
Author Organization [facility] Address [address] [place] [address] Care Team Providers Care Supervisor [employer] Name Role Phone Unavailable Primary Care Provider Unavailabl e Source Comments [facility],non-owned Affiliates and Associated Physician Practices is amultiple site organization consisting of ambulatory clinics and hospital sitesin [place], [place]. This disclosure is being madepursuant to the Care Everywhere program and may not contain all information available regarding this patient. Last updated 18.[facility] Allergies No known active allergies Medications * Be aware that medications may not be up to date on this document. Alwaysverify current medications with the patient. Medication Sig Dispensed Refills Start Date End Date Status clonazePAM (KlonoPIN) 0.5 MG tablet TAKE 1/2 TABLET BY MOUTH TWICE A DAY NEEDED FOR ANXIETY ADMINISTER 30 MINUTES BEFORE BEDTIME 07/28/2022 Active B Nfdycsn-K-Rdagc Acid (Angela-Michelle Rx) 1 MG TABS 1 (one) tablet Active vitamin D, ergocalciferol, (Drisdol) 1.25 MG (47485 UT) capsule TAKE 1 CAPSULE BY MOUTH [...] Comments Blood Pressure 123/79 08/24/2022 2:06 PM SENIOR DATABASE PROGRAMMER Pulse 91 08/24/2022 2:06 PM SENIOR DATABASE PROGRAMMER Temperature - - Respiratory Rate - - Oxygen Saturation 99% 08/24/2022 2:06 PM SENIOR DATABASE PROGRAMMER Inhaled Oxygen Concentration - - Weight 104.8 kg (231 lb) 08/24/2022 2:06 PM SENIOR DATABASE PROGRAMMER Height 162.6 cm (5' 4 ) 08/24/2022 2:06 PM SENIOR DATABASE PROGRAMMER Body Mass Index 39.65 08/24/2022 2:06 PM SENIOR DATABASE PROGRAMMER Plan of Treatment Health Maintenance Due Date [...]
--- OUTSIDE RECORDS SUMMARY | 2024-10-24 20:56 | XMS_ITS | Referral Summary ---
Author Organization [facility] Address [address] [place] [address] Care Team Providers Care Provider Relations Coordinator Name Role Phone Josey Lemus MD Unavailable [phone] Naina Casillas NP Primary Care Provider [phone] Encounters Date Type Department Care Team Description 08/19/2024 6:15 PM RAD TECHNOLOGIST Office Visit [facility]ient Care at [address] [place] [address] Mary Ann Meza NP Dental infection (Primary Dx) 08/14/2024 2:45 PM RAD TECHNOLOGIST Office Visit [facility] Care at [place] [address] [place] [address] Mary Ann Meza NP Dental infection (Primary Dx) 08/04/2024 5:30 PM RAD TECHNOLOGIST Office Visit [facility] Care at [address] [place] [address] Angely Don NP Dental infection (Primary Dx) [...] MOUTH ONE TIME PER WEEK 1 Active [id number] ic-om3 25 mg iron-1 mg -400 mg combo pack Take by mouth Ac tive vitamin B complex no.7-lwaqk-E-bi otin 1-60-300 mg-mg-mcg tabletIndicatio ns:Vitamin Deficiency Prevention [...] unequal placental sharing, which can result in Qbqg-ve-Gjgd transfusion Syndrome (TTTS), Twin Anemia-Polycythemia Sequence (TAPS), [...] managed and there have not been intermediate teacher effects reported. Plan: - Monitor mood each [...] Overview (12/13/2020): [] Co-management vs. [x] Full [facility] Care; [] Red Team [x] Blue Team Referring Provider: Transfer of care from Dr Josey Lemus [phone] [] [place] or Medicare Insurance [x] Dating Criteria: LMP [...] [] MOC: [] Method of feeding: [] X Ray Nurse: [] PP Depression Discussed: Estimated Date of [...] Comments Blood Pressure 122/74 08/19/2024 6:33 PM RAD TECHNOLOGIST Pulse 72 08/19/2024 6:33 PM RAD TECHNOLOGIST Temperature 36.6 C (97.8 F) 08/19/2024 6:33 PM RAD TECHNOLOGIST Respiratory Rate 18 08/19/2024 6:33 PM RAD TECHNOLOGIST Oxygen Saturation 98% 08/19/2024 6:33 PM RAD TECHNOLOGIST Inhaled Oxygen Concentration - - Weight 99.8 kg (220 lb) 08/19/2024 6:33 PM RAD TECHNOLOGIST Height 162.6 cm (5' 4 ) 08/19/2024 6:33 PM RAD TECHNOLOGIST Body Mass Index 37.76 08/19/2024 6:33 PM RAD TECHNOLOGIST Plan of Treatment Not on file Insurance [facility] Care Teams Provider Relations Coordinator Relationship Specialty Start Date End Date Naina Casillas NP [address] [place] [address] PCP - General Family Medicine 07/27/22 Josey Lemus MD [address] [place] [address] Referring Physician Gynecology 11/26/20
--- OUTSIDE RECORDS SUMMARY | 2024-10-24 20:56 | XMS_ITS | Clinical Summary ---
Author Organization [facility] Address [address] [place] [address] Phone Care Team Providers Care Timber Spotter Name Role Phone Unavailable Primary Care Provider [...]
--- OUTSIDE RECORDS SUMMARY | 2024-10-24 20:56 | XMS_ITS | Clinical Summary ---
Author Organization [facility] Address [address] [place] [address] Phone Care Team Providers Care Store Gift Wrap Associate Name Role Phone Bird Franks MD Primary Care Provider Marita Clay MANGLE CATCHER, ACCOUNT SERVICES COORDINATOR Unavailable [phone] Allergies No known active allergies Medications CHOLECALCIFEROL PO Take by mouth. Active clonazePAM (KlonoPIN) 0.5 MG Tablet Take 0.5 mg by mouth 3 times daily. Active ibuprofen (MOTRIN) 800 MG Tablet Take 800 mg by mouth every 8 hours. Active B Complex Vitamins (VITAMIN B COMPLEX PO) Take by mouth. 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
--- OUTSIDE RECORDS SUMMARY | 2024-10-24 20:56 | XMS_ITS | Clinical Summary ---
Author Organization [facility] Address [address] [place] [address] Care Team Providers Care Automatic Driller And Reamer Name Role Phone Josey Lemus MD Unavailable [phone] Naina Casillas NP Primary Care Provider [phone] Allergies No known active allergies Medications Purelax [...] MOUTH ONE TIME PER WEEK 1 Active [id number] ic-om3 25 mg iron-1 mg -400 mg combo pack Take by mouth Ac tive vitamin B complex no.8-ocycy-A-bi otin 1-60-300 mg-mg-mcg tabletIndicatio ns:Vitamin Deficiency Prevention [...] unequal placental sharing, which can result in Nusb-rc-Tjml transfusion Syndrome (TTTS), Twin Anemia-Polycythemia Sequence (TAPS), [...] be managed and there have not been extermination supervisor effects reported. Plan: - Monitor mood each [...] Transfer of care from Dr Josey Lemus [phone] [] [place] or Medicare Insurance [x] Dating Criteria: LMP [...] [] MOC: [] Method of feeding: [] Sap Abap Developer: [] PP Depression Discussed: Estimated Date of Delivery Comme nts Yes 08/18/2024 Encounters Date Type Department Care Team Description 08/19/2024 6:15 PM REPRODUCTION MACHINE LOADER Office Visit [facility] Medical [facility] Convenient Care at [address] [place] [address] Mary Ann Meza NP Dental infection (Primary Dx) 08/14/2024 2:45 PM REPRODUCTION MACHINE LOADER Office Visit [facility]ient Care at [address] [place] [address] Mary Ann Meza NP Dental infection (Primary Dx) 08/04/2024 5:30 PM REPRODUCTION MACHINE LOADER Office Visit [facility] Care at [address] [place] [address] Angely Don NP Dental infection (Primary Dx) [...] Comments Blood Pressure 122/74 08/19/2024 6:33 PM REPRODUCTION MACHINE LOADER Pulse 72 08/19/2024 6:33 PM REPRODUCTION MACHINE LOADER Temperature 36.6 C (97.8 F) 08/19/2024 6:33 PM REPRODUCTION MACHINE LOADER Respiratory Rate 18 08/19/2024 6:33 PM REPRODUCTION MACHINE LOADER Oxygen Saturation 98% 08/19/2024 6:33 PM REPRODUCTION MACHINE LOADER Inhaled Oxygen Concentration - - Weight 99.8 kg (220 lb) 08/19/2024 6:33 PM REPRODUCTION MACHINE LOADER Height 162.6 cm (5' 4 ) 08/19/2024 6:33 PM REPRODUCTION MACHINE LOADER Body Mass Index 37.76 08/19/2024 6:33 PM REPRODUCTION MACHINE LOADER Plan of Treatment Health Maintenance Due Date [...] patient's age to complete this topic Insurance [facility] [id number] [place] [address] Care Teams Automatic Driller And Reamer Relationship Specialty Start Date End Date Naina Casillas NP [address] [place] [address] PCP - General Family Medicine 07/27/22 Josey Lemus MD [address] [place] [address] Referring Physician Gynecology 11/26/20
[2024-10-24 21:10] LABS: BEDSIDEPREGUCG Negative (Negative)
[2024-10-24 21:13] LABS: Add Urine Microscopic? NO; Appearance Urine Clear (Clear); Bilirubin Urine Negative (Negative); Blood Urine Negative (Negative); Color Urine Yellow (Yellow); Glucose Urine UA Negative (Negative); Ketones Urine Negative (Negative); Leukocyte Esterase Ur Negative LEU/UL (Negative); Nitrate Urine Negative (Negative); Protein Urine Negative (Negative); Specific Grav Ur 1.004 (1.001-1.035); Urobilinogen Urine 0.2 mg/dL (<2.0)
[2024-10-24 21:22] VITALS: BP 135/81; PULSE 82; RESP 14; O2SAT 99
[2024-10-24 21:29] LABS: Basophils Percent Auto 0.4 % (0.2-1.2); Eosinophils Absolute Auto 0.1 K/mm3 (0-0.3); Eosinophils Percent Auto 1.6 % (0-4.4); Hematocrit 45.8 % (37.0-47.0); Immature Granulocyte Absolute 0.03 K/mm3 (0.00-0.031); Immature Granulocyte Percent A 0.3 % (0-0.5); Lymphocytes Absolute Auto 1.76 K/mm3 (0.9-3.2); Lymphocytes Percent Auto 19.7 % (18.3-44.2); Mean Corpuscular HGB Conc 32.8 g/dl (32-36); Mean Corpuscular Hemoglobin 31.2 pg (26-34); Mean Corpuscular Volume 95.2 fl (80-100); Mean Platelet Volume 11.1 fl (7.4-10.4); Monocytes Absolute Auto 0.5 K/mm3 (0.1-0.6); Neutrophils Absolute Auto 6.4 K/mm3 (1.3-6.7); Platelet Count Result 230 k/mm3 (150-375); Red Blood Count 4.81 M/mm3 (4.2-5.4); Red Cell Distribution Width 12.2 % (11.5-14.5); White Blood Count 8.9 K/mm3 (4.5-10.0)
[2024-10-24 21:35] LABS: Alanine Aminotransferase 23 U/L (6-35); Albumin Level 4.8 g/dL (3.5-5.1); Alkaline Phosphatase 92 U/L (38-126); Anion Gap 11 mmol/L (4-12); Aspartate Amino Transferase 20 U/L (14-36); Bilirubin,Total 0.4 mg/dL (0.2-1.3); Blood Urea Nitrogen 14 mg/dL (7-17); Calcium 9.4 mg/dL (8.4-10.2); Carbon Dioxide 26 mmol/L (22-30); Chloride 101 mmol/L (98-107); Creatine Kinase 57 U/L (30-135); Estimated CRCL calculation 126 ml/min; Estimated Glomerular Filt Rate > 60; Glucose 119 mg/dL (65-110); Magnesium 2.1 mg/dL (1.6-2.3); Sodium 138 mmol/L (137-145)
--- OUTSIDE RECORDS SUMMARY | 2024-10-24 21:42 | XMS_ITS | Clinical Summary ---
Author Organization [facility] Address [address] [place] [address] Care Team Providers Care Account Clerk Name Role Phone Unavailable Primary Care Provider Unavailabl e Source Comments [facility],non-owned Affiliates and Associated Physician Practices is amultiple site organization consisting of ambulatory clinics and hospital sitesin [place], [place], [place] and [place]. This disclosure is being madepursuant to the Care Everywhere program and may not contain all information available regarding this patient. Last updated 18.[facility] Allergies No known active allergies Medications * Be aware that medications may not be up to date on this document. Alwaysverify current medications with the patient. Medication Sig Dispensed Refills Start Date End Date Status clonazePAM (KlonoPIN) 0.5 MG tablet TAKE 1/2 TABLET BY MOUTH TWICE A DAY NEEDED FOR ANXIETY ADMINISTER 30 MINUTES BEFORE BEDTIME 07/28/2022 Active B Lbmcsih-F-Vxslz Acid (Angela-Michelle Rx) 1 MG TABS 1 (one) tablet Active vitamin D, ergocalciferol, (Drisdol) 1.25 MG (87592 UT) capsule TAKE 1 CAPSULE BY MOUTH [...] Comments Blood Pressure 123/79 08/24/2022 2:06 PM CORE WINDER MACHINE OPERATOR Pulse 91 08/24/2022 2:06 PM CORE WINDER MACHINE OPERATOR Temperature - - Respiratory Rate - - Oxygen Saturation 99% 08/24/2022 2:06 PM CORE WINDER MACHINE OPERATOR Inhaled Oxygen Concentration - - Weight 104.8 kg (231 lb) 08/24/2022 2:06 PM CORE WINDER MACHINE OPERATOR Height 162.6 cm (5' 4 ) 08/24/2022 2:06 PM CORE WINDER MACHINE OPERATOR Body Mass Index 39.65 08/24/2022 2:06 PM CORE WINDER MACHINE OPERATOR Plan of Treatment Health Maintenance Due Date [...]
--- OUTSIDE RECORDS SUMMARY | 2024-10-24 21:42 | XMS_ITS | Clinical Summary ---
Author Organization [facility] Address [address] [place] [address] Phone Care Team Providers Care Professor Of Exercise Science Name Role Phone Unavailable Primary Care Provider [...]
--- OUTSIDE RECORDS SUMMARY | 2024-10-24 21:42 | XMS_ITS | Clinical Summary ---
Author Organization [facility] Address [address] [place] [address] Phone Care Team Providers Care Veneer Sawyer Name Role Phone Bird Franks MD Primary Care Provider Marita Clay VEIN PUMPER, NETWORKS COMPUTER CONSULTANT Unavailable [phone] Allergies No known active allergies Medications CHOLECALCIFEROL PO Take by mouth. Active clonazePAM (KlonoPIN) 0.5 MG Tablet Take 0.5 mg by mouth 3 times daily. Active ibuprofen (MOTRIN) 800 MG Tablet Take 800 mg by mouth every 8 hours. Active B Complex Vitamins (VITAMIN B COMPLEX PO) Take by mouth. 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
--- OUTSIDE RECORDS SUMMARY | 2024-10-24 21:42 | XMS_ITS | Referral Summary ---
Author Organization [facility] Address [address] [place] [address] Care Team Providers Care Water Quality Manager Name Role Phone Josey Lemus MD Unavailable Naina Casillas NP Primary Care Provider [phone] Encounters Date Type Department Care Team Description 08/19/2024 6:15 PM MASH FILTER PRESS OPERATOR Office Visit [facility]ient Care at [address] [place] [address] Mary Ann Meza NP Dental infection (Primary Dx) 08/14/2024 2:45 PM MASH FILTER PRESS OPERATOR Office Visit [facility]ient Care at [place] [address] [place] [address] Mary Ann Meza NP Dental infection (Primary Dx) 08/04/2024 5:30 PM MASH FILTER PRESS OPERATOR Office Visit [facility] Care at [address] [place] [address] Angely Don NP Dental infection (Primary Dx) [...] MOUTH ONE TIME PER WEEK 1 Active ovq365-kugj-zib ic-om3 25 mg iron-1 mg -400 mg combo pack Take by mouth Ac tive vitamin B complex no.4-xnqkv-Z-bi otin 1-60-300 mg-mg-mcg tabletIndicatio ns:Vitamin Deficiency Prevention [...] unequal placental sharing, which can result in Ufap-nz-Ixgr transfusion Syndrome (TTTS), Twin Anemia-Polycythemia Sequence (TAPS), [...] be managed and there have not been marine oil terminal superintendent effects reported. Plan: - Monitor mood each [...] Overview (12/13/2020): [] Co-management vs. [x] Full [facility] Care; [] Red Team [x] Blue Team Referring Provider: Transfer of care from Dr Josey Lemus [phone] [] [employer] or Medicare Insurance [x] Dating Criteria: LMP [...] [] MOC: [] Method of feeding: [] Mathematics Education Professor: [] PP Depression Discussed: Estimated Date of [...] Comments Blood Pressure 122/74 08/19/2024 6:33 PM MASH FILTER PRESS OPERATOR Pulse 72 08/19/2024 6:33 PM MASH FILTER PRESS OPERATOR Temperature 36.6 C (97.8 F) 08/19/2024 6:33 PM MASH FILTER PRESS OPERATOR Respiratory Rate 18 08/19/2024 6:33 PM MASH FILTER PRESS OPERATOR Oxygen Saturation 98% 08/19/2024 6:33 PM MASH FILTER PRESS OPERATOR Inhaled Oxygen Concentration - - Weight 99.8 kg (220 lb) 08/19/2024 6:33 PM MASH FILTER PRESS OPERATOR Height 162.6 cm (5' 4 ) 08/19/2024 6:33 PM MASH FILTER PRESS OPERATOR Body Mass Index 37.76 08/19/2024 6:33 PM MASH FILTER PRESS OPERATOR Plan of Treatment Not on file Insurance [facility] Care Teams Water Quality Manager Relationship Specialty Start Date End Date Naina Casillas NP [address] [place] [address] PCP - General Family Medicine 07/27/22 Josey Lemus MD [address] [place] [address] Referring Physician Gynecology 11/26/20
--- OUTSIDE RECORDS SUMMARY | 2024-10-24 21:42 | XMS_ITS | Clinical Summary ---
Author Organization [facility] Address [address] [place] [address] Care Team Providers Care Eligibility Services Representative Name Role Phone Josey Lemus MD Unavailable [phone] Naina Casillas NP Primary Care Provider [phone] Allergies No known active allergies Medications Purelax [...] MOUTH ONE TIME PER WEEK 1 Active [id number]-roz ic-om3 25 mg iron-1 mg -400 mg combo pack Take by mouth Ac tive vitamin B complex no.9-xddca-B-bi otin 1-60-300 mg-mg-mcg tabletIndicatio ns:Vitamin Deficiency Prevention [...] unequal placental sharing, which can result in Xlct-sc-Kdxg transfusion Syndrome (TTTS), Twin Anemia-Polycythemia Sequence (TAPS), [...] be managed and there have not been parts counterman effects reported. Plan: - Monitor mood each [...] Referring Provider: Transfer of care from Dr Josye Lemus [phone] [] [employer] or Medicare Insurance [x] Dating Criteria: LMP [...] [] MOC: [] Method of feeding: [] Shoe Sprayer: [] PP Depression Discussed: Estimated Date of Delivery Comme nts Yes 08/18/2024 Encounters Date Type Department Care Team Description 08/19/2024 6:15 PM MAINFRAME SYSTEMS PROGRAMMER Office Visit [facility] Medical [facility] Convenient Care at [address] [place] [address] Mary Ann Meza NP Dental infection (Primary Dx) 08/14/2024 2:45 PM MAINFRAME SYSTEMS PROGRAMMER Office Visit [facility] Care at [address] [place] [address] Mary Ann Meza NP Dental infection (Primary Dx) 08/04/2024 5:30 PM MAINFRAME SYSTEMS PROGRAMMER Office Visit [facility] at [address] [place] [address] Angely Don NP Dental infection (Primary Dx) [...] Comments Blood Pressure 122/74 08/19/2024 6:33 PM MAINFRAME SYSTEMS PROGRAMMER Pulse 72 08/19/2024 6:33 PM MAINFRAME SYSTEMS PROGRAMMER Temperature 36.6 C (97.8 F) 08/19/2024 6:33 PM MAINFRAME SYSTEMS PROGRAMMER Respiratory Rate 18 08/19/2024 6:33 PM MAINFRAME SYSTEMS PROGRAMMER Oxygen Saturation 98% 08/19/2024 6:33 PM MAINFRAME SYSTEMS PROGRAMMER Inhaled Oxygen Concentration - - Weight 99.8 kg (220 lb) 08/19/2024 6:33 PM MAINFRAME SYSTEMS PROGRAMMER Height 162.6 cm (5' 4 ) 08/19/2024 6:33 PM MAINFRAME SYSTEMS PROGRAMMER Body Mass Index 37.76 08/19/2024 6:33 PM MAINFRAME SYSTEMS PROGRAMMER Plan of Treatment Health Maintenance Due [...] patient's age to complete this topic Insurance [facility] [id number] [place] [address] Care Teams Eligibility Services Representative Relationship Specialty Start Date End Date Naina Casillas NP [address] [place] [address] PCP - General Family Medicine 07/27/22 Josey Lemus MD [address] [place] [address] Referring Physician Gynecology 11/26/20
--- NOTE | 2024-10-24 21:43 | ED_ITS ---
HPI - General Adult General Chief complaint: Unspecified Stated complaint: Body vibrating, muscle spasms, weakness Time Seen by Provider: 10/24/24 21:16 Source: patient Mode of arrival: ambulatory Limitations: no limitations History of Present Illness HPI narrative: Patient presents with complaint of feeling like her body is vibrating. She has had weakness throughout her body as well as feeling muscle spasms, primarily in her legs. She states it feels like a nerve pulsation. She states she has a history of back and neck issues with C5-C6 central canal stenosis. Earlier today she had a floating feeling while she was walking. She states she saw chiropractor last month and also had a some nausea for these issues since a been going on for a bit. She does not know she has been having low back pain but she reports tingling in her bilateral legs well as subjective left arm weakness. In general she states that she will feel her muscles particularly in her legs twitching and feeling tense and tight. She initially visit in urgent care for this earlier today was told male available toe was also further and that she might have electrolyte abnormalities. She is status post 3 rounds of antibiotics for infected broken to the left side for which she is also experiencing a burning sensation in left ear. She has a dentist and is trying to connect with to make an appointment. She states that she has a primary care nurse practitioner provider through [facility] although she has not seen them in a while. She is approximately 2 and half months after having a child on 08/12/2024. She states her les get tense. Related Data Home Medications ?Medication ?Instructions ?Recorded ?Confirmed ?Last Taken ?Type vit no.95-ferrous 1 tablet PO DAILY 07/19/24 07/19/24 07/19/24 History fumarate 28 mg-folic acid 800 mcg tablet () Allergies Allergy/AdvReac Type Severity Reaction Status Date / Time No Known Allergies Allergy Unknown Verified 10/24/24 20:53 [facility] Past Medical History Medical History Spontaneous vaginal delivery 08/12/24 Vitamin D deficiency Hx gestational diabetes (~2020) Anxiety Surgical History Surgical History No pertinent past surgical history Family History Family History Mother Bipolar 1 disorder Social History Social History Smoking packs per day: 1 Smoking cigarettes per day: 20.0 Years smoked: 8 Smoking pack-years: 8.00 Smoking status: Former smoker Tobacco type: cigarettes Second hand tobacco smoke exposure: No Smoking end date: 08/27/17 Alcohol intake: never Substance use: never Substance use type: does not use Do You Feel Safe in your Home?: Yes Lack of Transportation: No Lack of Food: Never True Current Housing: I Have Housing Concerned About Future Housing: No Difficulty Paying Gas/Electric Bills: No Difficulty Paying for Meds: No Currently Unemployed: No Education: Associate Degree Difficulty w/ Childcare or Family Care: No Living arrangements: with family Additional living arrangements comments: Lives with boyfriend of 12 years and has 4 children. Has a set of twins. Occupation/Education: unemployed Gender identity (if verbalized by the patient): Female Sexual Orientation (if Verbalized by the Patient): Straight or Heterosexual Spiritual care concerns: No Agree to blood products: Yes Exam 2 Narrative: GENERAL: Well-appearing, well-nourished, and in no acute distress. HEAD: Normocephalic, atraumatic. EYES: Non injected, non icteric ENT: Nares clear, no rhinorrhea or epistaxis. Fractured tooth on left without adjacent abscess. No fluctuance of cheek, both external or buccal surface, no induration. Gums not tender to percussion. Moist mucous membranes. No trismus. Left ear without effusion, erythema, bulging, vessicles. NECK: Supple. CHEST: Speaking in full sentences. No respiratory distress. HEART: Regular rate and rhythm. . ABDOMEN: Soft, nondistended. EXTREMITIES: Normal range of motion. No bilateral lower extremity edema. SKIN: Warm, dry, no rash. NEURO: No focal deficits. Alert and oriented x3. Sensation intact throughout bilateral legs, symmetric. No motor drift x4 extremities. Normal strength as demonstrates 5/5 strength with bilateral elbow flexion extension as well as shoulder abduction, against resistance. No abnormal movements appreciated. PSYCH: Normal mood and affect. Course Vital Signs Vital signs: Vital Signs Temperature 97.6 F 10/24/24 20:55 Pulse Rate 76 10/24/24 20:55 Respiratory Rate 14 10/24/24 20:55 Blood Pressure 133/78 10/24/24 20:55 Pulse Oximetry 100 10/24/24 20:55 Temperature 98.1 F 10/24/24 22:45 Pulse Rate 74 10/24/24 22:45 Respiratory Rate 13 10/24/24 22:45 Blood Pressure 116/73 10/24/24 22:45 Pulse Oximetry 98 10/24/24 22:45 Medical Decision Making MDM Narrative Medical decision making narrative: Patient presents with complaint of feeling that her body is vibrating in particular a twitching in tense sensation in her bilateral legs which also feel like they are tingling. She also reports subjective left arm weakness and also muscle spasms. In the emergency department they are afebrile with vital signs within normal limits. test negative. CBC unremarkable. Normal renal function. No marked electrolyte abnormalities. Dimer normal. I did go to the bedside and explain patient's workup with her. She is reassured. I discussed with her that there was no signs of an infection in her left ear and does not appear to have another need for round of antibiotics for her broken tooth although I did encourage her to call a dentist and she verifies understanding and was in agreement. She states she was taking a magnesium supplement but stopped because it made her tired and I told her that she could continue to take that or use topical magnesium if she desired but there was no evidence of magnesium deficiency on her labs. Provided follow-up contact information as a referral to a new primary care physician if patient is unable to follow-up with her previous IT HELP DESK TECHNICIAN. Differential Diagnosis Differential Diagnosis: Look rhabdomyolysis, electrolyte abnormalities, symptomatic anemia, MS, post hormonal changes; stenosis; peripheral neuropathy; psychogenic; DVT Vital Signs Vital Signs: Vital Signs Temperature 97.6 F 10/24/24 20:55 Pulse Rate 76 10/24/24 20:55 Respiratory Rate 14 10/24/24 20:55 Blood Pressure 133/78 10/24/24 20:55 Pulse Oximetry 100 10/24/24 20:55 Temperature 98.1 F 10/24/24 22:45 Pulse Rate 74 10/24/24 22:45 Respiratory Rate 13 10/24/24 22:45 Blood Pressure 116/73 10/24/24 22:45 Pulse Oximetry 98 10/24/24 22:45 Lab Data Lab results reviewed: Yes I reviewed the patient's lab results. Lab results narrative: Urinalysis unremarkable. CPK within normal limits. 10/24/24 21:21 10/24/24 21:21 Labs: Lab Results 10/24/24 10/24/24 10/24/24 Range/Units 21:07 21:09 21:20 WBC (4.5-10.0) K/mm3 RBC (4.2-5.4) M/mm3 Hgb (12.0-15.0) g/dL Hct (37.0-47.0) % MCV (80-100) fl MCH (26-34) pg MCHC (32-36) g/dl RDW (11.5-14.5) % Plt Count (150-375) k/mm3 MPV (7.4-10.4) fl Immature Gran % (Auto) (0-0.5) % Neut % (Auto) (45.5-73.1) % Lymph % (Auto) (18.3-44.2) % [place] % (Auto) (2.6-8.5) % Eos % (Auto) (0-4.4) % Baso % (Auto) (0.2-1.2) % Lymph # (Auto) (0.9-3.2) K/mm3 [place] # (Auto) (0.1-0.6) K/mm3 Eos # (Auto) (0-0.3) K/mm3 Baso # (Auto) (0.0-0.1) K/mm3 Abs Immat Gran (auto) (0.00-0.031) K/mm3 Absolute Neuts (auto) (1.3-6.7) K/mm3 Absolute Nucleated RBC (0.0-0.012) K/mm3 Nucleated RBC % (0.0-0.2) % D-Dimer (<0.48) ug/mL Sodium Cancelled Potassium Cancelled Chloride Cancelled Carbon Dioxide Cancelled Anion Gap Cancelled BUN Cancelled Creatinine Cancelled Estim Creat Clear Calc Cancelled Estimated GFR Cancelled Glucose Cancelled Calcium Cancelled Magnesium (1.6-2.3) mg/dL Total Bilirubin Cancelled AST Cancelled ALT Cancelled Alkaline Phosphatase Cancelled Total Creatine Kinase (30-135) U/L Total Protein Cancelled Albumin Cancelled Urine Color Yellow (Yellow) Urine Appearance Clear (Clear) Urine pH 6.0 (5.0-9.0) Ur Specific [place] 1.004 (1.001-1.035) Urine Protein Negative (Negative) mg/dL Urine Glucose (UA) Negative (Negative) mg/dL Urine Ketones Negative (Negative) mg/dL Ur Blood (Man) Negative (Negative) Urine Nitrate Negative (Negative) Urine Bilirubin Negative (Negative) Urine Urobilinogen 0.2 (<2.0) mg/dL Leukocyte Esterase Rfl Negative (Negative) PRASANNA/UL POC Urine HCG, Qual Negative (Negative) 10/24/24 10/24/24 Range/Units 21:21 22:41 WBC 8.9 (4.5-10.0) K/mm3 RBC 4.81 (4.2-5.4) M/mm3 Hgb 15.0 (12.0-15.0) g/dL Hct 45.8 (37.0-47.0) % MCV 95.2 (80-100) fl MCH 31.2 (26-34) pg MCHC 32.8 (32-36) g/dl RDW 12.2 (11.5-14.5) % Plt Count 230 (150-375) k/mm3 MPV 11.1 H (7.4-10.4) fl Immature Gran % (Auto) 0.3 (0-0.5) % Neut % (Auto) 72.0 (45.5-73.1) % Lymph % (Auto) 19.7 (18.3-44.2) % [place] % (Auto) 6.0 (2.6-8.5) % Eos % (Auto) 1.6 (0-4.4) % Baso % (Auto) 0.4 (0.2-1.2) % Lymph # (Auto) 1.76 (0.9-3.2) K/mm3 [place] # (Auto) 0.5 (0.1-0.6) K/mm3 Eos # (Auto) 0.1 (0-0.3) K/mm3 Baso # (Auto) 0.0 (0.0-0.1) K/mm3 Abs Immat Gran (auto) 0.03 (0.00-0.031) K/mm3 Absolute Neuts (auto) 6.4 (1.3-6.7) K/mm3 Absolute Nucleated RBC 0.000 (0.0-0.012) K/mm3 Nucleated RBC % 0.0 (0.0-0.2) % D-Dimer < 0.27 (<0.48) ug/mL Sodium 138 Potassium 4.0 Chloride 101 Carbon Dioxide 26 Anion Gap 11 BUN 14 Creatinine 0.60 L Estim Creat Clear Calc 126 Estimated GFR > 60 Glucose 119 H Calcium 9.4 Magnesium 2.1 (1.6-2.3) mg/dL Total Bilirubin 0.4 AST 20 ALT 23 Alkaline Phosphatase 92 Total Creatine Kinase 57 (30-135) U/L Total Protein 8.0 Albumin 4.8 Urine Color (Yellow) Urine Appearance (Clear) Urine pH (5.0-9.0) Ur Specific [place] (1.001-1.035) Urine Protein (Negative) mg/dL Urine Glucose (UA) (Negative) mg/dL Urine Ketones (Negative) mg/dL Ur Blood (Man) (Negative) Urine Nitrate (Negative) Urine Bilirubin (Negative) Urine Urobilinogen (<2.0) mg/dL Leukocyte Esterase Rfl (Negative) PRASANNA/UL POC Urine HCG, Qual (Negative) Imaging Data Radiologist's impression: Impressions Cervical Spine CT 10/24/24 22:30 Impression: Straightening of the normal curvature of the cervical spine, likely muscular in origin. No acute fracture. Lumbar Spine CT 10/24/24 22:33 Impression: No acute compression fracture. Discharge Plan Discharge Clinical Impression: Paresthesia of bilateral legs, Subjective muscle weakness, Muscle spasm of both lower legs Patient Disposition: Home, Self-Care Condition: Stable Instructions: Antibiotic Form, Paresthesia (ED), Muscle Spasm (ED) Additional Instructions: No identifiable cause your symptoms as your CT scans inferior C-spine and L- spine were unremarkable and your labs including all electrolytes, hemoglobin, and, D-dimer and CPK were normal. Follow up with the IT HELP DESK TECHNICIAN you see as your primary care provider. If you are having difficulty reestablishing with them, the name of a doctor is listed below. Return to the emergency department with any new or worsening symptoms. Patient Language: Maori Prescriptions: No Action cholecalciferol (vitamin D3) 50 mcg (2,000 unit) capsule 50 mcg PO DAILY Qty: 1 0RF PNV cmb#51-ferrous fumarate-FA [] 28 mg iron- 800 mcg tablet 1 tablet PO DAILY Follow-up/Referrals: Naina Casillas, IT HELP DESK TECHNICIAN [Primary Care Provider] - Ebony Garcia DO [Physician] - (family practice) Stand Alone Forms: Work/School Release IP Time of Disposition: 23:15
[2024-10-24 22:45] VITALS: BP 116/73; PULSE 74; RESP 13; TEMP 36.7; O2SAT 98
[2024-10-24 23:07] LABS: D Dimer < 0.27 ug/mL (<0.48)
== END 2024-10-24 23:30 | disposition home or self-care (01) ==
PROVIDERS: Emergency Provider Student in an Organized Health Care Education/Training Program; PCP Nurse Practitioner Family
DX: M62.838 Other muscle spasm (principal); R20.2 Paresthesia of skin; M62.81 Muscle weakness (generalized); E55.9 Vitamin D deficiency, unspecified; F41.9 Anxiety disorder, unspecified; Z87.891 Personal history of nicotine dependence
CPT/HCPCS: 36415; 72125; 72131; 80053; 81003; 81025; 82550; 83735; 85025; 85380; 99284